=== PATIENT | female | born 1945 | race Caucasian/White ===

== ENCOUNTER → 2016-12-22 | Outpatient (CLI) | payer MEDICARE ==
[~2016-12-22] MED LIST: CHOL200024 PO; CYCL-375 PO; DOCU100T10 PO; FAMO20TA8 PO; FENT1PAT65 TOP; FERR325C PO; GABA-338 PO; GARL1CAP PO; IOHEXOL 300 MG/ML 100ml INJECTION ONE; METF500T7 PO; NORMAL SALINE 100 ML ONE; OXYC1TAB13 PO; SALINE FLUSH 10ml SYRINGE ONE; VITA400C19 PO; WARF5TAB6 PO
--- NOTE | 2016-12-22 11:03 | DI ---
EXAM: CT CHEST/ABD/PELVIS WC IV contrast COMPARISON: 09/01/2016 CT chest abdomen and pelvis. HISTORY: ITS.REASON: C54.1 Malignant neoplasm of endometrium LOCATION OF DICTATION: [facility] – [place]. TECHNIQUE: With administration of 100 cc Omnipaque 300 helically acquired scans were obtained from the lung apices through the domes of the diaphragms. The study is reviewed in soft tissue, bone and lung windows. The study is reconstructed in thinner axial sections and in coronal reformations. The current CT scan was performed using radiation dose-reduction techniques. FINDINGS: SOFT TISSUES: No axillary or supraclavicular, mediastinal, or hilar lymphadenopathy is identified. The vascular structures appear unremarkable. No significant pericardial effusion is identified. CHEST WALL: Unremarkable. BONES: Endplate sclerosis and spurring is noted of the thoracic spine. No evidence for osseous metastasis. LUNGS: Unremarkable. The lungs are clear. CHEST IMPRESSION: Unremarkable exam. No evidence for pulmonary metastasis is identified. ABDOMEN AND PELVIS FINDINGS: LIVER: Diffusely hypodense which may represent fatty infiltration. Mild central intrahepatic ductal dilatation. GALLBLADDER: Multiple hypodense foci are seen layering at the fundus of the gallbladder consistent with gallstones. No other signs of acute cholecystitis is identified. SPLEEN: Unremarkable. PANCREAS: Diffusely atrophic. ADRENAL GLANDS: Unremarkable. AORTA/IVC/VASCULATURE: Unremarkable. LYMPH NODES: There is an ovoid hypodense rim-enhancing area in the region of the right external iliac chain measuring 2.7 x 3.6 cm. Previously this had measured 2.6 x 3 cm. Although this measures larger than prior exam,. Appears to have more low density centrally and may represent necrotic matted lymphadenopathy. Borderline right inguinal lymph nodes are again noted but are similar to prior exam. Small left inguinal lymph nodes are also noted but are not pathologically enlarged. No lymphadenopathy is seen in the abdomen or pelvis otherwise. GENITOURINARY: Unremarkable. No renal calculi or obstructive uropathy. The bladder and ureters appear unremarkable. There is a rounded hypodense lesion emanating off the inferior pole of the left kidney likely representing a cyst and is similar to the prior exam. This measures 3.6 cm in diameter. A similar adjacent lesion is also seen at the mid to inferior pole measuring 2 cm. This also likely represents a cyst and is similar to the prior exam. BOWEL: Unremarkable. The stomach, duodenum, small bowel, and colon appear unremarkable. There is a small to moderate amount of stool seen throughout the colon. Scattered diverticula are noted without evidence for acute diverticulitis. The appendix is air-filled and is unremarkable. The terminal ileum is unremarkable. ABDOMINAL/PELVIC WALL: Small umbilical defect without herniated loops of bowel. BONES: There is disc space narrowing and vacuum phenomenon and endplate sclerosis at L2-3. There is superior migration of the hips. Previous sacral plasty is noted of the sacral ala. No evidence for osseous metastasis. Facet hypertrophic changes are seen of the lower lumbar spine. ABDOMEN AND PELVIS IMPRESSION: 1. There is again seen a low-density structure at the right external iliac chain which although measures slightly larger than prior exam has a more of a low density center and may represent necrotic matted lymphadenopathy. 2. No lymphadenopathy is otherwise identified. 3. Cholelithiasis without other signs of acute cholecystitis. 4. Fatty infiltration of the liver with mild central intrahepatic ductal dilatation. NOTE: The study was reviewed with the ordering clinician, LASHAY GRIMM on 12/22/2016 10:38 AM. .
== END ==
LOC: IMA 07:26
PROVIDERS: ATTEND Internal Medicine Hematology & Oncology
DX: C54.1 Malignant neoplasm of endometrium (principal); K76.0 Fatty (change of) liver, not elsewhere classified; K80.20 Calculus of gallbladder without cholecystitis without obstruction; R93.8 Abnormal findings on diagnostic imaging of other specified body structures
CPT/HCPCS: 71260; 74177; J7050; Q9967

== ENCOUNTER 2017-01-09 16:19 | Emergency (ER) | payer MEDICARE ==
[~2017-01-09] VITALS: Ht 157.5 cm; Wt 80.1 kg
[~2017-01-09 16:19] MED LIST changes: -IOHEXOL 300 MG/ML 100ml INJECTION ONE; -NORMAL SALINE 100 ML ONE; -SALINE FLUSH 10ml SYRINGE ONE
[2017-01-09 16:21] VITALS: Ht 157.5 cm; Wt 80.1 kg
--- OUTSIDE RECORDS SUMMARY | 2017-01-09 16:24 | XMS REPORT ---
Author Author GENERATED, SYSTEM Organization Unknown Address Unknown Phone Unavailable Care Team Providers Care Travel Sales Consultant Name Role Phone MD JOSELUIS, SHAANMULU PP [phone] Reason For Visit Reason for Visit from 09/15/2016 3:21 PM:* Pt Stated Reason for Adm : labs Chief Complaint C54.8, C77.5, D64.81 Social History Functional Status Functional Status from 09/15/2016 3:21 PM:* LOC : Alert * Oriented To : Person,Place,Time,Event Vital Signs Hospital Vital Signs from 09/15/2016 3:21 PM:* Weight : 195/ lbs,oz * Height : 5/2 ft,in Hospital Vital Signs from 09/15/2016 2:18 PM:* Height : 5/2 ft,in * Temperature : 97.1 F * Pulse : 78 * Respirations : 18 * BP : 117/56 Results Hematology from 09/15/2016 2:29 PMWBC 4.6 X10e3/UL (3.6-11.2 X10e3/UL) RBC 3.09 X10e6/UL L (3.63-4.92 X10e6/UL) HEMOGLOBIN 9.6 G/DL L (11.0-14.3 G/DL) HEMATOCRIT 29.4 % L (31.2-41.9 %) *MCV 95.3 FL (79.0-98.0 FL) *MCH 31.2 PG (27.0-33.0 PG) *MCHC 32.8 G/DL (32.0-36.0 G/DL) *RDW 16.7 % (12.3-17.0 %) *RDWSD 56.0 H (37.1-47.8 ) PLATELET 189 X10e3/UL (159-386 X10e3/UL) *MPV 7.7 FL (7.4-10.4 FL) Problems Encounter Diagnosis No relevant problems exist. Encounters Encounter Diagnosis No relevant problems exist. Plan of Care Procedures * Completed Procedure Code: [id number] Procedure Name: not valued, on 06/24/2016 12:00 AM * Completed Procedure Code: 00. Procedure Name: not valued, on 11/26/2014 12: 00 AM * Completed Procedure Code: 00. Procedure Name: not valued, on 11/19/2014 12: 00 AM Immunizations No immunizations administered or ordered. Hospital Course Hospital Discharge Instructions Allergies, Adverse Reactions, Alerts * Penicillins causes unspecified. * Latex Allergy has not been assessed. * IV Contrast Allergy has not been assessed. Medication Medication reconciliation has not been performed.
--- OUTSIDE RECORDS SUMMARY | 2017-01-09 16:24 | XMS REPORT ---
Author Author GENERATED, SYSTEM Organization Unknown Address Unknown Phone Unavailable Care Team Providers Care Enamel Dipper Name Role Phone MD JOSELUIS, THELMA [phone] Reason For Visit Reason for Visit from 06/24/2016 2:30 PM:* Pt Stated Reason for Adm : planned bilateral sacroplasty Chief Complaint C54.1 M85.80 G89.3,SACROPLASTY IN CT WITH DR DELA CRUZ Social History Social History from 06/24/2016 4:15 PM:* Tobacco Use? : Never Smoker Functional Status Functional Status from 06/24/2016 2:30 PM:* LOC : Alert * Oriented To : Person,Place,Time,Event Vital Signs Hospital Vital Signs from 06/24/2016 4:05 PM:* Weight : 90.718/ kg * Height : 5/2 ft,in * Pulse : 80 * Respirations : 18 * BP : 117/70 Hospital Vital Signs from 06/24/2016 3:55 PM:* Weight : 90.718/ kg * Height : 5/2 ft,in * Pulse : 82 * Respirations : 16 * BP : 118/67 Hospital Vital Signs from 06/24/2016 3:45 PM:* Weight : 90.718/ kg * Height : 5/2 ft,in * Pulse : 81 * Respirations : 18 * BP : 123/63 Hospital Vital Signs from 06/24/2016 3:35 PM:* Weight : 90.718/ kg * Height : 5/2 ft,in * Pulse : 85 * Respirations : 16 * BP : 141/59 Hospital Vital Signs from 06/24/2016 2:30 PM:* Weight : 200/ lbs,oz * Height : 5/2 ft,in * Height : 5/2 ft,in * Temperature : 98.2 F * Pulse : 91 * Respirations : 18 * BP : 124/68 Results Problems Encounter Diagnosis No relevant problems exist. Encounters Encounter Diagnosis No relevant problems exist. Plan of Care Procedures * Completed Procedure Code: 00.00 Procedure Name: not valued, on 11/26/2014 12: 00 AM * Completed Procedure Code: 00.00 Procedure Name: not valued, on 11/19/2014 12: 00 AM Immunizations No immunizations administered or ordered. Hospital Course Hospital Discharge Instructions How to care for yourself at home from 06/24/2016 4:15 PM:* Discharge Activity : Activity as tolerated,Do not engage in sports, heavy work or heavy lifting until your physician gives permission * Discharge Diet : As before hospitalization * Remove dressing in: : Bandaid later today * Call your doctor if: : Fever over 101 F or severe chills,Chest pain or other unexplained symptoms,Tingling or numbness develops,A sudden increase or decrease in weight,You have persistent or worsening symptoms,If you have Heart Failure and you gain 3 pounds within 1 week or your symptoms worsen. (Weigh at home tomorrow morning) * Specific Discharge Teaching Instructions provided: : No * Discharge on Warfarin : Yes * Appointment for INR : scheduled with Dr. Odonnell Allergies, Adverse Reactions, Alerts * Penicillins causes unspecified. * No Latex Allergy. * No IV Contrast Allergy. Medication Medication reconciliation has not been performed.
--- OUTSIDE RECORDS SUMMARY | 2017-01-09 16:24 | XMS REPORT ---
Author Author GENERATED, SYSTEM Organization Unknown Address Unknown Phone Unavailable Care Team Providers Care Electronic Security Specialist Name Role Phone MD JOSELUIS, THELMA PP [phone] Reason For Visit Reason for Visit from 08/16/2016 2:11 PM:* Pt Stated Reason for Adm : Lab Chief Complaint C54.8, C77.5, D64.81 Social History Functional Status Functional Status from 08/16/2016 2:11 PM:* LOC : Alert * Oriented To : Person,Place,Time Vital Signs Hospital Vital Signs from 08/16/2016 2:11 PM:* Weight : 200/ lbs,oz * Weight : 90.718/ kg * Height : 5/2 ft,in * Height : 5/2 ft,in * Temperature : 96.6 F * Pulse : 77 * Respirations : 18 * BP : 146/61 Results Hematology from 08/16/2016 2:25 PMWBC 6.6 X10e3/UL (3.6-11.2 X10e3/UL) RBC 3.10 X10e6/UL L (3.63-4.92 X10e6/UL) HEMOGLOBIN 10.1 G/DL L (11.0-14.3 G/DL) HEMATOCRIT 30.2 % L (31.2-41.9 %) *MCV 97.3 FL (79.0-98.0 FL) *MCH 32.7 PG (27.0-33.0 PG) *MCHC 33.6 G/DL (32.0-36.0 G/DL) *RDW 18.1 % H (12.3-17.0 %) *RDWSD 61.7 H (37.1-47.8 ) PLATELET 204 X10e3/UL (159-386 X10e3/UL) *MPV 7.6 FL (7.4-10.4 FL) AUTOMATED DIFF PERFORMED SEGS 76.7 % *LYMPHOCYTES 11.3 % *MONOCYTES 10.9 % *EOSINOPHILS 0.8 % *BASOPHILS 0.3 % *ABSOLUTE NEUTROPHILS 5.10 X10e3/UL (1.80-7.80 X10e3/UL) *ABSOLUTE LYMPHOCYTES 0.70 X10e3/UL L (1.00-3.00 X10e3/UL) *ABSOLUTE MONOCYTES 0.70 X10e3/UL (0.30-1.00 X10e3/UL) *ABSOLUTE EOSINOPHILS 0.10 X10e3/UL (0.00-0.50 X10e3/UL) *ABSOLUTE BASOPHILS 0.00 X10e3/UL (0.00-0.20 X10e3/UL) Problems Encounter Diagnosis No relevant problems exist. Encounters Encounter Diagnosis No relevant problems exist. Plan of Care Procedures * Completed Procedure Code: [id number] Procedure Name: not valued, on 06/24/2016 12:00 AM * Completed Procedure Code: 00.00 Procedure [...]
--- OUTSIDE RECORDS SUMMARY | 2017-01-09 16:24 | XMS REPORT ---
Author Author GENERATED, SYSTEM Organization Unknown Address Unknown Phone Unavailable Care Team Providers Care Advertising Space Clerk Name Role Phone MD JOSELUIS, THELMA PP [phone] Reason For Visit Reason for Visit from 05/30/2016 12:30 PM:* Pt Stated Reason for Adm : Lab from [facility] Chief Complaint C54.8, C77.5, D64.81 Social History Functional Status Functional Status from 06/02/2016 12:25 PM:* LOC : Alert * Oriented To : Person,Place,Time,Event Functional Status from 05/30/2016 12:30 PM:* LOC : Alert * Oriented To : Person,Place,Time,Event Vital Signs Hospital Vital Signs from 06/02/2016 12:27 PM:* Height : 5/2 ft,in * Temperature : 96.7 F * Pulse : 81 * Respirations : 18 * BP : 134/67 Hospital Vital Signs from 05/30/2016 12:30 PM:* Weight : 195/ lbs,oz * Height : 5/2 ft,in * Height : 5/2 ft,in * Temperature : 96.7 F * Pulse : 80 * Respirations : 18 * BP : 115/48 Results Chemistry from 06/02/2016 12:33 PMSODIUM 137 MMOL/L (136-145 MMOL/L) POTASSIUM 4.1 MMOL/L (3.5-5.1 MMOL/L) CHLORIDE 103 MMOL/L (98-107 MMOL/L) TCO2 27.9 MMOL/L (21.0-32.0 MMOL/L) *ANION GAP 6.1 MMOL/L L (8.0-16.0 MMOL/L) BUN 24 MG/DL H (7-18 MG/DL) CREATININE 0.71 MG/DL (0.55-1.02 MG/DL) *BUN/CREATININE RATIO 33.8 H (9.1-17.0 ) GLUCOSE 142 MG/DL H (65-99 MG/DL) *GFR EST NON AFR AFGHAN 86 ML/MIN *GFR EST AFR AMER >90 ML/MIN CALCIUM 8.7 MG/DL (8.5-10.1 MG/DL) BILIRUBIN TOTAL 0.30 MG/DL (0.20-1.00 MG/DL) TOTAL PROTEIN 6.8 GM/DL (6.4-8.2 GM/DL) ALBUMIN 3.4 GM/DL (3.4-5.0 GM/DL) *GLOBULIN 3.4 GM/DL (2.3-3.5 GM/DL) *A/G RATIO 1.0 MG/DL L (1.5-2.2 MG/DL) ALK PHOS 103 U/L (46-116 U/L) ALT (SGPT) 26 U/L (16-63 U/L) AST (SGOT) 17 U/L (15-37 U/L) MAGNESIUM 1.6 MG/DL L (1.8-2.4 MG/DL) LDH 217 U/L (81-234 U/L) Chemistry from 05/30/2016 12:50 PMSODIUM 138 MMOL/L (136-145 MMOL/L) POTASSIUM 4.0 MMOL/L (3.5-5.1 MMOL/L) CHLORIDE 103 MMOL/L (98-107 MMOL/L) TCO2 28.7 MMOL/L (21.0-32.0 MMOL/L) *ANION GAP 6.3 MMOL/L L (8.0-16.0 MMOL/L) BUN 33 MG/DL H (7-18 MG/DL) CREATININE 0.91 MG/DL (0.55-1.02 MG/DL) *BUN/CREATININE RATIO 36.3 H (9.1-17.0 ) GLUCOSE 169 MG/DL H (65-99 MG/DL) *GFR EST NON AFR AFGHAN 64 ML/MIN *GFR EST AFR AMER 74 ML/MIN CALCIUM 8.7 MG/DL (8.5-10.1 MG/DL) BILIRUBIN TOTAL 0.40 MG/DL (0.20-1.00 MG/DL) TOTAL PROTEIN 7.0 GM/DL (6.4-8.2 GM/DL) ALBUMIN 3.4 GM/DL (3.4-5.0 GM/DL) *GLOBULIN 3.6 GM/DL H (2.3-3.5 GM/DL) *A/G RATIO 0.9 MG/DL L (1.5-2.2 MG/DL) ALK PHOS 93 U/L (46-116 U/L) ALT (SGPT) 24 U/L (16-63 U/L) AST (SGOT) 15 U/L (15-37 U/L) MAGNESIUM 1.5 MG/DL L (1.8-2.4 MG/DL) LDH 184 U/L (81-234 U/L) Hematology from 06/02/2016 12:33 PMWBC 10.4 X10e3/UL (3.6-11.2 X10e3/UL) RBC 2.87 X10e6/UL L (3.63-4.92 X10e6/UL) HEMOGLOBIN 9.2 G/DL L (11.0-14.3 G/DL) HEMATOCRIT 27.1 % L (31.2-41.9 %) *MCV 94.2 FL (79.0-98.0 FL) *MCH 32.0 PG (27.0-33.0 PG) *MCHC 34.0 G/DL (32.0-36.0 G/DL) *RDW 18.9 % H (12.3-17.0 %) *RDWSD 62.1 H (37.1-47.8 ) PLATELET 87 X10e3/UL L (159-386 X10e3/UL) *MPV 8.9 FL (7.4-10.4 FL) *MANUAL DIFF PERFORMED SEGS 63.0 % *BANDS 14.0 % *LYMPHOCYTES 11.0 % *MONOCYTES 9.0 % *EOSINOPHILS 0.0 % *BASOPHILS 0.0 % *REACTIVE LYMPHOCYTES 3.0 % *ABSOLUTE NEUTROPHILS 8.01 X10e3/UL H (1.80-7.80 X10e3/UL) *ABSOLUTE LYMPHOCYTES 1.46 X10e3/UL (1.00-3.00 X10e3/UL) *ABSOLUTE MONOCYTES 0.94 X10e3/UL (0.30-1.00 X10e3/UL) *ABSOLUTE EOSINOPHILS 0.00 X10e3/UL (0.00-0.50 X10e3/UL) *ABSOLUTE BASOPHILS 0.00 X10e3/UL (0.00-0.20 X10e3/UL) *POLYCHROMASIA 1+ *HYPOCHROMASIA 1+ ANISOCYTOSIS 3+ *TOXIC GRANULATION 2+ WBC VACUOLES 1+ Hematology from 05/30/2016 12:50 PMWBC 4.4 X10e3/UL (3.6-11.2 X10e3/UL) RBC 3.09 X10e6/UL L (3.63-4.92 X10e6/UL) HEMOGLOBIN 9.6 G/DL L (11.0-14.3 G/DL) HEMATOCRIT 29.4 % L (31.2-41.9 %) *MCV 95.0 FL (79.0-98.0 FL) *MCH 31.2 PG (27.0-33.0 PG) *MCHC 32.8 G/DL (32.0-36.0 G/DL) *RDW 18.8 % H (12.3-17.0 %) *RDWSD 61.7 H (37.1-47.8 ) PLATELET 111 X10e3/UL L (159-386 X10e3/UL) *MPV 8.9 FL (7.4-10.4 FL) *MANUAL DIFF PERFORMED SEGS 44.0 % *BANDS 15.0 % *LYMPHOCYTES 25.0 % *MONOCYTES 14.0 % *EOSINOPHILS 2.0 % *BASOPHILS 0.0 % *ABSOLUTE NEUTROPHILS 2.60 X10e3/UL (1.80-7.80 X10e3/UL) *ABSOLUTE LYMPHOCYTES 1.10 X10e3/UL (1.00-3.00 X10e3/UL) *ABSOLUTE MONOCYTES 0.62 X10e3/UL (0.30-1.00 X10e3/UL) *ABSOLUTE EOSINOPHILS 0.09 X10e3/UL (0.00-0.50 X10e3/UL) *ABSOLUTE BASOPHILS 0.00 X10e3/UL (0.00-0.20 X10e3/UL) *POLYCHROMASIA 1+ *HYPOCHROMASIA 1+ ANISOCYTOSIS 3+ Problems Encounter Diagnosis No relevant problems exist. [...]
--- OUTSIDE RECORDS SUMMARY | 2017-01-09 16:24 | XMS REPORT ---
Author Author GENERATED, SYSTEM Organization Unknown Address Unknown Phone Unavailable Care Team Providers Care Retort Kiln Burner Name Role Phone MD JOSELUIS, THELMA PP [phone] Reason For Visit Chief Complaint 782.0 V58.61 Social History Functional Status Vital Signs Results Chemistry from 07/16/2015 12:29 PMSODIUM 141 MMOL/L (136-145 MMOL/L) POTASSIUM 4.4 MMOL/L (3.5-5.1 MMOL/L) CHLORIDE 104 MMOL/L (98-107 MMOL/L) TCO2 26.9 MMOL/L (21.0-32.0 MMOL/L) *ANION GAP 10.1 MMOL/L (8.0-16.0 MMOL/L) BUN 32 MG/DL H (7-18 MG/DL) CREATININE 1.12 MG/DL H (0.55-1.02 MG/DL) *BUN/CREATININE RATIO 28.6 H (9.1-17.0 ) GLUCOSE 143 MG/DL H (65-99 MG/DL) *GFR EST NON AFR CZECH 50 ML/MIN *GFRA EST AFR AMER 58 ML/MIN CALCIUM 8.7 MG/DL (8.5-10.1 MG/DL) BILIRUBIN TOTAL 0.26 MG/DL (0.20-1.00 MG/DL) TOTAL PROTEIN 7.6 GM/DL (6.4-8.2 GM/DL) ALBUMIN 3.5 GM/DL (3.4-5.0 GM/DL) *GLOBULIN 4.1 GM/DL H (2.3-3.5 GM/DL) *A/G RATIO 0.9 MG/DL L (1.5-2.2 MG/DL) ALK PHOS 76 U/L (46-116 U/L) ALT (SGPT) 25 U/L (16-63 U/L) AST (SGOT) 20 U/L (15-37 U/L) LDH 189 U/L (81-234 U/L) Hematology from 08/05/2015 3:06 PMWBC 2.6 X10e3/UL L (3.6-11.2 X10e3/UL) RBC 3.79 X10e6/UL (3.63-4.92 X10e6/UL) HEMOGLOBIN 11.2 G/DL (11.0-14.3 G/DL) HEMATOCRIT 34.6 % (31.2-41.9 %) *MCV 91.2 FL (79.0-98.0 FL) *MCH 29.6 PG (27.0-33.0 PG) *MCHC 32.5 G/DL (32.0-36.0 G/DL) *RDW 16.1 % (12.3-17.0 %) *RDWSD 52.1 H (37.1-47.8 ) PLATELET 177 X10e3/UL (159-386 X10e3/UL) *MPV 7.7 FL (7.4-10.4 FL) *MANUAL DIFF PERFORMED SEGS 69.0 % *BANDS 2.0 % *LYMPHOCYTES 19.0 % *MONOCYTES 4.0 % *EOSINOPHILS 6.0 % *BASOPHILS 0.0 % *ABSOLUTE NEUTROPHILS 1.85 X10e3/UL (1.80-7.80 X10e3/UL) *ABSOLUTE LYMPHOCYTES 0.49 X10e3/UL L (1.00-3.00 X10e3/UL) *ABSOLUTE MONOCYTES 0.10 X10e3/UL L (0.30-1.00 X10e3/UL) *ABSOLUTE EOSINOPHILS 0.16 X10e3/UL (0.00-0.50 X10e3/UL) *ABSOLUTE BASOPHILS 0.00 X10e3/UL (0.00-0.20 X10e3/UL) Hematology from 07/16/2015 12:29 PMWBC 3.4 X10e3/UL L (3.6-11.2 X10e3/UL) RBC 3.75 X10e6/UL (3.63-4.92 X10e6/UL) HEMOGLOBIN 10.7 G/DL L (11.0-14.3 G/DL) HEMATOCRIT 33.1 % (31.2-41.9 %) *MCV 88.3 FL (79.0-98.0 FL) *MCH 28.6 PG (27.0-33.0 PG) *MCHC 32.4 G/DL (32.0-36.0 G/DL) *RDW 16.1 % (12.3-17.0 %) PLATELET 190 X10e3/UL (159-386 X10e3/UL) *MPV 7.7 FL (7.4-10.4 FL) AUTOMATED DIFF PERFORMED SEGS 75.4 % *LYMPHOCYTES 12.2 % *MONOCYTES 7.0 % *EOSINOPHILS 5.2 % *BASOPHILS 0.2 % *ABSOLUTE NEUTROPHILS 2.60 X10e3/UL (1.80-7.80 X10e3/UL) *ABSOLUTE LYMPHOCYTES 0.40 X10e3/UL L (1.00-3.00 X10e3/UL) *ABSOLUTE MONOCYTES 0.20 X10e3/UL L (0.30-1.00 X10e3/UL) *ABSOLUTE EOSINOPHILS 0.20 X10e3/UL (0.00-0.50 X10e3/UL) *ABSOLUTE BASOPHILS 0.00 X10e3/UL [...]
--- OUTSIDE RECORDS SUMMARY | 2017-01-09 16:25 | XMS REPORT ---
Author Author GENERATED, SYSTEM Organization Unknown Address Unknown Phone Unavailable Care Team Providers Care Sqe Name Role Phone MD JOSELUIS, THELMA PP [phone] Reason For Visit Chief Complaint 782.0 V58.61 Social History Functional Status Vital Signs Results Hematology from 05/07/2015 11:45 AMWBC 1.9 X10e3/UL LL (3.6-11.2 X10e3/UL) RBC 3.48 X10e6/UL L (3.63-4.92 X10e6/UL) HEMOGLOBIN 10.5 G/DL L (11.0-14.3 G/DL) HEMATOCRIT 32.1 % (31.2-41.9 %) MCV 92.2 FL (79.0-98.0 FL) MCH 30.0 PG (27.0-33.0 PG) MCHC 32.6 G/DL (32.0-36.0 G/DL) RDW 17.5 % H (12.3-17.0 %) RDWSD 56.4 H (37.1-47.8 ) PLATELET 193 X10e3/UL (159-386 X10e3/UL) MPV 8.0 FL (7.4-10.4 FL) MANUAL DIFF PERFORMED SEGS 59.0 % BANDS 3.0 % LYMPHOCYTES 26.0 % MONOCYTES 9.0 % EOSINOPHILS 2.0 % BASOPHILS 0.0 % REACTIVE LYMPHOCYTES 1.0 % ABSOLUTE NEUTROPHILS 1.18 X10e3/UL L (1.80-7.80 X10e3/UL) ABSOLUTE LYMPHOCYTES 0.51 X10e3/UL L (1.00-3.00 X10e3/UL) ABSOLUTE MONOCYTES 0.17 X10e3/UL L (0.30-1.00 X10e3/UL) ABSOLUTE EOSINOPHILS 0.04 X10e3/UL (0.00-0.50 X10e3/UL) ABSOLUTE BASOPHILS 0.00 X10e3/UL (0.00-0.20 X10e3/UL) POLYCHROMASIA 1+ ANISOCYTOSIS 3+ Coagulation from 05/07/2015 11:45 AMPROTHROMBIN TIME 32.3 SECONDS H (9.4-11.5 SECONDS) INR 2.9 H (0.9-1.1 ) Reference Lab from 05/07/2015 11:45 AMVITAMIN D, 25-HYDROXY 40.2 ng/mL (30.0- 100.0 ng/mL) Problems Encounter Diagnosis No relevant problems exist. [...]
--- OUTSIDE RECORDS SUMMARY | 2017-01-09 16:25 | XMS REPORT | Continuity of Care Document ---
Author Author [facility] Organization [facility] Address Unknown Phone Unavailable Care Team Providers Care Supervisor Wrapping Room Name Role Phone THELMA HUGGINS MD Primary Care Physician [phone] Insurance Providers Guarantor Tessa Lion Address [address] [place] [id number] Email [email or web address] Payer [employer] Policy Number [id number] Subscriber's Name Tessa Lion Brianne Relationship 19 Self Chief Complaint and Reason for Visit Chief Complaint Headache Reason for Visit Closed head injury Fall Problems Active Problems Medical Problem Onset Date Status Closed head injury Unknown Acute Fall Unknown Acute Past Problems Medical Problem Onset Date Radicular pain of right lower back Unknown Medications Current Home Medications Medication Dose Units Route Directions Days Qty Instructions Start Date Cholecalciferol (Vitamin D3) (Vitamin D-3) 2,000 Unit Tablet 2,000 Unit Oral Bedtime 08/16/16 Cholecalciferol (Vitamin D3) (Vitamin D-3) 2,000 Unit Tablet 4,000 Unit Oral Every Morning 08/16/16 Cyclobenzaprine Hcl 10 Mg Tablet 1 Tab Oral Three Times A Day 15 Tablet 08/16/16 Docusate Sodium (Stool Softener) 100 Mg Tablet 1 Tab Oral Four Times Daily 10/26/16 Famotidine 20 Mg Tablet 20 Mg Oral Daily 10/26/16 Fentanyl (Fentanyl 25 Mcg/Hr) 1 Each Patch.td72 1 Patch Topically Every 72 Hours 10/26/16 Ferrous Sulfate (Iron) Unknown Strength Capsule.er Unknown Dose Oral Give With Breakfast 08/16/16 Gabapentin 300 Mg Capsule 300 Mg Oral Twice A Day 08/16/16 Garlic 1 Mg Capsule 1 Mg Oral Twice A Day 09/01/14 Metformin Hcl (Metformin Hcl Er) 500 Mg Tab.er.24h 500 Mg Oral Twice A Day 08/16/16 Oxycodone Hcl/Acetaminophen (Percocet 10-325 Mg Tablet) 10-325 Tablet 1 Tab Oral Four Times Daily as needed for Pain 08/16/16 Vitamin E (Dl,Tocopheryl Acet) (Vitamin E) 400 Unit Capsule 800 Unit Oral Daily 09/01/14 Warfarin Sodium 5 Mg Tablet 5 Mg Oral Bedtime 09/01/14 Social History Social History Problem Response Recorded Date/Time Onset Date Status Hx Substance Use No 10/26/2016 11:10am Not Applicable Not Applicable Hx Alcohol Use No 10/26/2016 11:10am Not Applicable Not Applicable Has the pt used tobacco in the last 12 months No 08/05/2016 10:31am Not Applicable Not Applicable Query Response Start Date Stop Date Smoking Status Never smoker Hospital Discharge Instructions No hospital discharge instructions. Plan of Care Discharge Date 10/26/16 12:23pm Disposition 01 DISCHARGED HOME, SELF-CARE Condition at Discharge Improved Instructions/Education Provided General Headache (ED) Prescriptions See Medication Section Referrals THELMA HUGGINS MD Order Date: 1 Day Address: [address] [address] Note: Care Plan and Goals Physician Care Plan Problem: CHI, Fall Goal: Follow up with primary care provider Instructions: Take medications and follow care plan as discussed/written Functional Status No functional status results. Allergies, Adverse Reactions, Alerts Allergen Type Severity Reaction Status Last Updated Penicillin Allergy Unknown RASH Active 08/16/16 Immunizations Query Response on File Recorded Date/Time Hx Influenza Vaccination No 08/05/16 10:31am Hx Pneumococcal Vaccination No 08/05/16 10:31am Hx Influenza Vaccination No 08/05/16 10:31am Influenza Vaccine Hx NO 10/26/16 11:10am Vital Signs Acute Vital Signs Vital Response Date/Time Temperature (Fahrenheit) 98.4 deg F (96.8 - 99.1) 10/26/2016 10:25am Temperature (Calculated Celsius) 36.10561 degrees C (36.0 - 37.3) 10/26/2016 10:25am Pulse Rate (adult) 99 bpm (60 - 100) 10/26/2016 12:23pm Respiratory Rate 18 breaths/min (10 - 20) 10/26/2016 12:23pm O2 Sat by Pulse Oximetry 95 % (90 - 100) 10/26/2016 12:23pm Oxygen Delivery Method Room Air 08/05/2016 10:32am Blood Pressure 123/57 mm Hg 10/26/2016 12:23pm Blood Pressure Source Automatic Cuff 08/05/2016 10:32am Height (Feet) 5 feet 10/26/2016 10:25am Height (Inches) 2.00 inches 10/26/2016 10:25am Weight (Kilograms) 84.400 kg 10/26/2016 10:25am Body Mass Index (BMI) 34.0 10/26/2016 10:25am Results Laboratory Results Test Name Result Units Flags Reference Collection Date/Time Result Date/ Time Comments Metamyelocytes % 2.0 % H 0-0 06/09/2016 9:40am 06/09/2016 10:46am Metamyelocytes # 0.1 T/MM3 06/09/2016 9:40am 06/09/2016 10:46am Absolute Reticulocyte Count 0.0844 T/MM3 0.0300-0.0900 05/16/2016 9: 44am 05/16/2016 10:03am Percent Reticulocyte Count 3.5 % H 0.6-1.7 05/16/2016 9:44am 05/16/2016 10:03am Immature Reticulocyte Fraction 16.7 % H 3.3-14.5 05/16/2016 9:44am 05/16 10:03am Reticulocyte Hgb Content (CHr) 36.7 PG H 30.8-36.6 05/16/2016 9:44am 10/2015 10:03am Iron Level 61 UG/DL 37-170 05/16/2016 9:44am 05/18/2016 2:52am Total Iron Binding Capacity 321 UG/DL 261-497 05/16/2016 9:44am 2015 2:52am Percent Iron Saturation 19 % 9-55 05/16/2016 9:44am 05/18/2016 2:52am Ferritin 209 NG/ML 11-264 05/16/2016 9:44am 05/18/2016 2:58am Vitamin B12 Level > 1000 PG/ML H 239-931 05/16/2016 9:44am 05/18/2016 3: 12am Folate > 20.0 NG/ML H 2.76-20 05/16/2016 9:44am 05/18/2016 4:48am NORMAL ADULT RANGE: 2.76->20 ng/mL Immunoglobulin G 1009.85 MG/DL 700-1600 05/16/2016 9:44am 05/16/2016 10 :26am Immunoglobulin A 404.05 MG/DL H 70-400 05/16/2016 9:44am 05/16/2016 10: 26am Immunoglobulin M 36.57 MG/DL L 40-230 05/16/2016 9:44am 05/16/2016 10: 26am Erythropoietin 96.3 mIU/mL H 05/16/2016 9:44am 05/18/2016 4:34pm Reference Range: 2.6 - 18.5 Test Performed by: [place] [address] Hatchery Helper: Anthony Floyd II, M.D., Ph.D. Erythropoietin performed at [facility], [address] [place] [address] Order Entry Mariel Castillo MD Haptoglobin 97 mg/dL 36-195 05/16/2016 9:44am 05/16/2016 5:16pm Haptoglobin performed at [facility], [address] [place] [address] Order Entry Juice Rashid DO Homocysteine 14.5 umol/L H 4.0-14.0 05/16/2016 9:44am 05/16/2016 4:05pm Homocysteine performed at [facility], [address] [place] [address] Order Entry Juice Rashid DO Serum Total Protein 6.1 g/dL 6.0-7.6 05/16/2016 9:44am 05/16/2016 3: 39pm Immunoelectrophoresis, no IMQ performed at [facility], [address] [place] [address] Order Entry Juice Rashid DO Albumin (PEP) 3.4 g/dL 2.6-4.5 05/16/2016 9:44am 05/18/2016 2:52pm Ibfzi-8-Ldngosbtt 0.3 g/dL 0.3-0.5 05/16/2016 9:44am 05/18/2016 2:52pm Uebcz-7-Uztzsctgh 0.7 g/dL 0.6-1.2 05/16/2016 9:44am 05/18/2016 2:52pm Qcfq-1-Sylybppj 0.4 g/dL 0.4-0.6 05/16/2016 9:44am 05/18/2016 2:52pm Ektb-8-Vksnuqpt 0.4 g/dL 0.2-0.5 05/16/2016 9:44am 05/18/2016 2:52pm Gamma Globulins 0.9 g/dL 0.4-1.7 05/16/2016 9:44am 05/18/2016 2:52pm Albumin % (PEP) 55.1 % 48.7-61.8 05/16/2016 9:44am 05/18/2016 2:52pm Ocqad-5-Xwndmwdgj (%) 4.7 % 3.4-8.3 05/16/2016 9:44am 05/18/2016 2: 52pm Rbkno-1-Nxksftmma (%) 11.4 % 8.4-17.5 05/16/2016 9:44am 05/18/2016 2: 52pm Mufg-1-Xuyyhcch (%) 6.9 % 5.4-8.9 05/16/2016 9:44am 05/18/2016 2:52pm Hqoh-7-Zxeggisq (%) 7.2 % 3.8-7.7 05/16/2016 9:44am 05/18/2016 2:52pm Gamma Globulins (%) 14.7 % 8.1-23.0 05/16/2016 9:44am 05/18/2016 2: 52pm Immunoelectrophoresis, no IMQ performed at [facility], [facility] [address] [place], [place] [address] Order Entry Juice Rashid DO Protein Electrophoresis Comment see below 05/16/2016 9:44am 2015 2:52pm Normal electrophoretic pattern. No monoclonal peaks or restricted areas observed by immunofixation. Free [place]/Lambda Light Chain Ratio 1.51 05/16/2016 9:44am 2015 7:07pm Reference Range: 0.2600-1.65 Test Performed by: [place] [address] Hatchery Helper: Anthony Floyd II, M.D., Ph.D. Immunoglobulin Free Light Chains, Serum performed at [facility], [address] [place] [address] Order Entry Mariel Castillo MD Free [place] Light Chains 3.40 mg/dL H 05/16/2016 9:44am 05/18/2016 7: 07pm Reference Range: 0.3300-1.94 Free Lambda Light Chains 2.25 mg/dL () 05/16/2016 9:44am 05/18/2016 7: 07pm Reference Range: 0.5700-2.63 Test Performed by: [place] [address] Hatchery Helper: Anthony Floyd II, M.D., Ph.D. Immunoglobulin Free Light Chains, [place] [address] Order Entry Mariel Castillo MD Reference Range: 0.5700-2.63 --- 05/18/16 1907 --- IFLCLA previously reported as: 2.25 mg/dL Reference Range: 0.5700-2.63 Test Performed by: [place] [address] Hatchery Helper: Anthony Floyd II, M.D., Ph.D. Immunoglobulin Free Light Chains, [place] [address] Order Entry Mariel Castillo MD Methylmalonic Acid 0.30 nmol/mL <=0.40 05/16/2016 9:44am 05/24/2016 9: 12am Test Performed by: [place] [address] Hatchery Helper: Anthony Floyd II, M.D., Ph.D. Methylmalonic Acid, [place] [address] Order Entry Mariel Castillo MD Neutrophils % (Manual) 95.0 % H 33-66 09/01/2016 9:38am 09/01/2016 10: 04am Lymphocytes % (Manual) 4.0 % L 23-45 09/01/2016 9:38am 09/01/2016 10: 04am Monocytes % (Manual) 3.0 % 0-9.0 08/25/2016 9:58am 08/25/2016 11:07am Eosinophils % (Manual) 1.0 % 0-4 09/01/2016 9:38am 09/01/2016 10:04am Reactive Lymphocytes % 1.0 % H 0-0 08/25/2016 9:58am 08/25/2016 11:07am Absolute Neutrophils (Manual) 5.8 T/MM3 1.8-7.7 09/01/2016 9:38am 09/01 10:04am Lymphocytes # (Manual) 0.2 T/MM3 L 1-4.8 09/01/2016 9:38am 09/01/2016 10 :04am Monocytes # (Manual) 0.2 T/MM3 0-0.8 08/25/2016 9:58am 08/25/2016 11: 07am Eosinophils # (Manual) 0.1 T/MM3 0-0.5 09/01/2016 9:38am 09/01/2016 10: 04am Reactive Lymphocytes # 0.1 T/MM3 H 0-0 08/25/2016 9:58am 08/25/2016 11: 07am Red Cell Morphology Comment ABNORMAL 09/01/2016 9:38am 09/01/2016 10:04am Anisocytosis 1+ 09/01/2016 9:38am 09/01/2016 10:04am Poikilocytosis 1+ 09/01/2016 9:38am 09/01/2016 10:04am Carcinoembryonic Antigen 5.55 UG/L H 0-3.0 08/25/2016 9:58am 08/25/2016 11:21am Band Neutrophils % 1.0 % 0-6 08/16/2016 7:57pm 08/16/2016 8:14pm Myelocytes % 1.0 % H 0-0 08/16/2016 7:57pm 08/16/2016 8:14pm Band Neutrophils # 0.1 T/MM3 08/16/2016 7:57pm 08/16/2016 8:14pm Myelocytes # 0.1 T/MM3 08/16/2016 7:57pm 08/16/2016 8:14pm Urine Collection Type CLEANCATCH-MIDSTREAM 08/16/2016 8:52pm 2016 8:59pm Urine Color YELLOW YELLOW 08/16/2016 8:52pm 08/16/2016 8:59pm Urine Turbidity CLEAR CLEAR 08/16/2016 8:52pm 08/16/2016 8:59pm Urine Specific [place] <=1.005 L 1.015-1.025 08/16/2016 8:52pm 2016 8:59pm Urine pH 6.0 5.0-8.0 08/16/2016 8:52pm 08/16/2016 8:59pm Urine Leukocyte Esterase NEGATIVE NEGATIVE 08/16/2016 8:52pm 2016 8:59pm Urine Nitrite NEGATIVE NEGATIVE 08/16/2016 8:52pm 08/16/2016 8:59pm Urine Protein NEGATIVE NEGATIVE 08/16/2016 8:52pm 08/16/2016 8:59pm Urine Glucose (UA) 3+ A NEGATIVE 08/16/2016 8:52pm 08/16/2016 8:59pm Urine Ketones NEGATIVE NEGATIVE 08/16/2016 8:52pm 08/16/2016 8:59pm Urine Urobilinogen 0.2 EU/DL NORMAL 08/16/2016 8:52pm 08/16/2016 8: 59pm Urine Bilirubin NEGATIVE NEGATIVE 08/16/2016 8:52pm 08/16/2016 8: 59pm Urine Blood 1+ A NEGATIVE 08/16/2016 8:52pm 08/16/2016 8:59pm Urine WBC 0-1 /HPF 0-5 08/16/2016 8:52pm 08/16/2016 9:12pm Urine RBC 1-3 /HPF 0-3 08/16/2016 8:52pm 08/16/2016 9:12pm Urine Squamous Epithelial Cells 0-5 08/16/2016 8:52pm 08/16/2016 9: 12pm Urine Bacteria NONE SEEN NEGATIVE 08/16/2016 8:52pm 08/16/2016 9: 12pm Urine Culture Indicated CULT NOT INDICATED 08/16/2016 8:52pm 2016 9:12pm White Blood Count 3.1 T/MM3 L 4.5-11.0 10/20/2016 9:57am 10/20/2016 10: 06am Red Blood Count 3.29 M/MM3 L 4.00-5.20 10/20/2016 9:57am 10/20/2016 10: 06am Hemoglobin 9.8 GM/DL L 12-16 10/20/2016 9:57am 10/20/2016 10:06am Hematocrit 30.6 % L 36-46 10/20/2016 9:57am 10/20/2016 10:06am Mean Corpuscular Volume 93.0 UM3 80-100 10/20/2016 9:57am 10/20/2016 10 :06am Mean Corpuscular Hemoglobin 29.8 UUG 26-34 10/20/2016 9:57am 2016 10:06am Mean Corpuscular Hemoglobin Concent 32.0 GM/DL 31-37 10/20/2016 9:57am 10/20/2016 10:06am RDW Standard Deviation 47.2 FL 36.9-50.2 10/20/2016 9:57am 10/20/2016 10:06am Platelet Count 132 T/MM3 130-400 10/20/2016 9:57am 10/20/2016 10:06am Mean Platelet Volume 9.5 UM3 9.4-12.4 10/20/2016 9:57am 10/20/2016 10: 06am Neutrophils (%) (Auto) 67.7 % H 33-66 10/20/2016 9:57am 10/20/2016 10: 06am Lymphocytes (%) (Auto) 16.0 % L 23-45 10/20/2016 9:57am 10/20/2016 10: 06am Monocytes (%) (Auto) 11.8 % H 0-9.0 10/20/2016 9:57am 10/20/2016 10: 06am Eosinophils (%) (Auto) 3.2 % 0-4 10/20/2016 9:57am 10/20/2016 10:06am Basophils (%) (Auto) 0.3 % 0-2 10/20/2016 9:57am 10/20/2016 10:06am Immature Granulocyte % (Auto) 1.0 % H 0.0-0.5 10/20/2016 9:57am 2016 10:06am Absolute Neutrophils (auto) 2.1 T/MM3 1.8-7.7 10/20/2016 9:57am 2016 10:06am Absolute Lymphocytes (auto) 0.5 T/MM3 L 1-4.8 10/20/2016 9:57am 2016 10:06am Absolute Monocytes (auto) 0.4 T/MM3 0-0.8 10/20/2016 9:57am 10/20/2016 10:06am Absolute Eosinophils (auto) 0.1 T/MM3 0-0.5 10/20/2016 9:57am 2016 10:06am Absolute Basophils (auto) 0.0 T/MM3 0-0.2 10/20/2016 9:57am 10/20/2016 10:06am Absolute Immature Granulocyte (auto 0.03 T/MM3 0.00-0.03 10/20/2016 9: 57am 10/20/2016 10:06am Icterus Index < 2 0-7 10/20/2016 9:57am 10/20/2016 10:19am Chemistry Specimen Hemolysis < 15 0-25 10/20/2016 9:57am 10/20/2016 10:19am 0-25: Specimen Exhibited No Hemolysis. Turbidity < 20 0-20 10/20/2016 9:57am 10/20/2016 10:19am Sodium Level 138 MEQ/L 134-144 10/20/2016 9:57am 10/20/2016 10:19am Potassium Level 3.9 MEQ/L 3.6-5 10/20/2016 9:57am 10/20/2016 10:19am Chloride Level 102 MEQ/L 98-107 10/20/2016 9:57am 10/20/2016 10:19am Carbon Dioxide Level 25 MEQ/L 22-30 10/20/2016 9:57am 10/20/2016 10: 19am Anion Gap 11 MEQ/L 5-15 10/20/2016 9:57am 10/20/2016 10:19am Blood Urea Nitrogen 22.0 MG/DL H 7-17 10/20/2016 9:57am 10/20/2016 10: 19am Creatinine 0.8 MG/DL 0.7-1.2 10/20/2016 9:57am 10/20/2016 10:19am BUN/Creatinine Ratio 28 RATIO H 6-26 10/20/2016 9:57am 10/20/2016 10: 19am Glomerular Filtration Rate Calc 71 10/20/2016 9:57am 10/20/2016 10: 19am Glucose Level 276 MG/DL H 65-110 10/20/2016 9:57am 10/20/2016 10:19am Calculated Osmolality 279 MOSM/KG 261-280 10/20/2016 9:57am 10/20/2016 10:19am Calcium Level 8.8 MG/DL 8.4-10.2 10/20/2016 9:57am 10/20/2016 10:19am Total Bilirubin 0.50 MG/DL 0.20-1.30 10/20/2016 9:57am 10/20/2016 10: 19am Alkaline Phosphatase 77 U/L 38-126 10/20/2016 9:57am 10/20/2016 10: 19am Total Protein 7.1 G/DL 6.3-8.2 10/20/2016 9:57am 10/20/2016 10:19am Albumin 3.8 G/DL 3.5-5.0 10/20/2016 9:57am 10/20/2016 10:19am Globulin 3.3 G/DL 2.4-3.6 10/20/2016 9:57am 10/20/2016 10:19am Albumin/Globulin Ratio 1.2 RATIO 1.1-2.2 10/20/2016 9:57am 10/20/2016 10:19am Aspartate Amino Transf (AST/SGOT) 19 U/L 14-36 10/20/2016 9:57am 2016 10:19am Alanine Aminotransferase (ALT/SGPT) 28 U/L 9-52 10/20/2016 9:57am 10/20 10:19am Lactate Dehydrogenase 513 U/L 313-618 10/20/2016 9:57am 10/20/2016 10: 19am Magnesium Level 1.8 MG/DL 1.6-2.3 10/20/2016 9:57am 10/20/2016 10:19am CA 125 Antigen 32.1 U/ML 0-35 09/22/2016 9:37am 09/22/2016 10:35am Prothromb Time International Ratio 2.22 H 0.76-1.04 10/26/2016 11:55am 10/26/2016 12:06pm THERAPUTIC RANGE=2.00-3.00 FOR ANTI-THROMBOSIS THERAPUTIC RANGE=2.50-3.50 FOR IMPLANTED VALVE Microbiology Results Procedure Source Organism/Result Collection Date/Time Result Date/Time Result Status Urine Culture Not Provided NO GROWTH AFTER 48 HOURS 06/20/2016 UNK 2015 9:06am Final Name: TESSA LION Unit #: [id number] : 1945 Sex: F Admit Date: Loc / Svc: ED Discharge Date: DIAGNOSTIC IMAGING REPORT Report #: [id number] [facility] ROMINA Costa Indication: ITS.REASON: HEADACHE Procedure: CT CERVICAL SPINE W/O CONTRAST: Encounter: Initial Automated Exposure Control and Iterative Reconstruction dose reducing techniques were utilized. Comparison: Concurrent head CT Findings: No acute fracture. The normal cervical lordosis is maintained. No significant spondylolisthesis. No suspicious osteolytic or osteoblastic lesions. Mild degenerative spondylosis without significant spinal canal stenosis or neural foraminal narrowing appreciated by CT. No prevertebral soft tissue thickening. No other acute paravertebral soft tissue abnormality. The visualized airway appears widely patent. The visualized lung apices are clear. Redemonstration of mild mucosal thickening within the posterior left sphenoid sinus. The visualized intracranial structures appear otherwise normal. Partially visualized right IJ central venous catheter. Impression: 1. No acute fracture or malalignment of the cervical spine. 2. Mild degenerative spondylosis without significant spinal canal stenosis or neural foraminal narrowing appreciated by CT. . Procedures Procedure Status Date Provider(s) Comprehen metabolic panel Completed 03/10/16 Carcinoembryonic antigen Completed 03/10/16 Lactate (ld) (ldh) enzyme Completed 03/10/16 Assay of magnesium Completed 03/10/16 Complete cbc w/auto diff wbc Completed 03/10/16 Immunoassay tumor ca 125 Completed 03/10/16 Comprehen metabolic panel Completed 03/10/16 Lactate (ld) (ldh) enzyme Completed 03/10/16 Assay of magnesium Completed 03/10/16 Bl smear w/diff wbc count Completed 03/10/16 Complete cbc automated Completed 03/10/16 Comprehen metabolic panel Completed 03/10/16 Carcinoembryonic antigen Completed 03/10/16 Lactate (ld) (ldh) enzyme Completed 03/10/16 Assay of magnesium Completed 03/10/16 Complete cbc w/auto diff wbc Completed 03/10/16 Immunoassay tumor ca 125 Completed 03/10/16 Comprehen metabolic panel Completed 03/10/16 Carcinoembryonic antigen Completed 03/10/16 Lactate (ld) (ldh) enzyme Completed 03/10/16 Assay of magnesium Completed 03/10/16 Complete cbc w/auto diff wbc Completed 03/10/16 Immunoassay tumor ca 125 Completed 03/10/16 Comprehen metabolic panel Completed 03/10/16 Vitamin b-12 Completed 03/10/16 Assay of erythropoietin Completed 03/10/16 Assay of ferritin Completed 03/10/16 Assay of folic acid serum Completed 03/10/16 Assay iga/igd/igg/igm each Completed 03/10/16 Assay iga/igd/igg/igm each Completed 03/10/16 Assay iga/igd/igg/igm each Completed 03/10/16 Assay of haptoglobin quant Completed 03/10/16 Assay of homocystine Completed 03/10/16 Assay of iron Completed 03/10/16 Iron binding test Completed 03/10/16 Lactate (ld) (ldh) enzyme Completed 03/10/16 Assay of magnesium Completed 03/10/16 Assay nephelometry not spec Completed 03/10/16 Assay nephelometry not spec Completed 03/10/16 Organic acid single quant Completed 03/10/16 Assay of protein serum Completed 03/10/16 Protein e-phoresis serum Completed 03/10/16 Complete cbc w/auto diff wbc Completed 03/10/16 Manual reticulocyte count Completed 03/10/16 Immunofix e-phoresis serum Completed 03/10/16 Comprehen metabolic panel Completed 03/10/16 Lactate (ld) (ldh) enzyme Completed 03/10/16 Assay of magnesium Completed 03/10/16 Complete cbc w/auto diff wbc Completed 03/10/16 Immunoassay tumor ca 125 Completed 03/10/16 Comprehen metabolic panel Completed 03/10/16 Lactate (ld) (ldh) enzyme Completed 03/10/16 Assay of magnesium Completed 03/10/16 Complete cbc w/auto diff wbc Completed 03/10/16 Comprehen metabolic panel Completed 03/10/16 Lactate (ld) (ldh) enzyme Completed 03/10/16 Assay of magnesium Completed 03/10/16 Complete cbc w/auto diff wbc Completed 03/10/16 Comprehen metabolic panel Completed 03/10/16 Carcinoembryonic antigen Completed 03/10/16 Lactate (ld) (ldh) enzyme Completed 03/10/16 Assay of magnesium Completed 03/10/16 Complete cbc w/auto diff wbc Completed 03/10/16 Immunoassay tumor ca 125 Completed 03/10/16 Comprehen metabolic panel Completed 03/10/16 Lactate (ld) (ldh) enzyme Completed 03/10/16 Assay of magnesium Completed 03/10/16 Complete cbc w/auto diff wbc Completed 03/10/16 Comprehen metabolic panel Completed 03/10/16 Carcinoembryonic antigen Completed 03/10/16 Lactate (ld) (ldh) enzyme Completed 03/10/16 Assay of magnesium Completed 03/10/16 Complete cbc w/auto diff wbc Completed 03/10/16 Immunoassay tumor ca 125 Completed 03/10/16 Pet image w/ct skull-thigh Completed 08/03/16 [id number]"FLUORODEOXYGLUCOSE F-18 FDG, DIAGNOSTIC, PER STUDY DO Completed Draw blood off venous device Completed 08/04/16 LASHAY GRIMM Rbc antibody screen Completed 08/04/16 Blood typing serologic abo Completed 08/04/16 Blood typing serologic rh(d) Completed 08/04/16 Compatibility test spin Completed 08/04/16 Compatibility test antiglob Completed 08/04/16 [id number]"INJECTION, HEPARIN SODIUM, (HEPARIN LOCK FLUSH), PER Completed Blood transfusion service Completed 08/04/16 LASHAY GRIMM [id number] ITEM OR SERVICE Completed 08/04/16 [id number] ITEM OR SERVICE Completed 08/04/16 023259"INJECTION, HEPARIN SODIUM, (HEPARIN LOCK FLUSH), PER Completed 200525"RED BLOOD CELLS, LEUKOCYTES REDUCED, IRRADIATED, EACH Completed 148381"RED BLOOD CELLS, LEUKOCYTES REDUCED, IRRADIATED, EACH Completed Ct abd & pelv w/contrast Completed 08/16/16 Metabolic panel total ca Completed 08/16/16 Urinalysis auto w/scope Completed 08/16/16 Complete cbc w/auto diff wbc Completed 08/16/16 Ther/proph/diag inj iv push Completed 08/16/16 Tx/pro/dx inj same drug senior chemical process engineer Completed 08/16/16 Emergency dept visit Completed 08/16/16 711652"INJECTION, HYDROMORPHONE, UP TO 4 MG" Completed 08/16/16364372"INJECTION, HYDROMORPHONE, UP TO 4 MG" Completed 08/16/16138762"INJECTION, HEPARIN SODIUM, (HEPARIN LOCK FLUSH), PER Completed 003"INFUSION, NORMAL SALINE SOLUTION , 250 CC" Completed 08/16/16"LOW OSMOLAR CONTRAST MATERIAL, 300-399 MG/ML IODINE C Completed Ct thorax w/o dye Completed 09/01/16 Ct abd & pelvis w/o contrast Completed 09/01/16 Mri lumbar spine w/o & w/dye Completed 09/27/16 Mri pelvis w/o & w/dye Completed 09/27/16 GADAVIST 10ML SDV - Contrast,Gadavist 10ml Completed 09/27/16219209"INJECTION, HEPARIN SODIUM, (HEPARIN LOCK FLUSH), PER Completed Pet image w/ct skull-thigh Completed 09/28/16"FLUORODEOXYGLUCOSE F-18 FDG, DIAGNOSTIC, PER STUDY DO Completed Encounters Encounter Location Arrival/Admit Date Discharge/Depart Date Attending Provider Registered Emergency Room [facility] 10/26/16 10:18am MELODY HODGSON DO Registered [facility] 10/20/16 10:00am LASHAY GRIMM Registered [facility] 09/28/16 9:37am LASHAY GRIMM Registered [facility] 09/28/16 7:24am LASHAY GRIMM Registered [facility] 09/27/16 9:02am LASHAY GRIMM Registered [facility] 09/01/16 7:27am LASHAY GRIMM Departed Emergency Room [facility] 08/16/16 6:35pm 08/16/16 10: 37pm ROCHELLE JAMISON DO Discharged [facility] 08/04/16 11:12am 08/05/16 4:40pm LASHAY GRIMM Discharged Recurring [facility] 08/04/16 7:37am 08/13/16 11:36pm LASHAY GRIMM Registered Clinic [facility] 08/03/16 7:53am LASHAY GRIMM Discharged Recurring [facility] 03/10/16 7:58am 08/13/16 11:19pm LASHAY GRIMM Recent Diagnosis
--- OUTSIDE RECORDS SUMMARY | 2017-01-09 16:25 | XMS REPORT | Continuity of Care Document ---
Author Author [facility] Organization [facility] Address Unknown Phone Unavailable Care Team Providers Care Assembler [employer] Name Role Phone RIDGE NEWTON Primary Care Physician [phone] Insurance Providers Payer Name Policy Number Subscriber Name Relationship Medicarehumana [id number] Tessa Lion 19 Self Advance Directives Directive Response Recorded Date/Time Ordered Resuscitation Status Full Code 09/02/14 2:31pm Problems No known problems or medical conditions. Medications Medication Dose Route Sig Days/Qty Instructions Order Date Discontinued Date Status Enoxaparin Sodium Unknown Dose SQ DAILY X 5 DAYS May resume on 09/04/14. 09/01/14 Active Warfarin Sodium 5 Mg PO GIVE AT NOON Take 1 tablet, by mouth, 1 time a day (at NOON). 09/01/14 Active Vitamin E (Dl,Tocopheryl Acet) 400 Unit PO DAILY 09/01/14 Active Garlic 1-2 Tab PO DAILY 09/01/14 Active Potassium 3 Tab PO DAILY 09/01/14 Active Iron 1 Tab PO TWICE A DAY 09/01/14 Active Cholecalciferol (Vitamin D3) 2 Cap PO DAILY 09/03/14 Active Hydrocodone/Acetaminophen 1-2 Tab PO EVERY 4-6 HOURS PRN PAIN 15 Qty Active Social History Social History Problem Response Recorded Date/Time Chewing Tobacco Status No 09/01/2014 12:48pm Hx Substance Use No 09/01/2014 12:48pm Hx Alcohol Use No 09/01/2014 12:48pm Has the pt used tobacco in the last 12 months No 09/01/2014 12:48pm Query Response Start Date Stop Date Smoking Status Never smoker Hospital Discharge Instructions No hospital discharge instructions. Plan of Care No plan of care. Functional Status No functional status results. Allergies, Adverse Reactions, Alerts Allergen Type Severity Reaction Status Last Updated Penicillin Allergy Unknown RASH Active 09/01/14 Immunizations Name Given Type Hx Influenza Vaccination No Historical Hx Pneumococcal Vaccination No Historical Hx Influenza Vaccination No Historical Vital Signs Acute Vital Signs Vital Response Date/Time Temperature (Fahrenheit) 96.9 deg F (96.8 - 99.1) Temperature (Calculated Celsius) 36.43024 degrees C (36.0 - 37.3) Temperature Source Temporal Pulse Rate (adult) 68 bpm (60 - 100) Respiratory Rate 16 breaths/min (10 - 20) O2 Sat by Pulse Oximetry 97 % (90 - 100) Oxygen Delivery Method Room Air Blood Pressure 107/56 mm Hg Blood Pressure Source Automatic Cuff Height 5 ft 2 in Weight 167 lb Body Mass Index 30.0 kg/m^2 Results Test Source Date Result Interp. Ref. Range Comments Alanine Aminotransferase (ALT/SGPT) August 18, 2014 4:33pm 24 U/L N 9- 52 Albumin August 18, 2014 4:33pm 4.7 G/DL N 3.5-5.0 Albumin/Globulin Ratio August 18, 2014 4:33pm 1.2 RATIO N 1.1-2.2 Alkaline Phosphatase August 18, 2014 4:33pm 77 U/L N 38-126 Anion Gap September 03, 2014 6:24am 11 MEQ/L N 5-15 Aspartate Amino Transf (AST/SGOT) August 18, 2014 4:33pm 16 U/L N 14- 36 BUN/Creatinine Ratio September 03, 2014 6:24am 27 RATIO H 6-26 Basophils # (Auto) September 03, 2014 6:25am 0.0 T/MM3 N 0-0.2 COMMENT SCU WILL CALL Basophils (%) (Auto) September 03, 2014 6:25am 0.3 % N 0-2 COMMENT SCU WILL CALL Blood Urea Nitrogen September 03, 2014 6:24am 19.0 MG/DL H 7-17 CA 125 Antigen August 18, 2014 4:33pm 86.8 U/ML H 0-35 Calcium Level September 03, 2014 6:24am 9.3 MG/DL N 8.4-10.2 Calculated Osmolality September 03, 2014 6:24am 276 MOSM/KG N 261-280 Carbon Dioxide Level September 03, 2014 6:24am 28 MEQ/L N 22-30 Chemistry Specimen Hemolysis September 03, 2014 6:24am 18 N 0-25 0-25: No Hemolysis.26-70: Slight Hemolysis - can falsely elevate K and Urine Protein. 71-285: Moderate Hemolysis - can falsely elevate K, Troponin I, CA 19-9, PTH, CSF GLucose, and Urine Protein, and can falsely decrease Phenytoin. 286-999: Gross Hemolysis - can falsely elevate K, Troponin I, CA 19-9, PTH, CSF Glucose, and Urine Protine, and can falsely decrease Phenytoin. Recommend specimen recollection. Chloride Level September 03, 2014 6:24am 103 MEQ/L N 98-107 Creatinine September 03, 2014 6:24am 0.7 MG/DL N 0.7-1.2 D-Dimer August 18, 2014 4:33pm 514 NG/ML H 0-230 <230 NG/ML D-DU= PRESUMPTIVE NEGATIVE FOR PE OR DVT>230 NG/ML D-DU=ADDITIONAL EVAL FOR PE OR DVT RECOMMENDED Eosinophils # (Auto) September 03, 2014 6:25am 0.1 T/MM3 N 0-0.5 COMMENT SCU WILL CALL Eosinophils (%) (Auto) September 03, 2014 6:25am 1.7 % N 0-4 COMMENT SCU WILL CALL Fibrinogen August 18, 2014 4:33pm 537 MG/DL H 135-357 Globulin August 18, 2014 4:33pm 3.9 G/DL H 2.4-3.6 Glomerular Filtration Rate Calc September 03, 2014 6:24am 83 - Glucose Level September 03, 2014 6:24am 114 MG/DL H 65-110 Hematocrit September 03, 2014 6:25am 31.4 % L 36-46 COMMENT SCU WILL CALL Hemoglobin September 03, 2014 6:25am 9.8 GM/DL L 12-16 COMMENT SCU WILL CALL Icterus Index September 03, 2014 6:24am < 2 0-7 Immature Granulocyte # (Auto) September 03, 2014 6:25am 0.02 T/MM3 N 0.00- 0.03 COMMENT SCU WILL CALL Immature Granulocyte % (Auto) September 03, 2014 6:25am 0.3 % N 0.0-0.5 COMMENT SCU WILL CALL Lab Scanned Report August 18, 2014 9:03pm LAB TEST FORM REQUEST [id number] - Lactate Dehydrogenase August 18, 2014 4:33pm 579 U/L N 313-618 Lymphocytes # (Auto) September 03, 2014 6:25am 1.6 T/MM3 N 1-4.8 COMMENT SCU WILL CALL Lymphocytes (%) (Auto) September 03, 2014 6:25am 27.1 % N 23-45 COMMENT SCU WILL CALL Magnesium Level August 18, 2014 4:33pm 2.2 MG/DL N 1.6-2.3 Mean Corpuscular Hemoglobin September 03, 2014 6:25am 26.2 UUG N 26-34 COMMENT SCU WILL CALL Mean Corpuscular Hemoglobin Concent September 03, 2014 6:25am 31.2 GM/DL N 31-37 COMMENT SCU WILL CALL Mean Corpuscular Volume September 03, 2014 6:25am 84.0 UM3 N 80-100 COMMENT SCU WILL CALL Mean Platelet Volume September 03, 2014 6:25am 10.2 UM3 N 9.4-12.4 COMMENT SCU WILL CALL Monocytes # (Auto) September 03, 2014 6:25am 0.6 T/MM3 N 0-0.8 COMMENT SCU WILL CALL Monocytes (%) (Auto) September 03, 2014 6:25am 10.6 % H 0-9.0 COMMENT SCU WILL CALL Neutrophils # (Auto) September 03, 2014 6:25am 3.5 T/MM3 N 1.8-7.7 COMMENT SCU WILL CALL Neutrophils (%) (Auto) September 03, 2014 6:25am 60.0 % N 33-66 COMMENT SCU WILL CALL Platelet Count September 03, 2014 6:25am 265 T/MM3 N 130-400 COMMENT SCU WILL CALL Potassium Level September 03, 2014 6:24am 4.3 MEQ/L N 3.6-5 Prothromb Time International Ratio September 03, 2014 7:01am 1.11 H 0.81- 1.09 THERAPUTIC RANGE=2.00-3.00 FOR ANTI-THROMBOSIS THERAPUTIC RANGE=2.50- 3.50 FOR IMPLANTED VALVE RDW Standard Deviation September 03, 2014 6:25am 47.2 FL N 36.9-50.2 COMMENT SCU WILL CALL Red Blood Count September 03, 2014 6:25am 3.74 M/MM3 L 4.00-5.20 COMMENT SCU WILL CALL Sodium Level September 03, 2014 6:24am 142 MEQ/L N 134-144 Total Bilirubin August 18, 2014 4:33pm 0.60 MG/DL N 0.20-1.30 Total Protein August 18, 2014 4:33pm 8.6 G/DL H 6.3-8.2 Turbidity September 03, 2014 6:24am < 20 0-20 White Blood Count September 03, 2014 6:25am 5.9 T/MM3 N 4.5-11.0 COMMENT SCU WILL CALL Name: TESSA LION Unit #: [id number] : 1945 Sex: F Loc / Svc: SCU DOS: 09/03/14 Signed Report #: [id number] DIAGNOSTIC IMAGING REPORT TYPE OF EXAM: RF PORTACATH W FLUORO WO CXR Dictated By: TRISTON RODRIGUEZ MD INDICATION: ITS.REASON: A RF PORTACATH W FLUORO WO CXR: Comparison: None Findings: Two fluoroscopic spot images show a right internal jugular central venous port catheter with the tip projecting over the expected cavoatrial junction. Impression: Fluoroscopy as above. . Procedures Procedure Status Date Provider(s) PET IMAGE W/CT FULL BODY completed 08/20/14 [id number]"FLUORODEOXYGLUCOSE F-18 FDG, DIAGNOSTIC, PER STUDY DO completed ROUTINE VENIPUNCTURE completed 08/18/14 COMPREHEN METABOLIC PANEL completed 08/18/14 LACTATE (LD) (LDH) ENZYME completed 08/18/14 ASSAY OF MAGNESIUM completed 08/18/14 COMPLETE CBC W/AUTO DIFF WBC completed 08/18/14 FIBRIN DEGRADATION QUANT completed 08/18/14 FIBRINOGEN ACTIVITY completed 08/18/14 PROTHROMBIN TIME completed 08/18/14 IMMUNOASSAY TUMOR CA 125 completed 08/18/14 Insertion of vascular catheter completed 09/03/14 BRADY RIOJAS MD Encounters Encounter Location Date/Time Registered [facility] 08/20/14 5:48am Registered [facility] 08/18/14 4:25pm
--- OUTSIDE RECORDS SUMMARY | 2017-01-09 16:26 | XMS REPORT ---
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 Active 92357841 Problem Diabetic neuropathy E11.40 Active 996395734 Problem Anemia of chronic disease D63.8 Active 798098818 Problem Thrombocytopenia D69.6 Active 110911634 Problem Endometrial adenocarcinoma C54.1 Active 281610274 Problem Right leg DVT I82.401 Active ALLERGIES Substance Reaction Event Type Date Status Penicillin G Benzathine rash Drug Allergy Oct, Active SOCIAL HISTORY No smoking Hx information available PLAN OF CARE Activity Details Pending Test Hemoglobin A1C - IH Pending Test Microalbumin Pending Test Urinalysis (UA) - IH Pending Test Vitamin B12 Pending Test CBC no Differential Pending Test Comprehensive Metabolic Panel (CMP) Pending Test Lipid Panel Pending Test Non-HDL Cholesterol Pending Test eGFR 3 Months,Reason: VITAL SIGNS Height 62 in 2016-10-25 Weight 190.0 lbs 2016-10-25 BMI 34.75 kg/m2 2016-10-25 Temperature 97.2 degrees Fahrenheit 2016-10-25 Heart Rate 99 /min 2016-10-25 Respiratory Rate 20 /min 2016-10-25 Blood pressure systolic 132 mm Hg 2016-10-25 Blood pressure diastolic 79 mm Hg 2016-10-25 MEDICATIONS Medication Instructions Dosage Frequency Start Date End Date Duration Status Vitamin E Active Gabapentin 300 MG Orally twice a day 1 capsule 12h Active Garlic Active Pepcid 20 MG Orally Once a day 1 tablet at bedtime 24h Active Fentanyl 25 MCG/HR 1 patch to skin Active Jessica 500 MG Active Zinc Active Cyclobenzaprine HCl 10 MG Orally Three times a day 1 tablet 8h Active Lotrimin AF 1 % Externally Twice a day 1 application to affected area 12h Active Torisel 25 MG/ML Active Curcumax Pro Orally co-curcurmin, also wheat grass Active Vitamin D Active Cayenne Active Multivitamin Active Warfarin Sodium 5 MG Orally 5 mgs daily 1 tablet Jul, Active Calcium Magnesium Active MetFORMIN HCl ER 500 MG Orally twice a day 1 tablet with evening meal 12h May, Active Cinnamon Active Chlorophyll 50 MG/18DROPS Active Oxycodone-Acetaminophen 5-325 MG Orally every 6 hrs 1 tablet as needed 6h Active Ferrous Sulfate 325 (65 Fe) MG Orally twice a day with food 1 tablet May, 30 day(s) Active Stool Softener 100 MG Orally Once a day 1 capsule as needed 24h Active RESULTS Name Result Date Reference Range Venipuncture 2016-10-25 Urine Culture 2016-10-25 Urine Culture Source: Urine Collected: 10/25/16 16:29 PROCEDURES Procedure Date Ordered Related Diagnosis Body Site [facility] VISIT ESTABLISHED PATIENT October 25, 2016 OFFICE VISIT EST PATIENT LEVEL 4 October 25, 2016 COMPLETE CBC, AUTOMATED.[facility] October 25, 2016 Comprehen Metabolic Panel.[facility] October 25, 2016 VITAMIN B-12.[facility] October 25, 2016 ROUTINE VENIPUNCTURE October 25, 2016 URINE CULTURE/COLONY COUNT.[facility] October 25, 2016 Lipid Panel - [facility] October 25, 2016 IN-H GLYCOSYLATED HEMOGLOBIN TEST October 25, 2016 URINALYSIS NONAUTO WO SCOPE October 25, 2016 MICROALBUMIN, SEMIQUANT October 25, 2016 IMMUNIZATIONS No Known Immunizations
--- OUTSIDE RECORDS SUMMARY | 2017-01-09 16:26 | XMS REPORT ---
Author Author GENERATED, SYSTEM Organization Unknown Address Unknown Phone Unavailable Care Team Providers Care Chemical Production Engineer Name Role Phone MD JOSELUIS, THELMA PP [phone] Reason For Visit Chief Complaint 782.0 V58.61 Social History Functional Status Vital Signs Results Chemistry from 11/10/2014 4:57 PMSODIUM 138 MMOL/L (136-145 MMOL/L) POTASSIUM 4.1 MMOL/L (3.5-5.1 MMOL/L) CHLORIDE 105 MMOL/L (98-107 MMOL/L) TCO2 27.8 MMOL/L (21.0-32.0 MMOL/L) ANION GAP 5.2 MMOL/L L (8.0-16.0 MMOL/L) BUN 26 MG/DL H (7-18 MG/DL) CREATININE 0.61 MG/DL (0.43-0.83 MG/DL) BUN/CREATININE RATIO 42.6 H (9.1-17.0 ) GLUCOSE 113 MG/DL H (65-99 MG/DL) GFR EST NON AFR BURUNDIAN >90 ML/MIN GFRA EST AFR AMER >90 ML/MIN CALCIUM 8.8 MG/DL (8.5-10.1 MG/DL) BILIRUBIN TOTAL 0.19 MG/DL L (0.20-1.00 MG/DL) TOTAL PROTEIN 7.6 GM/DL (6.4-8.2 GM/DL) ALBUMIN 3.4 GM/DL (3.4-5.0 GM/DL) GLOBULIN 4.2 GM/DL H (2.3-3.5 GM/DL) A/G RATIO 0.8 MG/DL L (1.5-2.2 MG/DL) ALK PHOS 85 U/L (46-116 U/L) ALT (SGPT) 26 U/L (16-63 U/L) AST (SGOT) 15 U/L (15-37 U/L) Chemistry from 10/30/2014 3:25 PMSODIUM 136 MMOL/L (136-145 MMOL/L) POTASSIUM 4.0 MMOL/L (3.5-5.1 MMOL/L) CHLORIDE 104 MMOL/L (98-107 MMOL/L) TCO2 25.9 MMOL/L (21.0-32.0 MMOL/L) ANION GAP 6.1 MMOL/L L (8.0-16.0 MMOL/L) BUN 28 MG/DL H (7-18 MG/DL) CREATININE 0.72 MG/DL (0.43-0.83 MG/DL) BUN/CREATININE RATIO 38.9 H (9.1-17.0 ) GLUCOSE 143 MG/DL H (65-99 MG/DL) GFR EST NON AFR BURUNDIAN 86 ML/MIN GFRA EST AFR AMER >90 ML/MIN CALCIUM 8.9 MG/DL (8.5-10.1 MG/DL) BILIRUBIN TOTAL 0.16 MG/DL L (0.20-1.00 MG/DL) TOTAL PROTEIN 7.7 GM/DL (6.4-8.2 GM/DL) ALBUMIN 3.5 GM/DL (3.4-5.0 GM/DL) GLOBULIN 4.2 GM/DL H (2.3-3.5 GM/DL) A/G RATIO 0.8 MG/DL L (1.5-2.2 MG/DL) ALK PHOS 113 U/L (46-116 U/L) ALT (SGPT) 24 U/L (16-63 U/L) AST (SGOT) 14 U/L L (15-37 U/L) MAGNESIUM 1.7 MG/DL L (1.8-2.4 MG/DL) LDH 204 U/L (81-234 U/L) Chemistry from 10/27/2014 12:20 PMSODIUM 139 MMOL/L (136-145 MMOL/L) POTASSIUM 4.5 MMOL/L (3.5-5.1 MMOL/L) CHLORIDE 106 MMOL/L (98-107 MMOL/L) TCO2 25.9 MMOL/L (21.0-32.0 MMOL/L) ANION GAP 7.1 MMOL/L L (8.0-16.0 MMOL/L) BUN 31 MG/DL H (7-18 MG/DL) CREATININE 0.74 MG/DL (0.43-0.83 MG/DL) BUN/CREATININE RATIO 41.9 H (9.1-17.0 ) GLUCOSE 173 MG/DL H (65-99 MG/DL) GFR EST NON AFR BURUNDIAN 83 ML/MIN GFRA EST AFR AMER >90 ML/MIN CALCIUM 8.9 MG/DL (8.5-10.1 MG/DL) BILIRUBIN TOTAL 0.16 MG/DL L (0.20-1.00 MG/DL) TOTAL PROTEIN 7.5 GM/DL (6.4-8.2 GM/DL) ALBUMIN 3.2 GM/DL L (3.4-5.0 GM/DL) GLOBULIN 4.3 GM/DL H (2.3-3.5 GM/DL) A/G RATIO 0.7 MG/DL L (1.5-2.2 MG/DL) ALK PHOS 115 U/L (46-116 U/L) ALT (SGPT) 20 U/L (16-63 U/L) AST (SGOT) 16 U/L (15-37 U/L) MAGNESIUM 1.7 MG/DL L (1.8-2.4 MG/DL) LDH 227 U/L (81-234 U/L) Chemistry from 10/23/2014 10:37 AMSODIUM 135 MMOL/L L (136-145 MMOL/L) POTASSIUM 4.5 MMOL/L (3.5-5.1 MMOL/L) CHLORIDE 104 MMOL/L (98-107 MMOL/L) TCO2 25.5 MMOL/L (21.0-32.0 MMOL/L) ANION GAP 5.5 MMOL/L L (8.0-16.0 MMOL/L) BUN 26 MG/DL H (7-18 MG/DL) CREATININE 0.68 MG/DL (0.43-0.83 MG/DL) BUN/CREATININE RATIO 38.2 H (9.1-17.0 ) GLUCOSE 137 MG/DL H (65-99 MG/DL) GFR EST NON AFR BURUNDIAN 90 ML/MIN GFRA EST AFR AMER >90 ML/MIN CALCIUM 8.9 MG/DL (8.5-10.1 MG/DL) BILIRUBIN TOTAL 0.20 MG/DL (0.20-1.00 MG/DL) TOTAL PROTEIN 7.3 GM/DL (6.4-8.2 GM/DL) ALBUMIN 3.3 GM/DL L (3.4-5.0 GM/DL) GLOBULIN 4.0 GM/DL H (2.3-3.5 GM/DL) A/G RATIO 0.8 MG/DL L (1.5-2.2 MG/DL) ALK PHOS 120 U/L H (46-116 U/L) ALT (SGPT) 25 U/L (16-63 U/L) AST (SGOT) 15 U/L (15-37 U/L) MAGNESIUM 1.8 MG/DL (1.8-2.4 MG/DL) LDH 229 U/L (81-234 U/L) Chemistry from 10/20/2014 4:00 PMSODIUM 136 MMOL/L (136-145 MMOL/L) POTASSIUM 4.5 MMOL/L (3.5-5.1 MMOL/L) CHLORIDE 103 MMOL/L (98-107 MMOL/L) TCO2 29.3 MMOL/L (21.0-32.0 MMOL/L) ANION GAP 3.7 MMOL/L L (8.0-16.0 MMOL/L) BUN 26 MG/DL H (7-18 MG/DL) CREATININE 0.66 MG/DL (0.43-0.83 MG/DL) BUN/CREATININE RATIO 39.4 H (9.1-17.0 ) GLUCOSE 130 MG/DL H (65-99 MG/DL) GFR EST NON AFR BURUNDIAN >90 ML/MIN GFRA EST AFR AMER >90 ML/MIN CALCIUM 8.7 MG/DL (8.5-10.1 MG/DL) BILIRUBIN TOTAL 0.24 MG/DL (0.20-1.00 MG/DL) TOTAL PROTEIN 7.4 GM/DL (6.4-8.2 GM/DL) ALBUMIN 3.3 GM/DL L (3.4-5.0 GM/DL) GLOBULIN 4.1 GM/DL H (2.3-3.5 GM/DL) A/G RATIO 0.8 MG/DL L (1.5-2.2 MG/DL) ALK PHOS 117 U/L H (46-116 U/L) ALT (SGPT) 26 U/L (12-78 U/L) AST (SGOT) 17 U/L (15-37 U/L) MAGNESIUM 1.8 MG/DL (1.8-2.4 MG/DL) LDH 242 U/L (84-246 U/L) Hematology from 11/10/2014 4:57 PMWBC 4.0 X10e3/UL (3.6-11.2 X10e3/UL) RBC 3.56 X10e6/UL L (3.63-4.92 X10e6/UL) HEMOGLOBIN 10.3 G/DL L (11.0-14.3 G/DL) HEMATOCRIT 31.3 % (31.2-41.9 %) MCV 87.9 FL (79.0-98.0 FL) MCH 28.8 PG (27.0-33.0 PG) MCHC 32.8 G/DL (32.0-36.0 G/DL) RDW 21.7 % H (12.3-17.0 %) RDWSD 65.2 H (37.1-47.8 ) PLATELET 273 X10e3/UL (159-386 X10e3/UL) MPV 7.8 FL (7.4-10.4 FL) AUTOMATED DIFF PERFORMED SEGS 49.8 % LYMPHOCYTES 37.3 % MONOCYTES 11.6 % EOSINOPHILS 0.8 % BASOPHILS 0.5 % ABSOLUTE NEUTROPHILS 2.00 X10e3/UL (1.80-7.80 X10e3/UL) ABSOLUTE LYMPHOCYTES 1.50 X10e3/UL (1.00-3.00 X10e3/UL) ABSOLUTE MONOCYTES 0.50 X10e3/UL (0.30-1.00 X10e3/UL) ABSOLUTE EOSINOPHILS 0.00 X10e3/UL (0.00-0.50 X10e3/UL) ABSOLUTE BASOPHILS 0.00 X10e3/UL (0.00-0.20 X10e3/UL) Hematology from 10/30/2014 3:25 PMWBC 4.9 X10e3/UL (3.6-11.2 X10e3/UL) RBC 3.64 X10e6/UL (3.63-4.92 X10e6/UL) HEMOGLOBIN 9.9 G/DL L (11.0-14.3 G/DL) HEMATOCRIT 31.7 % (31.2-41.9 %) MCV 87.1 FL (79.0-98.0 FL) MCH 27.3 PG (27.0-33.0 PG) MCHC 31.4 G/DL L (32.0-36.0 G/DL) RDW 22.7 % H (12.3-17.0 %) RDWSD 66.5 H (37.1-47.8 ) PLATELET 188 X10e3/UL (159-386 X10e3/UL) MPV 7.2 FL L (7.4-10.4 FL) AUTOMATED DIFF PERFORMED SEGS 62.2 % LYMPHOCYTES 28.5 % MONOCYTES 7.9 % EOSINOPHILS 1.0 % BASOPHILS 0.4 % ABSOLUTE NEUTROPHILS 3.10 X10e3/UL (1.80-7.80 X10e3/UL) ABSOLUTE LYMPHOCYTES 1.40 X10e3/UL (1.00-3.00 X10e3/UL) ABSOLUTE MONOCYTES 0.40 X10e3/UL (0.30-1.00 X10e3/UL) ABSOLUTE EOSINOPHILS 0.00 X10e3/UL (0.00-0.50 X10e3/UL) ABSOLUTE BASOPHILS 0.00 X10e3/UL (0.00-0.20 X10e3/UL) POLYCHROMASIA 1+ HYPOCHROMASIA 1+ MICROCYTIC 2+ TEARDROP CELLS 1+ Hematology from 10/27/2014 12:20 PMWBC 7.9 X10e3/UL (3.6-11.2 X10e3/UL) RBC 3.66 X10e6/UL (3.63-4.92 X10e6/UL) HEMOGLOBIN 10.2 G/DL L (11.0-14.3 G/DL) HEMATOCRIT 31.7 % (31.2-41.9 %) MCV 86.7 FL (79.0-98.0 FL) MCH 28.0 PG (27.0-33.0 PG) MCHC 32.3 G/DL (32.0-36.0 G/DL) RDW 21.4 % H (12.3-17.0 %) PLATELET 200 X10e3/UL (159-386 X10e3/UL) MPV 7.6 FL (7.4-10.4 FL) AUTOMATED DIFF PERFORMED SEGS 71.2 % LYMPHOCYTES 19.6 % MONOCYTES 7.1 % EOSINOPHILS 1.8 % BASOPHILS 0.3 % ABSOLUTE NEUTROPHILS 5.70 X10e3/UL (1.80-7.80 X10e3/UL) ABSOLUTE LYMPHOCYTES 1.50 X10e3/UL (1.00-3.00 X10e3/UL) ABSOLUTE MONOCYTES 0.60 X10e3/UL (0.30-1.00 X10e3/UL) ABSOLUTE EOSINOPHILS 0.10 X10e3/UL (0.00-0.50 X10e3/UL) ABSOLUTE BASOPHILS 0.00 X10e3/UL (0.00-0.20 X10e3/UL) Hematology from 10/23/2014 10:37 AMWBC 6.7 X10e3/UL (3.6-11.2 X10e3/UL) RBC 3.33 X10e6/UL L (3.63-4.92 X10e6/UL) HEMOGLOBIN 9.1 G/DL L (11.0-14.3 G/DL) HEMATOCRIT 29.0 % L (31.2-41.9 %) MCV 86.9 FL (79.0-98.0 FL) MCH 27.2 PG (27.0-33.0 PG) MCHC 31.2 G/DL L (32.0-36.0 G/DL) RDW 22.1 % H (12.3-17.0 %) RDWSD 64.3 H (37.1-47.8 ) PLATELET 157 X10e3/UL L (159-386 X10e3/UL) MPV 8.1 FL (7.4-10.4 FL) AUTOMATED DIFF PERFORMED SEGS 68.6 % LYMPHOCYTES 21.7 % MONOCYTES 7.5 % EOSINOPHILS 1.7 % BASOPHILS 0.5 % ABSOLUTE NEUTROPHILS 4.60 X10e3/UL (1.80-7.80 X10e3/UL) ABSOLUTE LYMPHOCYTES 1.50 X10e3/UL (1.00-3.00 X10e3/UL) ABSOLUTE MONOCYTES 0.50 X10e3/UL (0.30-1.00 X10e3/UL) ABSOLUTE EOSINOPHILS 0.10 X10e3/UL (0.00-0.50 X10e3/UL) ABSOLUTE BASOPHILS 0.00 X10e3/UL (0.00-0.20 X10e3/UL) ANISOCYTOSIS 3+ TOXIC GRANULATION 1+ Hematology from 10/20/2014 4:00 PMWBC 21.7 X10e3/UL H (3.6-11.2 X10e3/UL) RBC 3.29 X10e6/UL L (3.63-4.92 X10e6/UL) HEMOGLOBIN 9.1 G/DL L (11.0-14.3 G/DL) HEMATOCRIT 28.5 % L (31.2-41.9 %) MCV 86.6 FL (79.0-98.0 FL) MCH 27.6 PG (27.0-33.0 PG) MCHC 31.9 G/DL L (32.0-36.0 G/DL) RDW 22.5 % H (12.3-17.0 %) RDWSD 65.6 H (37.1-47.8 ) PLATELET 151 X10e3/UL L (159-386 X10e3/UL) MPV 8.2 FL (7.4-10.4 FL) MANUAL DIFF PERFORMED SEGS 75.0 % BANDS 17.0 % LYMPHOCYTES 5.0 % MONOCYTES 3.0 % EOSINOPHILS 0.0 % BASOPHILS 0.0 % ABSOLUTE NEUTROPHILS 19.96 X10e3/UL H (1.80-7.80 X10e3/UL) ABSOLUTE LYMPHOCYTES 1.09 X10e3/UL (1.00-3.00 X10e3/UL) ABSOLUTE MONOCYTES 0.65 X10e3/UL (0.30-1.00 X10e3/UL) ABSOLUTE EOSINOPHILS 0.00 X10e3/UL (0.00-0.50 X10e3/UL) ABSOLUTE BASOPHILS 0.00 X10e3/UL (0.00-0.20 X10e3/UL) COMMENT See Below HYPOCHROMASIA 1+ ANISOCYTOSIS 3+ TOXIC GRANULATION 1+ DOHLE BODIES 1+ Coagulation from 11/10/2014 4:57 PMPROTHROMBIN TIME 22.1 SECONDS H (9.4-11.5 SECONDS) INR 2.0 H (0.9-1.1 ) Coagulation from 10/30/2014 3:25 PMPROTHROMBIN TIME 24.1 SECONDS H (9.4-11.5 SECONDS) INR 2.2 H (0.9-1.1 ) Coagulation from 10/27/2014 12:20 PMPROTHROMBIN TIME 25.9 SECONDS H (9.4-11.5 SECONDS) INR 2.4 H (0.9-1.1 ) Coagulation from 10/20/2014 4:00 PMPROTHROMBIN TIME 26.4 SECONDS H (9.4-11.5 SECONDS) INR 2.4 H (0.9-1.1 ) Problems Encounter Diagnosis No relevant problems exist. Encounters Encounter Diagnosis No relevant problems exist. Plan of Care Procedures No relevant procedures performed. Immunizations No immunizations administered or ordered. Hospital Course Hospital Discharge Instructions Allergies, Adverse Reactions, Alerts * Penicillins causes unspecified. * Latex Allergy has not been assessed. * IV Contrast Allergy has not been assessed. Medication Medication reconciliation has not been performed.
--- OUTSIDE RECORDS SUMMARY | 2017-01-09 16:26 | XMS REPORT ---
Author Author GENERATED, SYSTEM Organization Unknown Address Unknown Phone Unavailable Care Team Providers Care Evp Operations Name Role Phone UNASSIGNED DOCTOR , DOCTOR PP [phone] Reason For Visit Reason for Visit from 08/29/2014 11:17 AM:* Pt Stated Reason for Adm : Lovenox injections Chief Complaint LOVENOX SHOT Social History Functional Status Functional Status from 09/15/2014 8:35 AM:* LOC : Alert * Oriented To : Person,Place,Time,Event Functional Status from 09/14/2014 10:52 AM:* LOC : Alert * Oriented To : Person,Place,Time,Event Functional Status from 09/13/2014 10:20 AM:* LOC : Alert * Oriented To : Person,Place,Time,Event Functional Status from 09/12/2014 8:24 AM:* LOC : Alert * Oriented To : Person,Place,Time,Event Functional Status from 09/11/2014 8:14 AM:* LOC : Alert * Oriented To : Person,Place,Time,Event Functional Status from 09/10/2014 11:20 AM:* LOC : Alert * Oriented To : Person,Place,Time,Event Functional Status from 09/09/2014 12:06 PM:* LOC : Alert * Oriented To : Person,Place,Time,Event Functional Status from 09/08/2014 10:15 AM:* LOC : Alert * Oriented To : Person,Place,Time,Event Functional Status from 09/07/2014 10:36 AM:* LOC : Alert * Oriented To : Person,Place,Time Functional Status from 09/06/2014 11:20 AM:* LOC : Alert * Oriented To : Person,Place,Time Functional Status from 09/05/2014 9:44 AM:* LOC : Alert * Oriented To : Person,Place,Time,Event Functional Status from 09/04/2014 4:10 PM:* LOC : Alert * Oriented To : Person,Place,Time,Event Functional Status from 09/02/2014 7:15 AM:* LOC : Alert * Oriented To : Person,Place,Time,Event Functional Status from 09/01/2014 10:38 AM:* LOC : Alert * Oriented To : Person,Place,Time,Event Functional Status from 08/31/2014 10:11 AM:* LOC : Alert * Oriented To : Person,Place,Time,Event Functional Status from 08/30/2014 12:21 PM:* LOC : Alert * Oriented To : Person,Place,Time,Event Functional Status from 08/29/2014 11:17 AM:* LOC : Alert * Oriented To : Person,Place,Time,Event Vital Signs Hospital Vital Signs from 09/15/2014 8:48 AM:* Height : 5/2 ft,in * Temperature : 97.9 F * Pulse : 93 * Respirations : 18 * BP : 120/73 Hospital Vital Signs from 09/14/2014 10:45 AM:* Height : 5/2 ft,in * Temperature : 97.5 F * Pulse : 93 * Respirations : 16 * BP : 126/65 Hospital Vital Signs from 09/13/2014 10:15 AM:* Height : 5/2 ft,in * Temperature : 98.0 F * Pulse : 79 * Respirations : 16 * BP : 114/60 Hospital Vital Signs from 09/12/2014 8:22 AM:* Height : 5/2 ft,in * Temperature : 97.9 F * Pulse : 85 * Respirations : 16 * BP : 126/70 Hospital Vital Signs from 09/11/2014 8:14 AM:* Height : 5/2 ft,in * Temperature : 97.8 F * Pulse : 69 * Respirations : 18 * BP : 130/62 Hospital Vital Signs from 09/10/2014 11:19 AM:* Height : 5/2 ft,in * Temperature : 97.9 F * Pulse : 83 * Respirations : 16 * BP : 114/66 Hospital Vital Signs from 09/09/2014 12:05 PM:* Height : 5/2 ft,in * Temperature : 98.7 F * Pulse : 83 * Respirations : 16 * BP : 114/55 Hospital Vital Signs from 09/08/2014 10:15 AM:* Height : 5/2 ft,in * Temperature : 98.5 F * Pulse : 70 * Respirations : 18 * BP : 109/40 Hospital Vital Signs from 09/07/2014 10:36 AM:* Height : 5/2 ft,in * Temperature : 97.4 F * Pulse : 69 * Respirations : 20 * BP : 112/61 Hospital Vital Signs from 09/06/2014 11:20 AM:* Height : 5/2 ft,in * Temperature : 98.6 F * Pulse : 67 * Respirations : 20 * BP : 109/47 Hospital Vital Signs from 09/05/2014 9:44 AM:* Height : 5/2 ft,in * Temperature : 97.9 F * Pulse : 65 * Respirations : 20 * BP : 129/55 Hospital Vital Signs from 09/04/2014 4:08 PM:* Height : 5/2 ft,in * Temperature : 98.7 F * Pulse : 90 * Respirations : 18 * BP : 146/84 Hospital Vital Signs from 09/01/2014 10:40 AM:* Height : 5/2 ft,in * Temperature : 97.7 F * Pulse : 83 * Respirations : 18 * BP : 127/58 Hospital Vital Signs from 08/31/2014 10:06 AM:* Height : 5/2 ft,in * Temperature : 97.7 F * Pulse : 75 * Respirations : 18 * BP : 125/61 Hospital Vital Signs from 08/30/2014 10:25 AM:* Height : 5/2 ft,in * Temperature : 98.2 F * Pulse : 85 * Respirations : 18 * BP : 128/67 Hospital Vital Signs from 08/29/2014 11:17 AM:* Height : 5/2 ft,in * Temperature : 98.0 F * Pulse : 76 * Respirations : 18 * BP : 109/57 Results Chemistry from 09/15/2014 9:34 PMSODIUM 135 MMOL/L L (136-145 MMOL/L) POTASSIUM 3.9 MMOL/L (3.5-5.1 MMOL/L) CHLORIDE 101 MMOL/L (98-107 MMOL/L) TCO2 25.1 MMOL/L (21.0-32.0 MMOL/L) ANION GAP 8.9 MMOL/L (8.0-16.0 MMOL/L) BUN 24 MG/DL H (7-18 MG/DL) CREATININE 0.57 MG/DL (0.43-0.83 MG/DL) BUN/CREATININE RATIO 42.1 H (9.1-17.0 ) GLUCOSE 129 MG/DL H (65-99 MG/DL) GFR EST NON AFR UKRAINIAN >90 ML/MIN GFRA EST AFR AMER >90 ML/MIN CALCIUM 8.8 MG/DL (8.5-10.1 MG/DL) BILIRUBIN TOTAL 0.22 MG/DL (0.20-1.00 MG/DL) TOTAL PROTEIN 7.2 GM/DL (6.4-8.2 GM/DL) ALBUMIN 3.2 GM/DL L (3.4-5.0 GM/DL) GLOBULIN 4.0 GM/DL H (2.3-3.5 GM/DL) A/G RATIO 0.8 MG/DL L (1.5-2.2 MG/DL) ALK PHOS 113 U/L (46-116 U/L) ALT (SGPT) 25 U/L (12-78 U/L) AST (SGOT) 15 U/L (15-37 U/L) Chemistry from 09/08/2014 10:36 AMSODIUM 137 MMOL/L (136-145 MMOL/L) POTASSIUM 4.2 MMOL/L (3.5-5.1 MMOL/L) CHLORIDE 103 MMOL/L (98-107 MMOL/L) TCO2 27.0 MMOL/L (21.0-32.0 MMOL/L) ANION GAP 7.0 MMOL/L L (8.0-16.0 MMOL/L) BUN 17 MG/DL (7-18 MG/DL) CREATININE 0.59 MG/DL (0.43-0.83 MG/DL) BUN/CREATININE RATIO 28.8 H (9.1-17.0 ) GLUCOSE 140 MG/DL H (65-99 MG/DL) GFR EST NON AFR UKRAINIAN >90 ML/MIN GFRA EST AFR AMER >90 ML/MIN CALCIUM 8.7 MG/DL (8.5-10.1 MG/DL) BILIRUBIN TOTAL 0.37 MG/DL (0.20-1.00 MG/DL) TOTAL PROTEIN 6.8 GM/DL (6.4-8.2 GM/DL) ALBUMIN 2.9 GM/DL L (3.4-5.0 GM/DL) GLOBULIN 3.9 GM/DL H (2.3-3.5 GM/DL) A/G RATIO 0.7 MG/DL L (1.5-2.2 MG/DL) ALK PHOS 62 U/L (46-116 U/L) ALT (SGPT) 39 U/L (12-78 U/L) AST (SGOT) 22 U/L (15-37 U/L) MAGNESIUM 1.8 MG/DL (1.8-2.4 MG/DL) LDH 203 U/L (84-246 U/L) Hematology from 09/15/2014 9:34 PMWBC 22.0 X10e3/UL H (3.6-11.2 X10e3/UL) RBC 3.30 X10e6/UL L (3.63-4.92 X10e6/UL) HEMOGLOBIN 8.3 G/DL L (11.0-14.3 G/DL) HEMATOCRIT 27.0 % L (31.2-41.9 %) MCV 81.8 FL (79.0-98.0 FL) MCH 25.0 PG L (27.0-33.0 PG) MCHC 30.6 G/DL L (32.0-36.0 G/DL) RDW 16.4 % (12.3-17.0 %) RDWSD 46.4 (37.1-47.8 ) PLATELET 192 X10e3/UL (159-386 X10e3/UL) MPV 7.7 FL (7.4-10.4 FL) MANUAL DIFF PERFORMED SEGS 63.0 % BANDS 16.0 % LYMPHOCYTES 12.0 % MONOCYTES 6.0 % EOSINOPHILS 0.0 % BASOPHILS 0.0 % MYELOCYTES 1.0 % REACTIVE LYMPHOCYTES 2.0 % ABSOLUTE NEUTROPHILS 17.60 X10e3/UL H (1.80-7.80 X10e3/UL) ABSOLUTE LYMPHOCYTES 3.08 X10e3/UL H (1.00-3.00 X10e3/UL) ABSOLUTE MONOCYTES 1.32 X10e3/UL H (0.30-1.00 X10e3/UL) ABSOLUTE EOSINOPHILS 0.00 X10e3/UL (0.00-0.50 X10e3/UL) ABSOLUTE BASOPHILS 0.00 X10e3/UL (0.00-0.20 X10e3/UL) POLYCHROMASIA 1+ MICROCYTIC 1+ MACROCYTIC 1+ TOXIC GRANULATION 1+ Hematology from 09/08/2014 10:36 AMWBC 13.8 X10e3/UL H (3.6-11.2 X10e3/UL) RBC 3.43 X10e6/UL L (3.63-4.92 X10e6/UL) HEMOGLOBIN 8.4 G/DL L (11.0-14.3 G/DL) HEMATOCRIT 27.9 % L (31.2-41.9 %) MCV 81.4 FL (79.0-98.0 FL) MCH 24.5 PG L (27.0-33.0 PG) MCHC 30.1 G/DL L (32.0-36.0 G/DL) RDW 16.2 % (12.3-17.0 %) RDWSD 46.4 (37.1-47.8 ) PLATELET 162 X10e3/UL (159-386 X10e3/UL) MPV 9.3 FL (7.4-10.4 FL) MANUAL DIFF PERFORMED SEGS 76.0 % BANDS 7.0 % LYMPHOCYTES 11.0 % MONOCYTES 0.0 % EOSINOPHILS 2.0 % BASOPHILS 1.0 % METAMYELOCYTES 3.0 % ABSOLUTE NEUTROPHILS 11.87 X10e3/UL H (1.80-7.80 X10e3/UL) ABSOLUTE LYMPHOCYTES 1.52 X10e3/UL (1.00-3.00 X10e3/UL) ABSOLUTE MONOCYTES 0.00 X10e3/UL L (0.30-1.00 X10e3/UL) ABSOLUTE EOSINOPHILS 0.28 X10e3/UL (0.00-0.50 X10e3/UL) ABSOLUTE BASOPHILS 0.14 X10e3/UL (0.00-0.20 X10e3/UL) STOMATOCYTES 1+ TOXIC GRANULATION 1+ WBC VACUOLES 1+ Hematology from 09/06/2014 11:29 AMWBC 4.7 X10e3/UL (3.6-11.2 X10e3/UL) RBC 3.39 X10e6/UL L (3.63-4.92 X10e6/UL) HEMOGLOBIN 8.7 G/DL L (11.0-14.3 G/DL) HEMATOCRIT 27.4 % L (31.2-41.9 %) MCV 80.7 FL (79.0-98.0 FL) MCH 25.7 PG L (27.0-33.0 PG) MCHC 31.8 G/DL L (32.0-36.0 G/DL) RDW 16.1 % (12.3-17.0 %) RDWSD 45.1 (37.1-47.8 ) PLATELET 199 X10e3/UL (159-386 X10e3/UL) MPV 8.7 FL (7.4-10.4 FL) AUTOMATED DIFF PERFORMED SEGS 70.6 % LYMPHOCYTES 24.4 % MONOCYTES 2.3 % EOSINOPHILS 2.2 % BASOPHILS 0.5 % ABSOLUTE NEUTROPHILS 3.30 X10e3/UL (1.80-7.80 X10e3/UL) ABSOLUTE LYMPHOCYTES 1.10 X10e3/UL (1.00-3.00 X10e3/UL) ABSOLUTE MONOCYTES 0.10 X10e3/UL L (0.30-1.00 X10e3/UL) ABSOLUTE EOSINOPHILS 0.10 X10e3/UL (0.00-0.50 X10e3/UL) ABSOLUTE BASOPHILS 0.00 X10e3/UL (0.00-0.20 X10e3/UL) Coagulation from 09/16/2014 11:21 AMPROTHROMBIN TIME 18.1 SECONDS H (9.4-11.5 SECONDS) INR 1.7 H (0.9-1.1 ) Coagulation from 09/15/2014 9:34 PMPROTHROMBIN TIME 20.3 SECONDS H (9.4-11.5 SECONDS) INR 1.9 H (0.9-1.1 ) PARTIAL THROMBOPLASTIN TIME 31.1 SECONDS H (21.0-30.0 SECONDS) Coagulation from 09/15/2014 8:37 AMPROTHROMBIN TIME 17.7 SECONDS H (9.4-11.5 SECONDS) INR 1.7 H (0.9-1.1 ) Coagulation from 09/14/2014 11:07 AMPROTHROMBIN TIME 18.7 SECONDS H (9.4-11.5 SECONDS) INR 1.7 H (0.9-1.1 ) Coagulation from 09/13/2014 10:25 AMPROTHROMBIN TIME 17.2 SECONDS H (9.4-11.5 SECONDS) INR 1.6 H (0.9-1.1 ) Coagulation from 09/12/2014 8:30 AMPROTHROMBIN TIME 17.0 SECONDS H (9.4-11.5 SECONDS) INR 1.6 H (0.9-1.1 ) Coagulation from 09/11/2014 8:18 AMPROTHROMBIN TIME 16.1 SECONDS H (9.4-11.5 SECONDS) INR 1.5 H (0.9-1.1 ) Coagulation from 09/10/2014 11:28 AMPROTHROMBIN TIME 16.8 SECONDS H (9.4-11.5 SECONDS) INR 1.6 H (0.9-1.1 ) Coagulation from 09/09/2014 12:00 PMPROTHROMBIN TIME 15.8 SECONDS H (9.4-11.5 SECONDS) INR 1.5 H (0.9-1.1 ) Coagulation from 09/08/2014 10:36 AMPROTHROMBIN TIME 14.8 SECONDS H (9.4-11.5 SECONDS) INR 1.4 H (0.9-1.1 ) Coagulation from 09/07/2014 10:37 AMPROTHROMBIN TIME 13.0 SECONDS H (9.4-11.5 SECONDS) INR 1.2 Coagulation from 09/06/2014 11:29 AMPROTHROMBIN TIME 11.4 SECONDS (9.4-11.5 SECONDS) INR 1.1 Coagulation from 09/05/2014 9:28 AMPROTHROMBIN TIME 10.9 SECONDS (9.4-11.5 SECONDS) INR 1.0 CT Scan from 09/15/2014 8:31 PMCT CEREBRAL W/O CONTRAST DATE OF EXAM: Sep 15 2014 8:44PM Proc: CT 0001 - CT CEREBRAL W/O CONTRAST CPT Code(s): 79983-; ; ; INDICATION / CLINICAL HISTORY: \E\Headache FINDINGS: There is no evidence of intracranial mass, midline shift or abnormal extraaxial fluid collection. There is no evidence of cerebral edema, hydrocephalus, intracranial hemorrhage or evidence of acute infarct. The bony structures appear intact without evidence of acute fracture. The mastoid air cells and visualized paranasal sinuses appear clear. IMPRESSION: Unremarkable CT of the head. Problems Encounter Diagnosis No relevant problems exist. [...]
--- OUTSIDE RECORDS SUMMARY | 2017-01-09 16:26 | XMS REPORT ---
Author Author GENERATED, SYSTEM Organization Unknown Address Unknown Phone Unavailable Care Team Providers Care Manager Floor Name Role Phone MD JOSELUIS, THELMA [phone] Reason For Visit Chief Complaint C54.8, C77.5, D64.81 Social History Functional Status Vital Signs Results Problems Encounter Diagnosis No relevant problems exist. Encounters Encounter Diagnosis No relevant problems exist. Plan of Care Procedures * Completed Procedure Code: [id number] Procedure Name: not valued, on 06/24/2016 12:00 [...]
--- OUTSIDE RECORDS SUMMARY | 2017-01-09 16:26 | XMS REPORT ---
Author Author GENERATED, SYSTEM Organization Unknown Address Unknown Phone Unavailable Care Team Providers Care Account Coordinator Name Role Phone UNASSIGNED DOCTOR , DOCTOR PP [phone] Reason For Visit Chief Complaint PT / INR,LOVENOX 110 MG SQ DAILY Social History Functional Status Functional Status from 09/22/2014 11:07 AM:* LOC : Alert * Oriented To : Person,Place,Time,Event Functional Status from 09/20/2014 9:42 AM:* LOC : Alert * Oriented To : Person,Place,Time,Event Functional Status from 09/19/2014 10:43 AM:* LOC : Alert * Oriented To : Person,Place,Time Functional Status from 09/18/2014 10:42 AM:* LOC : Alert * Oriented To : Person,Place,Time,Event Functional Status from 09/17/2014 10:44 AM:* LOC : Alert * Oriented To : Person,Place,Time,Event Functional Status from 09/16/2014 11:20 AM:* LOC : Alert * Oriented To : Person,Place,Time Vital Signs Hospital Vital Signs from 09/20/2014 9:41 AM:* Height : 5/2 ft,in * Temperature : 97.0 F * Pulse : 94 * Respirations : 18 * BP : 136/76 Hospital Vital Signs from 09/19/2014 10:46 AM:* Height : 5/2 ft,in * Temperature : 98.6 F * Pulse : 87 * Respirations : 18 * BP : 106/58 Hospital Vital Signs from 09/18/2014 10:42 AM:* Height : 5/2 ft,in * Temperature : 97.0 F * Pulse : 96 * Respirations : 18 * BP : 122/67 Hospital Vital Signs from 09/17/2014 10:44 AM:* Height : 5/2 ft,in * Temperature : 98.7 F * Pulse : 90 * Respirations : 18 * BP : 121/73 Hospital Vital Signs from 09/16/2014 11:17 AM:* Height : 5/2 ft,in * Temperature : 98.3 F * Pulse : 89 * Respirations : 18 * BP : 95/57 Results Chemistry from 09/22/2014 11:13 AMSODIUM 138 MMOL/L (136-145 MMOL/L) POTASSIUM 4.1 MMOL/L (3.5-5.1 MMOL/L) CHLORIDE 104 MMOL/L (98-107 MMOL/L) TCO2 28.0 MMOL/L (21.0-32.0 MMOL/L) ANION GAP 6.0 MMOL/L L (8.0-16.0 MMOL/L) BUN 30 MG/DL H (7-18 MG/DL) CREATININE 0.70 MG/DL (0.43-0.83 MG/DL) BUN/CREATININE RATIO 42.9 H (9.1-17.0 ) GLUCOSE 165 MG/DL H (65-99 MG/DL) GFR EST NON AFR GRENADIAN 89 ML/MIN GFRA EST AFR AMER >90 ML/MIN CALCIUM 8.7 MG/DL (8.5-10.1 MG/DL) BILIRUBIN TOTAL 0.20 MG/DL (0.20-1.00 MG/DL) TOTAL PROTEIN 7.2 GM/DL (6.4-8.2 GM/DL) ALBUMIN 3.2 GM/DL L (3.4-5.0 GM/DL) GLOBULIN 4.0 GM/DL H (2.3-3.5 GM/DL) A/G RATIO 0.8 MG/DL L (1.5-2.2 MG/DL) ALK PHOS 83 U/L (46-116 U/L) ALT (SGPT) 23 U/L (12-78 U/L) AST (SGOT) 13 U/L L (15-37 U/L) Chemistry from 09/15/2014 9:34 PMSODIUM 135 MMOL/L L (136-145 MMOL/L) POTASSIUM 3.9 MMOL/L (3.5-5.1 MMOL/L) CHLORIDE 101 MMOL/L (98-107 MMOL/L) TCO2 25.1 MMOL/L (21.0-32.0 MMOL/L) ANION GAP 8.9 MMOL/L (8.0-16.0 MMOL/L) BUN 24 MG/DL H (7-18 MG/DL) CREATININE 0.57 MG/DL (0.43-0.83 MG/DL) BUN/CREATININE RATIO 42.1 H (9.1-17.0 ) GLUCOSE 129 MG/DL H (65-99 MG/DL) GFR EST NON AFR GRENADIAN >90 ML/MIN GFRA EST AFR AMER >90 ML/MIN CALCIUM 8.8 MG/DL (8.5-10.1 MG/DL) BILIRUBIN TOTAL 0.22 MG/DL (0.20-1.00 MG/DL) TOTAL PROTEIN 7.2 GM/DL (6.4-8.2 GM/DL) ALBUMIN 3.2 GM/DL L (3.4-5.0 GM/DL) GLOBULIN 4.0 GM/DL H (2.3-3.5 GM/DL) A/G RATIO 0.8 MG/DL L (1.5-2.2 MG/DL) ALK PHOS 113 U/L (46-116 U/L) ALT (SGPT) 25 U/L (12-78 U/L) AST (SGOT) 15 U/L (15-37 U/L) Hematology from 09/22/2014 11:13 AMWBC 7.3 X10e3/UL (3.6-11.2 X10e3/UL) RBC 3.19 X10e6/UL L (3.63-4.92 X10e6/UL) HEMOGLOBIN 8.8 G/DL L (11.0-14.3 G/DL) HEMATOCRIT 26.0 % L (31.2-41.9 %) MCV 81.4 FL (79.0-98.0 FL) MCH 27.5 PG (27.0-33.0 PG) MCHC 33.8 G/DL (32.0-36.0 G/DL) RDW 17.2 % H (12.3-17.0 %) PLATELET 203 X10e3/UL (159-386 X10e3/UL) MPV 7.8 FL (7.4-10.4 FL) AUTOMATED DIFF PERFORMED SEGS 65.9 % LYMPHOCYTES 24.6 % MONOCYTES 8.3 % EOSINOPHILS 0.6 % BASOPHILS 0.6 % ABSOLUTE NEUTROPHILS 4.90 X10e3/UL (1.80-7.80 X10e3/UL) ABSOLUTE LYMPHOCYTES 1.80 X10e3/UL (1.00-3.00 X10e3/UL) ABSOLUTE MONOCYTES 0.60 X10e3/UL (0.30-1.00 X10e3/UL) ABSOLUTE EOSINOPHILS 0.00 X10e3/UL (0.00-0.50 X10e3/UL) ABSOLUTE BASOPHILS 0.00 X10e3/UL (0.00-0.20 X10e3/UL) Hematology from 09/15/2014 9:34 PMWBC 22.0 X10e3/UL [...] MICROCYTIC 1+ MACROCYTIC 1+ TOXIC GRANULATION 1+ Coagulation from 09/22/2014 11:13 AMPROTHROMBIN TIME 21.9 SECONDS H (9.4-11.5 SECONDS) INR 2.0 H (0.9-1.1 ) Coagulation from 09/20/2014 9:30 AMPROTHROMBIN TIME 22.7 SECONDS H (9.4-11.5 SECONDS) INR 2.1 H (0.9-1.1 ) Coagulation from 09/19/2014 10:25 AMPROTHROMBIN TIME 20.4 SECONDS H (9.4-11.5 SECONDS) INR 1.9 H (0.9-1.1 ) Coagulation from 09/18/2014 11:04 AMPROTHROMBIN TIME 20.2 SECONDS H (9.4-11.5 SECONDS) INR 1.9 H (0.9-1.1 ) Coagulation from 09/17/2014 10:50 AMPROTHROMBIN TIME 17.0 SECONDS H (9.4-11.5 SECONDS) INR 1.6 H (0.9-1.1 ) Coagulation from 09/16/2014 11:21 AMPROTHROMBIN TIME 18.1 SECONDS H (9.4-11.5 SECONDS) INR 1.7 H (0.9-1.1 ) Coagulation from 09/15/2014 9:34 PMPROTHROMBIN TIME 20.3 SECONDS H (9.4-11.5 SECONDS) INR 1.9 H (0.9-1.1 ) PARTIAL THROMBOPLASTIN TIME 31.1 SECONDS H (21.0-30.0 SECONDS) Coagulation from 09/15/2014 8:37 AMPROTHROMBIN TIME 17.7 SECONDS H (9.4-11.5 SECONDS) INR 1.7 H (0.9-1.1 ) CT Scan from 09/15/2014 8:31 PMCT CEREBRAL W/O CONTRAST DATE OF EXAM: Sep 15 2014 8:44PM Proc: CT 0001 - CT CEREBRAL W/O CONTRAST CPT Code(s): 75295-; ; ; INDICATION / CLINICAL HISTORY: \E\Headache [...]
--- OUTSIDE RECORDS SUMMARY | 2017-01-09 16:26 | XMS REPORT ---
Author Author GENERATED, SYSTEM Organization Unknown Address Unknown Phone Unavailable Care Team Providers Care Mirror Maker Name Role Phone MD JOSELUIS, THELMA PP [phone] Reason For Visit Chief Complaint 782.0 V58.61 Social History Functional Status Vital Signs Results Hematology from 07/08/2015 2:06 PMWBC 3.0 X10e3/UL L (3.6-11.2 X10e3/UL) RBC 3.80 X10e6/UL (3.63-4.92 X10e6/UL) HEMOGLOBIN 11.2 G/DL (11.0-14.3 G/DL) HEMATOCRIT 33.8 % (31.2-41.9 %) *MCV 89.0 FL (79.0-98.0 FL) *MCH 29.5 PG (27.0-33.0 PG) *MCHC 33.1 G/DL (32.0-36.0 G/DL) *RDW 16.6 % (12.3-17.0 %) *RDWSD 51.6 H (37.1-47.8 ) PLATELET 199 X10e3/UL (159-386 X10e3/UL) *MPV 7.5 FL (7.4-10.4 FL) AUTOMATED DIFF PERFORMED SEGS 67.3 % *LYMPHOCYTES 15.5 % *MONOCYTES 11.0 % *EOSINOPHILS 5.8 % *BASOPHILS 0.4 % *ABSOLUTE NEUTROPHILS 2.00 X10e3/UL (1.80-7.80 X10e3/UL) *ABSOLUTE LYMPHOCYTES 0.50 X10e3/UL L (1.00-3.00 X10e3/UL) *ABSOLUTE MONOCYTES 0.30 X10e3/UL (0.30-1.00 X10e3/UL) *ABSOLUTE EOSINOPHILS 0.20 X10e3/UL (0.00-0.50 X10e3/UL) *ABSOLUTE BASOPHILS 0.00 X10e3/UL (0.00-0.20 X10e3/UL) Hematology from 06/18/2015 2:32 PMWBC 3.5 X10e3/UL L (3.6-11.2 X10e3/UL) RBC 3.65 X10e6/UL (3.63-4.92 X10e6/UL) HEMOGLOBIN 10.6 G/DL L (11.0-14.3 G/DL) HEMATOCRIT 33.2 % (31.2-41.9 %) *MCV 91.0 FL (79.0-98.0 FL) *MCH 29.0 PG (27.0-33.0 PG) *MCHC 31.9 G/DL L (32.0-36.0 G/DL) *RDW 17.7 % H (12.3-17.0 %) *RDWSD 56.4 H (37.1-47.8 ) PLATELET 187 X10e3/UL (159-386 X10e3/UL) *MPV 8.1 FL (7.4-10.4 FL) AUTOMATED DIFF PERFORMED SEGS 57.5 % *LYMPHOCYTES 11.8 % *MONOCYTES 7.4 % *EOSINOPHILS 22.8 % *BASOPHILS 0.5 % *ABSOLUTE NEUTROPHILS 2.00 X10e3/UL (1.80-7.80 X10e3/UL) *ABSOLUTE LYMPHOCYTES 0.40 X10e3/UL L (1.00-3.00 X10e3/UL) *ABSOLUTE MONOCYTES 0.30 X10e3/UL (0.30-1.00 X10e3/UL) *ABSOLUTE EOSINOPHILS 0.80 X10e3/UL H (0.00-0.50 X10e3/UL) *ABSOLUTE BASOPHILS 0.00 X10e3/UL (0.00-0.20 X10e3/UL) Coagulation from 06/18/2015 2:32 PM*PROTHROMBIN TIME 18.3 SECONDS H (9.4-11.5 SECONDS) *INR 1.7 H (0.9-1.1 ) Problems Encounter Diagnosis No [...]
--- OUTSIDE RECORDS SUMMARY | 2017-01-09 16:26 | XMS REPORT ---
Author Author GENERATED, SYSTEM Organization Unknown Address Unknown Phone Unavailable Care Team Providers Care Anesthesia Resident Name Role Phone MD JOSELUIS, THELMA PP [phone] Reason For Visit Chief Complaint 782.0 V58.61 Social History Functional Status Vital Signs Results Chemistry from 01/08/2015 1:00 PMSODIUM 137 MMOL/L (136-145 MMOL/L) POTASSIUM 3.7 MMOL/L (3.5-5.1 MMOL/L) CHLORIDE 104 MMOL/L (98-107 MMOL/L) TCO2 22.7 MMOL/L (21.0-32.0 MMOL/L) ANION GAP 10.3 MMOL/L (8.0-16.0 MMOL/L) BUN 32 MG/DL H (7-18 MG/DL) CREATININE 0.78 MG/DL (0.43-0.83 MG/DL) BUN/CREATININE RATIO 41.0 H (9.1-17.0 ) GLUCOSE 226 MG/DL H (65-99 MG/DL) GFR EST NON AFR MONGOLIAN 78 ML/MIN GFRA EST AFR AMER >90 ML/MIN CALCIUM 8.5 MG/DL (8.5-10.1 MG/DL) BILIRUBIN TOTAL 0.15 MG/DL L (0.20-1.00 MG/DL) TOTAL PROTEIN 7.5 GM/DL (6.4-8.2 GM/DL) ALBUMIN 3.4 GM/DL (3.4-5.0 GM/DL) GLOBULIN 4.1 GM/DL H (2.3-3.5 GM/DL) A/G RATIO 0.8 MG/DL L (1.5-2.2 MG/DL) ALK PHOS 120 U/L H (46-116 U/L) ALT (SGPT) 19 U/L (16-63 U/L) AST (SGOT) 12 U/L L (15-37 U/L) MAGNESIUM 1.6 MG/DL L (1.8-2.4 MG/DL) LDH 216 U/L (81-234 U/L) Chemistry from 01/06/2015 3:11 PMSODIUM 138 MMOL/L (136-145 MMOL/L) POTASSIUM 3.8 MMOL/L (3.5-5.1 MMOL/L) CHLORIDE 103 MMOL/L (98-107 MMOL/L) TCO2 25.7 MMOL/L (21.0-32.0 MMOL/L) ANION GAP 9.3 MMOL/L (8.0-16.0 MMOL/L) BUN 26 MG/DL H (7-18 MG/DL) CREATININE 0.67 MG/DL (0.43-0.83 MG/DL) BUN/CREATININE RATIO 38.8 H (9.1-17.0 ) GLUCOSE 217 MG/DL H (65-99 MG/DL) GFR EST NON AFR MONGOLIAN >90 ML/MIN GFRA EST AFR AMER >90 ML/MIN CALCIUM 8.9 MG/DL (8.5-10.1 MG/DL) BILIRUBIN TOTAL 0.16 MG/DL L (0.20-1.00 MG/DL) TOTAL PROTEIN 7.8 GM/DL (6.4-8.2 GM/DL) ALBUMIN 3.5 GM/DL (3.4-5.0 GM/DL) GLOBULIN 4.3 GM/DL H (2.3-3.5 GM/DL) A/G RATIO 0.8 MG/DL L (1.5-2.2 MG/DL) ALK PHOS 121 U/L H (46-116 U/L) ALT (SGPT) 23 U/L (16-63 U/L) AST (SGOT) 17 U/L (15-37 U/L) MAGNESIUM 1.7 MG/DL L (1.8-2.4 MG/DL) LDH 445 U/L H (81-234 U/L) Chemistry from 01/01/2015 1:35 PMSODIUM 132 MMOL/L L (136-145 MMOL/L) POTASSIUM 5.2 MMOL/L H (3.5-5.1 MMOL/L) CHLORIDE 99 MMOL/L (98-107 MMOL/L) TCO2 25.9 MMOL/L (21.0-32.0 MMOL/L) ANION GAP 7.1 MMOL/L L (8.0-16.0 MMOL/L) BUN 29 MG/DL H (7-18 MG/DL) CREATININE 0.87 MG/DL H (0.43-0.83 MG/DL) BUN/CREATININE RATIO 33.3 H (9.1-17.0 ) GLUCOSE 164 MG/DL H (65-99 MG/DL) GFR EST NON AFR MONGOLIAN 68 ML/MIN GFRA EST AFR AMER 79 ML/MIN CALCIUM 8.6 MG/DL (8.5-10.1 MG/DL) BILIRUBIN TOTAL <0.10 MG/DL L (0.20-1.00 MG/DL) TOTAL PROTEIN 7.7 GM/DL (6.4-8.2 GM/DL) ALBUMIN 3.5 GM/DL (3.4-5.0 GM/DL) GLOBULIN 4.2 GM/DL H (2.3-3.5 GM/DL) A/G RATIO 0.8 MG/DL L (1.5-2.2 MG/DL) ALK PHOS 111 U/L (46-116 U/L) ALT (SGPT) 22 U/L (16-63 U/L) AST (SGOT) 13 U/L L (15-37 U/L) MAGNESIUM 1.7 MG/DL L (1.8-2.4 MG/DL) LDH 222 U/L (81-234 U/L) Chemistry from 12/18/2014 12:46 PMSODIUM 139 MMOL/L (136-145 MMOL/L) POTASSIUM 3.9 MMOL/L (3.5-5.1 MMOL/L) CHLORIDE 105 MMOL/L (98-107 MMOL/L) TCO2 24.4 MMOL/L (21.0-32.0 MMOL/L) ANION GAP 9.6 MMOL/L (8.0-16.0 MMOL/L) BUN 24 MG/DL H (7-18 MG/DL) CREATININE 0.78 MG/DL (0.43-0.83 MG/DL) BUN/CREATININE RATIO 30.8 H (9.1-17.0 ) GLUCOSE 275 MG/DL H (65-99 MG/DL) GFR EST NON AFR MONGOLIAN 78 ML/MIN GFRA EST AFR AMER >90 ML/MIN CALCIUM 8.6 MG/DL (8.5-10.1 MG/DL) BILIRUBIN TOTAL 0.19 MG/DL L (0.20-1.00 MG/DL) TOTAL PROTEIN 7.4 GM/DL (6.4-8.2 GM/DL) ALBUMIN 3.3 GM/DL L (3.4-5.0 GM/DL) GLOBULIN 4.1 GM/DL H (2.3-3.5 GM/DL) A/G RATIO 0.8 MG/DL L (1.5-2.2 MG/DL) ALK PHOS 77 U/L (46-116 U/L) ALT (SGPT) 19 U/L (16-63 U/L) AST (SGOT) 12 U/L L (15-37 U/L) MAGNESIUM 1.6 MG/DL L (1.8-2.4 MG/DL) LDH 164 U/L (81-234 U/L) Hematology from 01/08/2015 12:45 PMWBC 8.7 X10e3/UL (3.6-11.2 X10e3/UL) RBC 3.81 X10e6/UL (3.63-4.92 X10e6/UL) HEMOGLOBIN 11.0 G/DL (11.0-14.3 G/DL) HEMATOCRIT 33.9 % (31.2-41.9 %) MCV 88.8 FL (79.0-98.0 FL) MCH 28.9 PG (27.0-33.0 PG) MCHC 32.5 G/DL (32.0-36.0 G/DL) RDW 16.0 % (12.3-17.0 %) RDWSD 49.4 H (37.1-47.8 ) PLATELET 140 X10e3/UL L (159-386 X10e3/UL) MPV 7.9 FL (7.4-10.4 FL) MANUAL DIFF PERFORMED SEGS 69.0 % BANDS 3.0 % LYMPHOCYTES 22.0 % MONOCYTES 2.0 % EOSINOPHILS 0.0 % BASOPHILS 1.0 % METAMYELOCYTES 3.0 % ABSOLUTE NEUTROPHILS 6.53 X10e3/UL (1.80-7.80 X10e3/UL) ABSOLUTE LYMPHOCYTES 1.91 X10e3/UL (1.00-3.00 X10e3/UL) ABSOLUTE MONOCYTES 0.17 X10e3/UL L (0.30-1.00 X10e3/UL) ABSOLUTE EOSINOPHILS 0.00 X10e3/UL (0.00-0.50 X10e3/UL) ABSOLUTE BASOPHILS 0.09 X10e3/UL (0.00-0.20 X10e3/UL) TOXIC GRANULATION 1+ Hematology from 01/06/2015 3:11 PMWBC 11.9 X10e3/UL H (3.6-11.2 X10e3/UL) RBC 3.69 X10e6/UL (3.63-4.92 X10e6/UL) HEMOGLOBIN 10.3 G/DL L (11.0-14.3 G/DL) HEMATOCRIT 32.0 % (31.2-41.9 %) MCV 86.7 FL (79.0-98.0 FL) MCH 28.0 PG (27.0-33.0 PG) MCHC 32.3 G/DL (32.0-36.0 G/DL) RDW 16.5 % (12.3-17.0 %) RDWSD 49.9 H (37.1-47.8 ) PLATELET 148 X10e3/UL L (159-386 X10e3/UL) MPV 7.7 FL (7.4-10.4 FL) MANUAL DIFF PERFORMED SEGS 48.0 % BANDS 14.0 % LYMPHOCYTES 30.0 % MONOCYTES 5.0 % EOSINOPHILS 1.0 % BASOPHILS 0.0 % METAMYELOCYTES 2.0 % ABSOLUTE NEUTROPHILS 7.62 X10e3/UL (1.80-7.80 X10e3/UL) ABSOLUTE LYMPHOCYTES 3.57 X10e3/UL H (1.00-3.00 X10e3/UL) ABSOLUTE MONOCYTES 0.60 X10e3/UL (0.30-1.00 X10e3/UL) ABSOLUTE EOSINOPHILS 0.12 X10e3/UL (0.00-0.50 X10e3/UL) ABSOLUTE BASOPHILS 0.00 X10e3/UL (0.00-0.20 X10e3/UL) POLYCHROMASIA 1+ STOMATOCYTES 1+ TOXIC GRANULATION 2+ Hematology from 01/01/2015 1:35 PMWBC 7.2 X10e3/UL (3.6-11.2 X10e3/UL) RBC 3.77 X10e6/UL (3.63-4.92 X10e6/UL) HEMOGLOBIN 10.8 G/DL L (11.0-14.3 G/DL) HEMATOCRIT 32.8 % (31.2-41.9 %) MCV 87.0 FL (79.0-98.0 FL) MCH 28.6 PG (27.0-33.0 PG) MCHC 32.9 G/DL (32.0-36.0 G/DL) RDW 16.4 % (12.3-17.0 %) RDWSD 49.0 H (37.1-47.8 ) PLATELET 140 X10e3/UL L (159-386 X10e3/UL) MPV 8.4 FL (7.4-10.4 FL) AUTOMATED DIFF PERFORMED SEGS 72.0 % LYMPHOCYTES 13.8 % MONOCYTES 11.0 % EOSINOPHILS 2.9 % BASOPHILS 0.3 % ABSOLUTE NEUTROPHILS 5.20 X10e3/UL (1.80-7.80 X10e3/UL) ABSOLUTE LYMPHOCYTES 1.00 X10e3/UL (1.00-3.00 X10e3/UL) ABSOLUTE MONOCYTES 0.80 X10e3/UL (0.30-1.00 X10e3/UL) ABSOLUTE EOSINOPHILS 0.20 X10e3/UL (0.00-0.50 X10e3/UL) ABSOLUTE BASOPHILS 0.00 X10e3/UL (0.00-0.20 X10e3/UL) Hematology from 12/18/2014 12:46 PMWBC 3.8 X10e3/UL (3.6-11.2 X10e3/UL) RBC 3.79 X10e6/UL (3.63-4.92 X10e6/UL) HEMOGLOBIN 11.0 G/DL (11.0-14.3 G/DL) HEMATOCRIT 33.2 % (31.2-41.9 %) MCV 87.7 FL (79.0-98.0 FL) MCH 29.1 PG (27.0-33.0 PG) MCHC 33.2 G/DL (32.0-36.0 G/DL) RDW 16.5 % (12.3-17.0 %) RDWSD 50.8 H (37.1-47.8 ) PLATELET 192 X10e3/UL (159-386 X10e3/UL) MPV 8.2 FL (7.4-10.4 FL) AUTOMATED DIFF PERFORMED SEGS 64.5 % LYMPHOCYTES 25.3 % MONOCYTES 5.5 % EOSINOPHILS 4.2 % BASOPHILS 0.5 % ABSOLUTE NEUTROPHILS 2.50 X10e3/UL (1.80-7.80 X10e3/UL) ABSOLUTE LYMPHOCYTES 1.00 X10e3/UL (1.00-3.00 X10e3/UL) ABSOLUTE MONOCYTES 0.20 X10e3/UL L (0.30-1.00 X10e3/UL) ABSOLUTE EOSINOPHILS 0.20 X10e3/UL (0.00-0.50 X10e3/UL) ABSOLUTE BASOPHILS 0.00 X10e3/UL (0.00-0.20 X10e3/UL) Coagulation from 01/08/2015 1:00 PMPROTHROMBIN TIME 23.3 SECONDS H (9.4-11.5 SECONDS) INR 2.1 H (0.9-1.1 ) Coagulation from 01/06/2015 3:11 PMPROTHROMBIN TIME 26.0 SECONDS H (9.4-11.5 SECONDS) INR 2.4 H (0.9-1.1 ) Coagulation from 01/01/2015 1:35 PMPROTHROMBIN TIME 21.3 SECONDS H (9.4-11.5 SECONDS) INR 1.9 H (0.9-1.1 ) Coagulation from 12/31/2014 11:50 AMPROTHROMBIN TIME 17.5 SECONDS H (9.4-11.5 SECONDS) INR 1.6 H (0.9-1.1 ) Coagulation from 12/18/2014 12:46 PMPROTHROMBIN TIME 28.1 SECONDS H (9.4-11.5 SECONDS) INR 2.6 H (0.9-1.1 ) Problems Encounter Diagnosis No [...]
--- OUTSIDE RECORDS SUMMARY | 2017-01-09 16:27 | XMS REPORT ---
Author Author GENERATED, SYSTEM Organization Unknown Address Unknown Phone Unavailable Care Team Providers Care Outsole Cutter Machine Name Role Phone MD JOSELUIS, THELMA PP [phone] Reason For Visit Chief Complaint 782.0 V58.61 Social History Functional Status Vital Signs Results Chemistry from 12/11/2014 11:31 AMSODIUM 140 MMOL/L (136-145 MMOL/L) POTASSIUM 3.9 MMOL/L (3.5-5.1 MMOL/L) CHLORIDE 106 MMOL/L (98-107 MMOL/L) TCO2 24.9 MMOL/L (21.0-32.0 MMOL/L) ANION GAP 9.1 MMOL/L (8.0-16.0 MMOL/L) BUN 26 MG/DL H (7-18 MG/DL) CREATININE 0.75 MG/DL (0.43-0.83 MG/DL) BUN/CREATININE RATIO 34.7 H (9.1-17.0 ) GLUCOSE 166 MG/DL H (65-99 MG/DL) GFR EST NON AFR BAHAMIAN 82 ML/MIN GFRA EST AFR AMER >90 ML/MIN CALCIUM 8.6 MG/DL (8.5-10.1 MG/DL) BILIRUBIN TOTAL 0.15 MG/DL L (0.20-1.00 MG/DL) TOTAL PROTEIN 7.4 GM/DL (6.4-8.2 GM/DL) ALBUMIN 3.3 GM/DL L (3.4-5.0 GM/DL) GLOBULIN 4.1 GM/DL H (2.3-3.5 GM/DL) A/G RATIO 0.8 MG/DL L (1.5-2.2 MG/DL) ALK PHOS 70 U/L (46-116 U/L) ALT (SGPT) 19 U/L (16-63 U/L) AST (SGOT) 13 U/L L (15-37 U/L) MAGNESIUM 1.7 MG/DL L (1.8-2.4 MG/DL) LDH 172 U/L (81-234 U/L) Chemistry from 12/02/2014 12:15 PMSODIUM 139 MMOL/L (136-145 MMOL/L) POTASSIUM 4.0 MMOL/L (3.5-5.1 MMOL/L) CHLORIDE 103 MMOL/L (98-107 MMOL/L) TCO2 29.3 MMOL/L (21.0-32.0 MMOL/L) ANION GAP 6.7 MMOL/L L (8.0-16.0 MMOL/L) BUN 20 MG/DL H (7-18 MG/DL) CREATININE 0.74 MG/DL (0.43-0.83 MG/DL) BUN/CREATININE RATIO 27.0 H (9.1-17.0 ) GLUCOSE 187 MG/DL H (65-99 MG/DL) GFR EST NON AFR BAHAMIAN 83 ML/MIN GFRA EST AFR AMER >90 ML/MIN CALCIUM 8.4 MG/DL L (8.5-10.1 MG/DL) BILIRUBIN TOTAL 0.15 MG/DL L (0.20-1.00 MG/DL) TOTAL PROTEIN 6.7 GM/DL (6.4-8.2 GM/DL) ALBUMIN 2.8 GM/DL L (3.4-5.0 GM/DL) GLOBULIN 3.9 GM/DL H (2.3-3.5 GM/DL) A/G RATIO 0.7 MG/DL L (1.5-2.2 MG/DL) ALK PHOS 60 U/L (46-116 U/L) ALT (SGPT) 19 U/L (16-63 U/L) AST (SGOT) 15 U/L (15-37 U/L) Chemistry from 11/17/2014 3:13 PMSODIUM 134 MMOL/L L (136-145 MMOL/L) POTASSIUM 4.3 MMOL/L (3.5-5.1 MMOL/L) CHLORIDE 102 MMOL/L (98-107 MMOL/L) TCO2 25.3 MMOL/L (21.0-32.0 MMOL/L) ANION GAP 6.7 MMOL/L L (8.0-16.0 MMOL/L) BUN 27 MG/DL H (7-18 MG/DL) CREATININE 0.61 MG/DL (0.43-0.83 MG/DL) BUN/CREATININE RATIO 44.3 H (9.1-17.0 ) GLUCOSE 120 MG/DL H (65-99 MG/DL) GFR EST NON AFR BAHAMIAN >90 ML/MIN GFRA EST AFR AMER >90 ML/MIN CALCIUM 8.6 MG/DL (8.5-10.1 MG/DL) BILIRUBIN TOTAL 0.25 MG/DL (0.20-1.00 MG/DL) TOTAL PROTEIN 7.0 GM/DL (6.4-8.2 GM/DL) ALBUMIN 3.2 GM/DL L (3.4-5.0 GM/DL) GLOBULIN 3.8 GM/DL H (2.3-3.5 GM/DL) A/G RATIO 0.8 MG/DL L (1.5-2.2 MG/DL) ALK PHOS 81 U/L (46-116 U/L) ALT (SGPT) 22 U/L (16-63 U/L) AST (SGOT) 20 U/L (15-37 U/L) Hematology from 12/11/2014 11:31 AMWBC 4.0 X10e3/UL (3.6-11.2 X10e3/UL) RBC 3.85 X10e6/UL (3.63-4.92 X10e6/UL) HEMOGLOBIN 11.1 G/DL (11.0-14.3 G/DL) HEMATOCRIT 33.8 % (31.2-41.9 %) MCV 87.8 FL (79.0-98.0 FL) MCH 28.8 PG (27.0-33.0 PG) MCHC 32.8 G/DL (32.0-36.0 G/DL) RDW 17.7 % H (12.3-17.0 %) RDWSD 53.8 H (37.1-47.8 ) PLATELET 275 X10e3/UL (159-386 X10e3/UL) MPV 7.6 FL (7.4-10.4 FL) AUTOMATED DIFF PERFORMED SEGS 58.4 % LYMPHOCYTES 28.7 % MONOCYTES 6.0 % EOSINOPHILS 6.1 % BASOPHILS 0.8 % ABSOLUTE NEUTROPHILS 2.30 X10e3/UL (1.80-7.80 X10e3/UL) ABSOLUTE LYMPHOCYTES 1.20 X10e3/UL (1.00-3.00 X10e3/UL) ABSOLUTE MONOCYTES 0.20 X10e3/UL L (0.30-1.00 X10e3/UL) ABSOLUTE EOSINOPHILS 0.20 X10e3/UL (0.00-0.50 X10e3/UL) ABSOLUTE BASOPHILS 0.00 X10e3/UL (0.00-0.20 X10e3/UL) Hematology from 12/05/2014 11:45 AMWBC 5.0 X10e3/UL (3.6-11.2 X10e3/UL) RBC 3.78 X10e6/UL (3.63-4.92 X10e6/UL) HEMOGLOBIN 10.9 G/DL L (11.0-14.3 G/DL) HEMATOCRIT 33.1 % (31.2-41.9 %) MCV 87.6 FL (79.0-98.0 FL) MCH 28.9 PG (27.0-33.0 PG) MCHC 33.0 G/DL (32.0-36.0 G/DL) RDW 17.6 % H (12.3-17.0 %) RDWSD 53.8 H (37.1-47.8 ) PLATELET 282 X10e3/UL (159-386 X10e3/UL) MPV 7.8 FL (7.4-10.4 FL) AUTOMATED DIFF PERFORMED SEGS 69.8 % LYMPHOCYTES 19.4 % MONOCYTES 6.3 % EOSINOPHILS 4.1 % BASOPHILS 0.4 % ABSOLUTE NEUTROPHILS 3.50 X10e3/UL (1.80-7.80 X10e3/UL) ABSOLUTE LYMPHOCYTES 1.00 X10e3/UL (1.00-3.00 X10e3/UL) ABSOLUTE MONOCYTES 0.30 X10e3/UL (0.30-1.00 X10e3/UL) ABSOLUTE EOSINOPHILS 0.20 X10e3/UL (0.00-0.50 X10e3/UL) ABSOLUTE BASOPHILS 0.00 X10e3/UL (0.00-0.20 X10e3/UL) Hematology from 12/02/2014 12:15 PMWBC 3.5 X10e3/UL L (3.6-11.2 X10e3/UL) RBC 3.37 X10e6/UL L (3.63-4.92 X10e6/UL) HEMOGLOBIN 9.7 G/DL L (11.0-14.3 G/DL) HEMATOCRIT 29.6 % L (31.2-41.9 %) MCV 87.9 FL (79.0-98.0 FL) MCH 28.9 PG (27.0-33.0 PG) MCHC 32.9 G/DL (32.0-36.0 G/DL) RDW 17.5 % H (12.3-17.0 %) RDWSD 53.8 H (37.1-47.8 ) PLATELET 214 X10e3/UL (159-386 X10e3/UL) MPV 8.2 FL (7.4-10.4 FL) AUTOMATED DIFF PERFORMED SEGS 60.5 % LYMPHOCYTES 24.9 % MONOCYTES 7.2 % EOSINOPHILS 7.0 % BASOPHILS 0.4 % ABSOLUTE NEUTROPHILS 2.10 X10e3/UL (1.80-7.80 X10e3/UL) ABSOLUTE LYMPHOCYTES 0.90 X10e3/UL L (1.00-3.00 X10e3/UL) ABSOLUTE MONOCYTES 0.20 X10e3/UL L (0.30-1.00 X10e3/UL) ABSOLUTE EOSINOPHILS 0.20 X10e3/UL (0.00-0.50 X10e3/UL) ABSOLUTE BASOPHILS 0.00 X10e3/UL (0.00-0.20 X10e3/UL) Hematology from 11/30/2014 10:37 AMWBC 4.1 X10e3/UL (3.6-11.2 X10e3/UL) RBC 3.30 X10e6/UL L (3.63-4.92 X10e6/UL) HEMOGLOBIN 9.5 G/DL L (11.0-14.3 G/DL) HEMATOCRIT 29.3 % L (31.2-41.9 %) MCV 88.9 FL (79.0-98.0 FL) MCH 28.9 PG (27.0-33.0 PG) MCHC 32.5 G/DL (32.0-36.0 G/DL) RDW 18.0 % H (12.3-17.0 %) RDWSD 55.1 H (37.1-47.8 ) PLATELET 185 X10e3/UL (159-386 X10e3/UL) MPV 8.2 FL (7.4-10.4 FL) AUTOMATED DIFF PERFORMED SEGS 49.1 % LYMPHOCYTES 32.8 % MONOCYTES 12.4 % EOSINOPHILS 5.3 % BASOPHILS 0.4 % ABSOLUTE NEUTROPHILS 2.00 X10e3/UL (1.80-7.80 X10e3/UL) ABSOLUTE LYMPHOCYTES 1.30 X10e3/UL (1.00-3.00 X10e3/UL) ABSOLUTE MONOCYTES 0.50 X10e3/UL (0.30-1.00 X10e3/UL) ABSOLUTE EOSINOPHILS 0.20 X10e3/UL (0.00-0.50 X10e3/UL) ABSOLUTE BASOPHILS 0.00 X10e3/UL (0.00-0.20 X10e3/UL) Hematology from 11/28/2014 3:23 PMWBC 5.3 X10e3/UL (3.6-11.2 X10e3/UL) RBC 3.31 X10e6/UL L (3.63-4.92 X10e6/UL) HEMOGLOBIN 9.7 G/DL L (11.0-14.3 G/DL) HEMATOCRIT 29.3 % L (31.2-41.9 %) MCV 88.5 FL (79.0-98.0 FL) MCH 29.5 PG (27.0-33.0 PG) MCHC 33.3 G/DL (32.0-36.0 G/DL) RDW 17.7 % H (12.3-17.0 %) RDWSD 54.3 H (37.1-47.8 ) PLATELET 179 X10e3/UL (159-386 X10e3/UL) MPV 8.7 FL (7.4-10.4 FL) AUTOMATED DIFF PERFORMED SEGS 71.5 % LYMPHOCYTES 17.2 % MONOCYTES 6.6 % EOSINOPHILS 4.4 % BASOPHILS 0.3 % ABSOLUTE NEUTROPHILS 3.80 X10e3/UL (1.80-7.80 X10e3/UL) ABSOLUTE LYMPHOCYTES 0.90 X10e3/UL L (1.00-3.00 X10e3/UL) ABSOLUTE MONOCYTES 0.30 X10e3/UL (0.30-1.00 X10e3/UL) ABSOLUTE EOSINOPHILS 0.20 X10e3/UL (0.00-0.50 X10e3/UL) ABSOLUTE BASOPHILS 0.00 X10e3/UL (0.00-0.20 X10e3/UL) Hematology from 11/27/2014 1:10 PMWBC 5.4 X10e3/UL (3.6-11.2 X10e3/UL) RBC 3.31 X10e6/UL L (3.63-4.92 X10e6/UL) HEMOGLOBIN 9.8 G/DL L (11.0-14.3 G/DL) HEMATOCRIT 29.3 % L (31.2-41.9 %) MCV 88.5 FL (79.0-98.0 FL) MCH 29.6 PG (27.0-33.0 PG) MCHC 33.4 G/DL (32.0-36.0 G/DL) RDW 17.9 % H (12.3-17.0 %) RDWSD 54.7 H (37.1-47.8 ) PLATELET 149 X10e3/UL L (159-386 X10e3/UL) MPV 9.2 FL (7.4-10.4 FL) AUTOMATED DIFF PERFORMED SEGS 72.3 % LYMPHOCYTES 17.8 % MONOCYTES 6.2 % EOSINOPHILS 3.5 % BASOPHILS 0.2 % ABSOLUTE NEUTROPHILS 3.90 X10e3/UL (1.80-7.80 X10e3/UL) ABSOLUTE LYMPHOCYTES 1.00 X10e3/UL (1.00-3.00 X10e3/UL) ABSOLUTE MONOCYTES 0.30 X10e3/UL (0.30-1.00 X10e3/UL) ABSOLUTE EOSINOPHILS 0.20 X10e3/UL (0.00-0.50 X10e3/UL) ABSOLUTE BASOPHILS 0.00 X10e3/UL (0.00-0.20 X10e3/UL) Hematology from 11/26/2014 2:03 PMWBC 5.9 X10e3/UL (3.6-11.2 X10e3/UL) RBC 3.42 X10e6/UL L (3.63-4.92 X10e6/UL) HEMOGLOBIN 10.1 G/DL L (11.0-14.3 G/DL) HEMATOCRIT 30.6 % L (31.2-41.9 %) MCV 89.5 FL (79.0-98.0 FL) MCH 29.6 PG (27.0-33.0 PG) MCHC 33.1 G/DL (32.0-36.0 G/DL) RDW 18.9 % H (12.3-17.0 %) RDWSD 58.6 H (37.1-47.8 ) PLATELET 175 X10e3/UL (159-386 X10e3/UL) MPV 8.5 FL (7.4-10.4 FL) AUTOMATED DIFF PERFORMED SEGS 59.3 % LYMPHOCYTES 28.7 % MONOCYTES 7.6 % EOSINOPHILS 4.0 % BASOPHILS 0.4 % ABSOLUTE NEUTROPHILS 3.50 X10e3/UL (1.80-7.80 X10e3/UL) ABSOLUTE LYMPHOCYTES 1.70 X10e3/UL (1.00-3.00 X10e3/UL) ABSOLUTE MONOCYTES 0.40 X10e3/UL (0.30-1.00 X10e3/UL) ABSOLUTE EOSINOPHILS 0.20 X10e3/UL (0.00-0.50 X10e3/UL) ABSOLUTE BASOPHILS 0.00 X10e3/UL (0.00-0.20 X10e3/UL) Hematology from 11/25/2014 4:59 PMWBC 5.1 X10e3/UL (3.6-11.2 X10e3/UL) RBC 3.69 X10e6/UL (3.63-4.92 X10e6/UL) HEMOGLOBIN 10.6 G/DL L (11.0-14.3 G/DL) HEMATOCRIT 32.9 % (31.2-41.9 %) MCV 89.1 FL (79.0-98.0 FL) MCH 28.7 PG (27.0-33.0 PG) MCHC 32.2 G/DL (32.0-36.0 G/DL) RDW 17.8 % H (12.3-17.0 %) PLATELET 146 X10e3/UL L (159-386 X10e3/UL) MPV 9.1 FL (7.4-10.4 FL) AUTOMATED DIFF PERFORMED SEGS 58.9 % LYMPHOCYTES 30.6 % MONOCYTES 7.0 % EOSINOPHILS 3.0 % BASOPHILS 0.5 % ABSOLUTE NEUTROPHILS 2.90 X10e3/UL (1.80-7.80 X10e3/UL) ABSOLUTE LYMPHOCYTES 1.60 X10e3/UL (1.00-3.00 X10e3/UL) ABSOLUTE MONOCYTES 0.40 X10e3/UL (0.30-1.00 X10e3/UL) ABSOLUTE EOSINOPHILS 0.20 X10e3/UL (0.00-0.50 X10e3/UL) ABSOLUTE BASOPHILS 0.00 X10e3/UL (0.00-0.20 X10e3/UL) Hematology from 11/17/2014 3:13 PMWBC 4.9 X10e3/UL (3.6-11.2 X10e3/UL) RBC 3.46 X10e6/UL L (3.63-4.92 X10e6/UL) HEMOGLOBIN 9.4 G/DL L (11.0-14.3 G/DL) HEMATOCRIT 30.4 % L (31.2-41.9 %) MCV 87.9 FL (79.0-98.0 FL) MCH 27.1 PG (27.0-33.0 PG) MCHC 30.8 G/DL L (32.0-36.0 G/DL) RDW 20.1 % H (12.3-17.0 %) RDWSD 60.4 H (37.1-47.8 ) PLATELET 263 X10e3/UL (159-386 X10e3/UL) MPV 7.9 FL (7.4-10.4 FL) AUTOMATED DIFF PERFORMED SEGS 61.5 % LYMPHOCYTES 26.0 % MONOCYTES 9.0 % EOSINOPHILS 3.1 % BASOPHILS 0.4 % ABSOLUTE NEUTROPHILS 3.00 X10e3/UL (1.80-7.80 X10e3/UL) ABSOLUTE LYMPHOCYTES 1.30 X10e3/UL (1.00-3.00 X10e3/UL) ABSOLUTE MONOCYTES 0.40 X10e3/UL (0.30-1.00 X10e3/UL) ABSOLUTE EOSINOPHILS 0.20 X10e3/UL (0.00-0.50 X10e3/UL) ABSOLUTE BASOPHILS 0.00 X10e3/UL (0.00-0.20 X10e3/UL) Coagulation from 12/11/2014 11:31 AMPROTHROMBIN TIME 27.1 SECONDS H (9.4-11.5 SECONDS) INR 2.5 H (0.9-1.1 ) Coagulation from 12/05/2014 11:45 AMPROTHROMBIN TIME 23.9 SECONDS H (9.4-11.5 SECONDS) INR 2.2 H (0.9-1.1 ) Coagulation from 12/02/2014 12:15 PMPROTHROMBIN TIME 15.1 SECONDS H (9.4-11.5 SECONDS) INR 1.4 H (0.9-1.1 ) Coagulation from 12/01/2014 12:10 PMPROTHROMBIN TIME 15.6 SECONDS H (9.4-11.5 SECONDS) INR 1.5 H (0.9-1.1 ) Coagulation from 11/30/2014 10:37 AMPROTHROMBIN TIME 16.1 SECONDS H (9.4-11.5 SECONDS) INR 1.5 H (0.9-1.1 ) Coagulation from 11/28/2014 3:23 PMPROTHROMBIN TIME 13.1 SECONDS H (9.4-11.5 SECONDS) INR 1.2 H (0.9-1.1 ) Coagulation from 11/27/2014 1:10 PMPROTHROMBIN TIME 11.0 SECONDS (9.4-11.5 SECONDS) INR 1.1 (0.9-1.1 ) Coagulation from 11/26/2014 2:03 PMPROTHROMBIN TIME 10.2 SECONDS (9.4-11.5 SECONDS) INR 1.0 (0.9-1.1 ) Coagulation from 11/25/2014 4:45 PMPROTHROMBIN TIME 10.0 SECONDS (9.4-11.5 SECONDS) INR 1.0 (0.9-1.1 ) Coagulation from 11/17/2014 3:13 PMPROTHROMBIN TIME 25.8 SECONDS H (9.4-11.5 SECONDS) INR 2.4 H [...]
--- OUTSIDE RECORDS SUMMARY | 2017-01-09 16:27 | XMS REPORT ---
Author Author GENERATED, SYSTEM Organization Unknown Address Unknown Phone Unavailable Care Team Providers Care Nailhead Puncher Name Role Phone MD JOSELUIS, THELMA [phone] Reason For Visit Reason for Visit from 06/16/2016 11:15 AM:* Pt Stated Reason for Adm : Lab Chief Complaint C54.8, C77.5, D64.81 Social History Functional Status Functional Status from 07/13/2016 3:15 PM:* LOC : Alert * Oriented To : Person,Place,Time Functional Status from 07/10/2016 11:19 AM:* LOC : Alert * Oriented To : Person,Place,Time,Event Functional Status from 07/06/2016 11:44 AM:* LOC : Alert * Oriented To : Person,Place,Time Functional Status from 07/04/2016 3:38 PM:* LOC : Alert * Oriented To : Person,Place,Time,Event Functional Status from 07/03/2016 11:46 AM:* LOC : Alert * Oriented To : Person,Place,Time,Event Functional Status from 07/02/2016 10:57 AM:* LOC : Alert * Oriented To : Person,Place,Time,Event Functional Status from 07/01/2016 12:35 PM:* LOC : Alert * Oriented To : Person,Place,Time,Event Functional Status from 06/29/2016 11:30 AM:* LOC : Alert * Oriented To : Person,Place,Time,Event Functional Status from 06/28/2016 12:48 PM:* LOC : Alert * Oriented To : Person,Place,Time,Event Functional Status from 06/27/2016 3:40 PM:* LOC : Alert * Oriented To : Person,Place,Time,Event Functional Status from 06/26/2016 11:11 AM:* LOC : Alert * Oriented To : Person,Place,Time,Event Functional Status from 06/25/2016 11:26 AM:* LOC : Alert * Oriented To : Person,Place,Time,Event Functional Status from 06/23/2016 2:47 PM:* LOC : Alert * Oriented To : Person,Place,Time,Event Functional Status from 06/22/2016 12:44 PM:* LOC : Alert * Oriented To : Person,Place,Time Functional Status from 06/21/2016 12:01 PM:* LOC : Alert * Oriented To : Person,Place,Time Functional Status from 06/16/2016 11:15 AM:* LOC : Alert * Oriented To : Person,Place,Time,Event Vital Signs Hospital Vital Signs from 07/13/2016 3:15 PM:* Height : 5/2 ft,in * Temperature : 96.4 F * Pulse : 64 * Respirations : 18 * BP : 134/60 Hospital Vital Signs from 07/10/2016 11:22 AM:* Height : 5/2 ft,in * Temperature : 97.1 F * Pulse : 82 * Respirations : 18 * BP : 112/64 Hospital Vital Signs from 07/06/2016 11:44 AM:* Height : 5/2 ft,in * Temperature : 96.8 F * Pulse : 92 * Respirations : 18 * BP : 114/69 Hospital Vital Signs from 07/04/2016 3:38 PM:* Height : 5/2 ft,in * Temperature : 97.0 F * Pulse : 93 * Respirations : 18 * BP : 137/62 Hospital Vital Signs from 07/03/2016 11:46 AM:* Height : 5/2 ft,in * Temperature : 96.5 F * Pulse : 85 * Respirations : 18 * BP : 116/55 Hospital Vital Signs from 07/02/2016 10:57 AM:* Height : 5/2 ft,in * Temperature : 97.3 F * Pulse : 86 * Respirations : 18 * BP : 120/68 Hospital Vital Signs from 07/01/2016 12:35 PM:* Height : 5/2 ft,in * Temperature : 96.7 F * Pulse : 81 * Respirations : 18 * BP : 118/56 Hospital Vital Signs from 06/30/2016 2:02 PM:* Height : 5/2 ft,in * Temperature : 96.1 F * Pulse : 80 * Respirations : 18 * BP : 112/54 Hospital Vital Signs from 06/29/2016 11:33 AM:* Height : 5/2 ft,in * Temperature : 97.2 F * Pulse : 82 * Respirations : 18 * BP : 105/56 Hospital Vital Signs from 06/28/2016 12:51 PM:* Height : 5/2 ft,in * Temperature : 97.2 F * Pulse : 91 * Respirations : 18 * BP : 128/70 Hospital Vital Signs from 06/27/2016 3:41 PM:* Height : 5/2 ft,in * Temperature : 97.5 F * Pulse : 86 * Respirations : 18 * BP : 127/67 Hospital Vital Signs from 06/26/2016 11:13 AM:* Height : 5/2 ft,in * Temperature : 97.2 F * Pulse : 90 * Respirations : 18 * BP : 112/56 Hospital Vital Signs from 06/25/2016 11:27 AM:* Height : 5/2 ft,in * Temperature : 97.4 F * Pulse : 80 * Respirations : 18 * BP : 120/59 Hospital Vital Signs from 06/23/2016 2:47 PM:* Height : 5/2 ft,in * Temperature : 96.5 F * Pulse : 93 * Respirations : 18 * BP : 123/59 Hospital Vital Signs from 06/22/2016 12:44 PM:* Height : 5/2 ft,in * Temperature : 96.9 F * Pulse : 91 * Respirations : 18 * BP : 159/68 Hospital Vital Signs from 06/21/2016 12:01 PM:* Height : 5/2 ft,in * Temperature : 96.8 F * Pulse : 78 * Respirations : 18 * BP : 130/76 Hospital Vital Signs from 06/16/2016 11:30 AM:* Height : 5/2 ft,in * Temperature : 98.1 F * Pulse : 75 * Respirations : 18 * BP : 137/59 Hospital Vital Signs from 06/16/2016 11:15 AM:* Weight : 200/ lbs,oz * Height : 5/2 ft,in Results Chemistry from 07/13/2016 3:21 PMSODIUM 131 MMOL/L L (136-145 MMOL/L) POTASSIUM 4.0 MMOL/L (3.5-5.1 MMOL/L) CHLORIDE 96 MMOL/L L (98-107 MMOL/L) TCO2 25.0 MMOL/L (21.0-32.0 MMOL/L) *ANION GAP 10.0 MMOL/L (8.0-16.0 MMOL/L) BUN 17 MG/DL (7-18 MG/DL) CREATININE 1.01 MG/DL (0.55-1.02 MG/DL) *BUN/CREATININE RATIO 16.8 (9.1-17.0 ) GLUCOSE 224 MG/DL H (65-99 MG/DL) *GFR EST NON AFR CAMEROONIAN 56 ML/MIN *GFR EST AFR AMER 65 ML/MIN CALCIUM 8.6 MG/DL (8.5-10.1 MG/DL) BILIRUBIN TOTAL 0.30 MG/DL (0.20-1.00 MG/DL) TOTAL PROTEIN 7.4 GM/DL (6.4-8.2 GM/DL) ALBUMIN 3.4 GM/DL (3.4-5.0 GM/DL) *GLOBULIN 4.0 GM/DL H (2.3-3.5 GM/DL) *A/G RATIO 0.9 MG/DL L (1.5-2.2 MG/DL) ALK PHOS 80 U/L (46-116 U/L) ALT (SGPT) 19 U/L (16-63 U/L) AST (SGOT) 12 U/L L (15-37 U/L) MAGNESIUM 1.7 MG/DL L (1.8-2.4 MG/DL) LDH 212 U/L (81-234 U/L) Chemistry from 07/11/2016 7:46 AMSODIUM 140 MMOL/L (136-145 MMOL/L) POTASSIUM 4.3 MMOL/L (3.5-5.1 MMOL/L) CHLORIDE 106 MMOL/L (98-107 MMOL/L) TCO2 25.1 MMOL/L (21.0-32.0 MMOL/L) *ANION GAP 8.9 MMOL/L (8.0-16.0 MMOL/L) BUN 21 MG/DL H (7-18 MG/DL) CREATININE 0.93 MG/DL (0.55-1.02 MG/DL) *BUN/CREATININE RATIO 22.6 H (9.1-17.0 ) GLUCOSE 200 MG/DL H (65-99 MG/DL) *GFR EST NON AFR CAMEROONIAN 62 ML/MIN *GFR EST AFR AMER 72 ML/MIN CALCIUM 8.7 MG/DL (8.5-10.1 MG/DL) BILIRUBIN TOTAL 0.20 MG/DL (0.20-1.00 MG/DL) TOTAL PROTEIN 6.7 GM/DL (6.4-8.2 GM/DL) ALBUMIN 3.1 GM/DL L (3.4-5.0 GM/DL) *GLOBULIN 3.6 GM/DL H (2.3-3.5 GM/DL) *A/G RATIO 0.9 MG/DL L (1.5-2.2 MG/DL) ALK PHOS 74 U/L (46-116 U/L) ALT (SGPT) 17 U/L (16-63 U/L) AST (SGOT) 12 U/L L (15-37 U/L) Chemistry from 07/10/2016 11:26 AMSODIUM 140 MMOL/L (136-145 MMOL/L) POTASSIUM 4.3 MMOL/L (3.5-5.1 MMOL/L) CHLORIDE 105 MMOL/L (98-107 MMOL/L) TCO2 27.2 MMOL/L (21.0-32.0 MMOL/L) *ANION GAP 7.8 MMOL/L L (8.0-16.0 MMOL/L) BUN 20 MG/DL H (7-18 MG/DL) CREATININE 0.95 MG/DL (0.55-1.02 MG/DL) *BUN/CREATININE RATIO 21.1 H (9.1-17.0 ) GLUCOSE 171 MG/DL H (65-99 MG/DL) *GFR EST NON AFR CAMEROONIAN 61 ML/MIN *GFR EST AFR AMER 70 ML/MIN CALCIUM 8.4 MG/DL L (8.5-10.1 MG/DL) BILIRUBIN TOTAL 0.30 MG/DL (0.20-1.00 MG/DL) TOTAL PROTEIN 6.8 GM/DL (6.4-8.2 GM/DL) ALBUMIN 3.1 GM/DL L (3.4-5.0 GM/DL) *GLOBULIN 3.7 GM/DL H (2.3-3.5 GM/DL) *A/G RATIO 0.8 MG/DL L (1.5-2.2 MG/DL) ALK PHOS 77 U/L (46-116 U/L) ALT (SGPT) 20 U/L (16-63 U/L) AST (SGOT) 14 U/L L (15-37 U/L) MAGNESIUM 1.9 MG/DL (1.8-2.4 MG/DL) LDH 202 U/L (81-234 U/L) Chemistry from 07/06/2016 11:52 AMSODIUM 140 MMOL/L (136-145 MMOL/L) POTASSIUM 4.2 MMOL/L (3.5-5.1 MMOL/L) CHLORIDE 105 MMOL/L (98-107 MMOL/L) TCO2 28.3 MMOL/L (21.0-32.0 MMOL/L) *ANION GAP 6.7 MMOL/L L (8.0-16.0 MMOL/L) BUN 18 MG/DL (7-18 MG/DL) CREATININE 1.01 MG/DL (0.55-1.02 MG/DL) *BUN/CREATININE RATIO 17.8 H (9.1-17.0 ) GLUCOSE 210 MG/DL H (65-99 MG/DL) *GFR EST NON AFR CAMEROONIAN 56 ML/MIN *GFR EST AFR AMER 65 ML/MIN CALCIUM 8.7 MG/DL (8.5-10.1 MG/DL) BILIRUBIN TOTAL 0.30 MG/DL (0.20-1.00 MG/DL) TOTAL PROTEIN 7.1 GM/DL (6.4-8.2 GM/DL) ALBUMIN 3.3 GM/DL L (3.4-5.0 GM/DL) *GLOBULIN 3.8 GM/DL H (2.3-3.5 GM/DL) *A/G RATIO 0.9 MG/DL L (1.5-2.2 MG/DL) ALK PHOS 86 U/L (46-116 U/L) ALT (SGPT) 22 U/L (16-63 U/L) AST (SGOT) 14 U/L L (15-37 U/L) MAGNESIUM 1.7 MG/DL L (1.8-2.4 MG/DL) LDH 226 U/L (81-234 U/L) Chemistry from 07/04/2016 3:50 PMSODIUM 139 MMOL/L (136-145 MMOL/L) POTASSIUM 4.5 MMOL/L (3.5-5.1 MMOL/L) CHLORIDE 105 MMOL/L (98-107 MMOL/L) TCO2 27.5 MMOL/L (21.0-32.0 MMOL/L) *ANION GAP 6.5 MMOL/L L (8.0-16.0 MMOL/L) BUN 21 MG/DL H (7-18 MG/DL) CREATININE 1.01 MG/DL (0.55-1.02 MG/DL) *BUN/CREATININE RATIO 20.8 H (9.1-17.0 ) GLUCOSE 216 MG/DL H (65-99 MG/DL) *GFR EST NON AFR CAMEROONIAN 56 ML/MIN *GFR EST AFR AMER 65 ML/MIN CALCIUM 8.4 MG/DL L (8.5-10.1 MG/DL) BILIRUBIN TOTAL 0.20 MG/DL (0.20-1.00 MG/DL) TOTAL PROTEIN 6.8 GM/DL (6.4-8.2 GM/DL) ALBUMIN 3.1 GM/DL L (3.4-5.0 GM/DL) *GLOBULIN 3.7 GM/DL H (2.3-3.5 GM/DL) *A/G RATIO 0.8 MG/DL L (1.5-2.2 MG/DL) ALK PHOS 85 U/L (46-116 U/L) ALT (SGPT) 23 U/L (16-63 U/L) AST (SGOT) 12 U/L L (15-37 U/L) MAGNESIUM 1.8 MG/DL (1.8-2.4 MG/DL) LDH 225 U/L (81-234 U/L) Chemistry from 06/30/2016 2:10 PMSODIUM 138 MMOL/L (136-145 MMOL/L) POTASSIUM 4.0 MMOL/L (3.5-5.1 MMOL/L) CHLORIDE 102 MMOL/L (98-107 MMOL/L) TCO2 25.3 MMOL/L (21.0-32.0 MMOL/L) *ANION GAP 10.7 MMOL/L (8.0-16.0 MMOL/L) BUN 20 MG/DL H (7-18 MG/DL) CREATININE 1.02 MG/DL (0.55-1.02 MG/DL) *BUN/CREATININE RATIO 19.6 H (9.1-17.0 ) GLUCOSE 234 MG/DL H (65-99 MG/DL) *GFR EST NON AFR CAMEROONIAN 56 ML/MIN *GFR EST AFR AMER 65 ML/MIN CALCIUM 8.3 MG/DL L (8.5-10.1 MG/DL) BILIRUBIN TOTAL 0.20 MG/DL (0.20-1.00 MG/DL) TOTAL PROTEIN 7.2 GM/DL (6.4-8.2 GM/DL) ALBUMIN 3.3 GM/DL L (3.4-5.0 GM/DL) *GLOBULIN 3.9 GM/DL H (2.3-3.5 GM/DL) *A/G RATIO 0.8 MG/DL L (1.5-2.2 MG/DL) ALK PHOS 89 U/L (46-116 U/L) ALT (SGPT) 26 U/L (16-63 U/L) AST (SGOT) 15 U/L (15-37 U/L) MAGNESIUM 1.5 MG/DL L (1.8-2.4 MG/DL) LDH 236 U/L H (81-234 U/L) Chemistry from 06/27/2016 3:47 PMSODIUM 137 MMOL/L (136-145 MMOL/L) POTASSIUM 4.1 MMOL/L (3.5-5.1 MMOL/L) CHLORIDE 103 MMOL/L (98-107 MMOL/L) TCO2 26.6 MMOL/L (21.0-32.0 MMOL/L) *ANION GAP 7.4 MMOL/L L (8.0-16.0 MMOL/L) BUN 20 MG/DL H (7-18 MG/DL) CREATININE 0.99 MG/DL (0.55-1.02 MG/DL) *BUN/CREATININE RATIO 20.2 H (9.1-17.0 ) GLUCOSE 223 MG/DL H (65-99 MG/DL) *GFR EST NON AFR CAMEROONIAN 58 ML/MIN *GFR EST AFR AMER 67 ML/MIN CALCIUM 8.5 MG/DL (8.5-10.1 MG/DL) BILIRUBIN TOTAL 0.30 MG/DL (0.20-1.00 MG/DL) TOTAL PROTEIN 6.9 GM/DL (6.4-8.2 GM/DL) ALBUMIN 3.1 GM/DL L (3.4-5.0 GM/DL) *GLOBULIN 3.8 GM/DL H (2.3-3.5 GM/DL) *A/G RATIO 0.8 MG/DL L (1.5-2.2 MG/DL) ALK PHOS 83 U/L (46-116 U/L) ALT (SGPT) 26 U/L (16-63 U/L) AST (SGOT) 12 U/L L (15-37 U/L) MAGNESIUM 1.4 MG/DL L (1.8-2.4 MG/DL) LDH 202 U/L (81-234 U/L) Chemistry from 06/23/2016 2:55 PMSODIUM 137 MMOL/L (136-145 MMOL/L) POTASSIUM 4.4 MMOL/L (3.5-5.1 MMOL/L) CHLORIDE 101 MMOL/L (98-107 MMOL/L) TCO2 29.7 MMOL/L (21.0-32.0 MMOL/L) *ANION GAP 6.3 MMOL/L L (8.0-16.0 MMOL/L) BUN 19 MG/DL H (7-18 MG/DL) CREATININE 1.13 MG/DL H (0.55-1.02 MG/DL) *BUN/CREATININE RATIO 16.8 (9.1-17.0 ) GLUCOSE 302 MG/DL H (65-99 MG/DL) *GFR EST NON AFR CAMEROONIAN 49 ML/MIN *GFR EST AFR AMER 57 ML/MIN CALCIUM 8.4 MG/DL L (8.5-10.1 MG/DL) BILIRUBIN TOTAL 0.60 MG/DL (0.20-1.00 MG/DL) TOTAL PROTEIN 6.6 GM/DL (6.4-8.2 GM/DL) ALBUMIN 3.1 GM/DL L (3.4-5.0 GM/DL) *GLOBULIN 3.5 GM/DL (2.3-3.5 GM/DL) *A/G RATIO 0.9 MG/DL L (1.5-2.2 MG/DL) ALK PHOS 80 U/L (46-116 U/L) ALT (SGPT) 27 U/L (16-63 U/L) AST (SGOT) 16 U/L (15-37 U/L) MAGNESIUM 1.6 MG/DL L (1.8-2.4 MG/DL) LDH 228 U/L (81-234 U/L) Chemistry from 06/16/2016 11:35 AMSODIUM 138 MMOL/L (136-145 MMOL/L) POTASSIUM 3.9 MMOL/L (3.5-5.1 MMOL/L) CHLORIDE 103 MMOL/L (98-107 MMOL/L) TCO2 26.7 MMOL/L (21.0-32.0 MMOL/L) *ANION GAP 8.3 MMOL/L (8.0-16.0 MMOL/L) BUN 26 MG/DL H (7-18 MG/DL) CREATININE 1.02 MG/DL (0.55-1.02 MG/DL) *BUN/CREATININE RATIO 25.5 H (9.1-17.0 ) GLUCOSE 239 MG/DL H (65-99 MG/DL) *GFR EST NON AFR CAMEROONIAN 56 ML/MIN *GFR EST AFR AMER 65 ML/MIN CALCIUM 8.3 MG/DL L (8.5-10.1 MG/DL) BILIRUBIN TOTAL 0.30 MG/DL (0.20-1.00 MG/DL) TOTAL PROTEIN 6.3 GM/DL L (6.4-8.2 GM/DL) ALBUMIN 3.1 GM/DL L (3.4-5.0 GM/DL) *GLOBULIN 3.2 GM/DL (2.3-3.5 GM/DL) *A/G RATIO 1.0 MG/DL L (1.5-2.2 MG/DL) ALK PHOS 69 U/L (46-116 U/L) ALT (SGPT) 23 U/L (16-63 U/L) AST (SGOT) 13 U/L L (15-37 U/L) MAGNESIUM 1.8 MG/DL (1.8-2.4 MG/DL) LDH 206 U/L (81-234 U/L) Hematology from 07/13/2016 3:21 PMWBC 6.4 X10e3/UL (3.6-11.2 X10e3/UL) RBC 2.61 X10e6/UL L (3.63-4.92 X10e6/UL) HEMOGLOBIN 8.6 G/DL L (11.0-14.3 G/DL) HEMATOCRIT 26.3 % L (31.2-41.9 %) *MCV 100.6 FL H (79.0-98.0 FL) *MCH 33.0 PG (27.0-33.0 PG) *MCHC 32.8 G/DL (32.0-36.0 G/DL) *RDW 20.5 % H (12.3-17.0 %) *RDWSD 71.8 H (37.1-47.8 ) PLATELET 138 X10e3/UL L (159-386 X10e3/UL) *MPV 8.2 FL (7.4-10.4 FL) *MANUAL DIFF PERFORMED SEGS 92.0 % *BANDS 0.0 % *LYMPHOCYTES 6.0 % *MONOCYTES 2.0 % *EOSINOPHILS 0.0 % *BASOPHILS 0.0 % *ABSOLUTE NEUTROPHILS 5.89 X10e3/UL (1.80-7.80 X10e3/UL) *ABSOLUTE LYMPHOCYTES 0.38 X10e3/UL L (1.00-3.00 X10e3/UL) *ABSOLUTE MONOCYTES 0.13 X10e3/UL L (0.30-1.00 X10e3/UL) *ABSOLUTE EOSINOPHILS 0.00 X10e3/UL (0.00-0.50 X10e3/UL) *ABSOLUTE BASOPHILS 0.00 X10e3/UL (0.00-0.20 X10e3/UL) *POLYCHROMASIA 1+ *HYPOCHROMASIA 1+ ANISOCYTOSIS 3+ MICROCYTIC 1+ *MACROCYTIC 1+ *TOXIC GRANULATION 1+ Hematology from 07/11/2016 7:46 AMWBC 3.5 X10e3/UL L (3.6-11.2 X10e3/UL) RBC 2.30 X10e6/UL L (3.63-4.92 X10e6/UL) HEMOGLOBIN 7.6 G/DL L (11.0-14.3 G/DL) HEMATOCRIT 23.2 % L (31.2-41.9 %) *MCV 100.8 FL H (79.0-98.0 FL) *MCH 33.2 PG H (27.0-33.0 PG) *MCHC 32.9 G/DL (32.0-36.0 G/DL) *RDW 20.5 % H (12.3-17.0 %) *RDWSD 71.3 H (37.1-47.8 ) PLATELET 88 X10e3/UL L (159-386 X10e3/UL) *MPV 8.4 FL (7.4-10.4 FL) *MANUAL DIFF PERFORMED SEGS 80.0 % *BANDS 1.0 % *LYMPHOCYTES 11.0 % *MONOCYTES 8.0 % *EOSINOPHILS 0.0 % *BASOPHILS 0.0 % *ABSOLUTE NEUTROPHILS 2.84 X10e3/UL (1.80-7.80 X10e3/UL) *ABSOLUTE LYMPHOCYTES 0.39 X10e3/UL L (1.00-3.00 X10e3/UL) *ABSOLUTE MONOCYTES 0.28 X10e3/UL L (0.30-1.00 X10e3/UL) *ABSOLUTE EOSINOPHILS 0.00 X10e3/UL (0.00-0.50 X10e3/UL) *ABSOLUTE BASOPHILS 0.00 X10e3/UL (0.00-0.20 X10e3/UL) *POLYCHROMASIA 1+ *MACROCYTIC 1+ *TOXIC GRANULATION 1+ Hematology from 07/10/2016 11:26 AMWBC 2.3 X10e3/UL L (3.6-11.2 X10e3/UL) RBC 2.31 X10e6/UL L (3.63-4.92 X10e6/UL) HEMOGLOBIN 7.7 G/DL L (11.0-14.3 G/DL) HEMATOCRIT 23.2 % L (31.2-41.9 %) *MCV 100.1 FL H (79.0-98.0 FL) *MCH 33.3 PG H (27.0-33.0 PG) *MCHC 33.3 G/DL (32.0-36.0 G/DL) *RDW 20.4 % H (12.3-17.0 %) *RDWSD 70.9 H (37.1-47.8 ) PLATELET 79 X10e3/UL L (159-386 X10e3/UL) *MPV 8.0 FL (7.4-10.4 FL) *MANUAL DIFF PERFORMED SEGS 56.0 % *BANDS 7.0 % *LYMPHOCYTES 24.0 % *MONOCYTES 13.0 % *EOSINOPHILS 0.0 % *BASOPHILS 0.0 % *ABSOLUTE NEUTROPHILS 1.45 X10e3/UL L (1.80-7.80 X10e3/UL) *ABSOLUTE LYMPHOCYTES 0.55 X10e3/UL L (1.00-3.00 X10e3/UL) *ABSOLUTE MONOCYTES 0.30 X10e3/UL (0.30-1.00 X10e3/UL) *ABSOLUTE EOSINOPHILS 0.00 X10e3/UL (0.00-0.50 X10e3/UL) *ABSOLUTE BASOPHILS 0.00 X10e3/UL (0.00-0.20 X10e3/UL) *POLYCHROMASIA 1+ ANISOCYTOSIS 3+ *MACROCYTIC 1+ *TEARDROP CELLS 1+ STOMATOCYTES 1+ *TOXIC GRANULATION 1+ BASOPHILIC STIPPLING 1+ Hematology from 07/06/2016 11:52 AMWBC 3.9 X10e3/UL (3.6-11.2 X10e3/UL) RBC 2.43 X10e6/UL L (3.63-4.92 X10e6/UL) HEMOGLOBIN 8.1 G/DL L (11.0-14.3 G/DL) HEMATOCRIT 24.6 % L (31.2-41.9 %) *MCV 101.0 FL H (79.0-98.0 FL) *MCH 33.2 PG H (27.0-33.0 PG) *MCHC 32.9 G/DL (32.0-36.0 G/DL) *RDW 20.5 % H (12.3-17.0 %) *RDWSD 70.9 H (37.1-47.8 ) PLATELET 56 X10e3/UL L (159-386 X10e3/UL) *MPV 8.2 FL (7.4-10.4 FL) *MANUAL DIFF PERFORMED SEGS 82.0 % *BANDS 0.0 % *LYMPHOCYTES 10.0 % *MONOCYTES 8.0 % *EOSINOPHILS 0.0 % *BASOPHILS 0.0 % *ABSOLUTE NEUTROPHILS 3.20 X10e3/UL (1.80-7.80 X10e3/UL) *ABSOLUTE LYMPHOCYTES 0.39 X10e3/UL L (1.00-3.00 X10e3/UL) *ABSOLUTE MONOCYTES 0.31 X10e3/UL (0.30-1.00 X10e3/UL) *ABSOLUTE EOSINOPHILS 0.00 X10e3/UL (0.00-0.50 X10e3/UL) *ABSOLUTE BASOPHILS 0.00 X10e3/UL (0.00-0.20 X10e3/UL) *PLATELET SLIDE REVIEW DECREASED A (ADEQUATE ) *POLYCHROMASIA 1+ *MACROCYTIC 1+ *TOXIC GRANULATION 2+ Hematology from 07/04/2016 3:50 PMWBC 4.1 X10e3/UL (3.6-11.2 X10e3/UL) RBC 2.37 X10e6/UL L (3.63-4.92 X10e6/UL) HEMOGLOBIN 7.9 G/DL L (11.0-14.3 G/DL) HEMATOCRIT 23.8 % L (31.2-41.9 %) *MCV 100.4 FL H (79.0-98.0 FL) *MCH 33.4 PG H (27.0-33.0 PG) *MCHC 33.2 G/DL (32.0-36.0 G/DL) *RDW 20.5 % H (12.3-17.0 %) *RDWSD 71.8 H (37.1-47.8 ) PLATELET 51 X10e3/UL L (159-386 X10e3/UL) *MPV 8.4 FL (7.4-10.4 FL) *MANUAL DIFF PERFORMED SEGS 79.0 % *BANDS 4.0 % *LYMPHOCYTES 8.0 % *MONOCYTES 7.0 % *EOSINOPHILS 1.0 % *BASOPHILS 0.0 % METAMYELOCYTES 1.0 % *ABSOLUTE NEUTROPHILS 3.44 X10e3/UL (1.80-7.80 X10e3/UL) *ABSOLUTE LYMPHOCYTES 0.33 X10e3/UL L (1.00-3.00 X10e3/UL) *ABSOLUTE MONOCYTES 0.29 X10e3/UL L (0.30-1.00 X10e3/UL) *ABSOLUTE EOSINOPHILS 0.04 X10e3/UL (0.00-0.50 X10e3/UL) *ABSOLUTE BASOPHILS 0.00 X10e3/UL (0.00-0.20 X10e3/UL) *PLATELET SLIDE REVIEW DECREASED A (ADEQUATE ) *POLYCHROMASIA 1+ *MACROCYTIC 2+ *TOXIC GRANULATION 2+ DOHLE BODIES 1+ Hematology from 07/03/2016 11:55 AMWBC 4.7 X10e3/UL (3.6-11.2 X10e3/UL) RBC 2.40 X10e6/UL L (3.63-4.92 X10e6/UL) HEMOGLOBIN 8.0 G/DL L (11.0-14.3 G/DL) HEMATOCRIT 24.1 % L (31.2-41.9 %) *MCV 100.5 FL H (79.0-98.0 FL) *MCH 33.6 PG H (27.0-33.0 PG) *MCHC 33.4 G/DL (32.0-36.0 G/DL) *RDW 20.0 % H (12.3-17.0 %) *RDWSD 69.1 H (37.1-47.8 ) PLATELET 48 X10e3/UL L (159-386 X10e3/UL) *MPV 8.5 FL (7.4-10.4 FL) *MANUAL DIFF PERFORMED SEGS 78.0 % *BANDS 13.0 % *LYMPHOCYTES 2.0 % *MONOCYTES 7.0 % *EOSINOPHILS 0.0 % *BASOPHILS 0.0 % *ABSOLUTE NEUTROPHILS 4.28 X10e3/UL (1.80-7.80 X10e3/UL) *ABSOLUTE LYMPHOCYTES 0.09 X10e3/UL L (1.00-3.00 X10e3/UL) *ABSOLUTE MONOCYTES 0.33 X10e3/UL (0.30-1.00 X10e3/UL) *ABSOLUTE EOSINOPHILS 0.00 X10e3/UL (0.00-0.50 X10e3/UL) *ABSOLUTE BASOPHILS 0.00 X10e3/UL (0.00-0.20 X10e3/UL) *NUCLEATED RBC MANUAL 1.0 /100 WBC (0.0-1.0 /100 WBC) *PLATELET SLIDE REVIEW DECREASED A (ADEQUATE ) *POLYCHROMASIA 2+ ANISOCYTOSIS 3+ TARGET CELLS 1+ *TOXIC GRANULATION 3+ Hematology from 07/02/2016 11:07 AMWBC 5.5 X10e3/UL (3.6-11.2 X10e3/UL) RBC 2.38 X10e6/UL L (3.63-4.92 X10e6/UL) HEMOGLOBIN 7.9 G/DL L (11.0-14.3 G/DL) HEMATOCRIT 24.0 % L (31.2-41.9 %) *MCV 100.5 FL H (79.0-98.0 FL) *MCH 33.0 PG (27.0-33.0 PG) *MCHC 32.8 G/DL (32.0-36.0 G/DL) *RDW 19.7 % H (12.3-17.0 %) *RDWSD 68.3 H (37.1-47.8 ) PLATELET 46 X10e3/UL L (159-386 X10e3/UL) *MPV 8.9 FL (7.4-10.4 FL) *MANUAL DIFF PERFORMED SEGS 76.0 % *BANDS 4.0 % *LYMPHOCYTES 18.0 % *MONOCYTES 2.0 % *EOSINOPHILS 0.0 % *BASOPHILS 0.0 % *ABSOLUTE NEUTROPHILS 4.40 X10e3/UL (1.80-7.80 X10e3/UL) *ABSOLUTE LYMPHOCYTES 0.99 X10e3/UL L (1.00-3.00 X10e3/UL) *ABSOLUTE MONOCYTES 0.11 X10e3/UL L (0.30-1.00 X10e3/UL) *ABSOLUTE EOSINOPHILS 0.00 X10e3/UL (0.00-0.50 X10e3/UL) *ABSOLUTE BASOPHILS 0.00 X10e3/UL (0.00-0.20 X10e3/UL) *PLATELET SLIDE REVIEW DECREASED A (ADEQUATE ) *POLYCHROMASIA 1+ *HYPOCHROMASIA 1+ ANISOCYTOSIS 3+ *TOXIC GRANULATION 1+ Hematology from 07/01/2016 1:00 PMWBC 5.7 X10e3/UL (3.6-11.2 X10e3/UL) RBC 2.42 X10e6/UL L (3.63-4.92 X10e6/UL) HEMOGLOBIN 8.1 G/DL L (11.0-14.3 G/DL) HEMATOCRIT 23.9 % L (31.2-41.9 %) *MCV 99.0 FL H (79.0-98.0 FL) *MCH 33.6 PG H (27.0-33.0 PG) *MCHC 34.0 G/DL (32.0-36.0 G/DL) *RDW 19.7 % H (12.3-17.0 %) *RDWSD 67.4 H (37.1-47.8 ) PLATELET 52 X10e3/UL L (159-386 X10e3/UL) *MPV 8.9 FL (7.4-10.4 FL) *MANUAL DIFF PERFORMED SEGS 63.0 % *BANDS 7.0 % *LYMPHOCYTES 17.0 % *MONOCYTES 9.0 % *EOSINOPHILS 0.0 % *BASOPHILS 0.0 % *REACTIVE LYMPHOCYTES 4.0 % *ABSOLUTE NEUTROPHILS 3.99 X10e3/UL (1.80-7.80 X10e3/UL) *ABSOLUTE LYMPHOCYTES 1.20 X10e3/UL (1.00-3.00 X10e3/UL) *ABSOLUTE MONOCYTES 0.51 X10e3/UL (0.30-1.00 X10e3/UL) *ABSOLUTE EOSINOPHILS 0.00 X10e3/UL (0.00-0.50 X10e3/UL) *ABSOLUTE BASOPHILS 0.00 X10e3/UL (0.00-0.20 X10e3/UL) *NUCLEATED RBC MANUAL 3.0 /100 WBC H (0.0-1.0 /100 WBC) *PLATELET SLIDE REVIEW DECREASED A (ADEQUATE ) *POLYCHROMASIA 1+ *HYPOCHROMASIA .1+ ANISOCYTOSIS 3+ STOMATOCYTES 2+ *TOXIC GRANULATION 2+ DOHLE BODIES 1+ Hematology from 06/30/2016 2:10 PMWBC 6.7 X10e3/UL (3.6-11.2 X10e3/UL) RBC 2.54 X10e6/UL L (3.63-4.92 X10e6/UL) HEMOGLOBIN 8.5 G/DL L (11.0-14.3 G/DL) HEMATOCRIT 25.2 % L (31.2-41.9 %) *MCV 99.0 FL H (79.0-98.0 FL) *MCH 33.5 PG H (27.0-33.0 PG) *MCHC 33.8 G/DL (32.0-36.0 G/DL) *RDW 19.4 % H (12.3-17.0 %) *RDWSD 66.5 H (37.1-47.8 ) PLATELET 56 X10e3/UL L (159-386 X10e3/UL) *MPV 8.8 FL (7.4-10.4 FL) *MANUAL DIFF PERFORMED SEGS 78.0 % *BANDS 3.0 % *LYMPHOCYTES 10.0 % *MONOCYTES 7.0 % *EOSINOPHILS 1.0 % *BASOPHILS 0.0 % METAMYELOCYTES 1.0 % *ABSOLUTE NEUTROPHILS 5.49 X10e3/UL (1.80-7.80 X10e3/UL) *ABSOLUTE LYMPHOCYTES 0.67 X10e3/UL L (1.00-3.00 X10e3/UL) *ABSOLUTE MONOCYTES 0.47 X10e3/UL (0.30-1.00 X10e3/UL) *ABSOLUTE EOSINOPHILS 0.07 X10e3/UL (0.00-0.50 X10e3/UL) *ABSOLUTE BASOPHILS 0.00 X10e3/UL (0.00-0.20 X10e3/UL) *PLATELET SLIDE REVIEW DECREASED A (ADEQUATE ) *POLYCHROMASIA 1+ *HYPOCHROMASIA 2+ STOMATOCYTES 1+ OVALOCYTES 1+ *TOXIC GRANULATION 2+ Hematology from 06/27/2016 3:47 PMWBC 2.0 X10e3/UL L (3.6-11.2 X10e3/UL) RBC 2.66 X10e6/UL L (3.63-4.92 X10e6/UL) HEMOGLOBIN 8.8 G/DL L (11.0-14.3 G/DL) HEMATOCRIT 26.3 % L (31.2-41.9 %) *MCV 99.0 FL H (79.0-98.0 FL) *MCH 33.0 PG (27.0-33.0 PG) *MCHC 33.3 G/DL (32.0-36.0 G/DL) *RDW 19.7 % H (12.3-17.0 %) *RDWSD 67.8 H (37.1-47.8 ) PLATELET 76 X10e3/UL L (159-386 X10e3/UL) *MPV 8.7 FL (7.4-10.4 FL) *MANUAL DIFF PERFORMED SEGS 50.0 % *BANDS 5.0 % *LYMPHOCYTES 28.0 % *MONOCYTES 16.0 % *EOSINOPHILS 1.0 % *BASOPHILS 0.0 % *ABSOLUTE NEUTROPHILS 1.10 X10e3/UL L (1.80-7.80 X10e3/UL) *ABSOLUTE LYMPHOCYTES 0.56 X10e3/UL L (1.00-3.00 X10e3/UL) *ABSOLUTE MONOCYTES 0.32 X10e3/UL (0.30-1.00 X10e3/UL) *ABSOLUTE EOSINOPHILS 0.02 X10e3/UL (0.00-0.50 X10e3/UL) *ABSOLUTE BASOPHILS 0.00 X10e3/UL (0.00-0.20 X10e3/UL) *HYPOCHROMASIA 1+ TARGET CELLS 1+ OVALOCYTES 1+ *TOXIC GRANULATION 1+ Hematology from 06/23/2016 2:55 PMWBC 9.3 X10e3/UL (3.6-11.2 X10e3/UL) RBC 2.79 X10e6/UL L (3.63-4.92 X10e6/UL) HEMOGLOBIN 9.1 G/DL L (11.0-14.3 G/DL) HEMATOCRIT 27.7 % L (31.2-41.9 %) *MCV 99.5 FL H (79.0-98.0 FL) *MCH 32.7 PG (27.0-33.0 PG) *MCHC 32.9 G/DL (32.0-36.0 G/DL) *RDW 20.6 % H (12.3-17.0 %) *RDWSD 70.9 H (37.1-47.8 ) PLATELET 127 X10e3/UL L (159-386 X10e3/UL) *MPV 8.3 FL (7.4-10.4 FL) *MANUAL DIFF PERFORMED SEGS 76.0 % *BANDS 21.0 % *LYMPHOCYTES 2.0 % *MONOCYTES 1.0 % *EOSINOPHILS 0.0 % *BASOPHILS 0.0 % *ABSOLUTE NEUTROPHILS 9.02 X10e3/UL H (1.80-7.80 X10e3/UL) *ABSOLUTE LYMPHOCYTES 0.19 X10e3/UL L (1.00-3.00 X10e3/UL) *ABSOLUTE MONOCYTES 0.09 X10e3/UL L (0.30-1.00 X10e3/UL) *ABSOLUTE EOSINOPHILS 0.00 X10e3/UL (0.00-0.50 X10e3/UL) *ABSOLUTE BASOPHILS 0.00 X10e3/UL (0.00-0.20 X10e3/UL) *POLYCHROMASIA 1+ *HYPOCHROMASIA 2+ *TOXIC GRANULATION 3+ Hematology from 06/16/2016 11:35 AMWBC 3.2 X10e3/UL L (3.6-11.2 X10e3/UL) RBC 2.63 X10e6/UL L (3.63-4.92 X10e6/UL) HEMOGLOBIN 8.6 G/DL L (11.0-14.3 G/DL) HEMATOCRIT 26.0 % L (31.2-41.9 %) *MCV 98.9 FL H (79.0-98.0 FL) *MCH 32.7 PG (27.0-33.0 PG) *MCHC 33.1 G/DL (32.0-36.0 G/DL) *RDW 22.3 % H (12.3-17.0 %) *RDWSD 75.3 H (37.1-47.8 ) PLATELET 93 X10e3/UL L (159-386 X10e3/UL) *MPV 8.5 FL (7.4-10.4 FL) AUTOMATED DIFF PERFORMED SEGS 65.0 % *LYMPHOCYTES 20.7 % *MONOCYTES 13.9 % *EOSINOPHILS 0.2 % *BASOPHILS 0.2 % *ABSOLUTE NEUTROPHILS 2.10 X10e3/UL (1.80-7.80 X10e3/UL) *ABSOLUTE LYMPHOCYTES 0.70 X10e3/UL L (1.00-3.00 X10e3/UL) *ABSOLUTE MONOCYTES 0.40 X10e3/UL (0.30-1.00 X10e3/UL) *ABSOLUTE EOSINOPHILS 0.00 X10e3/UL (0.00-0.50 X10e3/UL) *ABSOLUTE BASOPHILS 0.00 X10e3/UL (0.00-0.20 X10e3/UL) *POLYCHROMASIA 1+ *HYPOCHROMASIA 1+ ANISOCYTOSIS 3+ *TOXIC GRANULATION 2+ Coagulation from 07/11/2016 7:46 AM*PROTHROMBIN TIME 21.3 SECONDS H (9.4-11.5 SECONDS) *INR 2.1 H (0.9-1.1 ) PARTIAL THROMBOPLASTIN TIME 29.1 SECONDS (23.0-31.0 SECONDS) Coagulation from 06/27/2016 3:47 PM*PROTHROMBIN TIME 11.0 SECONDS (9.4-11.5 SECONDS) *INR 1.1 (0.9-1.1 ) Reference Lab from 07/06/2016 11:52 AMCANCER ANTIGEN (CA) 125 33.9 U/mL (0.0- 38.1 U/mL) CT Scan from 07/11/2016 7:56 AMCT PELVIS W/O CONTRAST History: pelvic pain h/o cancerPt arrives amb to ed 12 reporting leg pain that started around 2100 on 07-10-16. Pt has endometrial cancer. Technique: Multiple axial images were obtained through the pelvis with coronal and sagittal reconstructed images performed at a separate workstation by the technologist. Priors: None. Findings: There is bone cement within the sacrum bilaterally consistent with previous sacroplasty. There is no evidence of acute fracture or dislocation. There are mild degenerative changes of the bilateral hips. Impression: No evidence of acute fracture or dislocation. Post therapeutic changes of sacroplasty. Electronically signed by: Latonia Cuevas MD Dictated: 07/11/2016 08:23 CT SPINE LUMBAR W/O CONTRAST History: back pain with rt radiculopath . Pt arrives amb to ed 12 reporting leg pain that started around 2100 on 07-10-16. Pt has endometrial cancer. Priors: None. Findings: There is minimal grade 1 anterolisthesis of L4 on L5. No acute fractures are identified. There are post therapeutic changes of sacroplasty At L1-2 there is mild generalized disc bulging without significant spinal stenosis. At L2-3 there is mild generalized disc bulging and hypertrophic facet disease producing moderate bilateral neural foraminal stenosis without significant central spinal stenosis. At L3-4 there is mild generalized disc bulging producing mild bilateral neural foraminal stenosis. At L4-5 there is mild to moderate disc bulging and hypertrophic facet disease producing mild central spinal stenosis and moderate to severe bilateral neural foraminal stenosis. At L5-S1 there is mild disc bulging and bilateral hypertrophic facet disease producing mild bilateral neural foraminal stenosis. There are calcified stones extending into the neck of the gallbladder. Impression: No evidence of acute fracture. [id number] diffuse lumbar degenerative disc and facet disease, greatest at L4-5, as described above. Electronically signed by: Latonia Cuevas MD Dictated: 07/11/2016 08:27 CT Scan from 06/24/2016 3:[address] Dictated by Dr DELA CRUZ refer to notes. Electronically signed by: Admin, Radiology Dictated: 06/27/2016 12:21 Problems Encounter Diagnosis No relevant problems exist. [...]
--- OUTSIDE RECORDS SUMMARY | 2017-01-09 16:27 | XMS REPORT ---
Author Author GENERATED, SYSTEM Organization Unknown Address Unknown Phone Unavailable Care Team Providers Care Ring Sorter Name Role Phone MD JOSELUIS, THELMA [phone] Reason For Visit Chief Complaint 782.0 V58.61 [...]
--- OUTSIDE RECORDS SUMMARY | 2017-01-09 16:27 | XMS REPORT ---
Author Author GENERATED, SYSTEM Organization Unknown Address Unknown Phone Unavailable Care Team Providers Care Geothermal Powerplant Mechanic Helper Name Role Phone MD JOSELUIS, SHAANMULU PP [phone] Reason For Visit Reason for Visit from 05/19/2016 6:20 PM:* Pt Stated Reason for Adm : Lab Chief Complaint CBC W AUTO DIFF CMP MAG LDH TO BE DONE,WEEKLY,C54.8 C77.5 Social History Functional Status Vital Signs Hospital Vital Signs from 05/19/2016 6:20 PM:* Weight : 195/ lbs,oz * Height : 5/2 ft,in Hospital Vital Signs from 05/19/2016 5:55 PM:* Height : 5/2 ft,in * Temperature : 97.2 F * Pulse : 74 * Respirations : 18 * BP : 107/61 Results Chemistry from 06/02/2016 12:33 PMSODIUM 137 MMOL/L (136-145 MMOL/L) POTASSIUM 4.1 MMOL/L (3.5-5.1 MMOL/L) CHLORIDE 103 MMOL/L (98-107 MMOL/L) TCO2 27.9 MMOL/L (21.0-32.0 MMOL/L) *ANION GAP 6.1 MMOL/L L (8.0-16.0 MMOL/L) BUN 24 MG/DL H (7-18 MG/DL) CREATININE 0.71 MG/DL (0.55-1.02 MG/DL) *BUN/CREATININE RATIO 33.8 H (9.1-17.0 ) GLUCOSE 142 MG/DL H (65-99 MG/DL) *GFR EST NON AFR [place] 86 ML/MIN *GFR EST AFR AMER >90 [...] H (65-99 MG/DL) *GFR EST NON AFR [place] 64 ML/MIN *GFR EST AFR AMER 74 [...] (1.8-2.4 MG/DL) LDH 184 U/L (81-234 U/L) Chemistry from 05/19/2016 6:02 PMSODIUM 139 MMOL/L (136-145 MMOL/L) POTASSIUM 4.2 MMOL/L (3.5-5.1 MMOL/L) CHLORIDE 104 MMOL/L (98-107 MMOL/L) TCO2 28.5 MMOL/L (21.0-32.0 MMOL/L) *ANION GAP 6.5 MMOL/L L (8.0-16.0 MMOL/L) BUN 18 MG/DL (7-18 MG/DL) CREATININE 0.91 MG/DL (0.55-1.02 MG/DL) *BUN/CREATININE RATIO 19.8 H (9.1-17.0 ) GLUCOSE 176 MG/DL H (65-99 MG/DL) *GFR EST NON AFR [place] 64 ML/MIN *GFR EST AFR AMER 74 ML/MIN CALCIUM 8.3 MG/DL L (8.5-10.1 MG/DL) BILIRUBIN TOTAL 0.30 MG/DL (0.20-1.00 MG/DL) TOTAL PROTEIN 7.0 GM/DL (6.4-8.2 GM/DL) ALBUMIN 3.2 GM/DL L (3.4-5.0 GM/DL) *GLOBULIN 3.8 GM/DL H (2.3-3.5 GM/DL) *A/G RATIO 0.8 MG/DL L (1.5-2.2 MG/DL) ALK PHOS 89 U/L (46-116 U/L) ALT (SGPT) 18 U/L (16-63 U/L) AST (SGOT) 16 U/L (15-37 U/L) MAGNESIUM 1.6 MG/DL L (1.8-2.4 MG/DL) LDH 191 U/L (81-234 U/L) Hematology from 06/02/2016 12:33 [...] X10e3/UL) *POLYCHROMASIA 1+ *HYPOCHROMASIA 1+ ANISOCYTOSIS 3+ Hematology from 05/19/2016 6:02 PMWBC 2.8 X10e3/UL L (3.6-11.2 X10e3/UL) RBC 3.24 X10e6/UL L (3.63-4.92 X10e6/UL) HEMOGLOBIN 10.1 G/DL L (11.0-14.3 G/DL) HEMATOCRIT 30.3 % L (31.2-41.9 %) *MCV 93.4 FL (79.0-98.0 FL) *MCH 31.3 PG (27.0-33.0 PG) *MCHC 33.5 G/DL (32.0-36.0 G/DL) *RDW 20.2 % H (12.3-17.0 %) *RDWSD 64.3 H (37.1-47.8 ) PLATELET 111 X10e3/UL L (159-386 X10e3/UL) *MPV 8.1 FL (7.4-10.4 FL) *MANUAL DIFF PERFORMED SEGS 63.0 % *BANDS 1.0 % *LYMPHOCYTES 22.0 % *MONOCYTES 12.0 % *EOSINOPHILS 1.0 % *BASOPHILS 0.0 % *REACTIVE LYMPHOCYTES 1.0 % *ABSOLUTE NEUTROPHILS 1.79 X10e3/UL L (1.80-7.80 X10e3/UL) *ABSOLUTE LYMPHOCYTES 0.64 X10e3/UL L (1.00-3.00 X10e3/UL) *ABSOLUTE MONOCYTES 0.34 X10e3/UL (0.30-1.00 X10e3/UL) *ABSOLUTE EOSINOPHILS 0.03 X10e3/UL (0.00-0.50 X10e3/UL) *ABSOLUTE BASOPHILS 0.00 X10e3/UL (0.00-0.20 X10e3/UL) *TOXIC GRANULATION 2+ Problems Encounter Diagnosis No relevant problems exist. [...]
--- OUTSIDE RECORDS SUMMARY | 2017-01-09 16:27 | XMS REPORT ---
Author Author GENERATED, SYSTEM Organization Unknown Address Unknown Phone Unavailable Care Team Providers Care Giant Tire Repairer Name Role Phone MD JOSELUIS, THELMA PP [phone] Reason For Visit Chief Complaint 782.0 V58.61 Social History Functional Status Vital Signs Results Chemistry from 01/29/2015 3:37 PMSODIUM 135 MMOL/L L (136-145 MMOL/L) POTASSIUM 4.0 MMOL/L (3.5-5.1 MMOL/L) CHLORIDE 101 MMOL/L (98-107 MMOL/L) TCO2 25.8 MMOL/L (21.0-32.0 MMOL/L) ANION GAP 8.2 MMOL/L (8.0-16.0 MMOL/L) BUN 32 MG/DL H (7-18 MG/DL) CREATININE 0.81 MG/DL (0.43-0.83 MG/DL) BUN/CREATININE RATIO 39.5 H (9.1-17.0 ) GLUCOSE 142 MG/DL H (65-99 MG/DL) GFR EST NON AFR [facility] [place] 74 ML/MIN GFRA EST AFR AMER 86 ML/MIN CALCIUM 8.7 MG/DL (8.5-10.1 MG/DL) BILIRUBIN TOTAL 0.16 MG/DL L (0.20-1.00 MG/DL) TOTAL PROTEIN 8.0 GM/DL (6.4-8.2 GM/DL) ALBUMIN 3.6 GM/DL (3.4-5.0 GM/DL) GLOBULIN 4.4 GM/DL H (2.3-3.5 GM/DL) A/G RATIO 0.8 MG/DL L (1.5-2.2 MG/DL) ALK PHOS 128 U/L H (46-116 U/L) ALT (SGPT) 24 U/L (16-63 U/L) AST (SGOT) 11 U/L L (15-37 U/L) LDH 240 U/L H (81-234 U/L) Chemistry from 01/22/2015 3:27 PMSODIUM 136 MMOL/L (136-145 MMOL/L) POTASSIUM 4.3 MMOL/L (3.5-5.1 MMOL/L) CHLORIDE 101 MMOL/L (98-107 MMOL/L) TCO2 28.7 MMOL/L (21.0-32.0 MMOL/L) ANION GAP 6.3 MMOL/L L (8.0-16.0 MMOL/L) BUN 25 MG/DL H (7-18 MG/DL) CREATININE 0.88 MG/DL H (0.43-0.83 MG/DL) BUN/CREATININE RATIO 28.4 H (9.1-17.0 ) GLUCOSE 207 MG/DL H (65-99 MG/DL) GFR EST NON AFR [facility] [place] 67 ML/MIN GFRA EST AFR AMER 78 ML/MIN CALCIUM 8.3 MG/DL L (8.5-10.1 MG/DL) BILIRUBIN TOTAL 0.29 MG/DL (0.20-1.00 MG/DL) TOTAL PROTEIN 7.7 GM/DL (6.4-8.2 GM/DL) ALBUMIN 3.5 GM/DL (3.4-5.0 GM/DL) GLOBULIN 4.2 GM/DL H (2.3-3.5 GM/DL) A/G RATIO 0.8 MG/DL L (1.5-2.2 MG/DL) ALK PHOS 126 U/L H (46-116 U/L) ALT (SGPT) 26 U/L (16-63 U/L) AST (SGOT) 16 U/L (15-37 U/L) MAGNESIUM 1.6 MG/DL L (1.8-2.4 MG/DL) LDH 238 U/L H (81-234 U/L) Hematology from 01/29/2015 3:37 PMWBC 8.8 X10e3/UL (3.6-11.2 X10e3/UL) RBC 3.56 X10e6/UL L (3.63-4.92 X10e6/UL) HEMOGLOBIN 10.5 G/DL L (11.0-14.3 G/DL) HEMATOCRIT 31.0 % L (31.2-41.9 %) MCV 87.1 FL (79.0-98.0 FL) MCH 29.3 PG (27.0-33.0 PG) MCHC 33.7 G/DL (32.0-36.0 G/DL) RDW 17.6 % H (12.3-17.0 %) RDWSD 52.9 H (37.1-47.8 ) PLATELET 128 X10e3/UL L (159-386 X10e3/UL) MPV 7.7 FL (7.4-10.4 FL) MANUAL DIFF PERFORMED SEGS 52.0 % BANDS 7.0 % LYMPHOCYTES 25.0 % MONOCYTES 16.0 % EOSINOPHILS 0.0 % BASOPHILS 0.0 % ABSOLUTE NEUTROPHILS 5.19 X10e3/UL (1.80-7.80 X10e3/UL) ABSOLUTE LYMPHOCYTES 2.20 X10e3/UL (1.00-3.00 X10e3/UL) ABSOLUTE MONOCYTES 1.41 X10e3/UL H (0.30-1.00 X10e3/UL) ABSOLUTE EOSINOPHILS 0.00 X10e3/UL (0.00-0.50 X10e3/UL) ABSOLUTE BASOPHILS 0.00 X10e3/UL (0.00-0.20 X10e3/UL) TOXIC GRANULATION 1+ Hematology from 01/22/2015 3:27 PMWBC 8.8 X10e3/UL (3.6-11.2 X10e3/UL) RBC 3.56 X10e6/UL L (3.63-4.92 X10e6/UL) HEMOGLOBIN 10.6 G/DL L (11.0-14.3 G/DL) HEMATOCRIT 31.2 % (31.2-41.9 %) MCV 87.7 FL (79.0-98.0 FL) MCH 29.7 PG (27.0-33.0 PG) MCHC 33.8 G/DL (32.0-36.0 G/DL) RDW 17.5 % H (12.3-17.0 %) RDWSD 52.9 H (37.1-47.8 ) PLATELET 171 X10e3/UL (159-386 X10e3/UL) MPV 8.0 FL (7.4-10.4 FL) AUTOMATED DIFF PERFORMED SEGS 76.0 % LYMPHOCYTES 16.6 % MONOCYTES 6.8 % EOSINOPHILS 0.3 % BASOPHILS 0.3 % ABSOLUTE NEUTROPHILS 6.70 X10e3/UL (1.80-7.80 X10e3/UL) ABSOLUTE LYMPHOCYTES 1.50 X10e3/UL (1.00-3.00 X10e3/UL) ABSOLUTE MONOCYTES 0.60 X10e3/UL (0.30-1.00 X10e3/UL) ABSOLUTE EOSINOPHILS 0.00 X10e3/UL (0.00-0.50 X10e3/UL) ABSOLUTE BASOPHILS 0.00 X10e3/UL (0.00-0.20 X10e3/UL) Coagulation from 01/29/2015 3:37 PMPROTHROMBIN TIME 34.8 SECONDS H (9.4-11.5 SECONDS) INR 3.1 H (0.9-1.1 ) Coagulation from 01/22/2015 3:27 PMPROTHROMBIN TIME 39.3 SECONDS H (9.4-11.5 SECONDS) INR 3.5 H (0.9-1.1 ) Problems Encounter Diagnosis No [...]
--- OUTSIDE RECORDS SUMMARY | 2017-01-09 16:27 | XMS REPORT ---
Author Author GENERATED, SYSTEM Organization Unknown Address Unknown Phone Unavailable Care Team Providers Care Building Maintenance Supervisor Name Role Phone MD JOSELUIS, THELMA [phone] Reason For Visit Chief Complaint CBC W AUTO DIFF CMP MAG LDH Social History Functional Status Vital Signs Results [...]
--- OUTSIDE RECORDS SUMMARY | 2017-01-09 16:27 | XMS REPORT ---
Author Author GENERATED, SYSTEM Organization Unknown Address Unknown Phone Unavailable Care Team Providers Care Mechanical Lead Name Role Phone MD JOSELUIS, THELMA [phone] Reason For Visit Chief Complaint CBC W AUTO DIFF CMP MAG LDH,C584.8 C77.5 Social History Functional Status Vital Signs Results [...]
--- OUTSIDE RECORDS SUMMARY | 2017-01-09 16:28 | XMS REPORT ---
Author Author GENERATED, SYSTEM Organization Unknown Address Unknown Phone Unavailable Care Team Providers Care Pet Groomer Name Role Phone MD JOSELUIS, THELMA [phone] Reason For Visit Reason for Visit from 07/18/2016 3:22 PM:* Pt Stated Reason for Adm : labs Chief Complaint C54.8, C77.5, D64.81 Social History Functional Status Functional Status from 08/09/2016 5:20 PM:* LOC : Alert * Oriented To : Person,Place,Time Functional Status from 08/01/2016 4:40 PM:* LOC : Alert * Oriented To : Person,Place,Time,Event Functional Status from 07/28/2016 11:49 AM:* LOC : Alert * Oriented To : Person,Place,Time Functional Status from 07/25/2016 4:39 PM:* LOC : Alert * Oriented To : Person,Place,Time,Event Functional Status from 07/18/2016 3:22 PM:* LOC : Alert * Oriented To : Person,Place,Time,Event Vital Signs Hospital Vital Signs from 08/09/2016 5:20 PM:* Height : 5/2 ft,in * Temperature : 96.4 F * Pulse : 75 * Respirations : 18 * BP : 137/65 Hospital Vital Signs from 08/01/2016 4:40 PM:* Height : 5/2 ft,in * Temperature : 96.4 F * Pulse : 90 * Respirations : 18 * BP : 141/59 Hospital Vital Signs from 07/28/2016 11:49 AM:* Height : 5/2 ft,in * Temperature : 97.0 F * Pulse : 79 * Respirations : 18 * BP : 124/70 Hospital Vital Signs from 07/25/2016 4:14 PM:* Height : 5/2 ft,in * Temperature : 96.4 F * Pulse : 81 * Respirations : 18 * BP : 130/53 Hospital Vital Signs from 07/18/2016 3:22 PM:* Weight : 190/ lbs,oz * Weight : 86.183/ kg * Height : 5/2 ft,in * Height : 5/2 ft,in * Temperature : 97.1 F * Pulse : 79 * Respirations : 18 * BP : 142/60 Results Chemistry from 08/01/2016 4:48 PMSODIUM 139 MMOL/L (136-145 MMOL/L) POTASSIUM 3.8 MMOL/L (3.5-5.1 MMOL/L) CHLORIDE 103 MMOL/L (98-107 MMOL/L) TCO2 29.9 MMOL/L (21.0-32.0 MMOL/L) *ANION GAP 6.1 MMOL/L L (8.0-16.0 MMOL/L) BUN 27 MG/DL H (7-18 MG/DL) CREATININE 0.96 MG/DL (0.55-1.02 MG/DL) *BUN/CREATININE RATIO 28.1 H (9.1-17.0 ) GLUCOSE 198 MG/DL H (65-99 MG/DL) *GFR EST NON AFR BHUT[place] 60 ML/MIN *GFR EST AFR AMER 70 ML/MIN CALCIUM 8.5 MG/DL (8.5-10.1 MG/DL) BILIRUBIN TOTAL 0.30 MG/DL (0.20-1.00 MG/DL) TOTAL PROTEIN 6.7 GM/DL (6.4-8.2 GM/DL) ALBUMIN 3.2 GM/DL L (3.4-5.0 GM/DL) *GLOBULIN 3.5 GM/DL (2.3-3.5 GM/DL) *A/G RATIO 0.9 MG/DL L (1.5-2.2 MG/DL) ALK PHOS 89 U/L (46-116 U/L) ALT (SGPT) 23 U/L (16-63 U/L) AST (SGOT) 11 U/L L (15-37 U/L) MAGNESIUM 1.9 MG/DL (1.8-2.4 MG/DL) LDH 189 U/L (81-234 U/L) Chemistry from 07/28/2016 11:56 AMSODIUM 133 MMOL/L L (136-145 MMOL/L) POTASSIUM 4.2 MMOL/L (3.5-5.1 MMOL/L) CHLORIDE 100 MMOL/L (98-107 MMOL/L) TCO2 26.4 MMOL/L (21.0-32.0 MMOL/L) *ANION GAP 6.6 MMOL/L L (8.0-16.0 MMOL/L) BUN 30 MG/DL H (7-18 MG/DL) CREATININE 0.93 MG/DL (0.55-1.02 MG/DL) *BUN/CREATININE RATIO 32.3 H (9.1-17.0 ) GLUCOSE 170 MG/DL H (65-99 MG/DL) *GFR EST NON AFR BHUTANESE 62 ML/MIN *GFR EST AFR AMER 72 ML/MIN CALCIUM 8.4 MG/DL L (8.5-10.1 MG/DL) BILIRUBIN TOTAL 0.20 MG/DL (0.20-1.00 MG/DL) TOTAL PROTEIN 6.8 GM/DL (6.4-8.2 GM/DL) ALBUMIN 3.4 GM/DL (3.4-5.0 GM/DL) *GLOBULIN 3.4 GM/DL (2.3-3.5 GM/DL) *A/G RATIO 1.0 MG/DL L (1.5-2.2 MG/DL) ALK PHOS 109 U/L (46-116 U/L) ALT (SGPT) 24 U/L (16-63 U/L) AST (SGOT) 11 U/L L (15-37 U/L) MAGNESIUM 1.7 MG/DL L (1.8-2.4 MG/DL) LDH 222 U/L (81-234 U/L) Chemistry from 07/25/2016 4:22 PMSODIUM 136 MMOL/L (136-145 MMOL/L) POTASSIUM 4.2 MMOL/L (3.5-5.1 MMOL/L) CHLORIDE 100 MMOL/L (98-107 MMOL/L) TCO2 27.4 MMOL/L (21.0-32.0 MMOL/L) *ANION GAP 8.6 MMOL/L (8.0-16.0 MMOL/L) BUN 29 MG/DL H (7-18 MG/DL) CREATININE 1.13 MG/DL H (0.55-1.02 MG/DL) *BUN/CREATININE RATIO 25.7 H (9.1-17.0 ) GLUCOSE 241 MG/DL H (65-99 MG/DL) *GFR EST NON AFR BHUTANESE 49 ML/MIN *GFR EST AFR AMER 57 ML/MIN CALCIUM 8.5 MG/DL (8.5-10.1 MG/DL) BILIRUBIN TOTAL 0.20 MG/DL (0.20-1.00 MG/DL) TOTAL PROTEIN 6.8 GM/DL (6.4-8.2 GM/DL) ALBUMIN 3.3 GM/DL L (3.4-5.0 GM/DL) *GLOBULIN 3.5 GM/DL (2.3-3.5 GM/DL) *A/G RATIO 0.9 MG/DL L (1.5-2.2 MG/DL) ALK PHOS 121 U/L H (46-116 U/L) ALT (SGPT) 26 U/L (16-63 U/L) AST (SGOT) 15 U/L (15-37 U/L) MAGNESIUM 1.8 MG/DL (1.8-2.4 MG/DL) LDH 260 U/L H (81-234 U/L) Chemistry from 07/18/2016 3:38 PMSODIUM 132 MMOL/L L (136-145 MMOL/L) POTASSIUM 5.0 MMOL/L (3.5-5.1 MMOL/L) CHLORIDE 96 MMOL/L L (98-107 MMOL/L) TCO2 26.5 MMOL/L (21.0-32.0 MMOL/L) *ANION GAP 9.5 MMOL/L (8.0-16.0 MMOL/L) BUN 30 MG/DL H (7-18 MG/DL) CREATININE 1.30 MG/DL H (0.55-1.02 MG/DL) *BUN/CREATININE RATIO 23.1 H (9.1-17.0 ) GLUCOSE 331 MG/DL H (65-99 MG/DL) *GFR EST NON AFR BHUTANESE 42 ML/MIN *GFR EST AFR AMER 48 ML/MIN CALCIUM 8.5 MG/DL (8.5-10.1 MG/DL) BILIRUBIN TOTAL 0.60 MG/DL (0.20-1.00 MG/DL) TOTAL PROTEIN 7.1 GM/DL (6.4-8.2 GM/DL) ALBUMIN 3.3 GM/DL L (3.4-5.0 GM/DL) *GLOBULIN 3.8 GM/DL H (2.3-3.5 GM/DL) *A/G RATIO 0.9 MG/DL L (1.5-2.2 MG/DL) ALK PHOS 106 U/L (46-116 U/L) ALT (SGPT) 22 U/L (16-63 U/L) AST (SGOT) 12 U/L L (15-37 U/L) MAGNESIUM 1.8 MG/DL (1.8-2.4 MG/DL) LDH 218 U/L (81-234 U/L) Hematology from 08/09/2016 5:30 PMWBC 4.6 X10e3/UL (3.6-11.2 X10e3/UL) RBC 3.07 X10e6/UL L (3.63-4.92 X10e6/UL) HEMOGLOBIN 10.0 G/DL L (11.0-14.3 G/DL) HEMATOCRIT 30.3 % L (31.2-41.9 %) *MCV 98.9 FL H (79.0-98.0 FL) *MCH 32.7 PG (27.0-33.0 PG) *MCHC 33.1 G/DL (32.0-36.0 G/DL) *RDW 19.1 % H (12.3-17.0 %) *RDWSD 65.6 H (37.1-47.8 ) PLATELET 155 X10e3/UL L (159-386 X10e3/UL) *MPV 7.8 FL (7.4-10.4 FL) AUTOMATED DIFF PERFORMED SEGS 76.8 % *LYMPHOCYTES 11.3 % *MONOCYTES 11.2 % *EOSINOPHILS 0.4 % *BASOPHILS 0.3 % *ABSOLUTE NEUTROPHILS 3.50 X10e3/UL (1.80-7.80 X10e3/UL) *ABSOLUTE LYMPHOCYTES 0.50 X10e3/UL L (1.00-3.00 X10e3/UL) *ABSOLUTE MONOCYTES 0.50 X10e3/UL (0.30-1.00 X10e3/UL) *ABSOLUTE EOSINOPHILS 0.00 X10e3/UL (0.00-0.50 X10e3/UL) *ABSOLUTE BASOPHILS 0.00 X10e3/UL (0.00-0.20 X10e3/UL) Hematology from 08/01/2016 4:48 PMWBC 5.2 X10e3/UL (3.6-11.2 X10e3/UL) RBC 2.49 X10e6/UL L (3.63-4.92 X10e6/UL) HEMOGLOBIN 8.4 G/DL L (11.0-14.3 G/DL) HEMATOCRIT 25.6 % L (31.2-41.9 %) *MCV 102.7 FL H (79.0-98.0 FL) *MCH 33.7 PG H (27.0-33.0 PG) *MCHC 32.8 G/DL (32.0-36.0 G/DL) *RDW 20.6 % H (12.3-17.0 %) *RDWSD 75.3 H (37.1-47.8 ) PLATELET 145 X10e3/UL L (159-386 X10e3/UL) *MPV 7.7 FL (7.4-10.4 FL) *MANUAL DIFF PERFORMED SEGS 72.0 % *BANDS 2.0 % *LYMPHOCYTES 18.0 % *MONOCYTES 8.0 % *EOSINOPHILS 0.0 % *BASOPHILS 0.0 % *ABSOLUTE NEUTROPHILS 3.85 X10e3/UL (1.80-7.80 X10e3/UL) *ABSOLUTE LYMPHOCYTES 0.94 X10e3/UL L (1.00-3.00 X10e3/UL) *ABSOLUTE MONOCYTES 0.42 X10e3/UL (0.30-1.00 X10e3/UL) *ABSOLUTE EOSINOPHILS 0.00 X10e3/UL (0.00-0.50 X10e3/UL) *ABSOLUTE BASOPHILS 0.00 X10e3/UL (0.00-0.20 X10e3/UL) *POLYCHROMASIA 1+ MICROCYTIC 1+ *TEARDROP CELLS 1+ *TOXIC GRANULATION 1+ BASOPHILIC STIPPLING 1+ Hematology from 07/28/2016 11:56 AMWBC 8.5 X10e3/UL (3.6-11.2 X10e3/UL) RBC 2.44 X10e6/UL L (3.63-4.92 X10e6/UL) HEMOGLOBIN 8.2 G/DL L (11.0-14.3 G/DL) HEMATOCRIT 25.2 % L (31.2-41.9 %) *MCV 103.2 FL H (79.0-98.0 FL) *MCH 33.5 PG H (27.0-33.0 PG) *MCHC 32.5 G/DL (32.0-36.0 G/DL) *RDW 21.6 % H (12.3-17.0 %) *RDWSD 78.3 H (37.1-47.8 ) PLATELET 126 X10e3/UL L (159-386 X10e3/UL) *MPV 8.3 FL (7.4-10.4 FL) *MANUAL DIFF PERFORMED SEGS 78.0 % *BANDS 0.0 % *LYMPHOCYTES 12.0 % *MONOCYTES 5.0 % *EOSINOPHILS 0.0 % *BASOPHILS 0.0 % METAMYELOCYTES 5.0 % *ABSOLUTE NEUTROPHILS 7.06 X10e3/UL (1.80-7.80 X10e3/UL) *ABSOLUTE LYMPHOCYTES 1.02 X10e3/UL (1.00-3.00 X10e3/UL) *ABSOLUTE MONOCYTES 0.43 X10e3/UL (0.30-1.00 X10e3/UL) *ABSOLUTE EOSINOPHILS 0.00 X10e3/UL (0.00-0.50 X10e3/UL) *ABSOLUTE BASOPHILS 0.00 X10e3/UL (0.00-0.20 X10e3/UL) *NUCLEATED RBC MANUAL 1.0 /100 WBC (0.0-1.0 /100 WBC) *POLYCHROMASIA 1+ *HYPOCHROMASIA 1+ *MACROCYTIC 1+ *TEARDROP CELLS 1+ STOMATOCYTES 1+ *TOXIC GRANULATION 2+ Hematology from 07/25/2016 4:22 PMWBC 13.8 X10e3/UL H (3.6-11.2 X10e3/UL) RBC 2.45 X10e6/UL L (3.63-4.92 X10e6/UL) HEMOGLOBIN 8.2 G/DL L (11.0-14.3 G/DL) HEMATOCRIT 25.3 % L (31.2-41.9 %) *MCV 103.0 FL H (79.0-98.0 FL) *MCH 33.5 PG H (27.0-33.0 PG) *MCHC 32.5 G/DL (32.0-36.0 G/DL) *RDW 20.5 % H (12.3-17.0 %) *RDWSD 72.6 H (37.1-47.8 ) PLATELET 106 X10e3/UL L (159-386 X10e3/UL) *MPV 8.8 FL (7.4-10.4 FL) *MANUAL DIFF PERFORMED SEGS 67.0 % *BANDS 11.0 % *LYMPHOCYTES 10.0 % *MONOCYTES 8.0 % *EOSINOPHILS 1.0 % *BASOPHILS 0.0 % METAMYELOCYTES 2.0 % MYELOCYTES 1.0 % *ABSOLUTE NEUTROPHILS 11.18 X10e3/UL H (1.80-7.80 X10e3/UL) *ABSOLUTE LYMPHOCYTES 1.38 X10e3/UL (1.00-3.00 X10e3/UL) *ABSOLUTE MONOCYTES 1.10 X10e3/UL H (0.30-1.00 X10e3/UL) *ABSOLUTE EOSINOPHILS 0.14 X10e3/UL (0.00-0.50 X10e3/UL) *ABSOLUTE BASOPHILS 0.00 X10e3/UL (0.00-0.20 X10e3/UL) *POLYCHROMASIA 1+ *HYPOCHROMASIA 1+ MICROCYTIC 1+ *MACROCYTIC 1+ *TEARDROP CELLS 1+ STOMATOCYTES 1+ *TOXIC GRANULATION 2+ DOHLE BODIES 1+ Hematology from 07/18/2016 3:38 PMWBC 17.9 X10e3/UL H (3.6-11.2 X10e3/UL) RBC 2.49 X10e6/UL L (3.63-4.92 X10e6/UL) HEMOGLOBIN 8.3 G/DL L (11.0-14.3 G/DL) HEMATOCRIT 25.2 % L (31.2-41.9 %) *MCV 100.9 FL H (79.0-98.0 FL) *MCH 33.2 PG H (27.0-33.0 PG) *MCHC 33.0 G/DL (32.0-36.0 G/DL) *RDW 19.8 % H (12.3-17.0 %) *RDWSD 70.0 H (37.1-47.8 ) PLATELET 139 X10e3/UL L (159-386 X10e3/UL) *MPV 8.9 FL (7.4-10.4 FL) *MANUAL DIFF PERFORMED SEGS 95.0 % *BANDS 1.0 % *LYMPHOCYTES 2.0 % *MONOCYTES 2.0 % *EOSINOPHILS 0.0 % *BASOPHILS 0.0 % *ABSOLUTE NEUTROPHILS 17.18 X10e3/UL H (1.80-7.80 X10e3/UL) *ABSOLUTE LYMPHOCYTES 0.36 X10e3/UL L (1.00-3.00 X10e3/UL) *ABSOLUTE MONOCYTES 0.36 X10e3/UL (0.30-1.00 X10e3/UL) *ABSOLUTE EOSINOPHILS 0.00 X10e3/UL (0.00-0.50 X10e3/UL) *ABSOLUTE BASOPHILS 0.00 X10e3/UL (0.00-0.20 X10e3/UL) *MACROCYTIC 1+ *TEARDROP CELLS 1+ STOMATOCYTES 1+ *TOXIC GRANULATION 2+ DOHLE BODIES 1+ Problems Encounter Diagnosis No relevant problems exist. Encounters Encounter Diagnosis No relevant problems exist. Plan of Care Procedures * Completed Procedure Code: [id number] Procedure Name: not valued, on 06/24/2016 12:00 [...]
--- OUTSIDE RECORDS SUMMARY | 2017-01-09 16:28 | XMS REPORT ---
Author Author GENERATED, SYSTEM Organization Unknown Address Unknown Phone Unavailable Care Team Providers Care Numerical Control Router Operator Name Role Phone MD JOSELUIS, THELMA [phone] Reason For Visit Chief Complaint C54.8, C77.5 Social History Functional Status Vital Signs [...]
--- OUTSIDE RECORDS SUMMARY | 2017-01-09 16:28 | XMS REPORT ---
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 Active 52060772 Problem Diabetic neuropathy E11.40 Active 296488431 Problem Anemia of chronic disease D63.8 Active 854486725 Problem Thrombocytopenia D69.6 Active 282299041 Problem Endometrial adenocarcinoma C54.1 Active 611693980 Problem Right leg DVT I82.401 Active ALLERGIES Unknown Allergies SOCIAL HISTORY No smoking Hx information available PLAN OF CARE VITAL SIGNS MEDICATIONS Medication Instructions Dosage Frequency Start Date End Date Duration Status Metformin HCl 1000 MG Orally Twice a day 1 tablet with meals 12h Oct, 30 day(s) Active RESULTS No Results PROCEDURES No Known procedures IMMUNIZATIONS No Known Immunizations
--- OUTSIDE RECORDS SUMMARY | 2017-01-09 16:28 | XMS REPORT ---
Author Author GENERATED, SYSTEM Organization Unknown Address Unknown Phone Unavailable Care Team Providers Care Drug Safety Associate Name Role Phone MD JOSELUIS, THELMA PP [phone] Reason For Visit Chief Complaint 782.0 V58.61 Social History Functional Status Vital Signs Results Hematology from 06/11/2015 2:34 PMWBC 3.4 X10e3/UL L (3.6-11.2 X10e3/UL) RBC 3.61 X10e6/UL L (3.63-4.92 X10e6/UL) HEMOGLOBIN 10.5 G/DL L (11.0-14.3 G/DL) HEMATOCRIT 32.9 % (31.2-41.9 %) *MCV 91.1 FL (79.0-98.0 FL) *MCH 29.2 PG (27.0-33.0 PG) *MCHC 32.0 G/DL (32.0-36.0 G/DL) *RDW 17.4 % H (12.3-17.0 %) *RDWSD 55.1 H (37.1-47.8 ) PLATELET 200 X10e3/UL (159-386 X10e3/UL) *MPV 7.9 FL (7.4-10.4 FL) AUTOMATED DIFF PERFORMED SEGS 51.2 % *LYMPHOCYTES 12.3 % *MONOCYTES 6.5 % *EOSINOPHILS 29.6 % *BASOPHILS 0.4 % *ABSOLUTE NEUTROPHILS 1.70 X10e3/UL L (1.80-7.80 X10e3/UL) *ABSOLUTE LYMPHOCYTES 0.40 X10e3/UL L (1.00-3.00 X10e3/UL) *ABSOLUTE MONOCYTES 0.20 X10e3/UL L (0.30-1.00 X10e3/UL) *ABSOLUTE EOSINOPHILS 1.00 X10e3/UL H (0.00-0.50 X10e3/UL) *ABSOLUTE BASOPHILS 0.00 X10e3/UL (0.00-0.20 X10e3/UL) Hematology from 05/14/2015 12:29 PMWBC 2.6 X10e3/UL L (3.6-11.2 X10e3/UL) RBC 3.67 X10e6/UL (3.63-4.92 X10e6/UL) HEMOGLOBIN 11.0 G/DL (11.0-14.3 G/DL) HEMATOCRIT 33.9 % (31.2-41.9 %) MCV 92.4 FL (79.0-98.0 FL) MCH 29.9 PG (27.0-33.0 PG) MCHC 32.4 G/DL (32.0-36.0 G/DL) RDW 17.6 % H (12.3-17.0 %) RDWSD 57.8 H (37.1-47.8 ) PLATELET 183 X10e3/UL (159-386 X10e3/UL) MPV 7.9 FL (7.4-10.4 FL) MANUAL DIFF PERFORMED SEGS 73.0 % BANDS 1.0 % LYMPHOCYTES 14.0 % MONOCYTES 7.0 % EOSINOPHILS 5.0 % BASOPHILS 0.0 % ABSOLUTE NEUTROPHILS 1.92 X10e3/UL (1.80-7.80 X10e3/UL) ABSOLUTE LYMPHOCYTES 0.36 X10e3/UL L (1.00-3.00 X10e3/UL) ABSOLUTE MONOCYTES 0.18 X10e3/UL L (0.30-1.00 X10e3/UL) ABSOLUTE EOSINOPHILS 0.13 X10e3/UL (0.00-0.50 X10e3/UL) ABSOLUTE BASOPHILS 0.00 X10e3/UL (0.00-0.20 X10e3/UL) POLYCHROMASIA 1+ ANISOCYTOSIS 3+ Coagulation from 06/11/2015 2:35 PM*PROTHROMBIN TIME 23.3 SECONDS H (9.4-11.5 SECONDS) *INR 2.1 H (0.9-1.1 ) Coagulation from 05/14/2015 12:29 PMPROTHROMBIN TIME 22.2 SECONDS H (9.4-11.5 SECONDS) INR 2.0 H (0.9-1.1 ) Problems Encounter Diagnosis No [...]
--- OUTSIDE RECORDS SUMMARY | 2017-01-09 16:28 | XMS REPORT ---
Author Author GENERATED, SYSTEM Organization Unknown Address Unknown Phone Unavailable Care Team Providers Care Supervisor Brine Name Role Phone MD JOSELUIS, THELMA PP [phone] Reason For Visit Chief Complaint CBC W AUTO DIFF CMP MAG LDH TO BE DONE,WEEKLY,C54.8 C77.5 Social History Functional Status Vital Signs Results Chemistry from 05/12/2016 1:14 PMSODIUM 141 MMOL/L (136-145 MMOL/L) POTASSIUM 4.3 MMOL/L (3.5-5.1 MMOL/L) CHLORIDE 105 MMOL/L (98-107 MMOL/L) TCO2 25.5 MMOL/L (21.0-32.0 MMOL/L) *ANION GAP 10.5 MMOL/L (8.0-16.0 MMOL/L) BUN 26 MG/DL H (7-18 MG/DL) CREATININE 0.95 MG/DL (0.55-1.02 MG/DL) *BUN/CREATININE RATIO 27.4 H (9.1-17.0 ) GLUCOSE 156 MG/DL H (65-99 MG/DL) *GFR EST NON AFR PARAGUAYAN 61 ML/MIN *GFR EST AFR AMER 71 ML/MIN CALCIUM 8.7 MG/DL (8.5-10.1 MG/DL) BILIRUBIN TOTAL 0.40 MG/DL (0.20-1.00 MG/DL) TOTAL PROTEIN 7.5 GM/DL (6.4-8.2 GM/DL) ALBUMIN 3.5 GM/DL (3.4-5.0 GM/DL) *GLOBULIN 4.0 GM/DL H (2.3-3.5 GM/DL) *A/G RATIO 0.9 MG/DL L (1.5-2.2 MG/DL) ALK PHOS 96 U/L (46-116 U/L) ALT (SGPT) 19 U/L (16-63 U/L) AST (SGOT) 14 U/L L (15-37 U/L) MAGNESIUM 1.9 MG/DL (1.8-2.4 MG/DL) LDH 217 U/L (81-234 U/L) Chemistry from 05/09/2016 1:00 PMSODIUM 141 MMOL/L (136-145 MMOL/L) POTASSIUM 4.3 MMOL/L (3.5-5.1 MMOL/L) CHLORIDE 106 MMOL/L (98-107 MMOL/L) TCO2 27.9 MMOL/L (21.0-32.0 MMOL/L) *ANION GAP 7.1 MMOL/L L (8.0-16.0 MMOL/L) BUN 23 MG/DL H (7-18 MG/DL) CREATININE 0.96 MG/DL (0.55-1.02 MG/DL) *BUN/CREATININE RATIO 24.0 H (9.1-17.0 ) GLUCOSE 158 MG/DL H (65-99 MG/DL) *GFR EST NON AFR PARAGUAYAN 60 ML/MIN *GFR EST AFR AMER 70 ML/MIN CALCIUM 8.7 MG/DL (8.5-10.1 MG/DL) BILIRUBIN TOTAL 0.30 MG/DL (0.20-1.00 MG/DL) TOTAL PROTEIN 7.1 GM/DL (6.4-8.2 GM/DL) ALBUMIN 3.3 GM/DL L (3.4-5.0 GM/DL) *GLOBULIN 3.8 GM/DL H (2.3-3.5 GM/DL) *A/G RATIO 0.9 MG/DL L (1.5-2.2 MG/DL) ALK PHOS 97 U/L (46-116 U/L) ALT (SGPT) 19 U/L (16-63 U/L) AST (SGOT) 17 U/L (15-37 U/L) MAGNESIUM 1.9 MG/DL (1.8-2.4 MG/DL) LDH 216 U/L (81-234 U/L) Chemistry from 05/02/2016 4:56 PMSODIUM 138 MMOL/L (136-145 MMOL/L) POTASSIUM 4.2 MMOL/L (3.5-5.1 MMOL/L) CHLORIDE 101 MMOL/L (98-107 MMOL/L) TCO2 26.0 MMOL/L (21.0-32.0 MMOL/L) *ANION GAP 11.0 MMOL/L (8.0-16.0 MMOL/L) BUN 23 MG/DL H (7-18 MG/DL) CREATININE 0.90 MG/DL (0.55-1.02 MG/DL) *BUN/CREATININE RATIO 25.6 H (9.1-17.0 ) GLUCOSE 176 MG/DL H (65-99 MG/DL) *GFR EST NON AFR PARAGUAYAN 65 ML/MIN *GFR EST AFR AMER 75 ML/MIN CALCIUM 8.5 MG/DL (8.5-10.1 MG/DL) BILIRUBIN TOTAL 0.30 MG/DL (0.20-1.00 MG/DL) TOTAL PROTEIN 7.0 GM/DL (6.4-8.2 GM/DL) ALBUMIN 3.3 GM/DL L (3.4-5.0 GM/DL) *GLOBULIN 3.7 GM/DL H (2.3-3.5 GM/DL) *A/G RATIO 0.9 MG/DL L (1.5-2.2 MG/DL) ALK PHOS 98 U/L (46-116 U/L) ALT (SGPT) 31 U/L (16-63 U/L) AST (SGOT) 19 U/L (15-37 U/L) MAGNESIUM 1.5 MG/DL L (1.8-2.4 MG/DL) LDH 188 U/L (81-234 U/L) Hematology from 05/12/2016 1:14 PMWBC 2.3 X10e3/UL L (3.6-11.2 X10e3/UL) RBC 2.88 X10e6/UL L (3.63-4.92 X10e6/UL) HEMOGLOBIN 8.7 G/DL L (11.0-14.3 G/DL) HEMATOCRIT 26.6 % L (31.2-41.9 %) *MCV 92.4 FL (79.0-98.0 FL) *MCH 30.1 PG (27.0-33.0 PG) *MCHC 32.5 G/DL (32.0-36.0 G/DL) *RDW 20.7 % H (12.3-17.0 %) PLATELET 60 X10e3/UL L (159-386 X10e3/UL) *MPV 7.8 FL (7.4-10.4 FL) *MANUAL DIFF PERFORMED SEGS 67.0 % *BANDS 0.0 % *LYMPHOCYTES 26.0 % *MONOCYTES 7.0 % *EOSINOPHILS 0.0 % *BASOPHILS 0.0 % *ABSOLUTE NEUTROPHILS 1.54 X10e3/UL L (1.80-7.80 X10e3/UL) *ABSOLUTE LYMPHOCYTES 0.60 X10e3/UL L (1.00-3.00 X10e3/UL) *ABSOLUTE MONOCYTES 0.16 X10e3/UL L (0.30-1.00 X10e3/UL) *ABSOLUTE EOSINOPHILS 0.00 X10e3/UL (0.00-0.50 X10e3/UL) *ABSOLUTE BASOPHILS 0.00 X10e3/UL (0.00-0.20 X10e3/UL) *PLATELET SLIDE REVIEW DECREASED A (ADEQUATE ) *POLYCHROMASIA 1+ ANISOCYTOSIS 3+ Hematology from 05/09/2016 1:00 PMWBC 3.2 X10e3/UL L (3.6-11.2 X10e3/UL) RBC 2.64 X10e6/UL L (3.63-4.92 X10e6/UL) HEMOGLOBIN 8.1 G/DL L (11.0-14.3 G/DL) HEMATOCRIT 24.6 % L (31.2-41.9 %) *MCV 93.2 FL (79.0-98.0 FL) *MCH 30.8 PG (27.0-33.0 PG) *MCHC 33.1 G/DL (32.0-36.0 G/DL) *RDW 19.7 % H (12.3-17.0 %) *RDWSD 63.0 H (37.1-47.8 ) PLATELET 64 X10e3/UL L (159-386 X10e3/UL) *MPV 8.0 FL (7.4-10.4 FL) *MANUAL DIFF PERFORMED SEGS 77.0 % *BANDS 4.0 % *LYMPHOCYTES 10.0 % *MONOCYTES 8.0 % *EOSINOPHILS 0.0 % *BASOPHILS 1.0 % *ABSOLUTE NEUTROPHILS 2.59 X10e3/UL (1.80-7.80 X10e3/UL) *ABSOLUTE LYMPHOCYTES 0.32 X10e3/UL L (1.00-3.00 X10e3/UL) *ABSOLUTE MONOCYTES 0.26 X10e3/UL L (0.30-1.00 X10e3/UL) *ABSOLUTE EOSINOPHILS 0.00 X10e3/UL (0.00-0.50 X10e3/UL) *ABSOLUTE BASOPHILS 0.03 X10e3/UL (0.00-0.20 X10e3/UL) *PLATELET SLIDE REVIEW DECREASED A (ADEQUATE ) *POLYCHROMASIA 1+ ANISOCYTOSIS 3+ *TOXIC GRANULATION 2+ WBC VACUOLES 1+ Hematology from 05/02/2016 4:56 PMWBC 2.5 X10e3/UL L (3.6-11.2 X10e3/UL) RBC 2.79 X10e6/UL L (3.63-4.92 X10e6/UL) HEMOGLOBIN 8.6 G/DL L (11.0-14.3 G/DL) HEMATOCRIT 26.2 % L (31.2-41.9 %) *MCV 93.7 FL (79.0-98.0 FL) *MCH 30.7 PG (27.0-33.0 PG) *MCHC 32.7 G/DL (32.0-36.0 G/DL) *RDW 19.3 % H (12.3-17.0 %) *RDWSD 63.4 H (37.1-47.8 ) PLATELET 141 X10e3/UL L (159-386 X10e3/UL) *MPV 8.4 FL (7.4-10.4 FL) *MANUAL DIFF PERFORMED SEGS 47.0 % *BANDS 7.0 % *LYMPHOCYTES 19.0 % *MONOCYTES 27.0 % *EOSINOPHILS 0.0 % *BASOPHILS 0.0 % *ABSOLUTE NEUTROPHILS 1.35 X10e3/UL L (1.80-7.80 X10e3/UL) *ABSOLUTE LYMPHOCYTES 0.48 X10e3/UL L (1.00-3.00 X10e3/UL) *ABSOLUTE MONOCYTES 0.68 X10e3/UL (0.30-1.00 X10e3/UL) *ABSOLUTE EOSINOPHILS 0.00 X10e3/UL (0.00-0.50 X10e3/UL) *ABSOLUTE BASOPHILS 0.00 X10e3/UL (0.00-0.20 X10e3/UL) *TOXIC GRANULATION 1+ WBC VACUOLES 1+ Problems Encounter Diagnosis No relevant problems exist. Encounters Encounter Diagnosis No relevant problems exist. Plan of Care Procedures * Completed Procedure Code: 00. Procedure Name: not valued, on 11/26/2014 12: 00 AM * Completed Procedure Code: . Procedure Name: not valued, on 11/19/2014 12: 00 AM Immunizations No immunizations administered or ordered. Hospital Course Hospital Discharge Instructions Allergies, Adverse Reactions, Alerts * Penicillins causes unspecified. * Latex Allergy has not been assessed. * IV Contrast Allergy has not been assessed. Medication Medication reconciliation has not been performed.
--- OUTSIDE RECORDS SUMMARY | 2017-01-09 16:28 | XMS REPORT ---
Author Author GENERATED, SYSTEM Organization Unknown Address Unknown Phone Unavailable Care Team Providers Care Lost Charge Card Clerk Name Role Phone MD JOSELUIS, THELMA [phone] Reason For Visit Reason for Visit from 11/19/2014 3:43 PM:* Pt Stated Reason for Adm : Lovenox injections Chief Complaint LOVENOX INJECTION Social History Functional Status Functional Status from 11/19/2014 3:43 PM:* LOC : Alert * Oriented To : Person,Place,Time,Event Vital Signs Hospital Vital Signs from 11/19/2014 3:44 PM:* Height : 5/2 ft,in * Temperature : 98.2 F * Pulse : 82 * Respirations : 16 * BP : 117/70 Results Problems Encounter Diagnosis No relevant problems [...]
--- OUTSIDE RECORDS SUMMARY | 2017-01-09 16:28 | XMS REPORT ---
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 Active 30138599 Problem Diabetic neuropathy E11.40 Active 747193496 Problem Anemia of chronic disease D63.8 Active 364921690 Problem Thrombocytopenia D69.6 Active 666813848 Problem Endometrial adenocarcinoma C54.1 Active 772430325 Problem Right leg DVT I82.401 Active ALLERGIES Unknown Allergies SOCIAL HISTORY No smoking Hx information available PLAN OF CARE VITAL SIGNS MEDICATIONS Medication Instructions Dosage Frequency Start Date End Date Duration Status MetFORMIN HCl ER 500 MG Orally twice a day 1 tablet with evening meal 12h May, Active Gabapentin 300 MG Orally twice a day 1 capsule 12h Active Multivitamin Active Vitamin E Active Fentanyl 25 MCG/HR 1 patch to skin Active Jessica 500 MG Active Vitamin D Active Cyclobenzaprine HCl 10 MG Orally Three times a day 1 tablet 8h Active Calcium Magnesium Active Torisel 25 MG/ML Active Lotrimin AF 1 % Externally Twice a day 1 application to affected area 12h Active Cayenne Active Zinc Active Garlic Active Ferrous Sulfate 325 (65 Fe) MG Orally twice a day with food 1 tablet May, 30 day(s) Active Curcumax Pro Orally co-curcurmin, also wheat grass Active Cinnamon Active Pepcid 20 MG Orally Once a day 1 tablet at bedtime 24h Active Stool Softener 100 MG Orally Once a day 1 capsule as needed 24h Active Oxycodone-Acetaminophen 5-325 MG Orally every 6 hrs 1 tablet as needed 6h Active Warfarin Sodium 5 MG Orally 5 mgs daily 1 tablet Jul, Active Chlorophyll 50 MG/18DROPS Active RESULTS Name Result Date Reference Range Hemoccult ( IFOB ) 2016-11-04 Hemoccult (IFOB) neg PROCEDURES Procedure Date Ordered Related Diagnosis Body Site ASSAY TEST FOR BLOOD, FECAL November 04, 2016 IMMUNIZATIONS No Known Immunizations
--- OUTSIDE RECORDS SUMMARY | 2017-01-09 16:28 | XMS REPORT ---
Author Author GENERATED, SYSTEM Organization Unknown Address Unknown Phone Unavailable Care Team Providers Care Communications Project Lead Name Role Phone MD JOSELUIS, THELMA [phone] Reason For Visit Reason for Visit from 11/19/2014 3:43 PM:* Pt Stated Reason for Adm : Lovenox injections Chief Complaint LOVENOX INJECTION Social History Functional Status Functional Status from 11/23/2014 11:05 AM:* LOC : Alert * Oriented To : Person,Place,Time,Event Functional Status from 11/22/2014 11:50 AM:* LOC : Alert * Oriented To : Person,Place,Time,Event Functional Status from 11/21/2014 1:44 PM:* LOC : Alert * Oriented To : Person,Place,Time,Event Functional Status from 11/19/2014 3:43 PM:* LOC : Alert * Oriented To : Person,Place,Time,Event Vital Signs Hospital Vital Signs from 11/23/2014 11:01 AM:* Height : 5/2 ft,in * Temperature : 97.7 F * Pulse : 80 * Respirations : 16 * BP : 126/69 Hospital Vital Signs from 11/22/2014 11:49 AM:* Height : 5/2 ft,in * Temperature : 97.7 F * Pulse : 83 * Respirations : 16 * BP : 150/72 Hospital Vital Signs from 11/21/2014 1:42 PM:* Height : 5/2 ft,in * Temperature : 97.8 F * Pulse : 78 * Respirations : 16 * BP : 129/73 Hospital Vital Signs from 11/19/2014 3:44 PM:* [...]
--- OUTSIDE RECORDS SUMMARY | 2017-01-09 16:29 | XMS REPORT ---
Author Author GENERATED, SYSTEM Organization Unknown Address Unknown Phone Unavailable Care Team Providers Care Tile Edger Name Role Phone UNASSIGNED DOCTOR , DOCTOR PP [phone] Reason For Visit Reason for Visit from [...] H (65-99 MG/DL) GFR EST NON AFR KAZAKH >90 ML/MIN GFRA EST AFR AMER >90 [...] H (65-99 MG/DL) GFR EST NON AFR KAZAKH >90 ML/MIN GFRA EST AFR AMER >90 [...] - CT CEREBRAL W/O CONTRAST CPT Code(s): 81628-; ; ; INDICATION / CLINICAL HISTORY: \E\Headache [...]
--- OUTSIDE RECORDS SUMMARY | 2017-01-09 16:29 | XMS REPORT ---
Author Author GENERATED, SYSTEM Organization Unknown Address Unknown Phone Unavailable Care Team Providers Care Shift Leader Name Role Phone MD JOSELUIS, THELMA PP [phone] Reason For Visit Chief Complaint 782.0 V58.61 Social History Functional Status Vital Signs Results Chemistry from 02/19/2015 1:32 PMSODIUM 138 MMOL/L (136-145 MMOL/L) POTASSIUM 4.2 MMOL/L (3.5-5.1 MMOL/L) CHLORIDE 105 MMOL/L (98-107 MMOL/L) TCO2 24.6 MMOL/L (21.0-32.0 MMOL/L) ANION GAP 8.4 MMOL/L (8.0-16.0 MMOL/L) BUN 30 MG/DL H (7-18 MG/DL) CREATININE 0.77 MG/DL (0.43-0.83 MG/DL) BUN/CREATININE RATIO 39.0 H (9.1-17.0 ) GLUCOSE 180 MG/DL H (65-99 MG/DL) GFR EST NON AFR SYRIAN 79 ML/MIN GFRA EST AFR AMER >90 ML/MIN CALCIUM 8.3 MG/DL L (8.5-10.1 MG/DL) BILIRUBIN TOTAL 0.15 MG/DL L (0.20-1.00 MG/DL) TOTAL PROTEIN 7.8 GM/DL (6.4-8.2 GM/DL) ALBUMIN 3.4 GM/DL (3.4-5.0 GM/DL) GLOBULIN 4.4 GM/DL H (2.3-3.5 GM/DL) A/G RATIO 0.8 MG/DL L (1.5-2.2 MG/DL) ALK PHOS 122 U/L H (46-116 U/L) ALT (SGPT) 26 U/L (16-63 U/L) AST (SGOT) 14 U/L L (15-37 U/L) MAGNESIUM 1.7 MG/DL L (1.8-2.4 MG/DL) LDH 204 U/L (81-234 U/L) Chemistry from 02/12/2015 11:55 AMSODIUM 137 MMOL/L (136-145 MMOL/L) POTASSIUM 4.4 MMOL/L (3.5-5.1 MMOL/L) CHLORIDE 104 MMOL/L (98-107 MMOL/L) TCO2 28.0 MMOL/L (21.0-32.0 MMOL/L) ANION GAP 5.0 MMOL/L L (8.0-16.0 MMOL/L) BUN 26 MG/DL H (7-18 MG/DL) CREATININE 0.75 MG/DL (0.43-0.83 MG/DL) BUN/CREATININE RATIO 34.7 H (9.1-17.0 ) GLUCOSE 204 MG/DL H (65-99 MG/DL) GFR EST NON AFR SYRIAN 82 ML/MIN GFRA EST AFR AMER >90 ML/MIN CALCIUM 8.5 MG/DL (8.5-10.1 MG/DL) BILIRUBIN TOTAL 0.18 MG/DL L (0.20-1.00 MG/DL) TOTAL PROTEIN 7.9 GM/DL (6.4-8.2 GM/DL) ALBUMIN 3.5 GM/DL (3.4-5.0 GM/DL) GLOBULIN 4.4 GM/DL H (2.3-3.5 GM/DL) A/G RATIO 0.8 MG/DL L (1.5-2.2 MG/DL) ALK PHOS 117 U/L H (46-116 U/L) ALT (SGPT) 33 U/L (16-63 U/L) AST (SGOT) 19 U/L (15-37 U/L) MAGNESIUM 1.6 MG/DL L (1.8-2.4 MG/DL) LDH 303 U/L H (81-234 U/L) Hematology from 03/12/2015 3:48 PMWBC 3.8 X10e3/UL (3.6-11.2 X10e3/UL) RBC 3.22 X10e6/UL L (3.63-4.92 X10e6/UL) HEMOGLOBIN 9.9 G/DL L (11.0-14.3 G/DL) HEMATOCRIT 29.3 % L (31.2-41.9 %) MCV 90.9 FL (79.0-98.0 FL) MCH 30.6 PG (27.0-33.0 PG) MCHC 33.7 G/DL (32.0-36.0 G/DL) RDW 23.3 % H (12.3-17.0 %) RDWSD 71.8 H (37.1-47.8 ) PLATELET 264 X10e3/UL (159-386 X10e3/UL) MPV 7.7 FL (7.4-10.4 FL) AUTOMATED DIFF PERFORMED SEGS 61.1 % LYMPHOCYTES 29.3 % MONOCYTES 7.9 % EOSINOPHILS 1.4 % BASOPHILS 0.3 % ABSOLUTE NEUTROPHILS 2.30 X10e3/UL (1.80-7.80 X10e3/UL) ABSOLUTE LYMPHOCYTES 1.10 X10e3/UL (1.00-3.00 X10e3/UL) ABSOLUTE MONOCYTES 0.30 X10e3/UL (0.30-1.00 X10e3/UL) ABSOLUTE EOSINOPHILS 0.10 X10e3/UL (0.00-0.50 X10e3/UL) ABSOLUTE BASOPHILS 0.00 X10e3/UL (0.00-0.20 X10e3/UL) MICROCYTIC 1+ BASOPHILIC STIPPLING 1+ Hematology from 03/05/2015 12:21 PMWBC 3.1 X10e3/UL L (3.6-11.2 X10e3/UL) RBC 2.98 X10e6/UL L (3.63-4.92 X10e6/UL) HEMOGLOBIN 9.0 G/DL L (11.0-14.3 G/DL) HEMATOCRIT 27.0 % L (31.2-41.9 %) MCV 90.6 FL (79.0-98.0 FL) MCH 30.1 PG (27.0-33.0 PG) MCHC 33.3 G/DL (32.0-36.0 G/DL) RDW 23.7 % H (12.3-17.0 %) RDWSD 72.6 H (37.1-47.8 ) PLATELET 324 X10e3/UL (159-386 X10e3/UL) MPV 7.1 FL L (7.4-10.4 FL) MANUAL DIFF PERFORMED SEGS 43.0 % BANDS 3.0 % LYMPHOCYTES 45.0 % MONOCYTES 4.0 % EOSINOPHILS 2.0 % BASOPHILS 0.0 % METAMYELOCYTES 1.0 % REACTIVE LYMPHOCYTES 2.0 % ABSOLUTE NEUTROPHILS 1.46 X10e3/UL L (1.80-7.80 X10e3/UL) ABSOLUTE LYMPHOCYTES 1.46 X10e3/UL (1.00-3.00 X10e3/UL) ABSOLUTE MONOCYTES 0.12 X10e3/UL L (0.30-1.00 X10e3/UL) ABSOLUTE EOSINOPHILS 0.06 X10e3/UL (0.00-0.50 X10e3/UL) ABSOLUTE BASOPHILS 0.00 X10e3/UL (0.00-0.20 X10e3/UL) NUCLEATED RBC MANUAL 1.0 /100 WBC (0.0-1.0 /100 WBC) HYPOCHROMASIA 1+ ANISOCYTOSIS 3+ Hematology from 02/24/2015 2:45 PMWBC 4.0 X10e3/UL (3.6-11.2 X10e3/UL) RBC 3.22 X10e6/UL L (3.63-4.92 X10e6/UL) HEMOGLOBIN 9.5 G/DL L (11.0-14.3 G/DL) HEMATOCRIT 28.7 % L (31.2-41.9 %) MCV 89.2 FL (79.0-98.0 FL) MCH 29.6 PG (27.0-33.0 PG) MCHC 33.1 G/DL (32.0-36.0 G/DL) RDW 22.7 % H (12.3-17.0 %) PLATELET 99 X10e3/UL L (159-386 X10e3/UL) MPV 7.7 FL (7.4-10.4 FL) AUTOMATED DIFF PERFORMED SEGS 48.6 % LYMPHOCYTES 40.0 % MONOCYTES 10.0 % EOSINOPHILS 0.5 % BASOPHILS 0.9 % ABSOLUTE NEUTROPHILS 2.00 X10e3/UL (1.80-7.80 X10e3/UL) ABSOLUTE LYMPHOCYTES 1.60 X10e3/UL (1.00-3.00 X10e3/UL) ABSOLUTE MONOCYTES 0.40 X10e3/UL (0.30-1.00 X10e3/UL) ABSOLUTE EOSINOPHILS 0.00 X10e3/UL (0.00-0.50 X10e3/UL) ABSOLUTE BASOPHILS 0.00 X10e3/UL (0.00-0.20 X10e3/UL) Hematology from 02/19/2015 1:32 PMWBC 4.7 X10e3/UL (3.6-11.2 X10e3/UL) RBC 3.19 X10e6/UL L (3.63-4.92 X10e6/UL) HEMOGLOBIN 9.4 G/DL L (11.0-14.3 G/DL) HEMATOCRIT 28.4 % L (31.2-41.9 %) MCV 89.1 FL (79.0-98.0 FL) MCH 29.6 PG (27.0-33.0 PG) MCHC 33.2 G/DL (32.0-36.0 G/DL) RDW 21.3 % H (12.3-17.0 %) RDWSD 64.8 H (37.1-47.8 ) PLATELET 76 X10e3/UL L (159-386 X10e3/UL) MPV 7.8 FL (7.4-10.4 FL) AUTOMATED DIFF PERFORMED SEGS 47.5 % LYMPHOCYTES 42.7 % MONOCYTES 9.1 % EOSINOPHILS 0.5 % BASOPHILS 0.2 % ABSOLUTE NEUTROPHILS 2.30 X10e3/UL (1.80-7.80 X10e3/UL) ABSOLUTE LYMPHOCYTES 2.00 X10e3/UL (1.00-3.00 X10e3/UL) ABSOLUTE MONOCYTES 0.40 X10e3/UL (0.30-1.00 X10e3/UL) ABSOLUTE EOSINOPHILS 0.00 X10e3/UL (0.00-0.50 X10e3/UL) ABSOLUTE BASOPHILS 0.00 X10e3/UL (0.00-0.20 X10e3/UL) Hematology from 02/12/2015 11:55 AMWBC 5.0 X10e3/UL (3.6-11.2 X10e3/UL) RBC 3.30 X10e6/UL L (3.63-4.92 X10e6/UL) HEMOGLOBIN 9.8 G/DL L (11.0-14.3 G/DL) HEMATOCRIT 29.2 % L (31.2-41.9 %) MCV 88.6 FL (79.0-98.0 FL) MCH 29.7 PG (27.0-33.0 PG) MCHC 33.5 G/DL (32.0-36.0 G/DL) RDW 20.4 % H (12.3-17.0 %) RDWSD 62.6 H (37.1-47.8 ) PLATELET 118 X10e3/UL L (159-386 X10e3/UL) MPV 8.2 FL (7.4-10.4 FL) MANUAL DIFF PERFORMED SEGS 56.0 % BANDS 21.0 % LYMPHOCYTES 18.0 % MONOCYTES 5.0 % EOSINOPHILS 0.0 % BASOPHILS 0.0 % ABSOLUTE NEUTROPHILS 3.85 X10e3/UL (1.80-7.80 X10e3/UL) ABSOLUTE LYMPHOCYTES 0.90 X10e3/UL L (1.00-3.00 X10e3/UL) ABSOLUTE MONOCYTES 0.25 X10e3/UL L (0.30-1.00 X10e3/UL) ABSOLUTE EOSINOPHILS 0.00 X10e3/UL (0.00-0.50 X10e3/UL) ABSOLUTE BASOPHILS 0.00 X10e3/UL (0.00-0.20 X10e3/UL) TOXIC GRANULATION 1+ DOHLE BODIES 1+ Coagulation from 03/12/2015 3:48 PMPROTHROMBIN TIME 30.0 SECONDS H (9.4-11.5 SECONDS) INR 2.7 H (0.9-1.1 ) Coagulation from 03/05/2015 12:21 PMPROTHROMBIN TIME 47.7 SECONDS H (9.4-11.5 SECONDS) INR 4.2 HH (0.9-1.1 ) Coagulation from 02/24/2015 2:45 PMPROTHROMBIN TIME 15.8 SECONDS H (9.4-11.5 SECONDS) INR 1.5 H (0.9-1.1 ) Coagulation from 02/19/2015 1:32 PMPROTHROMBIN TIME 44.2 SECONDS H (9.4-11.5 SECONDS) INR 3.9 H (0.9-1.1 ) Problems Encounter Diagnosis No [...]
--- OUTSIDE RECORDS SUMMARY | 2017-01-09 16:30 | XMS REPORT | Continuity of Care Document ---
Author Author [facility] Organization [facility] Address Unknown Phone Unavailable Care Team Providers Care Culinary Internship Name Role Phone THELMA HUGGINS MD Primary Care Physician [phone] Insurance Providers Guarantor Tessa Lion Address [address] [place] [id number] Email [email or web address] [email or web address] Medicarehumana Policy Number [id number] Subscriber's Name Tessa Lion Relationship 19 Self Problems Past Problems Medical Problem Onset Date Closed head injury Unknown Fall Unknown Radicular pain of right lower back Unknown [...] tobacco in the last 12 months No 12/02/2016 10:24am Not Applicable Not Applicable Hospital Discharge Instructions Current inpatient/outpatient. Discharge instructions are currently unavailable. Plan of Care Current inpatient/outpatient. The plan of care is currently unavailable Functional Status No functional status results. Allergies, Adverse Reactions, Alerts Allergen Type Severity Reaction Status Last Updated Penicillin Allergy Unknown RASH Active 08/16/16 Immunizations Query Response on File Recorded Date/Time Hx Influenza Vaccination No 12/02/16 10:24am Hx Pneumococcal Vaccination No 12/02/16 10:24am Hx Influenza Vaccination No 12/02/16 10:24am Influenza Vaccine Hx NO 10/26/16 11:10am Vital Signs Acute Vital Signs Vital Response Date/Time Temperature (Fahrenheit) 98.7 deg F (96.8 - 99.1) 12/02/2016 9:30am Temperature (Calculated Celsius) 37.26620 degrees C (36.0 - 37.3) 12/02/2016 9:30am Pulse Rate (adult) 88 bpm (60 - 100) 12/02/2016 9:30am Respiratory Rate 16 breaths/min (10 - 20) 12/02/2016 9:30am O2 Sat by Pulse Oximetry 96 % (90 - 100) 12/02/2016 9:30am Oxygen Delivery Method Room Air 12/02/2016 9:30am Blood Pressure 139/76 mm Hg 12/02/2016 9:30am Blood Pressure Source Automatic Cuff 12/02/2016 9:30am Height (Feet) 5 feet 12/02/2016 9:50am Height (Inches) 2.00 inches 12/02/2016 9:50am Weight (Kilograms) 82.100 kg 12/02/2016 9:50am Body Mass Index (BMI) 33.1 12/02/2016 9:50am Results Laboratory Results Test Name Result Units Flags Reference Collection Date/Time Result Date/ Time Comments Neutrophils % (Manual) 95.0 % H 33-66 [...] 10:04am Poikilocytosis 1+ 09/01/2016 9:38am 09/01/2016 10:04am White Blood Count 4.4 T/MM3 L 4.5-11.0 12/29/2016 9:28am 12/29/2016 9: 54am Red Blood Count 3.68 M/MM3 L 4.00-5.20 12/29/2016 9:12/29/2016 9: 54am Hemoglobin 9.3 GM/DL L 12-16 12/29/2016 9:12/29/2016 9:54am Hematocrit 30.2 % L 36-46 12/29/2016 9:12/29/2016 9:54am Mean Corpuscular Volume 82.1 UM3 80-100 12/29/2016 9:12/29/2016 9: 54am Mean Corpuscular Hemoglobin 25.3 UUG L 26-34 12/29/2016 9:2016 9:54am Mean Corpuscular Hemoglobin Concent 30.8 GM/DL L 31-37 12/29/2016 9:12/29/2016 9:54am RDW Standard Deviation 48.6 FL 36.9-50.2 12/29/2016 9:12/29/2016 9 :54am Platelet Count 210 T/MM3 130-400 12/29/2016 9:12/29/2016 9:54am Mean Platelet Volume 9.0 UM3 L 9.4-12.4 12/29/2016 9:12/29/2016 9: 54am Neutrophils (%) (Auto) 77.3 % H 33-66 12/29/2016 9:12/29/2016 9: 54am Lymphocytes (%) (Auto) 11.5 % L 23-45 12/29/2016 9:12/29/2016 9: 54am Monocytes (%) (Auto) 8.0 % 0-9.0 12/29/2016 9:12/29/2016 9:54am Eosinophils (%) (Auto) 2.3 % 0-4 12/29/2016 9:12/29/2016 9:54am Basophils (%) (Auto) 0.2 % 0-2 12/29/2016 9:12/29/2016 9:54am Immature Granulocyte % (Auto) 0.7 % H 0.0-0.5 12/29/2016 9:2016 9:54am Absolute Neutrophils (auto) 3.4 T/MM3 1.8-7.7 12/29/2016 9:2016 9:54am Absolute Lymphocytes (auto) 0.5 T/MM3 L 1-4.8 12/29/2016 9:2016 9:54am Absolute Monocytes (auto) 0.4 T/MM3 0-0.8 12/29/2016 9:12/29/2016 9:54am Absolute Eosinophils (auto) 0.1 T/MM3 0-0.5 12/29/2016 9:2016 9:54am Absolute Basophils (auto) 0.0 T/MM3 0-0.2 12/29/2016 9:12/29/2016 9:54am Absolute Immature Granulocyte (auto 0.03 T/MM3 0.00-0.03 12/29/2016 9: 12/29/2016 9:54am Icterus Index < 2 0-7 12/29/2016 9:12/29/2016 10:03am Chemistry Specimen Hemolysis < 15 0-25 12/29/2016 9:12/29/2016 10:03am 0-25: Specimen Exhibited No Hemolysis. Turbidity < 20 0-20 12/29/2016 9:12/29/2016 10:03am Sodium Level 140 MEQ/L 134-144 12/29/2016 9:12/29/2016 10:03am Potassium Level 3.9 MEQ/L 3.6-5 12/29/2016 9:12/29/2016 10:03am Chloride Level 102 MEQ/L 98-107 12/29/2016 9:12/29/2016 10:03am Carbon Dioxide Level 26 MEQ/L 22-30 12/29/2016 9:12/29/2016 10: 03am Anion Gap 12 MEQ/L 5-15 12/29/2016 9:12/29/2016 10:03am Blood Urea Nitrogen 19.0 MG/DL H 7-12/29/2016 9:12/29/2016 10: 03am Creatinine 0.9 MG/DL 0.7-1.2 12/29/2016 9:12/29/2016 10:03am BUN/Creatinine Ratio 21 RATIO 6-26 12/29/2016 9:12/29/2016 10: 03am Glomerular Filtration Rate Calc 62 12/29/2016 9:12/29/2016 10: 03am Glucose Level 167 MG/DL H 65-110 12/29/2016 9:12/29/2016 10:03am Calculated Osmolality 275 MOSM/KG 261-280 12/29/2016 9:12/29/2016 10:03am Calcium Level 9.3 MG/DL 8.4-10.2 12/29/2016 9:12/29/2016 10:03am Total Bilirubin 0.40 MG/DL 0.20-1.30 12/29/2016 9:12/29/2016 10: 03am Alkaline Phosphatase 72 U/L 38-126 12/29/2016 9:12/29/2016 10: 03am Total Protein 7.1 G/DL 6.3-8.2 12/29/2016 9:12/29/2016 10:03am Albumin 4.1 G/DL 3.5-5.0 12/29/2016 9:12/29/2016 10:03am Globulin 3.0 G/DL 2.4-3.6 12/29/2016 9:12/29/2016 10:03am Albumin/Globulin Ratio 1.4 RATIO 1.1-2.2 12/29/2016 9:12/29/2016 10:03am Aspartate Amino Transf (AST/SGOT) 14 U/L 14-36 12/29/2016 9:2016 10:03am Alanine Aminotransferase (ALT/SGPT) 26 U/L 9-52 12/29/2016 9:12/29 10:03am Lactate Dehydrogenase 394 U/L 313-618 12/29/2016 9:12/29/2016 10: 03am Magnesium Level 1.6 MG/DL 1.6-2.3 12/29/2016 9:12/29/2016 10:03am Carcinoembryonic Antigen 3.58 UG/L H 0-3.0 12/22/2016 8:12/22/2016 9:29am CA 125 Antigen 39.1 U/ML H 0-35 12/22/2016 8:12/22/2016 9:33am Prothromb Time International Ratio 2.22 H 0.76-1.04 10/26/2016 11:55am 10/26/2016 12:06pm THERAPUTIC RANGE=2.00-3.00 FOR ANTI-THROMBOSIS THERAPUTIC RANGE=2.50-3.50 FOR IMPLANTED VALVE Name: TESSA LION Unit #: [id number] : 1945 Sex: F Admit Date: Loc / Svc: NORA Discharge Date: DIAGNOSTIC IMAGING REPORT Report #: [id number] [facility] ROMINA Costa EXAM: CT CHEST/ABD/PELVIS WC IV contrast COMPARISON: 09/01/2016 CT chest abdomen and pelvis. HISTORY: ITS.REASON: C54.1 Malignant neoplasm of endometrium LOCATION OF DICT[place]: [facility] [place] TECHNIQUE: With administration of 100 cc Omnipaque 300 helically acquired scans were obtained from the lung apices through the domes of the diaphragms. The study is reviewed in soft tissue, bone and lung windows. The study is reconstructed in thinner axial sections and in coronal reformations. The current CT scan was performed using radiation dose-reduction techniques. FINDINGS: SOFT TISSUES: No axillary or supraclavicular, mediastinal, or hilar lymphadenopathy is identified. The vascular structures appear unremarkable. No significant pericardial effusion is identified. CHEST WALL: Unremarkable. BONES: Endplate sclerosis and spurring is noted of the thoracic spine. No evidence for osseous metastasis. LUNGS: Unremarkable. The lungs are clear. CHEST IMPRESSION: Unremarkable exam. No evidence for pulmonary metastasis is identified. ABDOMEN AND PELVIS FINDINGS: LIVER: Diffusely hypodense which may represent fatty infiltration. Mild central intrahepatic ductal dilatation. GALLBLADDER: Multiple hypodense foci are seen layering at the fundus of the gallbladder consistent with gallstones. No other signs of acute cholecystitis is identified. SPLEEN: Unremarkable. PANCREAS: Diffusely atrophic. ADRENAL GLANDS: Unremarkable. AORTA/IVC/VASCULATURE: Unremarkable. LYMPH NODES: There is an ovoid hypodense rim-enhancing area in the region of the right external iliac chain measuring 2.7 x 3.6 cm. Previously this had measured 2.6 x 3 cm. Although this measures larger than prior exam,. Appears to have more low density centrally and may represent necrotic matted lymphadenopathy. Borderline right inguinal lymph nodes are again noted but are similar to prior exam. Small left inguinal lymph nodes are also noted but are not pathologically enlarged. No lymphadenopathy is seen in the abdomen or pelvis otherwise. GENITOURINARY: Unremarkable. No renal calculi or obstructive uropathy. The bladder and ureters appear unremarkable. There is a rounded hypodense lesion emanating off the inferior pole of the left kidney likely representing a cyst and is similar to the prior exam. This measures 3.6 cm in diameter. A similar adjacent lesion is also seen at the mid to inferior pole measuring 2 cm. This also likely represents a cyst and is similar to the prior exam. BOWEL: Unremarkable. The stomach, duodenum, small bowel, and colon appear unremarkable. There is a small to moderate amount of stool seen throughout the colon. Scattered diverticula are noted without evidence for acute diverticulitis. The appendix is air-filled and is unremarkable. The terminal ileum is unremarkable. ABDOMINAL/PELVIC WALL: Small umbilical defect without herniated loops of bowel. BONES: There is disc space narrowing and vacuum phenomenon and endplate sclerosis at L2-3. There is superior migration of the hips. Previous sacral plasty is noted of the sacral ala. No evidence for osseous metastasis. Facet hypertrophic changes are seen of the lower lumbar spine. ABDOMEN AND PELVIS IMPRESSION: 1. There is again seen a low-density structure at the right external iliac chain which although measures slightly larger than prior exam has a more of a low density center and may represent necrotic matted lymphadenopathy. 2. No lymphadenopathy is otherwise identified. 3. Cholelithiasis without other signs of acute cholecystitis. 4. Fatty infiltration of the liver with mild central intrahepatic ductal dilatation. NOTE: The study was reviewed with the ordering clinician, LASHAY GRIMM on 12/22/2016 10:38 AM. . Procedures Procedure Status Date Provider(s) Routine venipuncture Completed 10/26/16 Ct head/brain w/o dye Completed 10/26/16 Ct neck spine w/o dye Completed 10/26/16 Prothrombin time Completed 10/26/16 Emergency dept visit Completed 10/26/16 Rbc antibody screen Completed 12/01/16 Blood typing serologic abo Completed 12/01/16 Blood typing serologic rh(d) Completed 12/01/16 Compatibility test antiglob Completed 12/01/16 Blood transfusion service Completed 12/01/16 LASHAY GRIMM [id number]"INJECTION, HEPARIN SODIUM, (HEPARIN LOCK FLUSH), PER Completed "RED BLOOD CELLS, LEUKOCYTES REDUCED, IRRADIATED, EACH Completed "RED BLOOD CELLS, LEUKOCYTES REDUCED, IRRADIATED, EACH Completed Ct thorax w/dye Completed 12/22/16 Ct abd & pelv w/contrast Completed 12/22/16"INFUSION, NORMAL SALINE SOLUTION , 250 CC" Completed 12/22/16"LOW OSMOLAR CONTRAST MATERIAL, 300-399 MG/ML IODINE C Completed Encounters Encounter Location Arrival/Admit Date Discharge/Depart Date Attending Provider Registered [facility] 12/29/16 9:48am LASHAY GRIMM Registered [facility] 12/22/16 7:26am LASHAY GRIMM Discharged [facility] 12/01/16 11:40am 12/02/16 4:10pm LASHAY GRIMM Discharged [facility] 11/17/16 4:16pm 01/01/17 11:59pm LASHAY GRIMM Departed Emergency Room [facility] 10/26/16 10:18am 10/26/16 12: 23pm MELODY HODGSON DO
--- OUTSIDE RECORDS SUMMARY | 2017-01-09 16:30 | XMS REPORT ---
Author Author [facility] Organization Unknown Address Unknown Phone Unavailable Care Team Providers Care Senior Administrative Services Officer Name Role Phone MD JOSELUIS, THELMA PP [phone] Reason For Visit Chief Complaint CBC W AUTO DIFF CMP MAG LDH TO BE DONE,WEEKLY,C54.8 C77.5 Social History Functional Status Vital Signs Results Chemistry from 07/13/2016 3:21 PMSODIUM 131 MMOL/L L (136-145 MMOL/L) POTASSIUM 4.0 MMOL/L (3.5-5.1 MMOL/L) CHLORIDE 96 MMOL/L L (98-107 MMOL/L) TCO2 25.0 MMOL/L (21.0-32.0 MMOL/L) *ANION GAP 10.0 MMOL/L (8.0-16.0 MMOL/L) BUN 17 MG/DL (7-18 MG/DL) CREATININE 1.01 MG/DL (0.55-1.02 MG/DL) *BUN/CREATININE RATIO 16.8 (9.1-17.0 ) GLUCOSE 224 MG/DL H (65-99 MG/DL) *GFR EST NON AFR [place]IZ[place] 56 ML/MIN *GFR EST AFR AMER 65 [...] H (65-99 MG/DL) *GFR EST NON AFR [place] 62 ML/MIN *GFR EST AFR AMER 72 [...] H (65-99 MG/DL) *GFR EST NON AFR [place] 61 ML/MIN *GFR EST AFR AMER 70 [...] H (65-99 MG/DL) *GFR EST NON AFR [place] 56 ML/MIN *GFR EST AFR AMER 65 [...] H (65-99 MG/DL) *GFR EST NON AFR [place] 56 ML/MIN *GFR EST AFR AMER 65 [...] H (65-99 MG/DL) *GFR EST NON AFR [place] 56 ML/MIN *GFR EST AFR AMER 65 [...] H (65-99 MG/DL) *GFR EST NON AFR [place] 58 ML/MIN *GFR EST AFR AMER 67 [...] H (65-99 MG/DL) *GFR EST NON AFR [place] 49 ML/MIN *GFR EST AFR AMER 57 [...] H (65-99 MG/DL) *GFR EST NON AFR [place] 56 ML/MIN *GFR EST AFR AMER 65 [...] 38.1 U/mL) CT Scan from 07/11/2016 7:56 [facility] [place] History: pelvic pain h/o [...] gallbladder. Impression: No evidence of acute fracture. [id number] diffuse lumbar degenerative disc and facet disease, [...]
--- OUTSIDE RECORDS SUMMARY | 2017-01-09 16:30 | XMS REPORT ---
Author Author [facility] Organization Unknown Address Unknown Phone Unavailable Care Team Providers Care Benefits Counselor Name Role Phone MD JOSELUIS, THELMA PP [phone] Reason For Visit Chief Complaint 182.0, V58.61,,CBC W/AUTO DIFF, CMP, MAG. LDH Social History Functional Status Vital Signs Results Chemistry from 10/09/2014 11:20 AMSODIUM 136 MMOL/L (136-145 MMOL/L) POTASSIUM 4.3 MMOL/L (3.5-5.1 MMOL/L) CHLORIDE 103 MMOL/L (98-107 MMOL/L) TCO2 25.4 MMOL/L (21.0-32.0 MMOL/L) ANION GAP 7.6 MMOL/L L (8.0-16.0 MMOL/L) BUN 33 MG/DL H (7-18 MG/DL) CREATININE 0.74 MG/DL (0.43-0.83 MG/DL) BUN/CREATININE RATIO 44.6 H (9.1-17.0 ) GLUCOSE 205 MG/DL H (65-99 MG/DL) GFR EST NON AFR [place] 83 ML/MIN GFRA EST AFR AMER >90 ML/MIN CALCIUM 8.9 MG/DL (8.5-10.1 MG/DL) BILIRUBIN TOTAL 0.26 MG/DL (0.20-1.00 MG/DL) TOTAL PROTEIN 7.5 GM/DL (6.4-8.2 GM/DL) ALBUMIN 3.3 GM/DL L (3.4-5.0 GM/DL) GLOBULIN 4.2 GM/DL H (2.3-3.5 GM/DL) A/G RATIO 0.8 MG/DL L (1.5-2.2 MG/DL) ALK PHOS 113 U/L (46-116 U/L) ALT (SGPT) 24 U/L (12-78 U/L) AST (SGOT) 15 U/L (15-37 U/L) MAGNESIUM 1.8 MG/DL (1.8-2.4 MG/DL) LDH 233 U/L (84-246 U/L) Chemistry from 10/06/2014 11:34 AMSODIUM 136 MMOL/L (136-145 MMOL/L) POTASSIUM 4.5 MMOL/L (3.5-5.1 MMOL/L) CHLORIDE 103 MMOL/L (98-107 MMOL/L) TCO2 27.4 MMOL/L (21.0-32.0 MMOL/L) ANION GAP 5.6 MMOL/L L (8.0-16.0 MMOL/L) BUN 29 MG/DL H (7-18 MG/DL) CREATININE 0.75 MG/DL (0.43-0.83 MG/DL) BUN/CREATININE RATIO 38.7 H (9.1-17.0 ) GLUCOSE 139 MG/DL H (65-99 MG/DL) GFR EST NON AFR [place] 82 ML/MIN GFRA EST AFR AMER >90 ML/MIN CALCIUM 8.8 MG/DL (8.5-10.1 MG/DL) BILIRUBIN TOTAL 0.22 MG/DL (0.20-1.00 MG/DL) TOTAL PROTEIN 7.6 GM/DL (6.4-8.2 GM/DL) ALBUMIN 3.4 GM/DL (3.4-5.0 GM/DL) GLOBULIN 4.2 GM/DL H (2.3-3.5 GM/DL) A/G RATIO 0.8 MG/DL L (1.5-2.2 MG/DL) ALK PHOS 129 U/L H (46-116 U/L) ALT (SGPT) 21 U/L (12-78 U/L) AST (SGOT) 12 U/L L (15-37 U/L) MAGNESIUM 1.9 MG/DL (1.8-2.4 MG/DL) LDH 280 U/L H (84-246 U/L) Chemistry from 10/02/2014 2:00 PMSODIUM 133 MMOL/L L (136-145 MMOL/L) POTASSIUM 4.2 MMOL/L (3.5-5.1 MMOL/L) CHLORIDE 100 MMOL/L (98-107 MMOL/L) TCO2 28.1 MMOL/L (21.0-32.0 MMOL/L) ANION GAP 4.9 MMOL/L L (8.0-16.0 MMOL/L) BUN 33 MG/DL H (7-18 MG/DL) CREATININE 0.79 MG/DL (0.43-0.83 MG/DL) BUN/CREATININE RATIO 41.8 H (9.1-17.0 ) GLUCOSE 264 MG/DL H (65-99 MG/DL) GFR EST NON AFR [place] 77 ML/MIN GFRA EST AFR AMER 89 ML/MIN CALCIUM 8.7 MG/DL (8.5-10.1 MG/DL) BILIRUBIN TOTAL 0.18 MG/DL L (0.20-1.00 MG/DL) TOTAL PROTEIN 7.1 GM/DL (6.4-8.2 GM/DL) ALBUMIN 3.2 GM/DL L (3.4-5.0 GM/DL) GLOBULIN 3.9 GM/DL H (2.3-3.5 GM/DL) A/G RATIO 0.8 MG/DL L (1.5-2.2 MG/DL) ALK PHOS 124 U/L H (46-116 U/L) ALT (SGPT) 23 U/L (12-78 U/L) AST (SGOT) 12 U/L L (15-37 U/L) MAGNESIUM 1.7 MG/DL L (1.8-2.4 MG/DL) LDH 222 U/L (84-246 U/L) Chemistry from 09/29/2014 11:36 AMSODIUM 135 MMOL/L L (136-145 MMOL/L) POTASSIUM 4.4 MMOL/L (3.5-5.1 MMOL/L) CHLORIDE 102 MMOL/L (98-107 MMOL/L) TCO2 24.2 MMOL/L (21.0-32.0 MMOL/L) ANION GAP 8.8 MMOL/L (8.0-16.0 MMOL/L) BUN 29 MG/DL H (7-18 MG/DL) CREATININE 0.68 MG/DL (0.43-0.83 MG/DL) BUN/CREATININE RATIO 42.6 H (9.1-17.0 ) GLUCOSE 212 MG/DL H (65-99 MG/DL) GFR EST NON AFR [place] 90 ML/MIN GFRA EST AFR AMER >90 ML/MIN CALCIUM 8.7 MG/DL (8.5-10.1 MG/DL) BILIRUBIN TOTAL 0.23 MG/DL (0.20-1.00 MG/DL) TOTAL PROTEIN 7.1 GM/DL (6.4-8.2 GM/DL) ALBUMIN 3.1 GM/DL L (3.4-5.0 GM/DL) GLOBULIN 4.0 GM/DL H (2.3-3.5 GM/DL) A/G RATIO 0.8 MG/DL L (1.5-2.2 MG/DL) ALK PHOS 99 U/L (46-116 U/L) ALT (SGPT) 24 U/L (12-78 U/L) AST (SGOT) 15 U/L (15-37 U/L) MAGNESIUM 1.7 MG/DL L (1.8-2.4 MG/DL) LDH 222 U/L (84-246 U/L) Hematology from 10/09/2014 11:20 AMWBC 9.1 X10e3/UL (3.6-11.2 X10e3/UL) RBC 3.48 X10e6/UL L (3.63-4.92 X10e6/UL) HEMOGLOBIN 9.5 G/DL L (11.0-14.3 G/DL) HEMATOCRIT 29.5 % L (31.2-41.9 %) MCV 84.9 FL (79.0-98.0 FL) MCH 27.2 PG (27.0-33.0 PG) MCHC 32.1 G/DL (32.0-36.0 G/DL) RDW 22.4 % H (12.3-17.0 %) RDWSD 64.8 H (37.1-47.8 ) PLATELET 171 X10e3/UL (159-386 X10e3/UL) MPV 7.3 FL L (7.4-10.4 FL) MANUAL DIFF PERFORMED SEGS 63.0 % BANDS 10.0 % LYMPHOCYTES 17.0 % MONOCYTES 9.0 % EOSINOPHILS 0.0 % BASOPHILS 0.0 % METAMYELOCYTES 1.0 % ABSOLUTE NEUTROPHILS 6.73 X10e3/UL (1.80-7.80 X10e3/UL) ABSOLUTE LYMPHOCYTES 1.55 X10e3/UL (1.00-3.00 X10e3/UL) ABSOLUTE MONOCYTES 0.82 X10e3/UL (0.30-1.00 X10e3/UL) ABSOLUTE EOSINOPHILS 0.00 X10e3/UL (0.00-0.50 X10e3/UL) ABSOLUTE BASOPHILS 0.00 X10e3/UL (0.00-0.20 X10e3/UL) POLYCHROMASIA 1+ ANISOCYTOSIS 3+ TARGET CELLS 1+ TEARDROP CELLS 1+ TOXIC GRANULATION 2+ WBC VACUOLES 1+ Hematology from 10/06/2014 11:34 AMWBC 17.2 X10e3/UL H (3.6-11.2 X10e3/UL) RBC 3.32 X10e6/UL L (3.63-4.92 X10e6/UL) HEMOGLOBIN 9.5 G/DL L (11.0-14.3 G/DL) HEMATOCRIT 27.8 % L (31.2-41.9 %) MCV 83.8 FL (79.0-98.0 FL) MCH 28.6 PG (27.0-33.0 PG) MCHC 34.1 G/DL (32.0-36.0 G/DL) RDW 20.6 % H (12.3-17.0 %) PLATELET 260 X10e3/UL (159-386 X10e3/UL) MPV 7.6 FL (7.4-10.4 FL) MANUAL DIFF PERFORMED SEGS 59.0 % BANDS 20.0 % LYMPHOCYTES 12.0 % MONOCYTES 3.0 % EOSINOPHILS 3.0 % BASOPHILS 0.0 % METAMYELOCYTES 2.0 % PROMYELOCYTE 1.0 % ABSOLUTE NEUTROPHILS 14.10 X10e3/UL H (1.80-7.80 X10e3/UL) ABSOLUTE LYMPHOCYTES 2.06 X10e3/UL (1.00-3.00 X10e3/UL) ABSOLUTE MONOCYTES 0.52 X10e3/UL (0.30-1.00 X10e3/UL) ABSOLUTE EOSINOPHILS 0.52 X10e3/UL H (0.00-0.50 X10e3/UL) ABSOLUTE BASOPHILS 0.00 X10e3/UL (0.00-0.20 X10e3/UL) COMMENT See Below POLYCHROMASIA 1+ ANISOCYTOSIS 3+ TEARDROP CELLS 1+ STOMATOCYTES 1+ TOXIC GRANULATION 2+ WBC VACUOLES 1+ Hematology from 10/02/2014 2:00 PMWBC 17.5 X10e3/UL H (3.6-11.2 X10e3/UL) RBC 3.21 X10e6/UL L (3.63-4.92 X10e6/UL) HEMOGLOBIN 9.0 G/DL L (11.0-14.3 G/DL) HEMATOCRIT 26.6 % L (31.2-41.9 %) MCV 82.9 FL (79.0-98.0 FL) MCH 28.0 PG (27.0-33.0 PG) MCHC 33.8 G/DL (32.0-36.0 G/DL) RDW 18.7 % H (12.3-17.0 %) PLATELET 287 X10e3/UL (159-386 X10e3/UL) MPV 8.2 FL (7.4-10.4 FL) MANUAL DIFF PERFORMED SEGS 72.0 % BANDS 8.0 % LYMPHOCYTES 15.0 % MONOCYTES 5.0 % EOSINOPHILS 0.0 % BASOPHILS 0.0 % ABSOLUTE NEUTROPHILS 14.00 X10e3/UL H (1.80-7.80 X10e3/UL) ABSOLUTE LYMPHOCYTES 2.63 X10e3/UL (1.00-3.00 X10e3/UL) ABSOLUTE MONOCYTES 0.88 X10e3/UL (0.30-1.00 X10e3/UL) ABSOLUTE EOSINOPHILS 0.00 X10e3/UL (0.00-0.50 X10e3/UL) ABSOLUTE BASOPHILS 0.00 X10e3/UL (0.00-0.20 X10e3/UL) ANISOCYTOSIS 3+ TOXIC GRANULATION 1+ Hematology from 09/29/2014 11:36 AMWBC 23.3 X10e3/UL H (3.6-11.2 X10e3/UL) RBC 3.22 X10e6/UL L (3.63-4.92 X10e6/UL) HEMOGLOBIN 9.5 G/DL L (11.0-14.3 G/DL) HEMATOCRIT 26.9 % L (31.2-41.9 %) MCV 83.6 FL (79.0-98.0 FL) MCH 29.3 PG (27.0-33.0 PG) MCHC 35.1 G/DL (32.0-36.0 G/DL) RDW 19.6 % H (12.3-17.0 %) PLATELET 267 X10e3/UL (159-386 X10e3/UL) MPV 8.5 FL (7.4-10.4 FL) MANUAL DIFF PERFORMED SEGS 83.0 % BANDS 10.0 % LYMPHOCYTES 7.0 % MONOCYTES 0.0 % EOSINOPHILS 0.0 % BASOPHILS 0.0 % ABSOLUTE NEUTROPHILS 21.67 X10e3/UL H (1.80-7.80 X10e3/UL) ABSOLUTE LYMPHOCYTES 1.63 X10e3/UL (1.00-3.00 X10e3/UL) ABSOLUTE MONOCYTES 0.00 X10e3/UL L (0.30-1.00 X10e3/UL) ABSOLUTE EOSINOPHILS 0.00 X10e3/UL (0.00-0.50 X10e3/UL) ABSOLUTE BASOPHILS 0.00 X10e3/UL (0.00-0.20 X10e3/UL) HYPOCHROMASIA 1+ ANISOCYTOSIS 3+ OVALOCYTES 1+ TOXIC GRANULATION 3+ WBC VACUOLES 1+ Coagulation from 10/09/2014 11:20 AMPROTHROMBIN TIME 21.1 SECONDS H (9.4-11.5 SECONDS) INR 2.0 H (0.9-1.1 ) Coagulation from 10/07/2014 11:55 AMPROTHROMBIN TIME 22.6 SECONDS H (9.4-11.5 SECONDS) INR 2.1 H (0.9-1.1 ) Coagulation from 10/02/2014 2:00 PMPROTHROMBIN TIME 17.2 SECONDS H (9.4-11.5 SECONDS) INR 1.6 H (0.9-1.1 ) Coagulation from 09/29/2014 11:36 AMPROTHROMBIN TIME 20.5 SECONDS H (9.4-11.5 SECONDS) INR 1.9 H (0.9-1.1 ) Reference Lab from 09/29/2014 11:36 AMCANCER ANTIGEN (CA) 125 20.4 U/mL (0.0- 34.0 U/mL) Problems Encounter Diagnosis No relevant problems exist. [...]
--- OUTSIDE RECORDS SUMMARY | 2017-01-09 16:30 | XMS REPORT ---
Author Author GENERATED, SYSTEM Organization Unknown Address Unknown Phone Unavailable Care Team Providers Care District Court Bailiff Name Role Phone MD JOSELUIS, THELMA PP [phone] Reason For Visit Chief Complaint 782.0 V58.61 Social History Functional Status Vital Signs Results Hematology from 03/26/2015 12:30 PMWBC 2.9 X10e3/UL L (3.6-11.2 X10e3/UL) RBC 3.42 X10e6/UL L (3.63-4.92 X10e6/UL) HEMOGLOBIN 10.1 G/DL L (11.0-14.3 G/DL) HEMATOCRIT 31.0 % L (31.2-41.9 %) MCV 90.7 FL (79.0-98.0 FL) MCH 29.6 PG (27.0-33.0 PG) MCHC 32.7 G/DL (32.0-36.0 G/DL) RDW 21.1 % H (12.3-17.0 %) RDWSD 65.6 H (37.1-47.8 ) PLATELET 220 X10e3/UL (159-386 X10e3/UL) MPV 8.2 FL (7.4-10.4 FL) MANUAL DIFF PERFORMED SEGS 70.0 % BANDS 2.0 % LYMPHOCYTES 23.0 % MONOCYTES 4.0 % EOSINOPHILS 0.0 % BASOPHILS 0.0 % REACTIVE LYMPHOCYTES 1.0 % ABSOLUTE NEUTROPHILS 2.09 X10e3/UL (1.80-7.80 X10e3/UL) ABSOLUTE LYMPHOCYTES 0.70 X10e3/UL L (1.00-3.00 X10e3/UL) ABSOLUTE MONOCYTES 0.12 X10e3/UL L (0.30-1.00 X10e3/UL) ABSOLUTE EOSINOPHILS 0.00 X10e3/UL (0.00-0.50 X10e3/UL) ABSOLUTE BASOPHILS 0.00 X10e3/UL (0.00-0.20 X10e3/UL) POLYCHROMASIA 1+ ANISOCYTOSIS 3+ Coagulation from 03/26/2015 12:30 PMPROTHROMBIN TIME 32.2 SECONDS H (9.4-11.5 SECONDS) INR 2.9 H (0.9-1.1 ) Problems Encounter Diagnosis No [...]
--- OUTSIDE RECORDS SUMMARY | 2017-01-09 16:30 | XMS REPORT ---
Author Author GENERATED, SYSTEM Organization Unknown Address Unknown Phone Unavailable Care Team Providers Care Gluing Crew Leader Name Role Phone PP Unavailable Reason For Visit Reason for Visit from 08/06/2014 12:15 PM:* Pt Stated Reason for Adm : Lovenox injection Chief Complaint RT LEG DVT Social History Functional Status Functional Status from 08/10/2014 10:09 AM:* LOC : Alert * Oriented To : Person,Place,Time,Event Functional Status from 08/09/2014 11:52 AM:* LOC : Alert * Oriented To : Person,Place,Time,Event Functional Status from 08/08/2014 12:26 PM:* LOC : Alert * Oriented To : Person,Place,Time,Event Functional Status from 08/07/2014 11:28 AM:* LOC : Alert * Oriented To : Person,Place,Time,Event Functional Status from 08/06/2014 12:15 PM:* LOC : Alert * Oriented To : Person,Place,Time,Event Vital Signs Hospital Vital Signs from 08/10/2014 10:09 AM:* Height : 5/2 ft,in * Temperature : 98.0 F * Pulse : 82 * Respirations : 18 * BP : 124/62 Hospital Vital Signs from 08/09/2014 11:38 AM:* Height : 5/2 ft,in * Temperature : 97.8 F * Pulse : 85 * Respirations : 20 * BP : 127/68 Hospital Vital Signs from 08/08/2014 12:27 PM:* Height : 5/2 ft,in * Temperature : 98.0 F * Pulse : 79 * Respirations : 16 * BP : 124/60 Hospital Vital Signs from 08/07/2014 9:28 AM:* Height : 5/2 ft,in * Temperature : 98.2 F * Pulse : 83 * Respirations : 16 * BP : 112/64 Hospital Vital Signs from 08/06/2014 12:13 PM:* Height : 5/2 ft,in * Temperature : 96.9 F * Pulse : 83 * Respirations : 20 * BP : 131/59 Results Problems Encounter Diagnosis No relevant problems [...]
--- OUTSIDE RECORDS SUMMARY | 2017-01-09 16:31 | XMS REPORT ---
Author Author GENERATED, SYSTEM Organization Unknown Address Unknown Phone Unavailable Care Team Providers Care Pump Machine Operator Name Role Phone UNASSIGNED DOCTOR , DOCTOR PP [phone] Reason For Visit Chief Complaint HEADACHE, BLOODY NOSE, DR HORTON TO COME IN Social History Functional Status Vital Signs Results Chemistry from 09/15/2014 9:34 PMSODIUM 135 MMOL/L L (136-145 MMOL/L) POTASSIUM 3.9 MMOL/L (3.5-5.1 MMOL/L) CHLORIDE 101 MMOL/L (98-107 MMOL/L) TCO2 25.1 MMOL/L (21.0-32.0 MMOL/L) ANION GAP 8.9 MMOL/L (8.0-16.0 MMOL/L) BUN 24 MG/DL H (7-18 MG/DL) CREATININE 0.57 MG/DL (0.43-0.83 MG/DL) BUN/CREATININE RATIO 42.1 H (9.1-17.0 ) GLUCOSE 129 MG/DL H (65-99 MG/DL) GFR EST NON AFR ROMANIAN >90 ML/MIN GFRA EST AFR AMER >90 [...] (SGOT) 15 U/L (15-37 U/L) Hematology from 09/15/2014 9:34 PMWBC 22.0 [...] MACROCYTIC 1+ TOXIC GRANULATION 1+ Coagulation from 09/15/2014 9:34 PMPROTHROMBIN TIME 20.3 SECONDS H (9.4-11.5 SECONDS) INR 1.9 H (0.9-1.1 ) PARTIAL THROMBOPLASTIN TIME 31.1 SECONDS H (21.0-30.0 SECONDS) CT Scan from 09/15/2014 8:31 PMCT CEREBRAL W/O CONTRAST DATE OF EXAM: Sep 15 2014 8:44PM Proc: CT 0001 - CT CEREBRAL W/O CONTRAST CPT Code(s): 55496-; ; ; INDICATION / CLINICAL HISTORY: \E\Headache [...]
--- OUTSIDE RECORDS SUMMARY | 2017-01-09 16:31 | XMS REPORT ---
Author Author GENERATED, SYSTEM Organization Unknown Address Unknown Phone Unavailable Care Team Providers Care Barrel Stave Inspector Name Role Phone MD JOSELUIS, THELMA PP [phone] Reason For Visit Chief Complaint 782.0 V58.61 Social History Functional Status Vital Signs Results Hematology from 09/03/2015 11:50 AMWBC 3.4 X10e3/UL L (3.6-11.2 X10e3/UL) RBC 3.59 X10e6/UL L (3.63-4.92 X10e6/UL) HEMOGLOBIN 10.4 G/DL L (11.0-14.3 G/DL) HEMATOCRIT 31.9 % (31.2-41.9 %) *MCV 88.8 FL (79.0-98.0 FL) *MCH 29.1 PG (27.0-33.0 PG) *MCHC 32.8 G/DL (32.0-36.0 G/DL) *RDW 14.3 % (12.3-17.0 %) PLATELET 213 X10e3/UL (159-386 X10e3/UL) *MPV 7.8 FL (7.4-10.4 FL) AUTOMATED DIFF PERFORMED SEGS 73.4 % *LYMPHOCYTES 13.1 % *MONOCYTES 8.9 % *EOSINOPHILS 3.7 % *BASOPHILS 0.9 % *ABSOLUTE NEUTROPHILS 2.60 X10e3/UL (1.80-7.80 X10e3/UL) *ABSOLUTE LYMPHOCYTES 0.40 X10e3/UL L (1.00-3.00 X10e3/UL) *ABSOLUTE MONOCYTES 0.30 X10e3/UL (0.30-1.00 X10e3/UL) *ABSOLUTE EOSINOPHILS 0.10 X10e3/UL [...]
--- OUTSIDE RECORDS SUMMARY | 2017-01-09 16:31 | XMS REPORT ---
Author Author GENERATED, SYSTEM Organization Unknown Address Unknown Phone Unavailable Care Team Providers Care Doormaker Name Role Phone MD JOSELUIS, THELMA [phone] Reason For Visit Reason for Visit from 11/26/2014 1:59 PM:* Pt Stated Reason for Adm : Lab/ Lovenox Injection Chief Complaint INJECTION OF DRUG, PT/INR 182.0,LOVENOX 120 MG SUBQ DAILY, DRAW DAILY Social History Functional Status Functional Status from 12/05/2014 11:36 AM:* LOC : Alert * Oriented To : Person,Place,Time,Event Functional Status from 12/04/2014 11:21 AM:* LOC : Alert * Oriented To : Person,Place,Time,Event Functional Status from 12/03/2014 2:14 PM:* LOC : Alert * Oriented To : Person,Place,Time,Event Functional Status from 12/02/2014 12:16 PM:* LOC : Alert * Oriented To : Person,Place,Time,Event Functional Status from 12/01/2014 12:40 PM:* LOC : Alert * Oriented To : Person,Place,Time,Event Functional Status from 11/30/2014 10:47 AM:* LOC : Alert * Oriented To : Person,Place,Time Functional Status from 11/29/2014 11:27 AM:* LOC : Alert * Oriented To : Person,Place,Time,Event Functional Status from 11/28/2014 3:16 PM:* LOC : Alert * Oriented To : Person,Place,Time,Event Functional Status from 11/27/2014 12:58 PM:* LOC : Alert * Oriented To : Person,Place,Time,Event Functional Status from 11/26/2014 1:59 PM:* LOC : Alert * Oriented To : Person,Place,Time,Event Vital Signs Hospital Vital Signs from 12/05/2014 11:40 AM:* Height : 5/2 ft,in * Temperature : 96.9 F * Pulse : 87 * Respirations : 18 * BP : 92/53 Hospital Vital Signs from 12/04/2014 11:23 AM:* Height : 5/2 ft,in * Temperature : 97.6 F * Pulse : 72 * Respirations : 18 * BP : 115/53 Hospital Vital Signs from 12/03/2014 2:13 PM:* Height : 5/2 ft,in * Temperature : 98.3 F * Pulse : 63 * Respirations : 16 * BP : 123/69 Hospital Vital Signs from 12/02/2014 12:09 PM:* Height : 5/2 ft,in * Temperature : 97.3 F * Pulse : 80 * Respirations : 16 * BP : 109/66 Hospital Vital Signs from 12/01/2014 12:11 PM:* Height : 5/2 ft,in * Temperature : 98.1 F * Pulse : 87 * Respirations : 20 * BP : 99/67 Hospital Vital Signs from 11/30/2014 10:41 AM:* Height : 5/2 ft,in * Temperature : 98.6 F * Pulse : 78 * Respirations : 18 * BP : 90/54 Hospital Vital Signs from 11/29/2014 11:52 AM:* Height : 5/2 ft,in Hospital Vital Signs from 11/29/2014 11:30 AM:* Height : 5/2 ft,in * Respirations : 18 * BP : 98/54 Hospital Vital Signs from 11/29/2014 11:28 AM:* Height : 5/2 ft,in * Temperature : 98.5 F * Respirations : 18 * BP : 91/33 Hospital Vital Signs from 11/28/2014 3:31 PM:* Height : 5/2 ft,in * Temperature : 99.1 F * Pulse : 87 * Respirations : 18 * BP : 90/57 Hospital Vital Signs from 11/27/2014 1:12 PM:* Height : 5/2 ft,in * Temperature : 98.5 F * Pulse : 92 * Respirations : 18 * BP : 120/68 Hospital Vital Signs from 11/26/2014 2:08 PM:* Height : 5/2 ft,in * Pulse : 73 * BP : 92/66 Hospital Vital Signs from 11/26/2014 2:05 PM:* Height : 5/2 ft,in * Temperature : 97.5 F * Pulse : 67 * Respirations : 16 * BP : 81/42 Results Chemistry from 12/02/2014 12:15 PMSODIUM 139 MMOL/L (136-145 MMOL/L) POTASSIUM 4.0 MMOL/L (3.5-5.1 MMOL/L) CHLORIDE 103 MMOL/L (98-107 MMOL/L) TCO2 29.3 MMOL/L (21.0-32.0 MMOL/L) ANION GAP 6.7 MMOL/L L (8.0-16.0 MMOL/L) BUN 20 MG/DL H (7-18 MG/DL) CREATININE 0.74 MG/DL (0.43-0.83 MG/DL) BUN/CREATININE RATIO 27.0 H (9.1-17.0 ) GLUCOSE 187 MG/DL H (65-99 MG/DL) GFR EST NON AFR IRAQI 83 ML/MIN GFRA EST AFR AMER >90 [...] (SGOT) 15 U/L (15-37 U/L) Hematology from 12/05/2014 11:45 AMWBC 5.0 X10e3/UL [...] BASOPHILS 0.00 X10e3/UL (0.00-0.20 X10e3/UL) Coagulation from 12/05/2014 11:45 AMPROTHROMBIN TIME 23.9 [...] SECONDS (9.4-11.5 SECONDS) INR 1.0 (0.9-1.1 ) Problems Encounter Diagnosis No relevant [...]
--- OUTSIDE RECORDS SUMMARY | 2017-01-09 16:31 | XMS REPORT ---
Author Author GENERATED, SYSTEM Organization Unknown Address Unknown Phone Unavailable Care Team Providers Care Assessment Specialist Name Role Phone MD JOSELUIS, THELMA PP [phone] Reason For Visit Chief Complaint RIGHT LEG PAIN Social History Functional Status Vital Signs Results Chemistry from 07/11/2016 7:46 AMSODIUM 140 MMOL/L (136-145 MMOL/L) POTASSIUM 4.3 MMOL/L (3.5-5.1 MMOL/L) CHLORIDE 106 MMOL/L (98-107 MMOL/L) TCO2 25.1 MMOL/L (21.0-32.0 MMOL/L) *ANION GAP 8.9 MMOL/L (8.0-16.0 MMOL/L) BUN 21 MG/DL H (7-18 MG/DL) CREATININE 0.93 MG/DL (0.55-1.02 MG/DL) *BUN/CREATININE RATIO 22.6 H (9.1-17.0 ) GLUCOSE 200 MG/DL H (65-99 MG/DL) *GFR EST NON AFR GUAMANIAN 62 ML/MIN *GFR EST AFR AMER 72 ML/MIN CALCIUM 8.7 MG/DL (8.5-10.1 MG/DL) BILIRUBIN TOTAL 0.20 MG/DL (0.20-1.00 MG/DL) TOTAL PROTEIN 6.7 GM/DL (6.4-8.2 GM/DL) ALBUMIN 3.1 GM/DL L (3.4-5.0 GM/DL) *GLOBULIN 3.6 GM/DL H (2.3-3.5 GM/DL) *A/G RATIO 0.9 MG/DL L (1.5-2.2 MG/DL) ALK PHOS 74 U/L (46-116 U/L) ALT (SGPT) 17 U/L (16-63 U/L) AST (SGOT) 12 U/L L (15-37 U/L) Hematology from 07/11/2016 7:46 AMWBC 3.5 X10e3/UL [...] *POLYCHROMASIA 1+ *MACROCYTIC 1+ *TOXIC GRANULATION 1+ Coagulation from 07/11/2016 7:46 AM*PROTHROMBIN TIME 21.3 SECONDS H (9.4-11.5 SECONDS) *INR 2.1 H (0.9-1.1 ) PARTIAL THROMBOPLASTIN TIME 29.1 SECONDS (23.0-31.0 SECONDS) CT Scan from 07/11/2016 7:56 AMCT PELVIS [...] gallbladder. Impression: No evidence of acute fracture. [id number] diffuse lumbar degenerative disc and facet disease, greatest at L4-5, as described above. Electronically signed by: Latonia Cuevas MD Dictated: 07/11/2016 08:27 Problems Encounter Diagnosis No relevant problems exist. [...]
--- OUTSIDE RECORDS SUMMARY | 2017-01-09 16:31 | XMS REPORT | Continuity of Care Document ---
Author Author [facility] Organization [facility] Address Unknown Phone Unavailable Care Team Providers Care Direct Marketing Manager Name Role Phone THELMA HUGGINS MD Primary Care Physician [phone] Insurance Providers Guarantor Tessa Lion Address [address] [place] [id number] Email [email or web address] Payer Medicarehumana Policy Number [id number] Subscriber's Name Tessa Lion Relationship 19 Self [...] No 12/02/2016 10:24am Not Applicable Not Applicable Query Response Start Date Stop Date Smoking Status Never smoker Hospital Discharge Instructions No hospital discharge instructions. Plan of Care Prescriptions See Medication Section Functional Status No functional status results. Allergies, [...] - 99.1) 12/02/2016 9:30am Temperature (Calculated Celsius) 37.12411 degrees C (36.0 - 37.3) 12/02/2016 9:30am [...] 09/01/2016 9:38am 09/01/2016 10:04am White Blood Count 3.7 T/MM3 L 4.5-11.0 12/08/2016 8:45am 12/08/2016 8: 53am Red Blood Count 3.99 M/MM3 L 4.00-5.20 12/08/2016 8:45am 12/08/2016 8: 53am Hemoglobin 10.4 GM/DL L 12-16 12/08/2016 8:45am 12/08/2016 8:53am Hematocrit 33.6 % L 36-46 12/08/2016 8:45am 12/08/2016 8:53am Mean Corpuscular Volume 84.2 UM3 80-100 12/08/2016 8:45am 12/08/2016 8: 53am Mean Corpuscular Hemoglobin 26.1 UUG 26-34 12/08/2016 8:45am 2016 8:53am Mean Corpuscular Hemoglobin Concent 31.0 GM/DL 31-37 12/08/2016 8:45am 12/08/2016 8:53am RDW Standard Deviation 51.2 FL H 36.9-50.2 12/08/2016 8:45am 12/08/2016 8:53am Platelet Count 240 T/MM3 130-400 12/08/2016 8:45am 12/08/2016 8:53am Mean Platelet Volume 8.8 UM3 L 9.4-12.4 12/08/2016 8:45am 12/08/2016 8: 53am Neutrophils (%) (Auto) 66.4 % H 33-66 12/08/2016 8:45am 12/08/2016 8: 53am Lymphocytes (%) (Auto) 17.5 % L 23-45 12/08/2016 8:45am 12/08/2016 8: 53am Monocytes (%) (Auto) 9.9 % H 0-9.0 12/08/2016 8:45am 12/08/2016 8:53am Eosinophils (%) (Auto) 5.4 % H 0-4 12/08/2016 8:45am 12/08/2016 8:53am Basophils (%) (Auto) 0.3 % 0-2 12/08/2016 8:45am 12/08/2016 8:53am Immature Granulocyte % (Auto) 0.5 % 0.0-0.5 12/08/2016 8:45am 2016 8:53am Absolute Neutrophils (auto) 2.5 T/MM3 1.8-7.7 12/08/2016 8:45am 2016 8:53am Absolute Lymphocytes (auto) 0.7 T/MM3 L 1-4.8 12/08/2016 8:45am 2016 8:53am Absolute Monocytes (auto) 0.4 T/MM3 0-0.8 12/08/2016 8:45am 12/08/2016 8:53am Absolute Eosinophils (auto) 0.2 T/MM3 0-0.5 12/08/2016 8:45am 2016 8:53am Absolute Basophils (auto) 0.0 T/MM3 0-0.2 12/08/2016 8:45am 12/08/2016 8:53am Absolute Immature Granulocyte (auto 0.02 T/MM3 0.00-0.03 12/08/2016 8: 45am 12/08/2016 8:53am Icterus Index < 2 0-7 12/08/2016 8:45am 12/08/2016 9:06am Chemistry Specimen Hemolysis < 15 0-25 12/08/2016 8:45am 12/08/2016 9 :06am 0-25: Specimen Exhibited No Hemolysis. Turbidity < 20 0-20 12/08/2016 8:45am 12/08/2016 9:06am Sodium Level 141 MEQ/L 134-144 12/08/2016 8:45am 12/08/2016 9:06am Potassium Level 4.3 MEQ/L 3.6-5 12/08/2016 8:45am 12/08/2016 9:06am Chloride Level 100 MEQ/L 98-107 12/08/2016 8:45am 12/08/2016 9:06am Carbon Dioxide Level 27 MEQ/L 22-30 12/08/2016 8:45am 12/08/2016 9: 06am Anion Gap 14 MEQ/L 5-15 12/08/2016 8:45am 12/08/2016 9:06am Blood Urea Nitrogen 24.0 MG/DL H 7-17 12/08/2016 8:45am 12/08/2016 9: 06am Creatinine 0.9 MG/DL 0.7-1.2 12/08/2016 8:45am 12/08/2016 9:06am BUN/Creatinine Ratio 27 RATIO H 6-26 12/08/2016 8:45am 12/08/2016 9: 06am Glomerular Filtration Rate Calc 62 12/08/2016 8:4512/08/2016 9: 06am Glucose Level 184 MG/DL H 65-110 12/08/2016 8:45am 12/08/2016 9:06am Calculated Osmolality 280 MOSM/KG 261-280 12/08/2016 8:4512/08/2016 9:06am Calcium Level 9.3 MG/DL 8.4-10.2 12/08/2016 8:45am 12/08/2016 9:06am Total Bilirubin 0.40 MG/DL 0.20-1.30 12/08/2016 8:45am 12/08/2016 9: 06am Alkaline Phosphatase 66 U/L 38-126 12/08/2016 8:4512/08/2016 9:06am Total Protein 7.3 G/DL 6.3-8.2 12/08/2016 8:4512/08/2016 9:06am Albumin 3.8 G/DL 3.5-5.0 12/08/2016 8:4512/08/2016 9:06am Globulin 3.5 G/DL 2.4-3.6 12/08/2016 8:4512/08/2016 9:06am Albumin/Globulin Ratio 1.1 RATIO 1.1-2.2 12/08/2016 8:4512/08/2016 9 :06am Aspartate Amino Transf (AST/SGOT) 16 U/L 14-36 12/08/2016 8:45am 2016 9:06am Alanine Aminotransferase (ALT/SGPT) 21 U/L 9-52 12/08/2016 8:4512/08 9:06am Lactate Dehydrogenase 383 U/L 313-618 12/08/2016 8:4512/08/2016 9: 06am Magnesium Level 1.6 MG/DL 1.6-2.3 12/08/2016 8:45am 12/08/2016 9:06am Carcinoembryonic Antigen 3.11 UG/L H 0-3.0 12/08/2016 8:45am 12/08/2016 9:37am CA 125 Antigen 39.2 U/ML H 0-35 12/08/2016 8:45am 12/08/2016 9:38am Prothromb Time International Ratio 2.22 H 0.76-1.04 10/26/2016 11:55am 10/26/2016 12:06pm THERAPUTIC RANGE=2.00-3.00 FOR ANTI-THROMBOSIS THERAPUTIC RANGE=2.50-3.50 FOR IMPLANTED VALVE Procedures Procedure Status Date Provider(s) Mri lumbar spine w/o & w/dye Completed 09/27/16 Mri pelvis w/o & w/dye Completed 09/27/16 GADAVIST 10ML SDV - Contrast,Gadavist 10ml Completed 09/27/16 [id number]"INJECTION, HEPARIN SODIUM, (HEPARIN LOCK FLUSH), PER Completed Pet image w/ct skull-thigh Completed 09/28/16 [id number]"FLUORODEOXYGLUCOSE F-18 FDG, DIAGNOSTIC, PER STUDY DO Completed Routine venipuncture Completed 10/26/16 Ct head/brain w/o dye Completed 10/26/16 Ct neck spine w/o dye Completed 10/26/16 Prothrombin time Completed 10/26/16 Emergency dept visit Completed 10/26/16 Encounters Encounter Location Arrival/Admit Date Discharge/Depart Date Attending Provider Registered [facility] 12/08/16 8:48am LASHAY GRIMM Discharged [facility] 12/02/16 9:00am 12/02/16 4:10pm LASHAY GRIMM Registered [facility] 11/17/16 4:16pm LASHAY GRIMM Departed Emergency Room [facility] 10/26/16 10:18am 10/26/16 12: 23pm MELODY HODGSON DO Registered [facility] 09/28/16 7:24am LASHAY GRIMM Registered [facility] 09/27/16 9:02am LASHAY GRIMM
[2017-01-09] MEDS ORDERED: NORMAL SALINE 1,000 ML IV ONE (16:43)
[2017-01-09] MEDS ORDERED: ONDANSETRON 4mg/2ml INJECTION IV ONE (16:45)
--- OUTSIDE RECORDS SUMMARY | 2017-01-09 16:46 | XMS REPORT | Continuity of Care Document ---
Author Author [facility] Organization [facility] Address Unknown Phone Unavailable Care Team Providers Care Pension Manager Name Role Phone RIDGE NEWTON Primary Care Physician [phone] Insurance Providers Payer Name Policy Number Subscriber Name Relationship Medicarehumana [id number] Tessa Lion 19 Self Advance Directives Directive [...] F (96.8 - 99.1) Temperature (Calculated Celsius) 36.54940 degrees C (36.0 - 37.3) Temperature Source [...] 18, 2014 9:03pm LAB TEST FORM REQUEST [id number] - Lactate Dehydrogenase August 18, 2014 4:33pm [...] WILL CALL Name: TESSA LION Unit #: [id number] : 1945 Sex: F Loc / Svc: SCU DOS: 09/03/14 Signed Report #: [id number] DIAGNOSTIC IMAGING REPORT TYPE OF EXAM: RF [...] PET IMAGE W/CT FULL BODY completed 08/20/14 [id number]"FLUORODEOXYGLUCOSE F-18 FDG, DIAGNOSTIC, PER STUDY DO completed [...] RIOJAS MD Encounters Encounter Location Date/Time Registered [facility] 08/20/14 5:48am Registered [facility] 08/18/14 4:25pm
--- OUTSIDE RECORDS SUMMARY | 2017-01-09 16:46 | XMS REPORT ---
Author Author GENERATED, SYSTEM Organization Unknown Address Unknown Phone Unavailable Care Team Providers Care Data Operations Manager Name Role Phone MD JOSELUIS, SHAANMULU PP [phone] Reason For Visit Reason for Visit from [...] of Care Procedures * Completed Procedure Code: [id number] Procedure Name: not valued, on 06/24/2016 12:00 [...]
--- OUTSIDE RECORDS SUMMARY | 2017-01-09 16:46 | XMS REPORT ---
Author Author GENERATED, SYSTEM Organization Unknown Address Unknown Phone Unavailable Care Team Providers Care Licensed Electrician Name Role Phone MD JOSELUIS, THELMA PP [phone] Reason For Visit Chief Complaint 782.0 V58.61 [...] H (65-99 MG/DL) *GFR EST NON AFR CUBAN 50 ML/MIN *GFRA EST AFR AMER 58 [...]
--- OUTSIDE RECORDS SUMMARY | 2017-01-09 16:46 | XMS REPORT ---
Author Author GENERATED, SYSTEM Organization Unknown Address Unknown Phone Unavailable Care Team Providers Care Bottle Hop Name Role Phone MD JOSELUIS, THELMA [phone] Reason For Visit Reason for Visit from [...]
--- OUTSIDE RECORDS SUMMARY | 2017-01-09 16:46 | XMS REPORT ---
Author Author GENERATED, SYSTEM Organization Unknown Address Unknown Phone Unavailable Care Team Providers Care Research Technician Name Role Phone MD JOSELUIS, THELMA PP [phone] Reason For Visit Reason for Visit from [...] of Care Procedures * Completed Procedure Code: [id number] Procedure Name: not valued, on 06/24/2016 12:00 [...]
--- OUTSIDE RECORDS SUMMARY | 2017-01-09 16:46 | XMS REPORT ---
Author Author GENERATED, SYSTEM Organization Unknown Address Unknown Phone Unavailable Care Team Providers Care Janitor And Cleaner Name Role Phone MD JOSELUIS, THELMA PP [phone] Reason For Visit Reason for Visit from 05/30/2016 12:30 PM:* Pt Stated Reason for Adm : Lab from [facility] Chief Complaint C54.8, C77.5, D64.81 Social [...] H (65-99 MG/DL) *GFR EST NON AFR MOROCCAN 86 ML/MIN *GFR EST AFR AMER >90 [...] H (65-99 MG/DL) *GFR EST NON AFR MOROCCAN 64 ML/MIN *GFR EST AFR AMER 74 [...]
--- OUTSIDE RECORDS SUMMARY | 2017-01-09 16:46 | XMS REPORT ---
Author Author GENERATED, SYSTEM Organization Unknown Address Unknown Phone Unavailable Care Team Providers Care Project Geophysicist Name Role Phone MD JOSELUIS, THELMA PP [phone] Reason For Visit Chief Complaint 782.0 V58.61 [...]
--- OUTSIDE RECORDS SUMMARY | 2017-01-09 16:47 | XMS REPORT ---
Author Author GENERATED, SYSTEM Organization Unknown Address Unknown Phone Unavailable Care Team Providers Care Recovery Specialist Name Role Phone MD JOSELUIS, THELMA PP [phone] Reason For Visit Chief Complaint 782.0 V58.61 [...] H (65-99 MG/DL) GFR EST NON AFR COMORAN 78 ML/MIN GFRA EST AFR AMER >90 [...] H (65-99 MG/DL) GFR EST NON AFR COMORAN >90 ML/MIN GFRA EST AFR AMER >90 [...] H (65-99 MG/DL) GFR EST NON AFR COMORAN 68 ML/MIN GFRA EST AFR AMER 79 [...] H (65-99 MG/DL) GFR EST NON AFR COMORAN 78 ML/MIN GFRA EST AFR AMER >90 [...]
--- OUTSIDE RECORDS SUMMARY | 2017-01-09 16:47 | XMS REPORT ---
Author Author GENERATED, SYSTEM Organization Unknown Address Unknown Phone Unavailable Care Team Providers Care Division Order Technician Name Role Phone MD JOSELUIS, THELMA [phone] Reason For Visit Chief Complaint C54.8, C77.5, D64.81 Social History Functional Status Vital Signs Results Problems Encounter Diagnosis No relevant problems exist. Encounters Encounter Diagnosis No relevant problems exist. Plan of Care Procedures * Completed Procedure Code: [id number] Procedure Name: not valued, on 06/24/2016 12:00 [...]
--- OUTSIDE RECORDS SUMMARY | 2017-01-09 16:47 | XMS REPORT ---
Author Author [facility], SYSTEM Organization Unknown Address Unknown Phone Unavailable Care Team Providers Care Fiberglass Tube Molder Name Role Phone UNASSIGNED DOCTOR , DOCTOR PP [phone] Reason For Visit Chief Complaint PT / [...] H (65-99 MG/DL) GFR EST NON AFR BRITISH 89 ML/MIN GFRA EST AFR AMER >90 [...] H (65-99 MG/DL) GFR EST NON AFR BRITISH >90 ML/MIN GFRA EST AFR AMER >90 [...] - CT CEREBRAL W/O CONTRAST CPT Code(s): 98416-; ; ; INDICATION / CLINICAL HISTORY: \E\Headache [...]
--- OUTSIDE RECORDS SUMMARY | 2017-01-09 16:47 | XMS REPORT ---
Author Author [facility], SYSTEM Organization Unknown Address Unknown Phone Unavailable Care Team Providers Care Jackspooler Name Role Phone MD JOSELUIS, THELMA PP [phone] Reason For Visit Chief Complaint 782.0 V58.61 [...]
--- OUTSIDE RECORDS SUMMARY | 2017-01-09 16:47 | XMS REPORT ---
Author Author [facility], SYSTEM Organization Unknown Address Unknown Phone Unavailable Care Team Providers Care Steamtable Attendant Railroad Name Role Phone UNASSIGNED DOCTOR , DOCTOR PP [phone] Reason For Visit Reason for Visit from [...] H (65-99 MG/DL) GFR EST NON AFR ARMENIAN >90 ML/MIN GFRA EST AFR AMER >90 [...] H (65-99 MG/DL) GFR EST NON AFR ARMENIAN >90 ML/MIN GFRA EST AFR AMER >90 [...] - CT CEREBRAL W/O CONTRAST CPT Code(s): 01921-; ; ; INDICATION / CLINICAL HISTORY: \E\Headache [...]
--- OUTSIDE RECORDS SUMMARY | 2017-01-09 16:48 | XMS REPORT ---
Author Author [facility] Organization Unknown Address Unknown Phone Unavailable Care Team Providers Care Agriculture Science Teacher Name Role Phone MD JOSELUIS, THELMA PP [phone] Reason For Visit Chief Complaint 782.0 V58.61 [...] H (65-99 MG/DL) GFR EST NON AFR CANADIAN >90 ML/MIN GFRA EST AFR AMER >90 [...] H (65-99 MG/DL) GFR EST NON AFR CANADIAN 86 ML/MIN GFRA EST AFR AMER >90 [...] H (65-99 MG/DL) GFR EST NON AFR CANADIAN 83 ML/MIN GFRA EST AFR AMER >90 [...] H (65-99 MG/DL) GFR EST NON AFR CANADIAN 90 ML/MIN GFRA EST AFR AMER >90 [...] H (65-99 MG/DL) GFR EST NON AFR CANADIAN >90 ML/MIN GFRA EST AFR AMER >90 [...]
--- OUTSIDE RECORDS SUMMARY | 2017-01-09 16:48 | XMS REPORT ---
Author Author [facility] Organization Unknown Address Unknown Phone Unavailable Care Team Providers Care Wildlife Ecologist Name Role Phone MD JOSELUIS, THELMA PP [phone] Reason For Visit Chief Complaint 782.0 V58.61 [...] (65-99 MG/DL) GFR EST NON AFR BRITISH [place]LANDER 82 ML/MIN GFRA EST AFR AMER >90 [...] (65-99 MG/DL) GFR EST NON AFR BRITISH [place] ISLANDER 83 ML/MIN GFRA EST AFR AMER >90 [...] (65-99 MG/DL) GFR EST NON AFR BRITISH [place] ISLANDER >90 ML/MIN GFRA EST AFR AMER >90 [...]
--- OUTSIDE RECORDS SUMMARY | 2017-01-09 16:49 | XMS REPORT ---
Author Author [facility] Organization Unknown Address Unknown Phone Unavailable Care Team Providers Care Asbestos Cloth Inspector Name Role Phone MD JOSELUIS, THELMA [phone] Reason For Visit Reason for Visit from [...]
--- OUTSIDE RECORDS SUMMARY | 2017-01-09 16:49 | XMS REPORT ---
Author Author [facility] SYSTEM Organization Unknown Address Unknown Phone Unavailable Care Team Providers Care Post Acute Care Nurse Name Role Phone MD JOSELUIS, THELMA PP [phone] Reason For Visit Chief Complaint 782.0 V58.61 [...] H (65-99 MG/DL) GFR EST NON AFR BERMUDIAN 74 ML/MIN GFRA EST AFR AMER 86 [...] H (65-99 MG/DL) GFR EST NON AFR BERMUDIAN 67 ML/MIN GFRA EST AFR AMER 78 [...]
--- OUTSIDE RECORDS SUMMARY | 2017-01-09 16:49 | XMS REPORT ---
Author Author [facility] Organization Unknown Address Unknown Phone Unavailable Care Team Providers Care Internal Medicine Physician Assistant Name Role Phone MD JOSELUIS, THELMA [phone] Reason For Visit Chief Complaint CBC W [...]
--- OUTSIDE RECORDS SUMMARY | 2017-01-09 16:49 | XMS REPORT ---
Author Author [facility] Organization Unknown Address Unknown Phone Unavailable Care Team Providers Care Kier Operator Name Role Phone MD JOSELUIS, THELMA [phone] Reason For Visit Reason for Visit from [...]
--- OUTSIDE RECORDS SUMMARY | 2017-01-09 16:49 | XMS REPORT ---
Author Author [facility] Organization Unknown Address Unknown Phone Unavailable Care Team Providers Care Gum Scoring Machine Operator Name Role Phone MD JOSELUIS, THELMA [phone] Reason For Visit Reason for Visit from [...] H (65-99 MG/DL) *GFR EST NON AFR PAKIST[place] 56 ML/MIN *GFR EST AFR AMER 65 [...] H (65-99 MG/DL) *GFR EST NON AFR PAKISTANI 62 ML/MIN *GFR EST AFR AMER 72 [...] H (65-99 MG/DL) *GFR EST NON AFR [place]KIST[place] 61 ML/MIN *GFR EST AFR AMER 70 [...] H (65-99 MG/DL) *GFR EST NON AFR [place]KISTANI 56 ML/MIN *GFR EST AFR AMER 65 [...] H (65-99 MG/DL) *GFR EST NON AFR [place]KISTANI 56 ML/MIN *GFR EST AFR AMER 65 [...] H (65-99 MG/DL) *GFR EST NON AFR [place] 56 ML/MIN *GFR EST AFR AMER 65 [...] H (65-99 MG/DL) *GFR EST NON AFR [place]KIST[place] 58 ML/MIN *GFR EST AFR AMER 67 [...] H (65-99 MG/DL) *GFR EST NON AFR [place]KISTANI 49 ML/MIN *GFR EST AFR AMER 57 [...] H (65-99 MG/DL) *GFR EST NON AFR [place]KISTANI 56 ML/MIN *GFR EST AFR AMER 65 [...] gallbladder. Impression: No evidence of acute fracture. [id number] diffuse lumbar degenerative disc and facet disease, [...]
--- OUTSIDE RECORDS SUMMARY | 2017-01-09 16:49 | XMS REPORT ---
Author Author GENERATED, SYSTEM Organization Unknown Address Unknown Phone Unavailable Care Team Providers Care Lapping Machine Tender Name Role Phone MD JOSELUIS, THELMA [phone] Reason For Visit Chief Complaint [phone] [phone] [...]
--- OUTSIDE RECORDS SUMMARY | 2017-01-09 16:49 | XMS REPORT ---
Author Author GENERATED, SYSTEM Organization Unknown Address Unknown Phone Unavailable Care Team Providers Care Foreign Policy Officer Name Role Phone MD JOSELUIS, THELMA PP [phone] Reason For Visit Chief Complaint 782.0 V58.61 [...]
--- OUTSIDE RECORDS SUMMARY | 2017-01-09 16:49 | XMS REPORT ---
Author Author GENERATED, SYSTEM Organization Unknown Address Unknown Phone Unavailable Care Team Providers Care Filing Or Registry Clerk Name Role Phone MD JOSELUIS, SHAANMULU PP [phone] Reason For Visit Reason for Visit from [...] H (65-99 MG/DL) *GFR EST NON AFR PERUVIAN 86 ML/MIN *GFR EST AFR AMER >90 [...] H (65-99 MG/DL) *GFR EST NON AFR PERUVIAN 64 ML/MIN *GFR EST AFR AMER 74 [...] H (65-99 MG/DL) *GFR EST NON AFR PERUVIAN 64 ML/MIN *GFR EST AFR AMER 74 [...]
--- OUTSIDE RECORDS SUMMARY | 2017-01-09 16:49 | XMS REPORT ---
Author Author GENERATED, SYSTEM Organization Unknown Address Unknown Phone Unavailable Care Team Providers Care Signs And Displays Sales Representative Name Role Phone MD JOSELUIS, THELMA [phone] Reason For Visit Chief Complaint CBC W [...]
--- OUTSIDE RECORDS SUMMARY | 2017-01-09 16:50 | XMS REPORT ---
Author Author GENERATED, SYSTEM Organization Unknown Address Unknown Phone Unavailable Care Team Providers Care Steam Blocker Name Role Phone MD JOSELUIS, THLEMA PP [phone] Reason For Visit Chief Complaint CBC W [...] H (65-99 MG/DL) *GFR EST NON AFR SOL[place] ISLANDER 61 ML/MIN *GFR EST AFR AMER 71 [...] H (65-99 MG/DL) *GFR EST NON AFR [place] ISLANDER 60 ML/MIN *GFR EST AFR AMER 70 [...] H (65-99 MG/DL) *GFR EST NON AFR [place] ISLANDER 65 ML/MIN *GFR EST AFR AMER 75 [...]
--- OUTSIDE RECORDS SUMMARY | 2017-01-09 16:50 | XMS REPORT ---
Author Author GENERATED, SYSTEM Organization Unknown Address Unknown Phone Unavailable Care Team Providers Care Pot Puller Name Role Phone MD JOSELUIS, THELMA [phone] Reason For Visit Reason for Visit from [...] H (65-99 MG/DL) *GFR EST NON AFR SYRIAN 60 ML/MIN *GFR EST AFR AMER 70 [...] H (65-99 MG/DL) *GFR EST NON AFR SYRIAN 62 ML/MIN *GFR EST AFR AMER 72 [...] H (65-99 MG/DL) *GFR EST NON AFR SYRIAN 49 ML/MIN *GFR EST AFR AMER 57 [...] H (65-99 MG/DL) *GFR EST NON AFR SYRIAN 42 ML/MIN *GFR EST AFR AMER 48 [...] of Care Procedures * Completed Procedure Code: [id number] Procedure Name: not valued, on 06/24/2016 12:00 [...]
--- OUTSIDE RECORDS SUMMARY | 2017-01-09 16:50 | XMS REPORT ---
Author Author GENERATED, SYSTEM Organization Unknown Address Unknown Phone Unavailable Care Team Providers Care Tile Machine Operator Name Role Phone MD JOSELUIS, THELMA [phone] Reason For Visit Chief Complaint C54.8, C77.5 [...]
--- OUTSIDE RECORDS SUMMARY | 2017-01-09 16:51 | XMS REPORT ---
Author Author GENERATED, SYSTEM Organization Unknown Address Unknown Phone Unavailable Care Team Providers Care Packing Room Worker Name Role Phone MD JOSELUIS, THELMA PP [phone] Reason For Visit Chief Complaint 782.0 V58.61 [...] H (65-99 MG/DL) GFR EST NON AFR [place]THER[place] IRISH 79 ML/MIN GFRA EST AFR AMER >90 [...] H (65-99 MG/DL) GFR EST NON AFR [place]THER[place] IRISH 82 ML/MIN GFRA EST AFR AMER >90 [...]
--- OUTSIDE RECORDS SUMMARY | 2017-01-09 16:51 | XMS REPORT ---
Author Author GENERATED, SYSTEM Organization Unknown Address Unknown Phone Unavailable Care Team Providers Care Furniture Inspector Name Role Phone MD JOSELUIS, THELMA PP [phone] Reason For Visit Chief Complaint CBC W [...] H (65-99 MG/DL) *GFR EST NON AFR TURKISH 56 ML/MIN *GFR EST AFR AMER 65 [...] H (65-99 MG/DL) *GFR EST NON AFR TURKISH 62 ML/MIN *GFR EST AFR AMER 72 [...] H (65-99 MG/DL) *GFR EST NON AFR TURKISH 61 ML/MIN *GFR EST AFR AMER 70 [...] H (65-99 MG/DL) *GFR EST NON AFR TURKISH 56 ML/MIN *GFR EST AFR AMER 65 [...] H (65-99 MG/DL) *GFR EST NON AFR TURKISH 56 ML/MIN *GFR EST AFR AMER 65 [...] H (65-99 MG/DL) *GFR EST NON AFR TURKISH 56 ML/MIN *GFR EST AFR AMER 65 [...] H (65-99 MG/DL) *GFR EST NON AFR TURKISH 58 ML/MIN *GFR EST AFR AMER 67 [...] H (65-99 MG/DL) *GFR EST NON AFR TURKISH 49 ML/MIN *GFR EST AFR AMER 57 [...] H (65-99 MG/DL) *GFR EST NON AFR TURKISH 56 ML/MIN *GFR EST AFR AMER 65 [...] 38.1 U/mL) CT [facility] 07[facility]11/2016 7:56 [facility] [place] History: [...] gallbladder. Impression: No evidence of acute fracture. Cgzm-[id number]-[id number] diffuse lumbar degenerative disc and facet disease, [...]
--- OUTSIDE RECORDS SUMMARY | 2017-01-09 16:51 | XMS REPORT ---
Author Author GENERATED, SYSTEM Organization Unknown Address Unknown Phone Unavailable Care Team Providers Care Credentialing Coordinator Name Role Phone UNASSIGNED DOCTOR , DOCTOR PP [phone] Reason For Visit Reason for Visit from [...] H (65-99 MG/DL) GFR EST NON AFR HONDURAN >90 ML/MIN GFRA EST AFR AMER >90 [...] H (65-99 MG/DL) GFR EST NON AFR HONDURAN >90 ML/MIN GFRA EST AFR AMER >90 [...] - CT CEREBRAL W/O CONTRAST CPT Code(s): 20220-; ; ; INDICATION / CLINICAL HISTORY: \E\Headache [...]
--- OUTSIDE RECORDS SUMMARY | 2017-01-09 16:52 | XMS REPORT ---
Author Author GENERATED, SYSTEM Organization Unknown Address Unknown Phone Unavailable Care Team Providers Care Senior Care Assistant Name Role Phone MD JOSELUIS, THELMA [phone] Reason For Visit Reason for Visit from [...] H (65-99 MG/DL) GFR EST NON AFR GERMAN 83 ML/MIN GFRA EST AFR AMER >90 [...]
--- OUTSIDE RECORDS SUMMARY | 2017-01-09 16:52 | XMS REPORT ---
Author Author GENERATED, SYSTEM Organization Unknown Address Unknown Phone Unavailable Care Team Providers Care Contracts Specialist Name Role Phone MD JOSELUIS, THELMA PP [phone] Reason For Visit Chief Complaint 782.0 V58.61 [...]
--- OUTSIDE RECORDS SUMMARY | 2017-01-09 16:52 | XMS REPORT ---
Author Author GENERATED, SYSTEM Organization Unknown Address Unknown Phone Unavailable Care Team Providers Care Legal Counsel Name Role Phone MD JOSELUIS, THELMA PP [phone] Reason For Visit Chief Complaint 182.0, V58.61,,CBC [...] (65-99 MG/DL) GFR EST NON AFR COMORAN 83 ML/MIN GFRA EST AFR AMER >90 [...] (65-99 MG/DL) GFR EST NON AFR COMORAN 82 ML/MIN GFRA EST AFR AMER >90 [...] (65-99 MG/DL) GFR EST NON AFR COMORAN 77 ML/MIN GFRA EST AFR AMER 89 [...] (65-99 MG/DL) GFR EST NON AFR COMORAN 90 ML/MIN GFRA EST AFR AMER >90 [...]
--- OUTSIDE RECORDS SUMMARY | 2017-01-09 16:52 | XMS REPORT ---
Author Author GENERATED, SYSTEM Organization Unknown Address Unknown Phone Unavailable Care Team Providers Care Bowling Ball Patcher Name Role Phone MD JOSELUIS, THELMA PP [phone] Reason For Visit Chief Complaint 782.0 V58.61 [...]
--- OUTSIDE RECORDS SUMMARY | 2017-01-09 16:52 | XMS REPORT ---
Author Author GENERATED, SYSTEM Organization Unknown Address Unknown Phone Unavailable Care Team Providers Care Leather Production Artisan Name Role Phone PP Unavailable Reason For [...]
--- OUTSIDE RECORDS SUMMARY | 2017-01-09 16:52 | XMS REPORT ---
Author Author GENERATED, SYSTEM Organization Unknown Address Unknown Phone Unavailable Care Team Providers Care Button Tufting Machine Operator Name Role Phone MD JOSELUIS, THELMA PP [phone] Reason For Visit Chief Complaint RIGHT LEG [...] (65-99 MG/DL) *GFR EST NON AFR M[place]OCC[place] 62 ML/MIN *GFR EST AFR AMER 72 [...] gallbladder. Impression: No evidence of acute fracture. Odqm-iy-wpxnkowh diffuse lumbar degenerative disc and facet disease, [...]
--- OUTSIDE RECORDS SUMMARY | 2017-01-09 16:52 | XMS REPORT ---
Author Author GENERATED, SYSTEM Organization Unknown Address Unknown Phone Unavailable Care Team Providers Care Composition Weatherboard Installer Name Role Phone UNASSIGNED DOCTOR , DOCTOR PP [phone] Reason For Visit Chief Complaint HEADACHE, BLOODY [...] H (65-99 MG/DL) GFR EST NON AFR RUSSIAN >90 ML/MIN GFRA EST AFR AMER >90 [...] - CT CEREBRAL W/O CONTRAST CPT Code(s): 20182-; ; ; INDICATION / CLINICAL HISTORY: \E\Headache [...]
[2017-01-09] MEDS ORDERED: METF-463 PO (16:55)
[2017-01-09] MEDS ORDERED: DULO20CA18 PO (16:55)
--- NOTE | 2017-01-09 16:56 | NUR ---
DR DR JAMISON AT BEDSIDE.
[2017-01-09] MEDS ORDERED: FAMOTIDINE 20 MG in NORMAL SALINE 50 ML IV ONE (17:00)
--- NOTE | 2017-01-09 17:05 | ERPDOC ---
Departure Disposition Decision Date: January 09, 2017 Disposition Decision Time: 18:03 Disposition: 01 DISCHARGED HOME, SELF-CARE Impression Impression Impression: Primary Impression: Moderate dehydration Severity: Moderate Condition: Improved Seen By: Physician only Referrals: THELMA HUGGINS MD (PCP) 3 Days Patient Instructions: Chemo Induced Nausea and Vomiting (ED) Problems/Meds/Labs Reviewed?: Yes Medications reviewed and manag: Yes Additional Instructions: You are dehydrated. Drink plenty of fluids (gatorade, pedialyte, etc). Eat as many calorie dense foods as you can. Follow up with your physician and oncologist later this week. Follow up care ordered?: Yes Mental Status: Alert, Oriented HPI - Abdominal Pain General Chief Complaint: Nausea,Vomiting,Diarrhea Stated Complaint: STOMACH ISSUES,VOMITING Time Seen by Provider: 16:39 Source: patient History/Exam Limitations: no limitations HPI - Abdominal Pain Initial Comments 71yo woman presents to the ER for 3+ days of N/V and PO intolerance. Pt is being treated for endometrial CA. Had her usual infusion on Thur; typically has 1-2 days of N/V poor appetite following. This time, sx have lasted for much longer than usual. Pt called her oncologist - Dr. Coffey - he recommended that pt present for eval. Occurred At: home Onset: Rapid, Constant Duration: other Quality: fullness Location: epigastric Activities at Onset: none Modifying Factors: IMPROVES WITH: lying down, WORSE WITH: exercise, movement, palpation Associated Symptoms: diaphoresis, nausea/vomiting, shortness of breath Hx of Similar Symptoms: Yes Allergies: Coded Allergies: Penicillins (Unverified Allergy, Unknown, RASH, 01/09/17) Past History Patient Medical History (1) Chronic pain due to neoplasm Past Medical History Metabolic: cancer, diabetes GI: GERD, constipation Hematologic: anemia Psychological: depression Surgical History Reproductive/: hysterectomy Joint: other Vaccines Hx Influenza Vaccination: No Hx Pneumococcal Vaccination: No Social History Substance Use Type: does not use Alcohol Intake: none Review of Systems Constitutional Constitutional: appetite decrease, fatigue, weakness All other Systems All Other Systems: Reviewed and Negative Physical Exam General General Nourishment: well nourished, well developed, appears stated age, no acute distress, adult, obese General Body Habitus: well groomed Vitals and Pain First Documented Vital Signs Date Time Temp Pulse Resp B/P Pulse Ox O2 Delivery O2 Flow Rate FiO2 5/29/17 16:21 98.2 77 20 165/73 99 Room Air Weight: Kilograms: 80.100 Height (feet): 5 Height (inches): 2.00 Triage Pain Scale: RN VS reviewed by Provider: Yes Normal Exams: Head: Normocephalic w/o trauma Eyes: Pupils are PERRLA w/ EOMI, No scleral icterus, irritation ENMT: No facial trauma, nasal exudates, pharyngeal erythema Neck: Full range of motion, without adenopathy, JVD Lymphatic: No lymphadenopathy Musculoskeletal: No tenderness, or deformity noted Integumentary: No rashes, hives, or bruising noted Neurologic: Patient is alert, and oriented Psychiatric: Patient exhibits, appropriate attention Respiratory (brief) Respiratory: FOUND: clear all muller, equal bilaterally, symmetrical, NOT FOUND : rales, wheezes Cardiovascular (brief) Cardiac: FOUND: regular rate, regular rhythm, NOT FOUND: click, gallop, murmur , pedal edema, peripheral edema, rub Capillary Refill: <2 sec Pulses: all distal extremities, equal, strong Abdomen (brief) Abdominal Brief: FOUND: bowel normo active x4, soft, NOT FOUND: distended, hepatosplenomegaly, pulsatile mass, tender Differential Diagnoses Considering: Biliary Colic, Bowel Obstruction, Dehydration, Food Poisoning, Gastroenteritis, Hyponatremia, Hypokalemia, Hypoglycemia, Pancreatitis, Rotavirus, UTI Progress Results/Orders Orders Procedure Category Date Status Time Cbc W/Auto LAB 01/09/17 Complete Diff-Reflex Manual 16:43 Bmp - Basic Metabolic LAB 01/09/17 Complete Panel 16:43 Lipase LAB 01/09/17 Complete 16:43 Ua, Dip Wreflex LAB 01/09/17 Logged Microsc & Binder Folder Operator 16:43 Iv Lock (Ed Only) EDM 01/09/17 Transmitted 16:43 Normal Saline (Normal PHA 01/09/17 Complete Saline Iv) 16:43 Ondansetron Inj PHA 01/09/17 Complete (Zofran) 16:45 Blood Culture ESHA 01/09/17 Logged 16:59 Tsh - Thyroid Stim LAB 01/09/17 Complete Hormone Orthostatic Bp/Pulse EDM 01/09/17 Transmitted 16:59 Oxygen Administration EDM 01/09/17 Transmitted 16:59 Nothing By Mouth (Ed EDM 01/09/17 Transmitted Only) 16:59 EKG EKG 01/09/17 Logged 16:59 Famotidine (Pepcid 20 PHA 01/09/17 Complete Mg Inj.) 17:00 Lab Results Laboratory Tests Test 01/09/17 16:59 01/09/17 17:00 Thyroid Stimulating Hormone (TSH) 0.53MIU/L White Blood Count 6.1T/MM3 Red Blood Count 3.57M/MM3 Hemoglobin 9.0GM/DL Hematocrit 29.1% Mean Corpuscular Volume 81.5UM3 Mean Corpuscular Hemoglobin 25.2UUG Mean Corpuscular Hemoglobin Concent 30.9GM/DL RDW Standard Deviation 49.4FL Platelet Count 242T/MM3 Mean Platelet Volume 8.8UM3 Immature Granulocyte % (Auto) 0.2% Neutrophils (%) (Auto) 85.0% Lymphocytes (%) (Auto) 9.2% Monocytes (%) (Auto) 4.9% Eosinophils (%) (Auto) 0.7% Basophils (%) (Auto) 0.0% Absolute Immature Granulocyte (auto 0.01T/MM3 Absolute Neutrophils (auto) 5.2T/MM3 Absolute Lymphocytes (auto) 0.6T/MM3 Absolute Monocytes (auto) 0.3T/MM3 Absolute Eosinophils (auto) 0.0T/MM3 Absolute Basophils (auto) 0.0T/MM3 Turbidity < 20 Sodium Level 141MEQ/L Potassium Level 4.2MEQ/L Chloride Level 101MEQ/L Carbon Dioxide Level 24MEQ/L Anion Gap 16MEQ/L Blood Urea Nitrogen 20.0MG/DL Creatinine 0.9MG/DL Glomerular Filtration Rate Calc 62 BUN/Creatinine Ratio 22RATIO Glucose Level 176MG/DL Calculated Osmolality 278MOSM/KG Calcium Level 9.3MG/DL Icterus Index < 2 Lipase 20U/L Chemistry Specimen Hemolysis < 15 Medications Current ED Medications Sodium Chloride (Normal Saline IV) 1,000 ml @ 0 mls/hr Q0M ONCE IV Last administered on 01/09/17 17:00; Start 01/09/17 at 16:43; Stop 01/09/17 at 16:45 ; Status DC Ondansetron HCl 4 mg 4 mg O ONCE IV Last administered on 01/09/17 17:01; Start 01/09/17 at 16:45; Stop 01/09/17 at 16:46; Status DC Famotidine/Sodium Chloride (PEPCID 20 mg INJ./NS) 52 ml @ 100 mls/hr O ONCE IV Last administered on 01/09/17t 17:35; Start 01/09/17 at 17:00; Stop at 17:31; Status DC Progress Progress 71yo woman with orthostasis and no significant new abns on labs. Pt is mild-mod dehydrated. Has had appx 400mL fluids and feeling significantly better. Will give full liter and d/c to home with routine f/u. Pt voiced understanding of dx , prognosis, tx, and f/u need. EKG EKG : Rate: 60-100 Rhythm: sinus Thornton: normal QRS: normal Intervals: normal ST/T: normal Interpreted by: signing physician ROCHELLE JAMISON DO January 09, 2017 17:05
--- NOTE | 2017-01-09 17:05 | NUR ---
ORTHOSTATIC VS EXPLAINED PROCEDURE OF VS COLLECTION TO PT. UNDERSTANDING VERBALIZED.
[2017-01-09 17:09] LABS: EOSINOPHILS % (AUTO) 0.7 % (0-4); HCT - HEMATOCRIT 29.1 % (36-46); IMMATURE GRANULOCYTE # (AUTO) 0.01 T/MM3 (0.00-0.03); IMMATURE GRANULOCYTE % (AUTO) 0.2 % (0.0-0.5); LYMPHOCYTES # (AUTO) 0.6 T/MM3 (1-4.8); LYMPHOCYTES % (AUTO) 9.2 % (23-45); MEAN CORPUSCULAR HGB 25.2 UUG (26-34); MEAN CORPUSCULAR HGB CONC(MCHC 30.9 GM/DL (31-37); MEAN CORPUSCULAR VOLUME 81.5 UM3 (80-100); MEAN PLATELET VOLUME 8.8 UM3 (9.4-12.4); MONOCYTES # (AUTO) 0.3 T/MM3 (0-0.8); MONOCYTES % (AUTO) 4.9 % (0-9.0); NEUTROPHILS #(AUTO)-ABSOLUTE 5.2 T/MM3 (1.8-7.7); RED BLOOD COUNT 3.57 M/MM3 (4.00-5.20); WBC - WHITE BLOOD COUNT 6.1 T/MM3 (4.5-11.0)
[2017-01-09 17:28] LABS: ANION GAP 16 MEQ/L (5-15); BUN/CREATININE RATIO 22 RATIO (6-26); CALCIUM 9.3 MG/DL (8.4-10.2); CHLORIDE 101 MEQ/L (98-107); CO2 - CARBON DIOXIDE 24 MEQ/L (22-30); CREATININE 0.9 MG/DL (0.7-1.2); GLOMERULAR FILTRATION RATE 62; GLUCOSE 176 MG/DL (65-110); LIPASE 20 U/L (23-300); POTASSIUM 4.2 MEQ/L (3.6-5); SODIUM 141 MEQ/L (134-144)
--- NOTE | 2017-01-09 17:35 | NUR ---
MED PT GIVEN INSTRUCTION REGARDING PEPCID. UNDERSTANDING VERBALIZED.
--- NOTE | 2017-01-09 17:36 | NUR ---
MALTER OPERATOR IN ROOM FOR VENIPUNCTURE.
--- NOTE | 2017-01-09 17:56 | NUR ---
DR DR JAMISON AT BEDSIDE.
[2017-01-09 18:17] LABS: COLOR,URINE YELLOW (YELLOW)
[2017-01-09 18:19] LABS: LEUKOCYTE ESTERASE ,URINE NEGATIVE (NEGATIVE); NITRITE,URINE NEGATIVE (NEGATIVE)
[2017-01-09 18:20] LABS: BLOOD, URINE 1+ (NEGATIVE); UROBILINOGEN,URINE NORMAL (NORMAL)
[2017-01-09 18:29] LABS: BACTERIA,URINE TRACE (NEGATIVE); HYALINE CASTS, URINE 0-1 /LPF; MUCUS,URINE PRESENT; RBC,URINE 0-1 /HPF (0-3); SQUAMOUS EPITHELIAL CELL,UR 0-5; WBC,URINE 0-1 /HPF (0-5)
[2017-01-09 18:56] VITALS: BP 125/57; PULSE 73; RESP 12; TEMP 98.3; O2SAT 100
--- NOTE | 2017-01-09 19:03 | NUR ---
DEPART PT ASSISTED TO PRIVATE VEHICLE VIA WC. PT'S STANCE STEADY WITH TRANSFER INTO VEHICLE DRIVEN BY .
== END 2017-01-09 19:03 | disposition home or self-care (01) ==
LOC: ED 16:19
DX: R11.2 Nausea with vomiting, unspecified (principal); R61 Generalized hyperhidrosis; E86.0 Dehydration
CPT/HCPCS: 80048; 81001; 83690; 84443; 85025; 87040; 93005; 96361; 96365; 96375; 99284; J1642; J2405; J7030; J7050

== ENCOUNTER 2017-03-13 00:02 | Inpatient (IN) ==
[2017-03-13] MEDS ORDERED: NS 1,000 ML IV ONE (00:37)
--- NOTE | 2017-03-13 00:46 | Emergency Department Report ---
General Adult HPI - General Chief complaint: Weakness Stated complaint: Dehydration Time Seen by Provider: 03/13/17 00:29 Source: patient, family Mode of arrival: wheelchair - History of Present Illness HPI narrative: 71-year-old female presents to the emergency department with a chief complaint of dehydration. Patient had medications adjusted on by Dr. Silva in the office. She is currently being treated for endometrial cancer with metastasis. Patient has not been eating and drinking adequately at home. She has been generally weak. She denies any pain or discomfort currently. Symptoms have been persistent in nature since onset 24-48 hours ago. Patient does not note any exacerbating or remitting factors. No other complaints or associated symptoms. - Related Data Home Medications Medication Instructions Recorded Confirmed Gabapentin 300 mg PO BID #0 08/16/16 03/08/17 Docusate Sodium [Stool Softener] 200 tab PO BID #0 tab 10/26/16 03/08/17 Duloxetine HCl 30 mg PO DAILY #0 cap 01/09/17 03/08/17 Metformin HCl [Metformin HCl ER] 1,000 mg PO BID #90 tab 01/09/17 03/08/17 Dexamethasone 2 mg PO DAILY 03/08/17 03/08/17 Magnesium Oxide [Magnesium] 1 tab PO BID 03/08/17 03/08/17 Oxycodone/APAP 10/325 [Percocet 1 tab PO Q4H PRN 03/08/17 03/08/17 10/325] fentaNYL [Fentanyl] 1 each TD Q72H 03/08/17 03/08/17 LORazepam [Ativan] 0.5 mg PO Q6HPRN PRN 03/13/17 03/13/17 Allergies Allergy/AdvReac Type Severity Reaction Status Date / Time Penicillins Allergy Unknown RASH Verified 03/13/17 03:10 Review of Systems Constitutional: Reports: weakness (generalized). Denies: fever Eyes: Denies: eye pain, eye discharge ENT: Denies: ear pain, throat pain Cardiovascular: Denies: chest pain, palpitations Respiratory: Denies: cough, dyspnea Gastrointestinal: Denies: abdominal pain, nausea, vomiting, diarrhea Genitourinary: Denies: urgency, dysuria Musculoskeletal: Denies: back pain, arthralgia Integumentary: Denies: erythema, rash Neurological: Denies: headache, numbness Endocrine: Denies: fatigue, heat or cold intolerance Hematological/Lymphatic: Denies: easy bleeding, easy bruising Allergic/Immunologic: Denies: facial swelling, urticaria PFSH Patient Stated Medical History Diabetes Mellitus Type 2 Yes Gastroesophageal Reflux Yes Disease Ulcer Yes Blood Transfusions Yes Chemotherapy Yes Surgical History: Port Placement, Hysterectomy Family History: Reviewed and non-contributory - Social History Smoking status: Never smoker Substance use type: does not use Alcohol intake frequency: does not drink Physical Exam - Limitations Limitations: no limitations - General General appearance: alert, in no apparent distress - Normal Exams: Head:: Normocephalic without trauma Eyes:: Pupils are PERRLA w/ EOMI, No scleral icterus, irritation, or foreign bodies noted ENMT:: No facial trauma, nasal exudates, pharyngeal erythema, or exudates are noted (Dry mucous membranes. ) Dental: No fractured, loose, or missing teeth noted Neck:: Full range of motion, without adenopathy, JVD, bruits or thyromegaly Chest/Respirations:: Clear all muller, with good airflow, and symmetry bilaterally Cardiovascular:: Regular rate and rhythm, without murmur or gallop, Pulses 2+ all extremities, capillary refill, <2 seconds all extremities Abdomen:: Bowel sounds positive, soft, non-tender, non-distended, no hepatosplenomegaly, masses or bruits noted Lymphatic:: No lymphadenopathy, or lymphedema noted Musculoskeletal:: No tenderness, or deformity noted, good range of motion, all extremities Integumentary:: No rashes, hives, or bruising noted, hair and nails, without abnormality Neurological:: Patient is alert, and oriented, cranial nerves, motor/sensory/ cerebellar, exams w/o gross deficits, to observation Psychiatric:: Patient exhibits, appropriate attention, emotion and affect Course Vital Signs Temperature 98.3 F 03/13/17 00:08 Pulse Rate 112 H 03/13/17 00:08 Respiratory Rate 12 03/13/17 00:08 Blood Pressure 103/58 03/13/17 00:08 Pulse Oximetry 94 03/13/17 00:08 Temperature 98.3 F 03/13/17 00:08 Pulse Rate 112 H 03/13/17 00:08 Respiratory Rate 12 03/13/17 00:08 Blood Pressure 103/58 03/13/17 00:08 Pulse Oximetry 94 03/13/17 00:08 Medical Decision Making - MDM Narrative Medical decision making narrative: Labs / imaging were discussed in detail with the patient and family and questions are answered. Patient is given 500 mL normal saline intravenously times one. Patient is discussed with Dr. Odonnell who is the patient's starter cup powder mixer/oncologist who recommends admission to the hospital for IV hydration. Dr. Odonnell will see the patient in consultation. He recommends admission to the hospitalist service at this time. Patient is discussed with Dr. Vick who agrees to admit the patient to the service of Dr. Hill. Patient and family are in agreement with the current plan of management. Patient is admitted to the hospital in improved condition. No further orders from accepting or consulting physicians were in agreement with the current plan of management. - Differential Diagnosis UTI, Metabolic disorder, Dehydration, Medication reaction - Lab Data Result diagrams: 03/13/17 00:57 03/13/17 00:57 Lab Results 03/13/17 03/13/17 03/13/17 Range/Units 00:57 00:57 00:57 WBC 9.5 (4.5-11.0) T/MM3 RBC 4.37 (4.00-5.20) M/MM3 Hgb 11.8 L (12-16) GM/DL Hct 36.2 (36-46) % MCV 82.8 (80-100) UM3 MCH 27.0 (26-34) UUG MCHC 32.6 (31-37) GM/DL RDW Std Deviation 50.8 H (36.9-50.2) FL Plt Count 288 (130-400) T/MM3 MPV 9.0 L (9.4-12.4) UM3 Immature Gran % (Auto) 1.6 H (0.0-0.5) % Neut % (Auto) 78.4 H (33-66) % Lymph % (Auto) 10.6 L (23-45) % Hockley % (Auto) 8.5 (0-9.0) % Eos % (Auto) 0.7 (0-4) % Baso % (Auto) 0.2 (0-2) % Neut # 7.5 (1.8-7.7) T/MM3 Lymph # 1.0 (1-4.8) T/MM3 Hockley # 0.8 (0-0.8) T/MM3 Eos # 0.1 (0-0.5) T/MM3 Baso # 0.0 (0-0.2) T/MM3 Abs Immat Gran (auto) 0.15 H (0.00-0.03) T/MM3 INR 1.21 (0.99-1.21) Turbidity < 20 (0-20) Sodium 134 (134-144) MEQ/L Potassium 4.8 (3.6-5) MEQ/L Chloride 95 L (98-107) MEQ/L Carbon Dioxide 28 (22-30) MEQ/L Anion Gap 11 (5-15) MEQ/L BUN 37.0 H (7-17) MG/DL Creatinine 1.0 (0.7-1.2) MG/DL GFR Calculation 55 BUN/Creatinine Ratio 37 H (6-26) RATIO Glucose 249 H (65-110) MG/DL Calculated Osmolality 275 (261-280) MOSM/KG Calcium 9.9 (8.4-10.2) MG/DL Total Bilirubin 0.70 (0.20-1.30) MG/DL Icterus Index < 2 (0-7) AST 16 (14-36) U/L ALT 23 (9-52) U/L Alkaline Phosphatase 73 (38-126) U/L Troponin I < 0.012 (0-0.12) ng/ml Total Protein 7.5 (6.3-8.2) G/DL Albumin 4.0 (3.5-5.0) G/DL Globulin 3.5 (2.4-3.6) G/DL Albumin/Globulin Ratio 1.1 (1.1-2.2) RATIO Specimen Hemolysis 26 H (0-25) Ur Collection Type Urine Color (YELLOW) Urine Clarity Urine pH (5.0-8.0) Ur Specific Ponderosa (1.015-1.025) Urine Protein (NEGATIVE) Urine Glucose (UA) (NEGATIVE) Urine Ketones (NEGATIVE) Urine Occult Blood (NEGATIVE) Urine Nitrate (NEGATIVE) Urine Bilirubin (NEGATIVE) Urine Urobilinogen (NORMAL) EU/DL Ur Leukocyte Esterase (NEGATIVE) Urine RBC (0-3) /HPF Urine WBC (0-5) /HPF Urine Bacteria (NEGATIVE) Hyaline Casts /LPF Urine Mucus Ur Culture Indicated? 03/13/17 Range/Units 02:32 WBC (4.5-11.0) T/MM3 RBC (4.00-5.20) M/MM3 Hgb (12-16) GM/DL Hct (36-46) % MCV (80-100) UM3 MCH (26-34) UUG MCHC (31-37) GM/DL RDW Std Deviation (36.9-50.2) FL Plt Count (130-400) T/MM3 MPV (9.4-12.4) UM3 Immature Gran % (Auto) (0.0-0.5) % Neut % (Auto) (33-66) % Lymph % (Auto) (23-45) % Hockley % (Auto) (0-9.0) % Eos % (Auto) (0-4) % Baso % (Auto) (0-2) % Neut # (1.8-7.7) T/MM3 Lymph # (1-4.8) T/MM3 Hockley # (0-0.8) T/MM3 Eos # (0-0.5) T/MM3 Baso # (0-0.2) T/MM3 Abs Immat Gran (auto) (0.00-0.03) T/MM3 INR (0.99-1.21) Turbidity (0-20) Sodium (134-144) MEQ/L Potassium (3.6-5) MEQ/L Chloride (98-107) MEQ/L Carbon Dioxide (22-30) MEQ/L Anion Gap (5-15) MEQ/L BUN (7-17) MG/DL Creatinine (0.7-1.2) MG/DL GFR Calculation BUN/Creatinine Ratio (6-26) RATIO Glucose (65-110) MG/DL Calculated Osmolality (261-280) MOSM/KG Calcium (8.4-10.2) MG/DL Total Bilirubin (0.20-1.30) MG/DL Icterus Index (0-7) AST (14-36) U/L ALT (9-52) U/L Alkaline Phosphatase (38-126) U/L Troponin I (0-0.12) ng/ml Total Protein (6.3-8.2) G/DL Albumin (3.5-5.0) G/DL Globulin (2.4-3.6) G/DL Albumin/Globulin Ratio (1.1-2.2) RATIO Specimen Hemolysis (0-25) Ur Collection Type Urine, catheter Urine Color Yellow (YELLOW) Urine Clarity Clear Urine pH 5.5 (5.0-8.0) Ur Specific Ponderosa 1.020 (1.015-1.025) Urine Protein Negative (NEGATIVE) Urine Glucose (UA) Negative (NEGATIVE) Urine Ketones Trace A (NEGATIVE) Urine Occult Blood 2+ A (NEGATIVE) Urine Nitrate Negative (NEGATIVE) Urine Bilirubin Negative (NEGATIVE) Urine Urobilinogen 0.2 (NORMAL) EU/DL Ur Leukocyte Esterase Negative (NEGATIVE) Urine RBC 5-10 H (0-3) /HPF Urine WBC None seen (0-5) /HPF Urine Bacteria None seen (NEGATIVE) Hyaline Casts 1-3 /LPF Urine Mucus Present Ur Culture Indicated? Cult not indicated - Radiology Data CT HEAD - Negative. CXR - No acute processes. - EKG Data EKG #1 EKG results narrative: Sinus tachycardia. 100 bpm. No STEMI. Disposition Clinical Impression: Dehydration Disposition: 02 To [facility] Condition: Improved Time of Disposition: 02:40 (Admit. Dr. Hill. ) - Seen By: physician
[2017-03-13] MEDS: SALINE FLUSH 10ml SYRINGE IVF PRN ×2 (00:58→06:15)
[2017-03-13] MEDS ORDERED: HYDROMORPHONE 2 MG/ML INJECTION IVP PRN (03:54)
[2017-03-13] MEDS ORDERED: ONDANSETRON 4 MG/2 ML INJECTION IVP PRN (03:54)
[2017-03-13] MEDS ORDERED: ACETAMINOPHEN 650 MG SUPPOSITORY PR PRN (03:54)
[2017-03-13] MEDS: NS 1,000 ML IV SCH ×2 (04:04→15:42)
--- NOTE | 2017-03-13 04:13 | History & Physical Report ---
<Estuardo Vick - Last Filed: 03/13/17 04:08> History of Present Illness Date: 03/13/17 Chief complaint: weakness and confusion HPI: This is a 71 y/o female with a history of endometrial cancer diagnosed 07/27 who is cared for by Dr. Coffey. The patient saw Dr. coffey this past and the net effect of that appointment is the Tylenol containing pain med was stopped and the oxycodone increased from 10 to 15 mg per dose. The patient's Cymbalta was increased from bid to tid, the Neurontin was increased from bid to tid and dexamethasone increased from 2 to 4 mg per dose. Since then the patient has increased confusion and po intake. The patient is brought into the ED and a CT head was unremarkable. The patient demonstrated pre renal azotemia. At this time she is to be admitted observation to address her recent encephalopathy. Review of Systems Review of systems: patient is lethargic and unable to give a history. family reports no fever, no chills, overall globally weak with no focal findings. nausea with no emesis, no diarrhea. again very limited due to patients underlying altered mental status PFS Patient Stated Medical History Diabetes Mellitus Type 2 Yes Gastroesophageal Reflux Yes Disease Ulcer Yes Clotting Problems Yes: HAS BEEN ON COUMADIN TIL LAST MONDAY-DX BLOOD CLOT Other Musculoskeletal Yes: SACRALPLASTY Blood Transfusions Yes Chemotherapy Yes Surgical History: Port Placement, Hysterectomy - Social History Smoking status: Never smoker Medications Home Medications Medication Instructions Recorded Confirmed Type Gabapentin 300 mg PO TID #0 08/16/16 03/13/17 History Docusate Sodium [Stool Softener] 200 tab PO BID #0 tab 10/26/16 03/13/17 History Duloxetine HCl 30 mg PO DAILY #0 cap 01/09/17 03/13/17 History Metformin HCl [Metformin HCl ER] 1,000 mg PO BID #90 tab 01/09/17 03/13/17 History Dexamethasone 4 mg PO DAILY 03/08/17 03/13/17 History Magnesium Oxide [Magnesium] 1 tab PO BID 03/08/17 03/13/17 History fentaNYL [Fentanyl] 1 each TD Q72H 03/08/17 03/13/17 History LORazepam [Ativan] 0.5 mg PO Q6HPRN PRN 03/13/17 03/13/17 History Oxycodone *Ir* [Roxicodone *Ir*] 15 mg PO Q3-4HR PRN 03/13/17 03/13/17 History Allergies Allergy/AdvReac Type Severity Reaction Status Date / Time Penicillins Allergy Unknown RASH Verified 03/13/17 03:10 Exam Vital Signs: Temperature 97.7 F 03/13/17 03:47 Pulse Rate 92 03/13/17 03:47 Respiratory Rate 14 03/13/17 03:47 Blood Pressure 132/66 03/13/17 03:47 Pulse Oximetry 97 03/13/17 03:47 Oxygen Delivery Method Room Air Telemetry Rhythm: Sinus Rhythm Height: 1.57 m Weight: 67.7 kg - Constitutional Present: mild distress, average body habitus, disheveled, cooperative, somnolent - Routine HEENT Exam Head: Present: normocephalic, atraumatic Eye: Present: EOMI, PERRL, conjunctivae pink ENT: Present: mucous membranes dry - Routine Neck Exam Present: supple, full ROM - Routine Respiratory Exam Present: CTA bilaterally - Routine Cardiovascular Exam Present: RRR, no murmur - Routine Abdominal Exam Present: soft, normoactive bowel sounds, non distended, non tender - Routine Extremities Exam Present: no edema, full ROM - Routine Back/Spine/Pelvis Exam Back/Spine: Present: full ROM - Routine Skin Exam Present: intact - Routine Neurological Exam Present: CN II-XII intact, altered mental status. Absent: alert, oriented X3, motor deficit - Routine Psychiatric Exam Absent: normal affect Results - Labs CBC & Chem 7: 03/13/17 00:57 03/13/17 00:57 - Imaging and Cardiology CT scan - head Additional comments: no acute process Chest x-ray Additional comments: no acute process Assessment and Plan (1) Metabolic encephalopathy Current visit: Yes Status: Acute 03/13/17 04:16 this patient presents with acute confusion and weakness. A review of the recent changes in medications would indicate an increase in meds that would precipitate weakness and confusion. There is no evidence of hypoglycemia contributing to the symptoms The patient at this time will be admitted onto a telemetry bed with frequent neuro checks. Her meds will be held acutely. It is appreciated that she has chronic pain. It is appreciated that she has chronic anxiety. For now though the meds will be held and started perhaps at a lower dose. repeat labs in the am. ivf, iv antiemetics, iv pain meds prn. (2) Dehydration Current visit: Yes Status: Acute 03/13/17 04:19 pateint with signficant decreased po intake and labs would suggest a pre renal azotemia. At this time ivf and repeat labs in the next 24 hours (3) Endometrial cancer Current visit: Yes Status: Acute 03/13/17 04:[address] Coffey. it is not clear why she is on a steroids. NOt aware of any chief steward/stewardess ds. CT did not obviously demonstrate. Defer to Dr. Coffey who is aware of this admission and will see today. (4) History of DVT (deep vein thrombosis) Current visit: Yes Status: Acute 03/13/17 04:20 inr not therapeutic. was switched from coumadin to lovenox at the last clinic visit. med rec pending, once complete will continue. typically outpatient dose is 1.5 mg / kg every 24 hours. work with pharmacy to determine timing of next dose. (5) DM type 2 (diabetes mellitus, type 2) Current visit: Yes Status: Acute 03/13/17 04:21 correctional plan for now. hold all other agents with variable po intake risk of hypoglycemia is not small. DVT Prophylaxis: SCD's, Lovenox GI Prophylaxis: Protonix Sepsis Assessment - Evaluation Sepsis screening result: No Definite Risk Hospital Course Summary Disclaimer: The visit summary below is not to be considered part of the above Progress Note. <Padmini Alcala - Last Filed: 03/13/17 11:19> History of Present Illness Date: 03/13/17 [facility] Patient Stated Medical History Diabetes Mellitus Type 2 Yes Gastroesophageal Reflux Yes Disease Ulcer Yes Clotting Problems Yes: HAS BEEN ON COUMADIN TIL LAST MONDAY-DX BLOOD CLOT Other Musculoskeletal Yes: SACRALPLASTY Blood Transfusions Yes Chemotherapy Yes Depression Yes Post Menopausal Yes Other Reproductive Yes: endometrial cancer- 2014 Exam Vital Signs: Temperature 97.7 F 03/13/17 03:47 Pulse Rate 86 03/13/17 08:30 Respiratory Rate 14 03/13/17 03:47 Blood Pressure 132/66 03/13/17 03:47 Pulse Oximetry 97 03/13/17 03:47 Oxygen Delivery Method Room Air Height: 1.57 m Weight: 75 kg Results - Labs CBC & Chem 7: 03/13/17 00:57 03/13/17 00:57 Assessment and Plan (1) Metabolic encephalopathy Current visit: Yes Status: Acute (2) Dehydration Current visit: Yes Status: Acute (3) Endometrial cancer Current visit: Yes Status: Acute (4) History of DVT (deep vein thrombosis) Current visit: Yes Status: Acute 03/13/17 11:19 Patient was converted from warfarin to Fragmin last week with identification of new DVT (5) DM type 2 (diabetes mellitus, type 2) Current visit: Yes Status: Acute Resuscitation Status: Full Code Assessment and Plan: Dr. Vick's note reviewed. Mrs. Lion interviewed and examined. The patient's is at the bedside and provides most of the history. CC: Lethargy HPI: Mrs. Lion is a 71 y/o female with a history of endometrial cancer diagnosed 07/27 who is cared for by Dr. Odonnell. 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 The patient saw Dr. Odonnell last at which time multiple medication changes were made including Tylenol containing pain med was stopped and the oxycodone increased from 10 to 15 mg per dose q3h. The patient's Cymbalta was increased from bid to tid, the Neurontin was increased from bid to tid, and dexamethasone increased from 2 to 4 mg per dose. Since that time the patient has had increased confusion and po intake. The patient's reports increasing weakness and that it now requires 3 people to assist the patient ambulating. The patient is brought into the ED and a CT head was unremarkable. The patient demonstrated pre-renal azotemia. At this time she is to be admitted observation to address her recent encephalopathy. PH/SH/FH: agree with that recorded above although does not recall history of peptic disease. Patient has endometrial cancer previously treated with radiation and chemotherapy. Family history positive for 1 sister dying of lung cancer, believes it may have been some other cancer in aunts but is unsure. Social history-no history of tobacco/alcohol/illicit drug use. Her is her alternate decision-maker although does not have DPOA formally. Dr. Evelin Carranza is her primary care physician and Dr. Odonnell her oncologist. The patient 's believe she has a living will but is uncertain of its Mercer's. ROS: 10 point review attempted but cannot be performed due to patient's lethargy. Of note the patient currently denies pain. EXAM: General-lethargic, mumbled speech HEENT-PERRL, EOMI without nystagmus, conjunctiva clear, sclera anicteric, conjugate gaze, facial structures symmetric, oropharynx clear, neck supple and without adenopathy Lungs-respirations nonlabored, poor air flow/inspiratory effort, breath sounds clear Cardiac-regular rhythm, S1-S2 Abd-soft, nontender, diminished bowel sounds Ext-without edema Skin-no rash present, no wounds on exposed skin surfaces Neuro-cranial nerve 3-12 grossly intact, generalized weakness-does not follow commands well to formally assess power, no drift; motor tone normal, no tremor, sensation intact to light touch 4 extremities Psych-dull DATA: CT head without contrast reviewed by myself-no acute pathology. Chest x- ray also reviewed by myself and unremarkable. EKG with sinus rhythm, poor R- wave progression, left axis deviation. Hemoglobin 11.8, BUN 37, creatinine 1.0, liver enzymes unremarkable. A/P: Acute encephalopathy likely due to medication changes however patient has underlying malignancy. Discussed with Dr. Odonnell, will proceed with MRI of the brain with contrast. Multiple medications remain on hold. Patient dehydrated on admission with elevated BUN relative to baseline (BUN typically about 20) and baseline creatinine is 0.9. Continue IV fluids and reassess electrolytes/renal function at noon today. Generalized weakness-PT/OT evaluations. New DVT identified last week, converted from warfarin to Fragmin-reordered. Discussed with Dr. Odonnell, x-ray/EKG reviewed by myself, laboratory data reviewed. Hospital Course Summary Disclaimer: The visit summary below is not to be considered part of the above Progress Note.
[2017-03-13 04:23] VITALS: BMI 29.5
[2017-03-13] MEDS: INSULIN ASPART 100unit/ml INJECTION SQ PRN ×4 (06:45→21:44)
--- NOTE | 2017-03-13 08:22 | CT Scan Report ---
Indication: AMS PROCEDURE: CT head/brain wo con: Encounter: Initial Comparison: CT head, 02/23/2017 Findings: Axial noncontrasted images of the brain utilizing radiation dose reduction technique. There are patchy areas of diminished density in the deep white matter consistent with chronic microvascular ischemia. There are no extracerebral fluid collections, hemorrhage, or mass. No transcortical infarction. Visualized paranasal sinuses and mastoid air cells are clear. Impression: 1. Negative for acute intracranial abnormality; age compatible changes noted. .
--- NOTE | 2017-03-13 08:27 | XRay Report ---
Indication: AMS PROCEDURE: XR chest 1V: Encounter: Initial Comparison: CT chest, 02/23/2017 Findings: Portable chest radiograph demonstrates clear lungs and a nonenlarged heart. There is no pleural fluid. The pulmonary vasculature is normal the trachea is midline. Right IJ Port-A-Cath. Bony elements intact. Impression: Negative for acute chest disease. .
[2017-03-13] MEDS: HYDROCODONE/APAP 7.5 MG/325 MG TABLET PO PRN ×2 (09:24→16:13)
[2017-03-13] MEDS ORDERED: DULOXETINE 30 MG CAPSULE PO SCH (10:00)
[2017-03-13] MEDS: DEXAMETHASONE 4 MG TABLET PO SCH (10:44)
[2017-03-13] MEDS: [UNRECOGNIZED DRUG - OTHER] SQ SCH (11:57)
[2017-03-13] MEDS ORDERED: SALINE FLUSH 10ml SYRINGE ONE (12:05)
[2017-03-13] MEDS ORDERED: GADOBUTROL 10mMol/10ml INJECTION IVP ONE (12:05)
[2017-03-13] MEDS: LORazepam 0.5 MG TABLET PO PRN ×2 (15:19→21:44)
--- NOTE | 2017-03-13 15:48 | Magnetic Resonance Report ---
Indication: altered mental status/endometrial cancer PROCEDURE: MR head/brain wo/w con: Encounter: Subsequent Comparison: Brain CT from earlier today Findings: Multisequence MR imaging was performed in sagittal, axial, and coronal planes with and without intravascular contrast; 7.5 cc of Gadavist was utilized. There are subtle areas of slightly restricted diffusion suspected in the high convexities in the posterior frontal regions appearing to represent subtle mismatches. These could receive of represent small watershed acute or subacute small vascular insults but no enhancement is seen to suggest luxury perfusion. These could even represent normal variants. No other evidence of acute or subacute ischemic insults are seen. There is no evidence of enhancing mass, transcortical infarction hemorrhage, or extracerebral fluid collections. There are normal flow voids in the arteries of the base the brain. Posterior fossa structures unremarkable. Cerebellopontine angles satisfactory appearance. Cavernous sinuses enhance symmetrically. Paranasal sinuses and mastoid air cells are well pneumatized Impression: 1. Subtle area of restricted diffusion in the high convexities bifrontally. Differential considerations and include an atypical form of PRES (posterior reversible encephalopathy syndrome), cerebritis, and less likely, atypical subacute are nonacute watershed zone ischemia. 2. Mild atrophic changes. .
--- NOTE | 2017-03-13 19:14 | Consult Note ---
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 --07/2014: Staging CT showing right femoral vein thrombosis, bulky bilateral pelvic lymph nodes. A left paraaortic lymph node measured 1 x 0.9 cm; there are other small lymph nodes in the retroperitoneum. There is a large necrotic conglomeration of lymph nodes in the right external iliac chain measuring 5.2 x 3.1 cm there are also multiple lymph node seen in the left external iliac chain with the largest measuring 3.1 x 2.7 cm. --Deep venous thrombosis found on CT currently on anticoagulation with Coumadin. --09/04/14: Chemotherapy with Taxol and Carboplatin first dose. Cycle 3 on 10/16. --11/24/14: Total hysterectomy, bilateral oophorectomy, and bilateral pelvic lymph node dissection with Dr. Raines in [place]. --12/25/14: Cycle 4 of Taxol/Carbo given. --02/05/15: Final cycle of Taxol/Carbo. --03/23/15: Radiation started. --05/05/15: Radiation completed. --02/02/16: [id number] drawn. --03/10/16: Restarted Taxol/Carbo. --08/04/16: [id number] drawn. --09/29/16: Torisel weekly initiated. --10/27/16: Torisel reduced to 15 mg and every 2 weeks. --11/24/16: Torisel increased to weekly. --02/23/17: CT scan showing progressive disease in the right pelvis. Torisel discontinued. --03/08/17: ER visit with INR of 1.1 and deep venous thrombosis. --03/09/17: Referral to Palliative Care program with [facility] At the 03/09/17 encounter patient was having horrible pain in the right leg that was uncontrolled despite Duragesic 25 mcg, gabapentin 400 mg daily and oxycodone 10 mg every 4 hours for 6 tablets per day. She received IV dexamethasone, Cymbalta was increased from 60-90 mg per day, oxycodone was changed from 10 mg with acetaminophen to 15 mg without acetaminophen and lorazepam 1/2 mg every 8 hours was added to her regimen. She developed increasing lethargic she over the day of 03/12/17 and presented to the ER for evaluation of potential dehydration as this is how she had felt in the past. She had marked difficulty with finding words and being cooperative and was admitted for evaluation.She had had increased difficulty with memory issues over the last 2 months. This seemed to correspond with increasing pain. Her would compensate for many of the memory issues. Review of Systems - Constitutional Constitutional: Present: fatigue, lethargy, malaise, weakness - EENT Eyes: Absent: loss of vision, pain Nose: Absent: nosebleeds, obstruction Mouth/Throat: Absent: painful swallowing - Cardiovascular Cardiovascular: Absent: chest pain, palpitations - Respiratory Respiratory: Present: dyspnea. Absent: cough - Gastrointestinal Gastrointestinal: Present: constipation. Absent: nausea, vomiting - Genitourinary Genitourinary: Absent: hematuria, urinary frequency - Musculoskeletal Musculoskeletal: Present: other (Pain in the right leg) - Integumentary/Breasts Integumentary: Absent: rash, wounds - Neurological Neurological: Present: abnormal speech, confusion, memory loss. Absent: focal weakness, loss of vision - Psychiatric Psychiatric: Present: anxiety, paranoia, other (She found out on Monday that she had cancer per her reply) - Hematologic/Lymphatic Hematologic/Lymphatic: Present: anemia [facility] Medical History Updates: Deep venous thrombosis secondary to venous obstruction from tumor in the right iliac lymph nodes, diabetes mellitus Surgical History: Port Placement, Hysterectomy Family History Updates: Father [Father: (Age at : 89 years); No cancer; ], Mother [Mother: (Cause of : Cancer (Colon Cancer, Age at diagnosis: 45 years)); Mother had one sister and three brothers. No known cancer. First cousins with possible prostate cancer.; ], Number of siblings [ Number: 3; ], Sister # 1 [Sister # 1: ; lung cancer, diagnosed at age 65 ; ], Sister # 2 [Sister # 2: Alive with illness(es): (Cancer (Lung Cancer, Non small cell, Thyroid Cancer)); Diagnosed with thyroid cancer at age 58 and lung cancer at age 61; ], Other Family Members [Other family members: Paternal cousin (Two paternal cousins with cancer. Srikanth with metastatic disease, primary site might be lung, not sure. Tamie with lung cancer.); Paternal Aunt - recently diagnosed with ovarian cancer at age 81; qualifies for BRCA testing - encouraged.; ]; - Social History Smoking status: Never smoker Substance use type: does not use Alcohol intake frequency: does not drink Household members: spouse Current residence: Apartment/Private Home Medications Home Medications Medication Instructions Recorded Confirmed Type Gabapentin 300 mg PO TID #0 08/16/16 03/13/17 History Docusate Sodium [Stool Softener] 200 tab PO BID #0 tab 10/26/16 03/13/17 History Duloxetine HCl 30 mg PO DAILY #0 cap 01/09/17 03/13/17 History Metformin HCl [Metformin HCl ER] 1,000 mg PO BID #90 tab 01/09/17 03/13/17 History Dexamethasone 4 mg PO DAILY 03/08/17 03/13/17 History Magnesium Oxide [Magnesium] 1 tab PO BID 03/08/17 03/13/17 History fentaNYL [Fentanyl] 1 each TD Q72H 03/08/17 03/13/17 History LORazepam [Ativan] 0.5 mg PO Q6HPRN PRN 03/13/17 03/13/17 History Oxycodone *Ir* [Roxicodone *Ir*] 15 mg PO Q3-4HR PRN 03/13/17 03/13/17 History Allergies Allergy/AdvReac Type Severity Reaction Status Date / Time Penicillins Allergy Unknown RASH Verified 03/13/17 03:10 Exam Vital signs: Temperature 98.1 F 03/13/17 15:55 Pulse Rate 85 03/13/17 17:00 Respiratory Rate 18 03/13/17 16:32 Blood Pressure 122/65 03/13/17 15:55 Pulse Oximetry 96 03/13/17 16:32 Oxygen Delivery Method Room Air - Constitutional no acute distress, cooperative - Routine HEENT Exam Head: Present: normocephalic Eye: Present: EOMI, PERRL Nose: moist mucous membranes - Routine Neck Exam Present: supple. Absent: lymphadenopathy - Routine Chest/Breast/Axilla Exam Axillae: Absent: lymphadenopathy - Routine Respiratory Exam Absent: rales, respiratory distress - Routine Cardiovascular Exam Present: RRR, S1, S2. Absent: murmur - Routine Abdominal Exam Present: soft. Absent: tenderness, distended, rebound, guarding, organomegaly - Routine Extremities Exam Present: no edema. Absent: cyanosis, clubbing - Routine Skin Exam Absent: petechiae, rash - Routine Neurological Exam Present: alert, CN II-XII intact, altered mental status (Responds James Snyder is president. Knows my name husbands name and birthday but unable to remember events of monday. ) Oncology Results - Labs CBC & Chem 7: 03/13/17 00:57 03/13/17 11:38 - Imaging and Cardiology MRI - head Status: image reviewed by me (Reviewed with Dr. Mohr) Additional comments: [facility] [place] [address] Magnetic Resonance Report Signed Patient: Tessa Lion MR#: [id number] : 1945 Age/Sex: 71 / F ADM Date: 03/13/17 Loc: [facility] 142-P DIS Date: = = = = = = = = = = = = = = = = = = = = = = = = = = = = = = = = = = = = = = = = = = = = = = = = = = = = = = = = = = = Date of Exam: 03/13/17 Ordering Provider: Padmini Alcala MD Type of Exam(s): MR head/brain wo/w con Reason for Exam(s): altered mental status/endometrial cancer Indication: altered mental status/endometrial cancer PROCEDURE: MR head/brain wo/w con: Encounter: Subsequent Comparison: Brain CT from earlier today Findings: Multisequence MR imaging was performed in sagittal, axial, and coronal planes with and without intravascular contrast; 7.5 cc of Gadavist was utilized. There are subtle areas of slightly restricted diffusion suspected in the high convexities in the posterior frontal regions appearing to represent subtle mismatches. These could receive of represent small watershed acute or subacute small vascular insults but no enhancement is seen to suggest luxury perfusion. These could even represent normal variants. No other evidence of acute or subacute ischemic insults are seen. There is no evidence of enhancing mass, transcortical infarction hemorrhage, or extracerebral fluid collections. There are normal flow voids in the arteries of the base the brain. Posterior fossa structures unremarkable. Cerebellopontine angles satisfactory appearance. Cavernous sinuses enhance symmetrically. Paranasal sinuses and mastoid air cells are well pneumatized Impression: 1. Subtle area of restricted diffusion in the high convexities bifrontally. Differential considerations and include an atypical form of PRES (posterior reversible encephalopathy syndrome), cerebritis, and less likely, atypical subacute are nonacute watershed zone ischemia. 2. Mild atrophic changes. . CT scan - head Status: image reviewed by me (Reviewed with Dr. Mohr) Additional comments: [place] [address] CT Scan Report Signed Patient: Tessa Lion MR#: [id number] : 1945 Age/Sex: 71 / F ADM Date: 03/13/17 Loc: [facility] 142-P DIS Date: = = = = = = = = = = = = = = = = = = = = = = = = = = = = = = = = = = = = = = = = = = = = = = = = = = = = = = = = = = = Date of Exam: 03/13/17 Ordering Provider: Luis Wooten DO Type of Exam(s): CT head/brain wo con Reason for Exam(s): AMS Indication: AMS PROCEDURE: CT head/brain wo con: Encounter: Initial Comparison: CT head, 02/23/2017 Findings: Axial noncontrasted images of the brain utilizing radiation dose reduction technique. There are patchy areas of diminished density in the deep white matter consistent with chronic microvascular ischemia. There are no extracerebral fluid collections, hemorrhage, or mass. No transcortical infarction. Visualized paranasal sinuses and mastoid air cells are clear. Impression: 1. Negative for acute intracranial abnormality; age compatible changes noted. . Assessment and Plan Assessment and Plan: Impression 1. 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 PET scan shows positive paraaortic node making her stage IIIC2. Initial therapy with with Taxol and Carboplatin for 3 cycles starting 09/04/14. Surgery after 3 cycles chemotherapy done on 11/24/14. Path report looks good but significant pelvic honey disease that could not be removed. Resumed chemotherapy and completed 6 cycles with improvement in scan. CT shows there is progression in right pelvic sidewall. No other evidence of recurrent disease. Completed XRT 05/05/15 to right pelvic sidewall. CT from 08/11/15 shows further improvement of right iliac nodes. CT from 11/02/15 shows 2.5 cm internal obturator node on right that is stable. No evidence of progression or metastasis. CA 125 was <5.5. She developed increasing pain going down the right leg 01/[address] and MRI showing of a cystic mass in the area of the lymph nodes next to the femoral artery and vein. This was further evaluated with PET scan and had activity on the PET scan. This is right in the middle of the radiation field area and I question if this is recurrence however her CA 125 has not changed and she had a significantly elevated CA 125 at diagnosis or is this possibly related to a lymphocele. Treated with steroids as I feel this is a femoral nerve pressure and began gabapentin. [id number] shows small DNA that is 0.1% with Mutation in EGFR but did not change structure of protein. In February of 2016 she had increasing pain, swelling of right leg and positive PET scan. Restarted Taxol/Carbo on 03/10/16. Had improved pain and decreased leg swelling. Had side effects of thrombocytopenia. She did well with therapy and symptoms had improved until pain dramatically increased and required an ER visit on 07/11/16. Evaluated with CT and mass in pelvis did not dramatically changed. PET scan showed stable disease. [id number] done 08/04/16 shows that there are multiple mutations that have increased with the somatic alteration burden going from 0.1% January 2016 to current value of 0.3%. She has developed alterations of PTEN that is targeted by several everolimus and Temsirolimus based on the increasing pain and increasing mutational tumor burden changed therapy to Temsirolimus. She received Temsirolimus from 09/29/16 to 02/23/17. 03/02/17: Patient having increasing pain. Tumor has been sent for evaluation to see if there is MSI high that would allow us to use Keytruda. Await [id number] . Will schedule education next week. 03/09/17: MSI testing has demonstrated this patient has MSI high that makes her eligible for Keytruda. She has had education and informed consent to start Keytruda has been obtained. I discussed the risks and benefits today. And she is ready to start on Monday. She is having markedly increased pain in her hip. This is probably secondary to tumor invading bone. In addition family has been concerned about confusion, has been attempting to wean off of gabapentin and narcotics to see if this will help. Pain has gotten a lot worse. Will resume gabapentin and increase oxycodone to 15 mg tablets. Will continue with dexamethasone. Will add lorazepam 0.5 mg every 8 hours as needed. Follow up on Monday. 03/13/17: Patient currently admitted with increasing confusion and lethargy that is improved today. It seems that it is probably related to narcotics however her MRI shows changes that could be associated with posterior reversible encephalopathy. Torisel could be an offending agent for this. Will continue to follow closely discussed drug possibilities with Dr. Rapp. 2. Deep venous thrombosis currently on anticoagulation. Ruled out trousseau syndrome with normal fibrinogen and platelets. Most likely secondary to compression from pelvic nodes. Had been on Coumadin until had DVT while on Coumadin therapy. 03/09/17: We will look at long-term Fragmin for management of [place] [address] units daily. Will continue with 15,000 units daily with samples today and see the patient back on Monday. 03/13/17: Currently on Fragmin 15,000 units daily 3. Drop in hemoglobin. 11/13/15: HGB- 10.4. Anemia work up drawn on 05/16/16: Retic 3.5%, EPO high and Fe and B12 normal. Most compatible with acute blood loss. 08/04/16: HGB- 7.8. Transfusion given 11/24/16: HGB- 8.5. She is to let our office know if she feels a transfusion would increase functioning. 12/01/16: HGB- 7.8-transfusion given 12/08/16: HGB- 10.4, feeling better post-transfusion. 12/22/16: HGB- 9.2, this is slowly decreasing. We will continue to follow. Suspect anemia secondary to blood loss plus Torisel. 01/19/17: HGB- 10.8. Had dropped to 8.0 on 01/12 and had transfusion 03/02/17: HGB- 8.1, HCT-26.2. Will transfuse. 03/09/17: HGB- 11.6, HCT-36.6 after transfusion 03/13/17: Hgb 11.8 4. Osteopenia, as seen on bone density test approximately two years ago. Probably exacerbating sacral insufficiency fracture. 5. Sacral insufficiency fracture seen on MRI and CT. No evidence of metastatic disease does not appear to have significant pain from this fracture. Noted again on MRI, more prominent. S/P sacroplasty. 6. Femoral nerve radiculopathy with pain anterior leg and lateral leg. Began acutely the end of 12/2015. Not controlled with narcotics. Better with steroids and gabapentin started 02/02/16. From February 2016 to May 2016 pain was controlled with dexamethasone tapers and Gabapentin. 07/14/16: Acute exacerbation on 07/11/16. Restarted Gabapentin and dexamethasone. Fentanyl Patches were also added to her pain regimen. 10/20/16: Pain much improved. Off of Dexamethasone. Encouraged to change Fentanyl patches every three days. 10/27/16: Pain slightly higher today because of fall yesterday. 11/10/16: Pain is stable with current therapy. 11/24/16: Continues with pain. Will try decreasing cyclobenzaprine. 12/08/16: Pain rated as a 2 today. 12/22/16: Rates pain as a 6 today. This is causing more difficulty with weakness of the femoral nerve. Will continue to treat with opioids and follow. Prior area has been a radiated so we cannot use further radiation for this tumor. 01/19/17: Rates pain as a 3. Will continue present therapy. Refill pain meds. 01/26/17: Continues to rate pain as a 3. Continue opioids. 02/09/17: Pain rated as a 2 today. Continue same regimen for pain. 02/23/17: Continues with pain. 03/02/17: Increasing pain. In the past this is responded to steroids. Will give IV dexamethasone and send in prescription for dexamethasone. 03/09/17: Rates pain as an 8 today. Will give IV dexamethasone. Will increase gabapentin. New prescription for oxycodone and will go to 15 mg tablets. Increase Cymbalta to 30 mg tablets 3 per day. Increase gabapentin to 3 tablets daily. 03/13/17: Drugs reduced secondary to confusion. Will follow. 7. Diabetes mellitus. Blood sugar 224 on 07/13/16. 02/23/17: GLUC- 189 03/02/17: GLUC- 190 03/09/17: GLU C-280 03/13/17: GLUC 207 8. Hypomagnesemia 12/22/16: Magnesium 1.5- will escribe supplementation. 01/19/17: Magnesium 1.5. 01/26/17: Magnesium 1.7 Will continue present therapy 02/09/17: Magnesium 1.6 02/23/17: MG-1.7 03/02/17: MG-1.7 03/09/17: MG-1.7 03/13/17: MG-1.7 9. Weight loss. Encourage nutritional supplements. 02/09/17: Weight 170.6, down 1.6 pounds in two weeks. Encouraged high nutrition supplements. 02/23/17: 171 pounds 03/02/17: 167.2 03/09/17: 164.8 03/13/17: 165 10. Abnormal brain MRI. 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 She has edema in high frontal lobes and is symettrical It has been assoicated with Chemotherapy. Treatment is controlling blood pressure and withdraw offending agent. Last Torisel given 02/23. Decreased responsivenesss could be related to drugs or this. Will follow clinically and control symptms. SUMMARY AND RECOMMENDATIONS Reversible posterior leukoencephalopathy syndrome ( RPLS) is a neurologic syndrome defined by clinical and radiologic features. The typical clinical syndrome includes headache, confusion, visual symptoms, and seizures. (See 'Clinical manifestations' above.) Typical MRI findings are consistent with vasogenic edema and are predominantly localized to the posterior cerebral hemispheres. DWI can be helpful in distinguishing RPLS from stroke. (See 'Neuroimaging' above.) RPLS most often occurs in the setting of hypertensive crisis, preeclampsia, or with cytotoxic immunosuppressive therapy; however, many other clinical settings are described. (See 'Associated conditions' above.) We recommend lowering blood pressure in all patients with RPLS (Grade 1B). An easily titratable parenteral agent such as nicardipine or labetalol is suggested. Even patients with seemingly normal blood pressure benefit from blood pressure lowering as their baseline blood pressure may be much lower. ( See 'Hypertension' above.) We suggest withdrawing or lowering the dose of the offending cytotoxic agent, permanently if possible (Grade 2C). When another immunosuppressive agent is substituted, patients must be followed closely for recurrence of RPLS. (See ' Cytotoxic immunosuppressive therapy' above.) We suggest treating patients who have a seizure with antiepileptic drugs (Grade 2C). We typically use an intravenous agent such as phenytoin. The risk of late recurrence or epilepsy after uncomplicated RPLS appears low. As a result, we suggest that phenytoin be discontinued after symptoms and neuroimaging findings resolve (Grade 2C). (See 'Seizures' above.) In the or setting, we recommend treating patients with RPLS as though they have preeclampsia or eclampsia (Grade 1C). (See "Preeclampsia: Management and prognosis" and "Management of hypertension in and women" and "Eclampsia".) Most patients recover within two weeks. A small number have residual neurologic deficits resulting from secondary cerebral infarction or hemorrhage; some patients as a result of increased intracranial pressure or as a complication of the underlying condition. MRI findings can be helpful in identifying patients with worse prognosis. (See 'Prognosis' above.) Immunosuppressive, immunomodulatory, and chemotherapeutic drugs Bevacizumab Cisplatin and other menominee-based agents Combination chemotherapy Cyclosporine A Cytarabine Gemcitabine Interferon-alpha Intravenous immunoglobulin Ipilimumab Methotrexate Rituximab Sirolimus Tacrolimus Tyrosine kinase inhibitors (pazopanib), sorafenib, sunitinib Vincristine Sirolimu listed but temsirolimus not. Suspect this could be the cause. Plan 1.Treatment: -- Keytruda when outpatient --Fragmin 15,000 units daily, initiated on 03/08/17. 2. Diagnostic Imaging: --PET scan at [facility], completed 09/28/16. --CT of the C/A/P with IV contrast at [facility], completed 02/23/17. --Bilateral screening mammogram, completed 03/03/15. --MRI of the pelvis at [facility], completed on 09/27/16. --MRI of the lumbar spine at [facility] completed on 09/27/16. --CT of the brain with NO IV contrast, on 02/23/17. 3. Labs to follow: --CBC, CMP, LDH, and MG weekly. --CA 125 and CEA (CEA R97.0, G89.3, CA 125 R97.1) 4. Referral to [facility] for the Palliative care program done on 03/06. . 5. Decrease drugs and follow pain. Sepsis Assessment - Evaluation Sepsis screening result: No Definite Risk
[2017-03-13] MEDS: Oxycodone *IR* 5 MG TABLET PO PRN (20:37)
[2017-03-13] MEDS: SENNA + DOCUSATE TABLET PO SCH (20:37)
[2017-03-13] MEDS: DULOXETINE 20 MG CAPSULE PO SCH (20:37)
[2017-03-13] MEDS: GABAPENTIN 300 MG CAPSULE PO SCH (20:37)
[2017-03-14] MEDS: HYDROMORPHONE 2 MG/ML INJECTION IVP PRN ×5 (00:07→22:43)
[2017-03-14] MEDS: NS 1,000 ML IV SCH ×2 (02:05→12:49)
[2017-03-14] MEDS: Oxycodone *IR* 5 MG TABLET PO PRN ×2 (02:05→19:54)
[2017-03-14] MEDS: LORazepam 0.5 MG TABLET PO PRN (04:21)
[2017-03-14] MEDS: HALOPERIDOL 5 MG/ML INJECTION IVP PRN (05:27)
[2017-03-14] MEDS: INSULIN ASPART 100unit/ml INJECTION SQ PRN ×3 (06:27→20:22)
[2017-03-14] MEDS: DULOXETINE 20 MG CAPSULE PO SCH ×2 (08:55→20:22)
[2017-03-14] MEDS: GABAPENTIN 300 MG CAPSULE PO SCH ×3 (09:11→20:20)
[2017-03-14] MEDS: DEXAMETHASONE 4 MG TABLET PO SCH (09:11)
[2017-03-14] MEDS ORDERED: LIDOCAINE 2.5%/PRILOCAINE 2.5% CREAM 30gm TOP PRN (12:46)
[2017-03-14] MEDS: [UNRECOGNIZED DRUG - OTHER] SQ SCH (12:59)
[2017-03-14] MEDS: SALINE FLUSH 10ml SYRINGE IVF PRN (13:00)
[2017-03-14] MEDS: SERTRALINE 25 MG TABLET PO SCH (13:01)
[2017-03-14] MEDS: SENNA + DOCUSATE TABLET PO SCH ×2 (14:09→20:20)
--- NOTE | 2017-03-14 14:54 | Progress Note ---
Subjective: Mrs. Lion had a bad night with increased confusion/agitation requiring administration of IV lorazepam and Haldol. Family members feel that Haldol was effective in calling her and allowing her to rest this morning. They describe panic symptoms overnight with patient describing suffocating and that things were tight-her socks etc. There was no apparent dyspnea and she has not been nauseated or vomited. Oral intake has been poor. Objective Vital signs: Temperature 98.1 F 03/14/17 00:00 Pulse Rate 101 H 03/14/17 08:00 Respiratory Rate 20 03/14/17 08:00 Blood Pressure 130/72 03/14/17 08:00 Pulse Oximetry 98 03/14/17 08:00 Oxygen Delivery Method Room Air EXAM General-sleeping when initially evaluated, awake but very lethargic on reassessment later in the day-does not respond to questions incoherent manner but occasionally mumbles HEENT-resists exam, neck supple Lungs-respirations nonlabored with decreased airflow throughout, breath sounds clear Cardiac-regular rhythm Abd-soft, nontender, bowel sounds diminished Ext-trace edema most notable at the right ankle Neuro-withdraws all extremities to tickle Psych-lethargic - Weight: 76.2 kg Results - Labs CBC & Chem 7: 03/14/17 14:05 03/14/17 14:05 Labs: Segs 93, bands 2, monocytes 5 Liver enzymes unremarkable, magnesium 1.5 Accu-Cheks [id number] past 24 hours - Imaging and Cardiology MRI - head Status: image reviewed by me (MRI obtained yesterday-reviewed by myself, formal report available tomorrow without evidence of stroke or tumor although mild atrophy is present and subtle abnormality in the bifrontal high convexities which could represent watershed ischemia, cerebritis, or PRES) Assessment and Plan (1) Metabolic encephalopathy Current visit: Yes Status: Acute (2) Dehydration Current visit: Yes Status: Acute (3) Endometrial cancer Current visit: Yes Status: Acute (4) History of DVT (deep vein thrombosis) Current visit: Yes Status: Acute 03/13/17 11:19 Patient was converted from warfarin to Fragmin last week with identification of new DVT (5) DM type 2 (diabetes mellitus, type 2) Current visit: Yes Status: Acute DVT Prophylaxis: SCD's, other (Fragmin-therapeutic) Resuscitation Status: Full Code Assessment and Plan: Acute encephalopathy Dehydration Hyponatremia Hypomagnesemia Endometrial cancer DVT, recurrent-recent Diabetes mellitus, no long-term insulin use Normocytic anemia, consistent with chronic disease of malignancy Anxiety/depression GERD Generalized weakness/ambulatory dysfunction Acute encephalopathy likely due to medication changes however patient has underlying malignancy. Minor changes seen in peripheral bifrontal lobes of unknown significance, no hypertension to anticipate PRES, pattern not suggestive of herpes cerebritis, no hypotension reported prior to admission to suggest watershed distribution ischemia-although with dehydration cannot fully exclude a latter possibility. Medications discussed at length with the [id number]'s/ today. They are anxious to discontinue Cymbalta due to concern that agitation and anxiety worsened after it was initiated a couple of months ago. Furthermore they would like to switch to an alternate SSRI to better manage anxiety. Sertraline initiated at 25 mg daily, I advised them that dose of Cymbalta had been decreased to 20 mg twice a day yesterday with intent of tapering it off over the next week. Continue lorazepam/haloperidol if needed for agitation/anxiety. Replace magnesium IV-recheck in a.m. Slight drop in hemoglobin with hydration, sodium down slightly despite administration of normal saline-continue to monitor closely. If drops further will obtain urine studies. Blood sugars poorly controlled, oral intake poor but will resume metformin at 50 % home dose. Increase corrective insulin dosages. PT/OT evaluations completed yesterday-detention recommended however may be problematic if chemotherapy being resumed soon. New DVT identified last week, converted from warfarin to Fragmin at that time. Discussed with case management. - Time spent with patient greater than 35 minutes Coordination of Care: >50% of visit spent providing counseling/coordination of care Sepsis Assessment - Evaluation Sepsis screening result: No Definite Risk Hospital Course Summary Disclaimer: The visit summary below is not to be considered part of the above Progress Note. 03/13/17 Mrs. Lion was admitted with acute encephalopathy likely due to medication changes however patient has underlying malignancy. Discussed with Dr. Odonnell, will proceed with MRI of the brain with contrast. Multiple medications remain on hold. Patient dehydrated on admission with elevated BUN relative to baseline (BUN typically about 20) and baseline creatinine is 0.9. Continue IV fluids and reassess electrolytes/renal function at noon today. Generalized weakness-PT/OT evaluations. New DVT identified last week, converted from warfarin to Fragmin-reordered. Dr. Odonnell consulted. 03/14/17 Increased anxiety/agitation overnight requiring initiation of IV lorazepam and Haldol. Excess sedation today but minimal sleep overnight. Cymbalta being tapered off per family request; sertraline initiated at 25 mg daily for anxiety. Borderline hyponatremia noted, poor oral intake. Continue IV fluids with normal saline. Magnesium replaced IV. Continue strengthening with PT/OT, may require detention at discharge. MRI of the brain without evidence of acute stroke or intracranial cancer. Blood sugar control poor, metformin resumed at 50% home dose and corrective insulin dosages increased.
[2017-03-14] MEDS: MAGNESIUM SULFATE 1gm PREMIX 1 GM/100 ML BAG IV SCH ×2 (17:50→17:52)
[2017-03-14] MEDS: METFORMIN 500 MG TABLET PO SCH (18:40)
[2017-03-14] MEDS ORDERED: ACETAMINOPHEN 325 MG TABLET PO PRN ×2 (19:14→19:15)
--- NOTE | 2017-03-14 19:49 | Progress Note ---
Oncology Subjective Patient had a bad night last night. It was associated with agitation and confusion. She slept most of the day. Last month agitation was treated with lorazepam and Haldol. When I initially saw her she was much more alert and very calm. Just shortly thereafter she developed a sudden increase in pain in her leg and difficulty with finding a position that was comfortable. The family would like to get her off of Cymbalta. I discussed this with Dr. Alcala. I am okay with the transition and feel that Zoloft would be a very reasonable drug to attempt to use. Exam Vital signs: Temperature 95.6 F L 03/14/17 16:00 Pulse Rate 101 H 03/14/17 16:00 Respiratory Rate 18 03/14/17 16:00 Blood Pressure 156/97 H 03/14/17 16:00 Pulse Oximetry 98 03/14/17 16:00 Oxygen Delivery Method Room Air - Constitutional no acute distress Comments: Patient was very comfortable no acute distress when I initially examined her and visited with the family. After examining her and visiting with the family she became more agitated and uncomfortable unable to find a comfortable spot to sit. Pain medicine was requested. - Routine HEENT Exam Head: Present: normocephalic Eye: Present: PERRL Nose: moist mucous membranes - Routine Neck Exam Present: supple. Absent: lymphadenopathy - Routine Respiratory Exam Present: CTA bilaterally. Absent: accessory muscle use, wheezes - Routine Cardiovascular Exam Present: RRR. Absent: murmur - Routine Abdominal Exam Present: soft, non distended, non tender. Absent: organomegaly, mass - Routine Extremities Exam Present: edema (1-2+ of right leg). Absent: cyanosis, clubbing - Routine Back/Spine/Pelvis Exam Back/Spine: Absent: muscle spasm - Routine Skin Exam Present: dry, warm - Routine Neurological Exam Present: CN II-XII intact. Absent: motor deficit - Routine Psychiatric Exam Present: normal affect, anxious Oncology Results - Labs CBC & Chem 7: 03/14/17 14:05 03/14/17 14:05 Labs: Short CBC 03/14/17 Range/Units 14:05 WBC 9.5 (4.5-11.0) T/MM3 Hgb 10.8 L (12-16) GM/DL Hct 33.6 L (36-46) % Plt Count 283 (130-400) T/MM3 BMP 03/14/17 14:05 Sodium 133 L Potassium 4.6 Chloride 100 Carbon Dioxide 26 BUN 17.0 D Creatinine 0.7 D Glucose 275 H Calcium 9.7 Liver Function 03/14/17 Range/Units 14:05 Total Bilirubin 0.70 (0.20-1.30) MG/DL AST 12 L (14-36) U/L ALT 26 (9-52) U/L Alkaline Phosphatase 72 (38-126) U/L Albumin 3.9 (3.5-5.0) G/DL - Impressions Laboratory Tests 03/14/17 03/14/17 14:05 14:05 WBC 9.5 Hgb 10.8 L Hct 33.6 L Plt Count 283 Sodium 133 L Potassium 4.6 Chloride 100 Carbon Dioxide 26 Magnesium 1.5 L Assessment and Plan Assessment and Plan: Impression 1. 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 PET scan shows positive paraaortic node making her stage IIIC2. Initial therapy with with Taxol and Carboplatin for 3 cycles starting 09/04/14. Surgery after 3 cycles chemotherapy done on 11/24/14. Path report looks good but significant pelvic honey disease that could not be removed. Resumed chemotherapy and completed 6 cycles with improvement in scan. CT shows there is progression in right pelvic sidewall. No other evidence of recurrent disease. Completed XRT 05/05/15 to right pelvic sidewall. CT from 08/11/15 shows further improvement of right iliac nodes. CT from 11/02/15 shows 2.5 cm internal obturator node on right that is stable. No evidence of progression or metastasis. CA 125 was <5.5. She developed increasing pain going down the right leg 01/[address] and MRI showing of a cystic mass in the area of the lymph nodes next to the femoral artery and vein. This was further evaluated with PET scan and had activity on the PET scan. This is right in the middle of the radiation field area and I question if this is recurrence however her CA 125 has not changed and she had a significantly elevated CA 125 at diagnosis or is this possibly related to a lymphocele. Treated with steroids as I feel this is a femoral nerve pressure and began gabapentin. [id number] shows small DNA that is 0.1% with Mutation in EGFR but did not change structure of protein. In February of 2016 she had increasing pain, swelling of right leg and positive PET scan. Restarted Taxol/Carbo on 03/10/16. Had improved pain and decreased leg swelling. Had side effects of thrombocytopenia. She did well with therapy and symptoms had improved until pain dramatically increased and required an ER visit on 07/11/16. Evaluated with CT and mass in pelvis did not dramatically changed. PET scan showed stable disease. [id number] done 08/04/16 shows that there are multiple mutations that have increased with the somatic alteration burden going from 0.1% January 2016 to current value of 0.3%. She has developed alterations of PTEN that is targeted by several everolimus and Temsirolimus based on the increasing pain and increasing mutational tumor burden changed therapy to Temsirolimus. She received Temsirolimus from 09/29/16 to 02/23/17. 03/02/17: Patient having increasing pain. Tumor has been sent for evaluation to see if there is MSI high that would allow us to use Keytruda. Await [id number] . Will schedule education next week. 03/09/17: MSI testing has demonstrated this patient has MSI high that makes her eligible for Keytruda. She has had education and informed consent to start Keytruda has been obtained. I discussed the risks and benefits today. And she is ready to start on Monday. She is having markedly increased pain in her hip. This is probably secondary to tumor invading bone. In addition family has been concerned about confusion, has been attempting to wean off of gabapentin and narcotics to see if this will help. Pain has gotten a lot worse. Will resume gabapentin and increase oxycodone to 15 mg tablets. Will continue with dexamethasone. Will add lorazepam 0.5 mg every 8 hours as needed. Follow up on Monday. 03/13/17: Patient currently admitted with increasing confusion and lethargy that is improved today. It seems that it is probably related to narcotics however her MRI shows changes that could be associated with posterior reversible encephalopathy. Torisel could be an offending agent for this. Will continue to follow closely discussed drug possibilities with Dr. Alcala. 03/14/17: Awaiting insurance approval of Keytruda. More alert today. Will attempt to coordinate between hospital and admission to Skilled care. Await clearing of mental status prior to initiation of this therapy. 2. Deep venous thrombosis currently on anticoagulation. Ruled out trousseau syndrome with normal fibrinogen and platelets. Most likely secondary to compression from pelvic nodes. Had been on Coumadin until had DVT while on Coumadin therapy. 03/09/17: We will look at long-term Fragmin for management of [place] [address] units [place]. Will continue with 15,000 units daily with samples today and see the patient back on Monday. 03/13/17: Currently on Fragmin 15,000 units daily 03/14/17: Continues Fragmin. 3. Drop in hemoglobin. 11/13/15: HGB- 10.4. Anemia work up drawn on 05/16/16: Retic 3.5%, EPO high and Fe and B12 normal. Most compatible with acute blood loss. 08/04/16: HGB- 7.8. Transfusion given 11/24/16: HGB- 8.5. She is to let our office know if she feels a transfusion would increase functioning. 12/01/16: HGB- 7.8-transfusion given 12/08/16: HGB- 10.4, feeling better post-transfusion. 12/22/16: HGB- 9.2, this is slowly decreasing. We will continue to follow. Suspect anemia secondary to blood loss plus Torisel. 01/19/17: HGB- 10.8. Had dropped to 8.0 on 01/12 and had transfusion 03/02/17: HGB- 8.1, HCT-26.2. Will transfuse. 03/09/17: HGB- 11.6, HCT-36.6 after transfusion 03/13/17: Hgb 11.8 03/14/17: Hgb 10.8. Slow drop. Will follow. 4. Osteopenia, as seen on bone density test approximately two years ago. Probably exacerbating sacral insufficiency fracture. 5. Sacral insufficiency fracture seen on MRI and CT. No evidence of metastatic disease does not appear to have significant pain from this fracture. Noted again on MRI, more prominent. S/P sacroplasty. 6. Femoral nerve radiculopathy with pain anterior leg and lateral leg. Began acutely the end of 12/2015. Not controlled with narcotics. Better with steroids and gabapentin started 02/02/16. From February 2016 to May 2016 pain was controlled with dexamethasone tapers and Gabapentin. 07/14/16: Acute exacerbation on 07/11/16. Restarted Gabapentin and dexamethasone. Fentanyl Patches were also added to her pain regimen. 10/20/16: Pain much improved. Off of Dexamethasone. Encouraged to change Fentanyl patches every three days. 10/27/16: Pain slightly higher today because of fall yesterday. 11/10/16: Pain is stable with current therapy. 11/24/16: Continues with pain. Will try decreasing cyclobenzaprine. 12/08/16: Pain rated as a 2 today. 12/22/16: Rates pain as a 6 today. This is causing more difficulty with weakness of the femoral nerve. Will continue to treat with opioids and follow. Prior area has been a radiated so we cannot use further radiation for this tumor. 01/19/17: Rates pain as a 3. Will continue present therapy. Refill pain meds. 01/26/17: Continues to rate pain as a 3. Continue opioids. 02/09/17: Pain rated as a 2 today. Continue same regimen for pain. 02/23/17: Continues with pain. 03/02/17: Increasing pain. In the past this is responded to steroids. Will give IV dexamethasone and send in prescription for dexamethasone. 03/09/17: Rates pain as an 8 today. Will give IV dexamethasone. Will increase gabapentin. New prescription for oxycodone and will go to 15 mg tablets. Increase Cymbalta to 30 mg tablets 3 per day. Increase gabapentin to 3 tablets daily. 03/13/17: Drugs reduced secondary to confusion. Will follow. 03/14/17: Increased pain tonight. Pain and anxiety management per hospitalist. 7. Diabetes mellitus. Blood sugar 224 on 07/13/16. 02/23/17: GLUC- 189 03/02/17: GLUC- 190 03/09/17: GLU C-280 03/13/17: GLUC 207 03/14/17: Glucose 275 8. Hypomagnesemia 12/22/16: Magnesium 1.5- will escribe supplementation. 01/19/17: Magnesium 1.5. 01/26/17: Magnesium 1.7 Will continue present therapy 02/09/17: Magnesium 1.6 02/23/17: MG-1.7 03/02/17: MG-1.7 03/09/17: MG-1.7 03/13/17: MG-1.7 03/14/17: MG- 1.5 9. Weight loss. Encourage nutritional supplements. 02/09/17: Weight 170.6, down 1.6 pounds in two weeks. Encouraged high nutrition supplements. 02/23/17: 171 pounds 03/02/17: 167.2 03/09/17: 164.8 03/13/17: 165 03/14/17: 167.64 10. Abnormal brain MRI. 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 She has edema in high frontal lobes and is symettrical It has been assoicated with Chemotherapy. Treatment is controlling blood pressure and withdraw offending agent. Last Torisel given 02/23. Decreased responsivenesss could be related to drugs or this. Will follow clinically and control symptms. SUMMARY AND RECOMMENDATIONS Reversible posterior leukoencephalopathy syndrome ( RPLS) is a neurologic syndrome defined by clinical and radiologic features. The typical clinical syndrome includes headache, confusion, visual symptoms, and seizures. (See 'Clinical manifestations' above.) Typical MRI findings are consistent with vasogenic edema and are predominantly localized to the posterior cerebral hemispheres. DWI can be helpful in distinguishing RPLS from stroke. (See 'Neuroimaging' above.) RPLS most often occurs in the setting of hypertensive crisis, preeclampsia, or with cytotoxic immunosuppressive therapy; however, many other clinical settings are described. (See 'Associated conditions' above.) We recommend lowering blood pressure in all patients with RPLS (Grade 1B). An easily titratable parenteral agent such as nicardipine or labetalol is suggested. Even patients with seemingly normal blood pressure benefit from blood pressure lowering as their baseline blood pressure may be much lower. ( See 'Hypertension' above.) We suggest withdrawing or lowering the dose of the offending cytotoxic agent, permanently if possible (Grade 2C). When another immunosuppressive agent is substituted, patients must be followed closely for recurrence of RPLS. (See ' Cytotoxic immunosuppressive therapy' above.) We suggest treating patients who have a seizure with antiepileptic drugs (Grade 2C). We typically use an intravenous agent such as phenytoin. The risk of late recurrence or epilepsy after uncomplicated RPLS appears low. As a result, we suggest that phenytoin be discontinued after symptoms and neuroimaging findings resolve (Grade 2C). (See 'Seizures' above.) In the or setting, we recommend treating patients with RPLS as though they have preeclampsia or eclampsia (Grade 1C). (See "Preeclampsia: Management and prognosis" and "Management of hypertension in and women" and "Eclampsia".) Most patients recover within two weeks. A small number have residual neurologic deficits resulting from secondary cerebral infarction or hemorrhage; some patients as a result of increased intracranial pressure or as a complication of the underlying condition. MRI findings can be helpful in identifying patients with worse prognosis. (See 'Prognosis' above.) Immunosuppressive, immunomodulatory, and chemotherapeutic drugs Bevacizumab Cisplatin and other [place]-based agents Combination chemotherapy Cyclosporine A Cytarabine Gemcitabine Interferon-alpha Intravenous immunoglobulin Ipilimumab Methotrexate Rituximab Sirolimus Tacrolimus Tyrosine kinase inhibitors (pazopanib), sorafenib, sunitinib Vincristine Sirolimu listed but temsirolimus not. Suspect this could be the cause. Reviewed films with Dr. Rodriguez today. Area of abnormal findings in high cerebral cortex that could have artifact. This is soft finding and symptoms do not suggest this as etiology. Will follow. Plan 1.Treatment: -- Keytruda when outpatient --Fragmin 15,000 units daily, initiated on 03/08/17. 2. Diagnostic Imaging: --PET scan at [facility] [place], completed 09/28/16. --CT of the C/A/P with IV contrast at [facility] [place], completed 02/23/17. --Bilateral screening mammogram, completed 03/03/15. --MRI of the pelvis at [facility] [place], completed on 09/27/16. --MRI of the lumbar spine at [facility] [place] completed on 09/27/16. --CT of the brain with NO IV contrast, on 02/23/17. 3. Labs to follow: --CBC, CMP, LDH, and MG weekly. --CA 125 and CEA (CEA R97.0, G89.3, CA 125 R97.1) 4. [facility] for the Palliative care program done on 03/06. Referral lost in data loss. manager front office contacting. . 5. Decrease drugs and follow pain. - Time Spent With Patient Total time spent is greater than 50% in coordination of care (as documented) at patient's floor/unit and/or counseling patient: 25 - 35 minutes Sepsis Assessment - Evaluation Sepsis screening result: No Definite Risk
[2017-03-15] MEDS: NS 1,000 ML IV SCH ×2 (00:49→04:51)
[2017-03-15] MEDS: Oxycodone *IR* 5 MG TABLET PO PRN ×6 (00:51→22:40)
[2017-03-15] MEDS: HALOPERIDOL 5 MG/ML INJECTION IVP PRN (01:24)
[2017-03-15] MEDS: HYDROMORPHONE 2 MG/ML INJECTION IVP PRN ×3 (02:14→10:18)
[2017-03-15] MEDS: HYDROCODONE/APAP 7.5 MG/325 MG TABLET PO PRN (04:05)
[2017-03-15] MEDS: INSULIN ASPART 100unit/ml INJECTION SQ PRN ×4 (06:22→21:17)
[2017-03-15] MEDS: SALINE FLUSH 10ml SYRINGE IVF PRN (07:47)
[2017-03-15] MEDS: METFORMIN 500 MG TABLET PO SCH (07:57)
[2017-03-15] MEDS: DULOXETINE 20 MG CAPSULE PO SCH ×2 (09:08→21:16)
[2017-03-15] MEDS: GABAPENTIN 300 MG CAPSULE PO SCH ×3 (09:09→21:15)
[2017-03-15] MEDS: SENNA + DOCUSATE TABLET PO SCH ×2 (09:09→21:17)
[2017-03-15] MEDS: DEXAMETHASONE 4 MG TABLET PO SCH (09:09)
[2017-03-15] MEDS: SERTRALINE 25 MG TABLET PO SCH (09:09)
[2017-03-15] MEDS: [UNRECOGNIZED DRUG - OTHER] SQ SCH (09:09)
--- NOTE | 2017-03-15 13:55 | Progress Note ---
Subjective: Mrs. Lion was up in a chair when seen this morning. Family notes that she had several hours of complete clarity last night and was able to ambulate with a walker and minimal other assistance. Subsequently she developed increased confusion and pain and required Haldol around 1 AM and IV lorazepam shortly after midnight and again early this morning. Nursing reports significant pain overnight and that family is reluctant to administer pain medications. Family members indicate that what staff interpreted as pain is really anxiety. Diarrhea reported overnight but has subsided. At present the patient reports that she's wants to go back to bed and rest. She was able to eat breakfast and ate well yesterday evening per family members. She denies dyspnea, fever, lightheadedness, or nausea. The patient does not respond when asked about pain but rocks gently in her chair and occasionally moans softly. Objective Vital signs: Temperature 97.6 F 03/15/17 08:01 Pulse Rate 18 L 03/15/17 08:01 Respiratory Rate 16 03/15/17 08:01 Blood Pressure 127/89 03/15/17 08:01 Pulse Oximetry 98 03/15/17 08:01 Oxygen Delivery Method Room Air EXAM General-drowsy female, responds to some questions, leans to the left while seated in chair HEENT-conjunctiva clear, conjugate gaze Lungs-respirations nonlabored, good airflow, breath sounds clear Cardiac-regular rhythm, S1-S2 Abd-soft, nontender, bowel sounds present Ext-without edema Neuro-moving all extremities spontaneously Psych-flat affect - Weight: 77.8 kg Results - Labs CBC & Chem 7: 03/15/17 04:48 03/15/17 04:48 Labs: Magnesium 1.8, TSH 0.51, free T4 2 0.08 Assessment and Plan (1) Metabolic encephalopathy Current visit: Yes Status: Acute (2) Dehydration Current visit: Yes Status: Acute (3) Endometrial cancer Current visit: Yes Status: Acute (4) History of DVT (deep vein thrombosis) Current visit: Yes Status: Acute 03/13/17 11:19 Patient was converted from warfarin to Fragmin last week with identification of new DVT (5) DM type 2 (diabetes mellitus, type 2) Current visit: Yes Status: Acute Assessment and Plan: Acute encephalopathy Dehydration Hyponatremia Hypomagnesemia Endometrial cancer DVT, recurrent-recent Diabetes mellitus, no long-term insulin use Normocytic anemia, consistent with chronic disease of malignancy Anxiety/depression GERD Generalized weakness/ambulatory dysfunction Acute encephalopathy likely due to medication changes however patient has underlying malignancy. Minor changes seen in peripheral bifrontal lobes of unknown significance, no hypertension to anticipate PRES-changes can be seen with chemotherapeutic agents per Dr. Odonnell. Family is largely dictating medication use-consistently refusing Cymbalta, sertraline initiated yesterday and will increase to 50 mg daily after 1 week. Option for oral lorazepam and haloperidol prn in addition to IV written. Discontinue Wray-no need for to oral narcotics. Continue oxycodone IR. Family does not wish to resume fentanyl patch. Discussed option of an alternate long- acting narcotic the patient's family is very resistant to trial of alternate pain medications due to risk of confusion and believe that patient's symptoms are really not due to pain. Discontinue Dilaudid IV. Magnesium replaced yesterday, continue to monitor. Normalization of sodium with fluid replacement, hemoglobin has dropped further with hydration but patient has had chronic anemia prior to hospitalization with hemoglobin often in the 8-9 range. Oral intake improving, blood sugar up to 325 yesterday evening. Metfomin resumed yesterday and will increase to home dose today. New DVT identified last week, converted from warfarin to Fragmin at that time. Family now anticipates discharging home due to need for ongoing chemotherapy and with improvement seen yesterday evening they believe they can manage in the home environment. Lengthy discussion with patient's family members (, to [id number] ) at bedside regarding medications and discharge needs. Anticipate discharge tomorrow unless new problems arise. - Time spent with patient greater than 35 minutes Coordination of Care: >50% of visit spent providing counseling/coordination of care Sepsis Assessment - Evaluation Sepsis screening result: No Definite Risk Hospital Course Summary Disclaimer: The visit summary below is not to be considered part of the above Progress Note. 03/13/17 Patient admitted with acute encephalopathy likely due to medication changes however patient has underlying malignancy. Discussed with Dr. Odonnell, will proceed with MRI of the brain with contrast. Multiple medications remain on hold. Patient dehydrated on admission with elevated BUN relative to baseline (BUN typically about 20) and baseline creatinine is 0.9. Continue IV fluids and reassess electrolytes/renal function at noon today. Generalized weakness-PT/OT evaluations. New DVT identified last week, converted from warfarin to Fragmin-reordered. 03/14/17 Increased anxiety/agitation overnight requiring initiation of IV lorazepam and Haldol. Excess sedation today but minimal sleep overnight. Cymbalta being tapered off per family request; sertraline initiated at 25 mg daily for anxiety. Borderline hyponatremia noted, poor oral intake. Continue IV fluids with normal saline. Magnesium replaced IV. Continue strengthening with PT/OT, may require mcc at discharge. MRI of the brain without evidence of acute stroke or intracranial cancer. Blood sugar control poor, metformin resumed at 50% home dose and corrective insulin dosages increased. 03/15/17 Continues to have increased anxiety/agitation at night requiring sedation. Family is largely dictating medication use-consistently refusing Cymbalta, sertraline initiated yesterday and will increase to 50 mg daily after 1 week. Option for oral lorazepam and haloperidol prn in addition to IV written. Family does not wish to resume fentanyl patch. Discussed option of an alternate long-acting narcotic the patient's family is very resistant to trial of alternate pain medications due to risk of confusion and believe that patient's symptoms are really not due to pain. Discontinue Dilaudid IV. Normalization of sodium with fluid replacement, hemoglobin has dropped further with hydration but patient has had chronic anemia prior to hospitalization with hemoglobin often in the 8-9 range. Magnesium improved after IV replacement yesterday. Oral intake improving, blood sugar up to 325 yesterday evening. Metfomin resumed yesterday and will increase to home dose today.
[2017-03-15] MEDS ORDERED: HALOPERIDOL 1 MG TABLET PO PRN (14:17)
[2017-03-15] MEDS: LORazepam 1 MG TABLET PO PRN ×2 (16:54→22:41)
[2017-03-15] MEDS: METFORMIN 1,000 MG TABLET PO SCH (18:28)
--- NOTE | 2017-03-15 18:41 | Progress Note ---
Oncology Subjective wf walking in ruiz, many family here. responds slow, limited. no new c/o. Exam Vital signs: Temperature 97.2 F 03/15/17 15:49 Pulse Rate 85 03/15/17 15:49 Respiratory Rate 16 03/15/17 15:49 Blood Pressure 130/76 03/15/17 15:49 Pulse Oximetry 97 03/15/17 15:49 Oxygen Delivery Method Room Air - Constitutional no acute distress, well nourished Comments: awake, walking, no c/o. responds to questions slow, soft voice. - Routine HEENT Exam Head: Present: normocephalic, atraumatic Eye: Present: EOMI, PERRL ENT: Present: mucous membranes moist - Routine Neck Exam Present: supple, full ROM - Routine Respiratory Exam Present: CTA bilaterally - Routine Cardiovascular Exam Present: RRR - Routine Abdominal Exam Present: soft. Absent: tenderness Oncology Results - Labs CBC & Chem 7: 03/15/17 04:48 03/15/17 04:48 Labs: Short CBC 03/15/17 Range/Units 04:48 WBC 7.7 (4.5-11.0) T/MM3 Hgb 9.7 L (12-16) GM/DL Hct 30.5 L (36-46) % Plt Count 256 (130-400) T/MM3 BMP 03/15/17 04:48 Sodium 138 Potassium 3.7 D Chloride 104 Carbon Dioxide 23 BUN 14.0 Creatinine 0.7 Glucose 213 H Calcium 8.9 D Liver Function 03/15/17 Range/Units 04:48 Albumin 3.4 L (3.5-5.0) G/DL Assessment and Plan Assessment and Plan: Impression 1. 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 PET scan shows positive paraaortic node making her stage IIIC2. Initial therapy with with Taxol and Carboplatin for 3 cycles starting 09/04/14. Surgery after 3 cycles chemotherapy done on 11/24/14. Path report looks good but significant pelvic honey disease that could not be removed. Resumed chemotherapy and completed 6 cycles with improvement in scan. CT shows there is progression in right pelvic sidewall. No other evidence of recurrent disease. Completed XRT 05/05/15 to right pelvic sidewall. CT from 08/11/15 shows further improvement of right iliac nodes. CT from 11/02/15 shows 2.5 cm internal obturator node on right that is stable. No evidence of progression or metastasis. CA 125 was <5.5. She developed increasing pain going down the right leg 01/[address] and MRI showing of a cystic mass in the area of the lymph nodes next to the femoral artery and vein. This was further evaluated with PET scan and had activity on the PET scan. This is right in the middle of the radiation field area and I question if this is recurrence however her CA 125 has not changed and she had a significantly elevated CA 125 at diagnosis or is this possibly related to a lymphocele. Treated with steroids as I feel this is a femoral nerve pressure and began gabapentin. [id number] shows small DNA that is 0.1% with Mutation in EGFR but did not change structure of protein. In February of 2016 she had increasing pain, swelling of right leg and positive PET scan. Restarted Taxol/Carbo on 03/10/16. Had improved pain and decreased leg swelling. Had side effects of thrombocytopenia. She did well with therapy and symptoms had improved until pain dramatically increased and required an ER visit on 07/11/16. Evaluated with CT and mass in pelvis did not dramatically changed. PET scan showed stable disease. [id number] done 08/04/16 shows that there are multiple mutations that have increased with the somatic alteration burden going from 0.1% January 2016 to current value of 0.3%. She has developed alterations of PTEN that is targeted by several everolimus and Temsirolimus based on the increasing pain and increasing mutational tumor burden changed therapy to Temsirolimus. She received Temsirolimus from 09/29/16 to 02/23/17. 03/02/17: Patient having increasing pain. Tumor has been sent for evaluation to see if there is MSI high that would allow us to use Keytruda. Await [id number] . Will schedule education next week. 03/09/17: MSI testing has demonstrated this patient has MSI high that makes her eligible for Keytruda. She has had education and informed consent to start Keytruda has been obtained. I discussed the risks and benefits today. And she is ready to start on Monday. She is having markedly increased pain in her hip. This is probably secondary to tumor invading bone. In addition family has been concerned about confusion, has been attempting to wean off of gabapentin and narcotics to see if this will help. Pain has gotten a lot worse. Will resume gabapentin and increase oxycodone to 15 mg tablets. Will continue with dexamethasone. Will add lorazepam 0.5 mg every 8 hours as needed. Follow up on Monday. 03/13/17: Patient currently admitted with increasing confusion and lethargy that is improved today. It seems that it is probably related to narcotics however her MRI shows changes that could be associated with posterior reversible encephalopathy. Torisel could be an offending agent for this. Will continue to follow closely discussed drug possibilities with Dr. Alcala. 03/14/17: Awaiting insurance approval of Keytruda. More alert today. Will attempt to coordinate between hospital and admission to Skilled care. Await clearing of mental status prior to initiation of this therapy. 2. Deep venous thrombosis currently on anticoagulation. Ruled out trousseau syndrome with normal fibrinogen and platelets. Most likely secondary to compression from pelvic nodes. Had been on Coumadin until had DVT while on Coumadin therapy. 03/09/17: We will look at long-term Fragmin for management of [place] [address] units daily. Will continue with 15,000 units daily with samples today and see the patient back on Monday. 03/13/17: Currently on Fragmin 15,000 units daily 03/14/17: Continues Fragmin. 3. Drop in hemoglobin. 11/13/15: HGB- 10.4. Anemia work up drawn on 05/16/16: Retic 3.5%, EPO high and Fe and B12 normal. Most compatible with acute blood loss. 08/04/16: HGB- 7.8. Transfusion given 11/24/16: HGB- 8.5. She is to let our office know if she feels a transfusion would increase functioning. 12/01/16: HGB- 7.8-transfusion given 12/08/16: HGB- 10.4, feeling better post-transfusion. 12/22/16: HGB- 9.2, this is slowly decreasing. We will continue to follow. Suspect anemia secondary to blood loss plus Torisel. 01/19/17: HGB- 10.8. Had dropped to 8.0 on 01/12 and had transfusion 03/02/17: HGB- 8.1, HCT-26.2. Will transfuse. 03/09/17: HGB- 11.6, HCT-36.6 after transfusion 03/13/17: Hgb 11.8 03/14/17: Hgb 10.8. Slow drop. Will follow. 4. Osteopenia, as seen on bone density test approximately two years ago. Probably exacerbating sacral insufficiency fracture. 5. Sacral insufficiency fracture seen on MRI and CT. No evidence of metastatic disease does not appear to have significant pain from this fracture. Noted again on MRI, more prominent. S/P sacroplasty. 6. Femoral nerve radiculopathy with pain anterior leg and lateral leg. Began acutely the end of 12/2015. Not controlled with narcotics. Better with steroids and gabapentin started 02/02/16. From February 2016 to May 2016 pain was controlled with dexamethasone tapers and Gabapentin. 07/14/16: Acute exacerbation on 07/11/16. Restarted Gabapentin and dexamethasone. Fentanyl Patches were also added to her pain regimen. 10/20/16: Pain much improved. Off of Dexamethasone. Encouraged to change Fentanyl patches every three days. 10/27/16: Pain slightly higher today because of fall yesterday. 11/10/16: Pain is stable with current therapy. 11/24/16: Continues with pain. Will try decreasing cyclobenzaprine. 12/08/16: Pain rated as a 2 today. 12/22/16: Rates pain as a 6 today. This is causing more difficulty with weakness of the femoral nerve. Will continue to treat with opioids and follow. Prior area has been a radiated so we cannot use further radiation for this tumor. 01/19/17: Rates pain as a 3. Will continue present therapy. Refill pain meds. 01/26/17: Continues to rate pain as a 3. Continue opioids. 02/09/17: Pain rated as a 2 today. Continue same regimen for pain. 02/23/17: Continues with pain. 03/02/17: Increasing pain. In the past this is responded to steroids. Will give IV dexamethasone and send in prescription for dexamethasone. 03/09/17: Rates pain as an 8 today. Will give IV dexamethasone. Will increase gabapentin. New prescription for oxycodone and will go to 15 mg tablets. Increase Cymbalta to 30 mg tablets 3 per day. Increase gabapentin to 3 tablets daily. 03/13/17: Drugs reduced secondary to confusion. Will follow. 03/14/17: Increased pain tonight. Pain and anxiety management per hospitalist. 7. Diabetes mellitus. Blood sugar 224 on 07/13/16. 02/23/17: GLUC- 189 03/02/17: GLUC- 190 03/09/17: GLU C-280 03/13/17: GLUC 207 03/14/17: Glucose 275 8. Hypomagnesemia 12/22/16: Magnesium 1.5- will escribe supplementation. 01/19/17: Magnesium 1.5. 01/26/17: Magnesium 1.7 Will continue present therapy 02/09/17: Magnesium 1.6 02/23/17: MG-1.7 03/02/17: MG-1.7 03/09/17: MG-1.7 03/13/17: MG-1.7 03/14/17: MG- 1.5 9. Weight loss. Encourage nutritional supplements. 02/09/17: Weight 170.6, down 1.6 pounds in two weeks. Encouraged high nutrition supplements. 02/23/17: 171 pounds 03/02/17: 167.2 03/09/17: 164.8 03/13/17: 165 03/14/17: 167.64 10. Abnormal brain MRI. 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 She has edema in high frontal lobes and is symettrical It has been assoicated with Chemotherapy. Treatment is controlling blood pressure and withdraw offending agent. Last Torisel given 02/23. Decreased responsivenesss could be related to drugs or this. Will follow clinically and control symptms. SUMMARY AND RECOMMENDATIONS Reversible posterior leukoencephalopathy syndrome ( RPLS) is a neurologic syndrome defined by clinical and radiologic features. The typical clinical syndrome includes headache, confusion, visual symptoms, and seizures. (See 'Clinical manifestations' above.) Typical MRI findings are consistent with vasogenic edema and are predominantly localized to the posterior cerebral hemispheres. DWI can be helpful in distinguishing RPLS from stroke. (See 'Neuroimaging' above.) RPLS most often occurs in the setting of hypertensive crisis, preeclampsia, or with cytotoxic immunosuppressive therapy; however, many other clinical settings are described. (See 'Associated conditions' above.) We recommend lowering blood pressure in all patients with RPLS (Grade 1B). An easily titratable parenteral agent such as nicardipine or labetalol is suggested. Even patients with seemingly normal blood pressure benefit from blood pressure lowering as their baseline blood pressure may be much lower. ( See 'Hypertension' above.) We suggest withdrawing or lowering the dose of the offending cytotoxic agent, permanently if possible (Grade 2C). When another immunosuppressive agent is substituted, patients must be followed closely for recurrence of RPLS. (See ' Cytotoxic immunosuppressive therapy' above.) We suggest treating patients who have a seizure with antiepileptic drugs (Grade 2C). We typically use an intravenous agent such as phenytoin. The risk of late recurrence or epilepsy after uncomplicated RPLS appears low. As a result, we suggest that phenytoin be discontinued after symptoms and neuroimaging findings resolve (Grade 2C). (See 'Seizures' above.) In the or setting, we recommend treating patients with RPLS as though they have preeclampsia or eclampsia (Grade 1C). (See "Preeclampsia: Management and prognosis" and "Management of hypertension in and women" and "Eclampsia".) Most patients recover within two weeks. A small number have residual neurologic deficits resulting from secondary cerebral infarction or hemorrhage; some patients as a result of increased intracranial pressure or as a complication of the underlying condition. MRI findings can be helpful in identifying patients with worse prognosis. (See 'Prognosis' above.) Immunosuppressive, immunomodulatory, and chemotherapeutic drugs Bevacizumab Cisplatin and other [place]-based agents Combination chemotherapy Cyclosporine A Cytarabine Gemcitabine Interferon-alpha Intravenous immunoglobulin Ipilimumab Methotrexate Rituximab Sirolimus Tacrolimus Tyrosine kinase inhibitors (pazopanib), sorafenib, sunitinib Vincristine Sirolimu listed but temsirolimus not. Suspect this could be the cause. Reviewed films with Dr. Ruiz today. Area of abnormal findings in high cerebral cortex that could have artifact. This is soft finding and symptoms do not suggest this as etiology. Will follow. Plan 1.Treatment: -- Keytruda when outpatient --Fragmin 15,000 units daily, initiated on 03/08/17. 2. Diagnostic Imaging: --PET scan at [facility] [place], completed 09/28/16. --CT of the C/A/P with IV contrast at [facility] [place], completed 02/23/17. --Bilateral screening mammogram, completed 03/03/15. --MRI of the pelvis at [facility] [place], completed on 09/27/16. --MRI of the lumbar spine at [facility] [place] completed on 09/27/16. --CT of the brain with NO IV contrast, on 02/23/17. 3. Labs to follow: --CBC, CMP, LDH, and MG weekly. --CA 125 and CEA (CEA R97.0, G89.3, CA 125 R97.1) 4. [facility]erral to [facility] for the Palliative care program done on 03/06. Referral lost in data loss. credit control manager contacting. . 5. Decrease drugs and follow pain. MET/Recurent Endometrial Ca R leg and pelvic pain anxiety depression diminished PS MSI high/Keytruda candidate confusion/encephalopathy DM Plan Family request pain management consult consider Keytruda follow confusion/abnormal brain MRI challenging to control anxiety/pain with advance mets to bone, post xrt with current confusion. consider palliative care eval - Time Spent With Patient Total time spent is greater than 50% in coordination of care (as documented) at patient's floor/unit and/or counseling patient: less than 15 minutes Sepsis Assessment - Evaluation Sepsis screening result: No Definite Risk
[2017-03-15 23:53] VITALS: RESP 18
[2017-03-16] MEDS: HALOPERIDOL 5 MG/ML INJECTION IVP PRN (00:45)
[2017-03-16] MEDS: NS 1,000 ML IV SCH (00:47)
[2017-03-16] MEDS: SALINE FLUSH 10ml SYRINGE IVF PRN ×2 (00:47→08:09)
[2017-03-16] MEDS: Oxycodone *IR* 5 MG TABLET PO PRN ×3 (03:29→11:23)
[2017-03-16] MEDS ORDERED: FALL RISK - PHARMACY CONSULT MC PRN (06:04)
--- NOTE | 2017-03-16 07:07 | Progress Note ---
Oncology Subjective Intermittent pain. None reported at time of intake. Anxious at times. General: No fever, no night sweats Eyes: No redness, no pain, no diplopia ENT: No mouth sores, no trouble swallowing Cardiac: No chest pain no palpitations Pulmonary: No cough, no shortness of breath, no wheezing Abdomen: No pain, no nausea vomiting, no diarrhea or constipation : No urgency, frequency, dysuria, or hematuria Musculoskeletal: + intermittent hip pain Neurological: No headaches, no focal weakness Skin: No rash, no sores Psychiatric: + anxiety <Leonie Torres 04/18/17 07:59> Exam Vital signs: Temperature 96.3 F L 03/16/17 08:20 Pulse Rate 86 03/16/17 08:20 Respiratory Rate 18 03/16/17 08:20 Blood Pressure 138/76 03/16/17 08:20 Pulse Oximetry 96 03/16/17 08:20 Oxygen Delivery Method Room Air <Leonie Torres 03/16/17 12:39> Temperature 96.5 F L 03/15/17 23:51 Pulse Rate 110 H 03/16/17 00:00 Respiratory Rate 18 03/15/17 23:51 Blood Pressure 165/98 H 03/15/17 23:51 Pulse Oximetry 98 03/15/17 23:51 Oxygen Delivery Method Room Air <Han Odonnell - 03/16/17 07:13> - Constitutional mild distress, well nourished, well developed <Leonie Torres 04/18/17 07:59 > - Routine HEENT Exam Head: Present: normocephalic <Leonie Torres 04/18/17 07:59> Eye: Present: EOMI. Absent: conjunctival icterus <Leonie Torres 04/18/17 07:59> ENT: Present: mucous membranes moist <Leonie Torres 04/18/17 07:59> - Routine Neck Exam Present: supple. Absent: lymphadenopathy <Leonie Torres 04/18/17 07:59> - Routine Respiratory Exam Absent: dyspnea, wheezes, crackles <Leonie Torres 04/18/17 07:59> - Routine Cardiovascular Exam Present: RRR. Absent: no murmur <Leonie Torres 04/18/17 07:59> - Routine Abdominal Exam Present: soft, non tender. Absent: organomegaly <Leonie Torres 04/18/17 07 :59> - Routine Extremities Exam Present: edema. Absent: calf tenderness <Leonie Torres 04/18/17 07:59> - Routine Back/Spine/Pelvis Exam Back/Spine: Absent: paraspinal tenderness <Leonie Torres 04/18/17 07:59> - Routine Skin Exam Present: intact, warm. Absent: rash <Leonie Torres 04/18/17 07:59> - Routine Neurological Exam Present: alert <Leonie Torres 04/18/17 07:59> - Routine Psychiatric Exam Present: cooperative, anxious <Leonie Torres 04/18/17 07:59> Oncology Results - Labs CBC & Chem 7: 03/16/17 08:02 03/16/17 08:02 <Leonie Torres - 04/24/17 08:33> Labs: Short CBC 03/16/17 Range/Units 08:02 WBC 6.2 (4.5-11.0) T/MM3 Hgb 9.5 L (12-16) GM/DL Hct 29.8 L (36-46) % Plt Count 253 (130-400) T/MM3 BMP 03/16/17 08:02 Sodium 141 Potassium 3.6 Chloride 105 Carbon Dioxide 25 BUN 11.0 Creatinine 0.7 Glucose 207 H Calcium 9.6 Liver Function 03/16/17 Range/Units 08:02 Total Bilirubin 0.50 (0.20-1.30) MG/DL AST 10 L (14-36) U/L ALT 32 (9-52) U/L Alkaline Phosphatase 57 (38-126) U/L Albumin 3.6 (3.5-5.0) G/DL <Leonie Torres - 03/16/17 12:39> Assessment and Plan Assessment and Plan: Impression 1. 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 PET scan shows positive paraaortic node making her stage IIIC2. Initial therapy with with Taxol and Carboplatin for 3 cycles starting 09/04/14. Surgery after 3 cycles chemotherapy done on 11/24/14. Path report looks good but significant pelvic honey disease that could not be removed. Resumed chemotherapy and completed 6 cycles with improvement in scan. Completed XRT to right pelvic sidewall. She developed increasing pain going down the right leg 01/[address] and MRI showing of a cystic mass in the area of the lymph nodes next to the femoral artery and vein. This was further evaluated with PET scan and had activity on the PET scan. This is right in the middle of the radiation field area and I question if this is recurrence however her CA 125 has not changed and she had a significantly elevated CA 125 at diagnosis or is this possibly related to a lymphocele. Treated with steroids as I feel this is a femoral nerve pressure and began gabapentin. [id number] shows small DNA that is 0.1% with Mutation in EGFR but did not change structure of protein. In February of 2016 she had increasing pain, swelling of right leg and positive PET scan. Restarted Taxol/Carbo on 03/10/16. Had improved pain and decreased leg swelling. [id number] done 08/04/16 shows that there are multiple mutations that have increased with the somatic alteration burden going from 0.1% January 2016 to current value of 0.3%. She has developed alterations of PTEN that is targeted by several everolimus and Temsirolimus based on the increasing pain and increasing mutational tumor burden changed therapy to Temsirolimus. She received Temsirolimus from 09/29/16 to 02/23/17. 03/09/17: MSI testing has demonstrated this patient has MSI high that makes her eligible for Keytruda. She has had education and informed consent to start Keytruda has been obtained. I discussed the risks and benefits today. 03/13/17: Patient currently admitted with increasing confusion and lethargy that is improved today. It seems that it is probably related to narcotics however her MRI shows changes that could be associated with posterior reversible encephalopathy. Torisel could be an offending agent for this. Will continue to follow closely discussed drug possibilities with Dr. Alcala. 03/14/17: Awaiting insurance approval of Keytruda. More alert today. Will attempt to coordinate between hospital and admission to Skilled care. Await clearing of mental status prior to initiation of this therapy. 03/16/17: Dr. Rapp is planning discharge. We'll need to coordinate with palliative care from hospice and home care [facility], [facility] within [facility] along with home health care. Patient will need bedside commode and hospital bed along with admission on day of discharge to home health to support family in pain control and symptom management. 2. Deep venous thrombosis currently on anticoagulation. Ruled out trousseau syndrome with normal fibrinogen and platelets. Most likely secondary to compression from pelvic nodes. Had been on Coumadin until had DVT while on Coumadin therapy. 03/09/17: We will look at long-term Fragmin for management of [place] [address] units daily. Will continue with 15,000 units daily with samples today and see the patient back on Monday. 03/13/17: Currently on Fragmin 15,000 units daily 03/14/17: Continues Fragmin. 03/16/17: Continues Fragmin 3. Drop in hemoglobin. 11/13/15: HGB- 10.4. Anemia work up drawn on 05/16/16: Retic 3.5%, EPO high and Fe and B12 normal. Most compatible with acute blood loss. 08/04/16: HGB- 7.8. Transfusion given 11/24/16: HGB- 8.5. She is to let our office know if she feels a transfusion would increase functioning. 12/01/16: HGB- 7.8-transfusion given 12/08/16: HGB- 10.4, feeling better post-transfusion. 12/22/16: HGB- 9.2, this is slowly decreasing. We will continue to follow. Suspect anemia secondary to blood loss plus Torisel. 01/19/17: HGB- 10.8. Had dropped to 8.0 on 01/12 and had transfusion 03/02/17: HGB- 8.1, HCT-26.2. Will transfuse. 03/09/17: HGB- 11.6, HCT-36.6 after transfusion 03/13/17: Hgb 11.8 03/14/17: Hgb 10.8. 03/15/17: Hgb 9.7. This is decreasing at the grade of 1 g per day. We'll check CBC today. Will also check stools for blood.. Will follow. 4. Osteopenia, as seen on bone density test approximately two years ago. Probably exacerbating sacral insufficiency fracture. 5. Sacral insufficiency fracture seen on MRI and CT. No evidence of metastatic disease does not appear to have significant pain from this fracture. Noted again on MRI, more prominent. S/P sacroplasty. 6. Femoral nerve radiculopathy with pain anterior leg and lateral leg. Began acutely the end of 12/2015. Not controlled with narcotics. Better with steroids and gabapentin started 02/02/16. From February 2016 to May 2016 pain was controlled with dexamethasone tapers and Gabapentin. 07/14/16: Acute exacerbation on 07/11/16. Restarted Gabapentin and dexamethasone. Fentanyl Patches were also added to her pain regimen. 10/20/16: Pain much improved. Off of Dexamethasone. Encouraged to change Fentanyl patches every three days. 10/27/16: Pain slightly higher today because of fall yesterday. 11/10/16: Pain is stable with current therapy. 11/24/16: Continues with pain. Will try decreasing cyclobenzaprine. 12/08/16: Pain rated as a 2 today. 12/22/16: Rates pain as a 6 today. This is causing more difficulty with weakness of the femoral nerve. Will continue to treat with opioids and follow. Prior area has been a radiated so we cannot use further radiation for this tumor. 01/19/17: Rates pain as a 3. Will continue present therapy. Refill pain meds. 01/26/17: Continues to rate pain as a 3. Continue opioids. 02/09/17: Pain rated as a 2 today. Continue same regimen for pain. 02/23/17: Continues with pain. 03/02/17: Increasing pain. In the past this is responded to steroids. Will give IV dexamethasone and send in prescription for dexamethasone. 03/09/17: Rates pain as an 8 today. Will give IV dexamethasone. Will increase gabapentin. New prescription for oxycodone and will go to 15 mg tablets. Increase Cymbalta to 30 mg tablets 3 per day. Increase gabapentin to 3 tablets daily. 03/13/17: Drugs reduced secondary to confusion. Will follow. 03/14/17: Increased pain tonight. Pain and anxiety management per hospitalist. 03/16/17: Fair night but increasing pain this morning. 7. Diabetes mellitus. Blood sugar 224 on 07/13/16. 02/23/17: GLUC- 189 03/02/17: GLUC- 190 03/09/17: GLU C-280 03/13/17: GLUC 207 03/14/17: Glucose 275 03/16/17: [id number] 8. Hypomagnesemia 12/22/16: Magnesium 1.5- will escribe supplementation. 01/19/17: Magnesium 1.5. 01/26/17: Magnesium 1.7 Will continue present therapy 02/09/17: Magnesium 1.6 02/23/17: MG-1.7 03/02/17: MG-1.7 03/09/17: MG-1.7 03/13/17: MG-1.7 03/14/17: MG- 1.5 03/15/17: MG1.8 9. Weight loss. Encourage nutritional supplements. 02/09/17: Weight 170.6, down 1.6 pounds in two weeks. Encouraged high nutrition supplements. 02/23/17: 171 pounds 03/02/17: 167.2 03/09/17: 164.8 03/13/17: 165 03/14/17: 167.64 10. Abnormal brain MRI. 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 She has edema in high frontal lobes and is symettrical It has been assoicated with Chemotherapy. Treatment is controlling blood pressure and withdraw offending agent. Last Torisel given 02/23. Decreased responsivenesss could be related to drugs or this. Will follow clinically and control symptoms. Do not feel this is PRES> See 03/14/17 note for information about PRES. Plan 1.Treatment: -- Keytruda when outpatient --Fragmin 15,000 units daily, initiated on 03/08/17. 2. Diagnostic Imaging: --PET scan at [facility] [place], completed 09/28/16. --CT of the C/A/P with IV contrast at [facility] [place], completed 02/23/17. --Bilateral screening mammogram, completed 03/03/15. --MRI of the pelvis at [facility] [place], completed on 09/27/16. --MRI of the lumbar spine at [facility] [place] completed on 09/27/16. --CT of the brain with NO IV contrast, on 02/23/17. 3. Labs to follow: --CBC, CMP, LDH, and MG weekly. --CA 125 and CEA (CEA R97.0, G89.3, CA 125 R97.1) 4. Referral to [facility] for the Palliative care program done on 03/06. Referral lost in data loss. manager retail sales contacting. Family has not had any contact at present. Need to have this set up and in place to transition from inpatient to home. . 5. Decrease drugs and follow pain. Patient examined Chart reviewed. I participated in the development of the plan of care of this patient. <Han Odonnell - 03/23/17 19:27> - Time Spent With Patient Total time spent is greater than 50% in coordination of care (as documented) at patient's floor/unit and/or counseling patient: <Leonie Torres - 04/24/17 08:33> Total time spent is greater than 50% in coordination of care (as documented) at patient's floor/unit and/or counseling patient: <Han Odonnell - 03/16/17 07:13> less than 15 minutes <Leonie Torres - 04/18/17 08:05> Sepsis Assessment - Evaluation Sepsis screening result: No Definite Risk <Han Odonnell - 03/16/17 07:13>
[2017-03-16] MEDS: INSULIN ASPART 100unit/ml INJECTION SQ PRN ×2 (07:22→11:19)
[2017-03-16] MEDS: SERTRALINE 25 MG TABLET PO SCH (08:07)
[2017-03-16] MEDS: GABAPENTIN 300 MG CAPSULE PO SCH (08:07)
[2017-03-16] MEDS: [UNRECOGNIZED DRUG - OTHER] SQ SCH (08:08)
[2017-03-16] MEDS: DEXAMETHASONE 4 MG TABLET PO SCH (08:08)
[2017-03-16] MEDS: DULOXETINE 20 MG CAPSULE PO SCH (08:08)
[2017-03-16] MEDS: METFORMIN 1,000 MG TABLET PO SCH (08:08)
[2017-03-16] MEDS: SENNA + DOCUSATE TABLET PO SCH (08:09)
[2017-03-16 08:36] VITALS: BP 138/76; PULSE 86; TEMP 96.3; O2SAT 96
--- NOTE | 2017-03-16 12:07 | Discharge Instructions ---
Discharge Plan - Med Rec/Dispo Referrals/Follow Up: Han Odonnell MD [Physician] - (Per instructions of his office for chemotherapy) Papo Carranza MD [Primary Care Provider] - 1 Week [facility] Instructions: Weakness (GEN) Prescriptions: New Acetaminophen [Tylenol] 325 - 650 mg PO Q5H PRN tablet PRN Reason: Discomfort Dalteparin Sodium,Porcine [Fragmin] 15,000 unit SQ DAILY syringe LORazepam [Ativan] 1 mg PO QID PRN #30 tablet PRN Reason: Anxiety/Agitation Oxycodone *Ir* [Roxicodone *Ir*] 7.5 - 15 mg PO Q4H PRN #1 tablet PRN Reason: Pain Sertraline [Zoloft] 50 mg PO HS #30 tablet Haloperidol [Haldol] 1 mg PO Q4H PRN #20 tablet PRN Reason: Anxiety/Agitation Senna + Docusate [Senna Plus Tablet] 2 tab PO BID tablet Continue Gabapentin 300 mg PO TID #0 Magnesium Oxide [Magnesium] 1 tab PO BID Dexamethasone 4 mg PO DAILY Metformin HCl [Metformin HCl ER] 1,000 mg PO BID #90 tab Discontinued Docusate Sodium [Stool Softener] 200 tab PO BID #0 tab fentaNYL [Fentanyl] 1 each TD Q72H LORazepam [Ativan] 0.5 mg PO Q6HPRN PRN PRN Reason: Anxiety Oxycodone *Ir* [Roxicodone *Ir*] 15 mg PO Q3-4HR PRN PRN Reason: Pain Duloxetine HCl 30 mg PO DAILY #0 cap Discharge Instructions/Outpatient Orders: Final Provider Discharge Instructions Location: Determined By Patient - Disposition 01 Discharged Home, Self-Care
--- NOTE | 2017-03-16 17:58 | Discharge Summary ---
Discharge Information Date of admission: 03/13/17 13:33 Anticipated date of discharge: 03/16/17 Attending Physician: Padmini Alcala MD Primary care physician: Papo Huggins MD Consults: Hamilton Odonnell M.D. - Discharge Diagnosis Discharge Diagnosis: Toxic metabolic encephalopathy, due to multiple medication Endometrial carcinoma Dehydration Hyponatremia Chronic pain syndrome Anxiety/depression DVT Ambulatory dysfunction/generalized weakness Normocytic anemia Hypomagnesemia - Laboratory Labs: On admission white count was 9.5, hemoglobin 11.8, and platelet count 288,000. INR 1.21, electrolytes notable only for potassium of 5.0, BUN 32, and creatinine 0.9. Liver enzymes were unremarkable and troponin <0.012. Urinalysis on admission positive for trace ketones. Sodium dropped to 133 and magnesium 1.5 on 03/14. LDH was 287 on the date of discharge. TSH 0.51, free T4 2 0.08 on 03/15/17 03/16/17 08:02 03/16/17 08:02 - Radiology Radiology: Chest x-ray on 03/13/17 revealed no acute cardiopulmonary disease. Right IJ Port- A-Cath present. CT of the head/brain without contrast demonstrated patchy areas of decreased density in the deep white matter consistent with chronic microvascular ischemia. No acute pathology present. MRI of the head/brain with and without contrast on 03/13: There are subtle areas of slightly restricted diffusion suspected in the high convexities in the posterior frontal regions appearing to represent subtle mismatches. These could receive of represent small watershed acute or subacute small vascular insults but no enhancement is seen to suggest luxury perfusion. These could even represent normal variants. No other evidence of acute or subacute ischemic insults are seen. There is no evidence of enhancing mass, transcortical infarction hemorrhage, or extracerebral fluid collections. There are normal flow voids in the arteries of the base the brain. Posterior fossa structures unremarkable. Cerebellopontine angles satisfactory appearance. Cavernous sinuses enhance symmetrically. Paranasal sinuses and mastoid air cells are well pneumatized Impression: 1. Subtle area of restricted diffusion in the high convexities bifrontally. Differential considerations and include an atypical form of PRES (posterior reversible encephalopathy syndrome), cerebritis, and less likely, atypical subacute are nonacute watershed zone ischemia. 2. Mild atrophic changes. History of Present Illness HPI: This is a 71 y/o female with a history of endometrial cancer diagnosed 07/27 who is cared for by Dr. Coffey. The patient saw Dr. coffey this past and the net effect of that appointment is the Tylenol containing pain med was stopped and the oxycodone increased from 10 to 15 mg per dose. The patient's Cymbalta was increased from bid to tid, the Neurontin was increased from bid to tid and dexamethasone increased from 2 to 4 mg per dose. Since then the patient has increased confusion and po intake. The patient is brought into the ED and a CT head was unremarkable. The patient demonstrated pre renal azotemia. At this time she is to be admitted observation to address her recent encephalopathy. Hospital Course This is a general summary of the patient's hospital course. For more details refer to the complete medical record. Hospital course: Mrs. Lion was hospitalized with acute encephalopathy thought due to multiple medication changes made several days earlier to help with management of neuropathic pain associated with tumor mass in the right pelvis. Multiple medications were held initially. CT head was nonrevealing as were screening labs. Dr. Odonnell was consulted and it was elected to proceed with MR imaging of the brain to exclude metastatic disease. MR demonstrated some subtle abnormalities in the posterior frontal regions which radiology interpreted as possibly consistent with an atypical posterior reversible encephalopathy syndrome or cerebritis or less likely atypical subacute watershed ischemia. PRES was considered a potential side effect of recent chemotherapy; the patient has not been hypertensive or hypotensive at any point to anticipate standard posterior reversible encephalopathy or watershed ischemia. Mental status fluctuated throughout the stay with periods of lucency alternating with overt delirium in a pattern suggestive of sundowning. Family members indicated nights have been problematic for some period of time and that the pattern has worsened in recent weeks/months. Family felt that pain was less of an issue than anxiety and were resistant to administration of pain medications. Additionally they did not want the patient to continue Cymbalta but were open to alternate SSRI therapy. Sertraline was initiated at 25 mg daily with dose increased to 50 mg daily to be administered at bedtime prior to discharge to improve anxiety control and for generalized depression. Lorazepam will continue to be utilized as needed for anxiety and panic symptoms with short-term use of Haldol should it be necessary. Medications were reviewed with family members in detail during hospitalization. The patient required 3 people to assist with ambulation prior to admission. When lucid she was much more independent and able to walk with a walker and standby assistance. PT/OT worked with the patient throughout hospitalization recommending a front-wheeled walker and assistance with all activities. Patient was dehydrated on admission and treated with normal saline throughout the hospitalization. She additionally required magnesium supplementation for hypomagnesemia. Mild anemia evolved following hydration but was within the range seen prior to hospitalization and did not require intervention. Oral intake was poor initially and metformin held. Corrective insulin was utilized for management of hyperglycemia. Metformin was resumed at 50% home dose on 03/14 and increased to usual home dose on 03/15 as oral intake improved. Family was advised that blood sugars will run higher than usual for several days before normalizing due to interruption in usual dosing of metformin during the hospitalization. Patient has past history of DVT with recent identification of new DVT for which Fragmin had been initiated shortly before current hospitalization. Fragmin was continued throughout the hospitalization and at discharge. Dr. Odonnell anticipate initiating therapy with Keytruda when approval is obtained from the insurance company. Family is anxious to proceed with therapy. Palliative care consult to help with symptomatic management was discussed with the family and will be obtained after they return home. On the date of discharge the patient was resting comfortably and sleeping each time I visited in her room and spoke with family members. Family indicated that she continued to have behavioral problems and confusion overnight but that it was not as bad as prior nights. They anticipate less difficulty at home when she returns to a familiar environment. The patient had improved oral intake again last night. The patient was in no distress and was sleeping comfortably. Respirations were nonlabored with decreased airflow present. Cardiac rhythm regular. Abdomen soft. No peripheral edema was present. Stable for discharge at this time. Family hopes to arrange for hospital bed and bedside commode. They are aware that these will need to be arranged privately as she does not meet Medicare criteria for equipment. She is to follow-up with Dr. Odonnell per instructions of his office for chemotherapy and with Dr. Huggins in 1-2 weeks for general reassessment. Time spent with patient: discharge greater than 30 minutes Discharge Plan - Med Rec/Dispo Referrals/Follow Up: Papo Huggins MD [Primary Care Provider] - 1 Week (PLEASE CALL AND SCHEDULE AN APPOINTMENT WITH DR. PAPO HUGGINS 1 WEEK OUT. (FAMILY STATES THEY WILL MAKE APPOINTMENT)) Han Odonnell MD [Physician] - (Per instructions of his office for chemotherapy FOLLOW UP APPOINTMENT WITH DR. ODONNELL PER HIS OFFICE, ) [facility] Instructions: Weakness (GEN) Prescriptions: New Acetaminophen [Tylenol] 325 - 650 mg PO Q5H PRN tablet PRN Reason: Discomfort Dalteparin Sodium,Porcine [Fragmin] 15,000 unit SQ DAILY syringe LORazepam [Ativan] 1 mg PO QID PRN #30 tablet PRN Reason: Anxiety/Agitation Oxycodone *Ir* [Roxicodone *Ir*] 7.5 - 15 mg PO Q4H PRN #1 tablet PRN Reason: Pain Sertraline [Zoloft] 50 mg PO HS #30 tablet Haloperidol [Haldol] 1 mg PO Q4H PRN #20 tablet PRN Reason: Anxiety/Agitation Senna + Docusate [Senna Plus Tablet] 2 tab PO BID tablet Continue Gabapentin 300 mg PO TID #0 Magnesium Oxide [Magnesium] 1 tab PO BID Dexamethasone 4 mg PO DAILY Metformin HCl [Metformin HCl ER] 1,000 mg PO BID #90 tab Discontinued Docusate Sodium [Stool Softener] 200 tab PO BID #0 tab fentaNYL [Fentanyl] 1 each TD Q72H LORazepam [Ativan] 0.5 mg PO Q6HPRN PRN PRN Reason: Anxiety Oxycodone *Ir* [Roxicodone *Ir*] 15 mg PO Q3-4HR PRN PRN Reason: Pain Duloxetine HCl 30 mg PO DAILY #0 cap Discharge Instructions/Outpatient Orders: Final Provider Discharge Instructions Location: Determined By Patient - Disposition 01 Discharged Home, Self-Care
== END 2017-03-16 14:25 | disposition home or self-care (01) | DRG 92 ==
LOC: MED 00:02 → ED 00:02 → MED 03:42
PROVIDERS: ADMIT Emergency Medicine; ATTEND Internal Medicine